=== PATIENT | female | born 1970 | race Caucasian/White ===

== ENCOUNTER → 2017-10-29 08:10 | Outpatient (CLI) | payer BC, SELFPAY ==
[2017-10-29 12:14] LABS: Anion Gap 8 (5-15); BUN 18 mg/dL (7-18); Calcium,Total 8.9 mg/dL (8.5-10.1); Chloride 101 mmol/L (98-107); Cholesterol 221 mg/dL (200); EST Glomerular Filtration Rate 71 mL/min (>60); Est Glom Filt Rate - Afr Amer 85 mL/min (>60); Glucose 76 mg/dL (74-106); High Density Lipoprotein 54 mg/dL; Potassium 3.6 mmol/L (3.5-5.1); Sodium Level 139 mmol/L (136-145); Triglycerides 146 mg/dL; Very Low Density Lipoprotein 29 mg/dL (5-40)
== END ==
PROVIDERS: Family Provider Family Medicine; PCP Family Medicine; Visit Provider Family Medicine
DX: I10 Essential (primary) hypertension (principal); E78.5 Hyperlipidemia, unspecified
CPT/HCPCS: 36415; 80048; 80061

== ENCOUNTER → 2018-08-28 16:00 | Outpatient (CLI) | payer BC, SELFPAY ==
--- NOTE | 2018-08-28 16:03 | BI_ITS ---
MAMMOGRAPHY - BILATERAL SCREENING REASON FOR EXAM: Female, 47 years old. Routine annual screening examination. PERTINENT HISTORY: Grandmother with breast cancer. TECHNIQUE: Digital bilateral breast krystin (3D mammographic acquisition) in the CC and MLO projections. 2-D mediolateral oblique (MLO) and craniocaudad (CC) views of both breasts were obtained. CAD: Full Field Digital Mammography with Computer Added Detection was performed. COMPARISON: Comparison is made with prior study dated July 04, 2017 and June 07, 2016. FINDINGS: Breast Composition: There are scattered areas of fibroglandular density. There is a 5.4 mm x 4 mm well-defined nodule in the inferior medial aspect of the left breast. Correlation with ultrasound is recommended. Stable appearance of the small bilateral axillary lymph nodes. No other significant abnormalities are identified. BI/SCREENING MAMM (CAD), BILAT IMPRESSION: 4 mm x 5.4 mm well-defined nodule in the inferior medial aspect of the left breast as described. Correlation with ultrasound is recommended. ASSESSMENT CATEGORY: BIRADS Category 0: Incomplete. Need additional imaging evaluation. A letter regarding these results will be sent to the patient by the facility within 30 days. Approximately 10% of breast cancers are not detected by mammography. A normal mammogram should not delay biopsy of a clinically suspicious abnormality. [id number] Electronically Signed: Armando Davalos MD at 8:40 EST , Service support ,
== END ==
PROVIDERS: Family Provider Family Medicine; PCP Family Medicine; Referring Provider Family Medicine; Visit Provider Family Medicine
DX: Z12.31 Encounter for screening mammogram for malignant neoplasm of breast (principal)
CPT/HCPCS: 77063; 77067

== ENCOUNTER → 2018-09-01 14:43 | Outpatient (CLI) | payer BC, SELFPAY ==
--- NOTE | 2018-09-01 14:48 | US_ITS ---
STUDY: ULTRASOUND BREAST - LEFT REASON FOR EXAM: Female, 47 years old. Abnormal screening mammogram. TECHNIQUE: Axial and longitudinal images of the LEFT breast were performed with a high resolution ultrasound transducer. COMPARISON: Comparison is made with prior mammogram dated February 25, 2019. FINDINGS: LEFT Breast: The mammographic abnormality corresponds to a 4 mm x 4 mm x 3 mm cyst at the 8:00 position of the breast at 3 cm from the nipple. US/Breast Limited Unilateral IMPRESSION: The mammographic abnormality corresponds to a 4 mm x 4 mm x 3 mm cyst at the 8:00 position of the breast at 3 cm from nipple. ASSESSMENT CATEGORY: BIRADS Category 2: Benign. A letter regarding these results will be sent to the patient by the facility within 30 days. Electronically Signed: Armando Davalos MD at 15:21 EST , Service support ,
== END ==
PROVIDERS: Family Provider Family Medicine; PCP Family Medicine; Referring Provider Family Medicine; Visit Provider Family Medicine
DX: R92.8 Other abnormal and inconclusive findings on diagnostic imaging of breast (principal)
CPT/HCPCS: 76642

== ENCOUNTER → 2018-11-17 15:33 | Outpatient (CLI) | payer BC, SELFPAY ==
[2018-11-17 17:24] LABS: Absolute Lymphocyte Count 2.53 X10^3/ul (0.83-4.51); Absolute Neutrophil Count 3.9 X10^3/uL (2.0-7.7); Basophil# 0.09 X10^3/uL; Basophil% 1.2 % (0-1); Eosinophil# 0.26 X10^3/uL; Eosinophils% 3.6 % (0-5); Hemoglobin 15.8 g/dl (12.0-15.0); Lymphocyte # 2.53 X10^3/ul (4.0); Lymphocyte % 34.8 % (19-41); Mean Corp Hgb Conc 34.3 g/gl (32-36); Mean Corpuscular Hgb 28.6 pg (27.0-32.0); Mean Corpuscular Volume 83.2 fL (81-99); Mean Platelet Vol. 9.6 fl (6.2-12.0); Monocyte# 0.45 X10^3/uL; Monocyte% 6.2 % (0-10); Neutrophil # 3.94 X10^3/uL (2.7-7.7); Neutrophil % 54.1 % (47-70); Platelet Count 411 K/mm3 (150-450); RBC Distribution Width CV 12.6 % (11.6-14.6); RBC Distribution Width SD 38.1 fl (35.1-43.9); Red Blood Count 5.53 M/mm3 (4.2-5.4); White Blood Count 7.3 K/mm3 (4.4-11.0)
[2018-11-17 17:31] LABS: POSITIVE COUNT NO; POSITIVE DIFFERENTIAL NO; POSITIVE MORPHOLOGY NO
[2018-11-17 17:47] LABS: ALB/GLOB Ratio 1.1 RATIO (0.9-2.4); AST(SGOT) 27 U/L (15-37); Alanine Aminotransfer ALT/SGPT 42 U/L (13-56); Albumin, Serum 4.1 g/dL (3.2-5.0); Alkaline Phosphatase 65 U/L (45-117); Anion Gap 8 (5-15); BUN 14 mg/dL (7-18); BUN/Creat Ratio 16.1 RATIO (10-20); Calcium,Total 8.8 mg/dL (8.5-10.1); Chloride 101 mmol/L (98-107); Cholesterol 275 mg/dL (200); Creatinine, Serum 0.87 mg/dL (0.55-1.02); EST Glomerular Filtration Rate 73 mL/min (>60); Est Glom Filt Rate - Afr Amer 88 mL/min (>60); Estradiol 31.4 pg/mL; Globulin 3.8 g/dL (2.2-4.2); Glucose 95 mg/dL (74-106); High Density Lipoprotein 51 mg/dL; Potassium 3.7 mmol/L (3.5-5.1); Protein, Total 7.9 g/dL (6.4-8.2); Sodium Level 138 mmol/L (136-145); Thyroid Stim Hormone (TSH) 1.91 uIU/mL (0.358-3.74); Triglycerides 150 mg/dL; Very Low Density Lipoprotein 30 mg/dL (5-40)
[2018-11-17 17:50] LABS: Progesterone Level 1.25 ng/mL (See Comment); Vitamin D,25 Hydroxy 51.8 ng/mL (29.95-100.01)
== END ==
PROVIDERS: Family Provider Family Medicine; PCP Family Medicine; Visit Provider Family Medicine
DX: Z00.00 Encounter for general adult medical examination without abnormal findings (principal); E55.9 Vitamin D deficiency, unspecified; N92.0 Excessive and frequent menstruation with regular cycle
CPT/HCPCS: 36415; 80053; 80061; 82306; 82670; 84144; 84443; 85025

== ENCOUNTER → 2020-05-12 16:30 | Outpatient (CLI) | payer BC, SELFPAY ==
--- NOTE | 2020-05-12 16:54 | BI_ITS ---
MAMMOGRAPHY - BILATERAL SCREENING REASON FOR EXAM: Female, 49 years old. Routine annual screening examination. PERTINENT HISTORY: Grandmother with breast cancer. TECHNIQUE: Digital bilateral breast mikayla (3D mammographic acquisition) in the CC and MLO projections. 2-D mediolateral oblique (MLO) and craniocaudad (CC) views of both breasts were obtained. CAD: Full Field Digital Mammography with Computer Added Detection was performed. COMPARISON: Comparison is made with prior study dated 08/28/2018 and 07/04/2017. FINDINGS: Breast Composition: There are scattered areas of fibroglandular density. There are no dominant masses or suspicious calcifications. Stable 5.4 mm x 4 mm well-defined nodule in the inferior medial deep portion of the left breast. Prior ultrasound demonstrated this to be a small cyst. Stable small benign appearing bilateral axillary lymph nodes. No other significant abnormalities are identified. There has been no significant change since the prior study. BI/SCREEN MAMM (CAD) W/MIKAYLA BILAT IMPRESSION: Stable bilateral screening mammogram. Yearly follow-up mammogram recommended. (A) ASSESSMENT CATEGORY: BIRADS Category 2: Benign. A letter regarding these results will be sent to the patient by the facility within 30 days. Approximately 10% of breast cancers are not detected by mammography. A normal mammogram should not delay biopsy of a clinically suspicious abnormality. [id number] Electronically Signed: Armando Davalos, at 12:57 EDT , Service support ,
== END ==
PROVIDERS: PCP Family Medicine; Referring Provider Family Medicine; Visit Provider Family Medicine
DX: Z12.31 Encounter for screening mammogram for malignant neoplasm of breast (principal)
CPT/HCPCS: 77063; 77067

== ENCOUNTER → 2020-05-30 | Outpatient (CLI) | payer BC, SELFPAY ==
[2020-06-08 09:11] LABS: HPV Reflexed? NOT INDICATED
== END | disposition home or self-care (01) ==
LOC: BFHLAB 05-31 07:57
PROVIDERS: PCP Family Medicine; Visit Provider Family Medicine
DX: Z12.4 Encounter for screening for malignant neoplasm of cervix (principal)
CPT/HCPCS: 88175; G0145

== ENCOUNTER → 2020-07-12 14:15 | Outpatient (CLI) | payer BC, SELFPAY ==
[2020-07-12 13:40] VITALS: BMI 30.5
[2020-07-12 14:42] LABS: Absolute Lymphocyte Count 2.92 X10^3/uL (0.83-4.51); Absolute Neutrophil Count 4.6 X10^3/uL (2.0-7.7); Basophil# 0.06 X10^3/uL; Basophil% 0.7 % (0-1); Eosinophil# 0.28 X10^3/uL; Eosinophils% 3.2 % (0-5); Hematocrit 45.2 % (37-47); Lymphocyte # 2.92 X10^3/ul (4.0); Lymphocyte % 33.8 % (19-41); Mean Corp Hgb Conc 33.2 g/dL (32-36); Mean Corpuscular Hgb 28.9 pg (27.0-32.0); Mean Corpuscular Volume 87.1 fL (81-99); Mean Platelet Vol. 9.5 fl (6.2-12.0); Monocyte# 0.74 X10^3/uL; Monocyte% 8.6 % (0-10); NRBC Flagged by Analyzer 0 % (0-5); Neutrophil % 53.4 % (47-70); Platelet Count 347 K/mm3 (150-450); RBC Distribution Width CV 12.2 % (11.6-14.6); RBC Distribution Width SD 38.7 fl (35.1-43.9); Red Blood Count 5.19 M/mm3 (4.2-5.4); White Blood Count 8.6 K/mm3 (4.4-11.0)
[2020-07-12 15:09] LABS: Thyroid Stim Hormone (TSH) 2.22 uIU/mL (0.358-3.74)
== END ==
PROVIDERS: PCP Family Medicine; Referring Provider Obstetrics & Gynecology; Visit Provider Obstetrics & Gynecology
DX: Z13.29 Encounter for screening for other suspected endocrine disorder (principal); N93.9 Abnormal uterine and vaginal bleeding, unspecified
CPT/HCPCS: 36415; 84443; 85025

== ENCOUNTER → 2020-07-18 15:43 | Outpatient (CLI) | payer BC, SELFPAY ==
[2020-07-12 13:40] VITALS: BMI 30.5
--- NOTE | 2020-07-18 15:51 | US_ITS ---
Abnormal uterine bleeding. Heavy clots lasting 3 weeks EXAMINATION: US Pelvis Non OB Complete With Transvaginal Imaging TECHNIQUE: Transabdominal and transvaginal (for optimal evaluation of the adnexa) pelvic ultrasound was performed. Grayscale, spectral waveform, and color flow Doppler evaluation of the adnexa. COMPARISON: August 25, 2012 FINDINGS: UTERUS: anteverted. The uterus measures 10.4 x 6.8 x 6.2 cm. Multiple areas of decreased echogenicity within the uterus the largest measuring 1.2 x 1.7 x 0.9 cm most compatible with uterine fibroids. Hypercholic nodules are seen throughout the uterus most likely representing adenomyosis Nabothian cysts are seen within the cervix The endometrial stripe measures 6.9 mm in AP diameter which is within normal limits. Increased echogenicity of the endometrium and is slightly heterogenous. No increased echogenicity RIGHT OVARY: 3.2 x 2.1 x 1.9 cm with a volume of 17.24 mL. Non-enlarged, normal echogenicity. Simple appearing cyst measuring 2 x 2 x 1.2 cm vascular flow is noted LEFT OVARY: 2.9 x 2.6 x 1.4 cm with a volume of 13.03 mL. Non-enlarged, normal echogenicity. Vascular flow is noted FREE FLUID: None. US/Pelvic (Non ) IMPRESSION: Hyperechoic heterogenous endometrium with vascularity. Endometrium is not thickened. Suspect adenomyosis Uterine fibroids Nabothian cysts in the cervix Appearing cyst right ovary at 0329 Reported and signed by: Mackenzie Manuel DO Electronically Signed: Mackenzie Manuel DO at 3:27 EST Tel , Service support ,
--- NOTE | 2020-07-18 15:51 | US_ITS ---
Abnormal uterine bleeding. Heavy clots lasting 3 weeks EXAMINATION: US Pelvis Non OB Complete With Transvaginal Imaging TECHNIQUE: Transabdominal and transvaginal (for optimal evaluation of the adnexa) pelvic ultrasound was performed. Grayscale, spectral waveform, and color flow Doppler evaluation of the adnexa. COMPARISON: August 25, 2012 FINDINGS: UTERUS: anteverted. The uterus measures 10.4 x 6.8 x 6.2 cm. Multiple areas of decreased echogenicity within the uterus the largest measuring 1.2 x 1.7 x 0.9 cm most compatible with uterine fibroids. Hypercholic nodules are seen throughout the uterus most likely representing adenomyosis Nabothian cysts are seen within the cervix The endometrial stripe measures 6.9 mm in AP diameter which is within normal limits. Increased echogenicity of the endometrium and is slightly heterogenous. No increased echogenicity RIGHT OVARY: 3.2 x 2.1 x 1.9 cm with a volume of 17.24 mL. Non-enlarged, normal echogenicity. Simple appearing cyst measuring 2 x 2 x 1.2 cm vascular flow is noted LEFT OVARY: 2.9 x 2.6 x 1.4 cm with a volume of 13.03 mL. Non-enlarged, normal echogenicity. Vascular flow is noted FREE FLUID: None. US/Transvaginal Non- IMPRESSION: Hyperechoic heterogenous endometrium with vascularity. Endometrium is not thickened. Suspect adenomyosis Uterine fibroids Nabothian cysts in the cervix Appearing cyst right ovary at 0329 Reported and signed by: Mackenzie Manuel DO Electronically Signed: Mackenzie Manuel DO at 3:27 EST Tel , Service support ,
== END ==
PROVIDERS: PCP Family Medicine; Referring Provider Obstetrics & Gynecology; Visit Provider Obstetrics & Gynecology
DX: N93.9 Abnormal uterine and vaginal bleeding, unspecified (principal); N88.8 Other specified noninflammatory disorders of cervix uteri; N83.201 Unspecified ovarian cyst, right side; D25.9 Leiomyoma of uterus, unspecified
CPT/HCPCS: 76830; 76856

== ENCOUNTER → 2020-07-27 | Outpatient (CLI) | payer BC, SELFPAY ==
--- NOTE | 2020-07-27 | EMB_PTH ---
PATIENT: KATHRYN CORTEZ LOC: [facility] U#:[id number] AGE/SX: 49/F ROOM: RE07/27/[address]: Dr. Kristie Rawls MD : 1970 BED: DIS: 07/27/2020 SPEC #: [id number] RECD: 07/27/20 16:28 STATUS: PRAVEENA REGardenia #: [id number] HUGH: 07/27/20 00:[address]: Kristie Rawls DEPT: SURGICAL PATHOLOGY RECD BY: Ferny Mondragon ENTERED: 07/28/20 07:33 SP TYPE: ENDOM BX/C CHRIS DR: Dr. Tristin Montaño DO Tissues: Endometrium, NOS Procedures: Surgery Specimen Level IV HEADER OPERATION: Endometrial biopsy PRE-OP DIAGNOSIS: Abnormal uterine bleeding TISSUE SUBMITTED: Endometrial biopsy MICROSCOPIC DIAGNOSIS Endometrium, biopsy: Transition endometrium with stromal and focal glandular breakdown. AM:chito 08/01/20 MICROSCOPIC DESCRIPTION Slides are reviewed. GROSS DESCRIPTION Received is one container labeled with the patient's name and not further designated. The specimen consists of multiple fragments of hemorrhagic soft tissue mixed with morales mucoid tissue that in aggregate measure 3 x 2.5 x 0.3 cm. The specimen is totally submitted in one cassette. / SJ:chito 07/28/20 TC:5 CPT: 41209
[2020-07-27 15:15] VITALS: BMI 30.9
== END | disposition home or self-care (01) ==
LOC: LABSPEC 16:53
PROVIDERS: PCP Family Medicine; Visit Provider Obstetrics & Gynecology
DX: N93.9 Abnormal uterine and vaginal bleeding, unspecified (principal)
CPT/HCPCS: 88305; J7030

== ENCOUNTER 2020-08-09 05:18 | Day surgery (SDC) | payer BC, SELFPAY ==
[2020-07-27 15:15] VITALS: BMI 30.9
--- NOTE | 2020-08-04 13:42 | EKG12_ITS ---
Test Reason : PREOP Blood Pressure : / mmHG Vent. Rate : 082 BPM Atrial Rate : 082 BPM P-R Int : 154 ms QRS Dur : 096 ms QT Int : 386 ms P-R-T Axes : 036 007 014 degrees QTc Int : 450 ms Normal sinus rhythm with sinus arrhythmia Normal ECG Confirmed by CHARANJIT DEVRIES, MONICA ([id number]), assignment desk editor TALA FANG ([id number]) on 08/08/2020 9:33:31 AM Referred By: Kristie Rawls Confirmed By:LOLY DONOHUE MD
[2020-08-08 15:05] LABS: Hematocrit 42.7 % (37-47); Hemoglobin 13.8 g/dL (12.0-15.0); Mean Corp Hgb Conc 32.3 g/dL (32-36); Mean Corpuscular Hgb 27.8 pg (27.0-32.0); Mean Corpuscular Volume 85.9 fL (81-99); Mean Platelet Vol. 9.4 fl (6.2-12.0); Platelet Count 350 K/mm3 (150-450); RBC Distribution Width CV 11.8 % (11.6-14.6); RBC Distribution Width SD 37.2 fl (35.1-43.9); Red Blood Count 4.97 M/mm3 (4.2-5.4); White Blood Count 8.2 K/mm3 (4.4-11.0)
[2020-08-08 15:18] LABS: Anion Gap 6 (5-15); BUN 13 mg/dL (7-18); BUN/Creat Ratio 15.4 RATIO (10-20); Calcium,Total 9.1 mg/dL (8.5-10.1); Chloride 103 mmol/L (98-107); Creatinine, Serum 0.84 mg/dL (0.55-1.02); EST Glomerular Filtration Rate 76 mL/min (>60); Est Glom Filt Rate - Afr Amer 91 mL/min (>60); Glucose 101 mg/dL (74-106); Magnesium 2.2 mg/dL (1.6-2.6); Potassium 3.5 mmol/L (3.5-5.1); Sodium Level 138 mmol/L (136-145)
[2020-08-09] VITALS (10 sets, daily range): BP systolic 125–162; BP diastolic 79–96; PULSE 51–101; RESP 16–18; TEMP 36.2–37.3; O2SAT 94–100; BMI 30.5
--- NOTE | 2020-08-09 | IMM_PTH ---
PATIENT: KATHRYN CORTEZ [place] [facility] [id number] AGE/SX: 49/F ROOM: RE08/09/[address]: Dr. Kristie Rawls MD : 1970 BED: DIS: 08/09/2020 SPEC #: [id number] RECD: 08/10/20 11:15 STATUS: PRAVEENA REQ #: [id number] HUGH: 08/09/20 00:[address]: Kristie Rawls DEPT: IMMUNOHISTOCHEMISTRY RECD BY: Veronica Mcnally ENTERED: 08/10/20 11:16 SP TYPE: IMMUNO OTHR DR: Dr. Tristin Montaño, DO Tissues: Uterus, NOS Procedures: p16 (initial) KI-67 (add) P16 (add) PHYSICIAN & INSTITUTION [place] [id number] SPECIMEN INFORMATION: Tissue Source: Uterus Clinical Info: Dysplasia, low-grade (BRIANDA 1), abnormal uterine bleeding, adenomyosis Specimen Number: [id number] #1 & 4 CPT code: 50811, 80738 x3 METHODOLOGY: Deparaffinized sections of prefer/formalin-fixed tissue or PAP/DQ stained slides are incubated with monoclonal/polyclonal antibodies/oligonucleotide probes. Localization is made via biotin free immunoperoxidase method. Appropriate controls are performed and reacted as expected. Results on target cell population are indicated in the following table: RESULTS: ANTIBODY / CLONE RESULT Block 1 P16 (E6H4) positive, focal, patchy Ki-67 (30-9) negative Block 4 P16 (E6H4) negative Ki-67 (30-9) negative These tests were developed and their performance characteristics determined by [facility]. They may not have been cleared or approved by the U.S. Food and Drug Administration. The FDA has determined that such clearance or approval is not necessary. The above immunohistochemical/dualISH markers are ordered and reviewed by the Pathologist. INTERPRETATION: Uterus, hysterectomy: Focal HPV change present. AM:chito 08/11/2020
--- NOTE | 2020-08-09 | HYST_PTH ---
PATIENT: KATHRYN CORTEZ LOC: [facility] [place] U#:[id number] AGE/SX: 49/F ROOM: RE08/09/[address]: Dr. Kristie Rawls MD : 1970 BED: DIS: 08/09/2020 SPEC #: [id number] RECD: 08/09/20 11:43 STATUS: PRAVEENA REGardenia #: [id number] HUGH: 08/09/20 00:[address]: Kristie Rawls DEPT: SURGICAL PATHOLOGY RECD BY: Ferny Mondragon ENTERED: 08/09/20 11:43 SP TYPE: HYSTERECT OTHR DR: Dr. Tristin Montaño, DO Tissues: Uterus, NOS Procedures: Surgery Specimen Level V HEADER OPERATION: ERAS, vaginal hysterectomy, salpingectomy PRE-OP DIAGNOSIS: Dysplasia of cervix, low-grade (BRIANDA 1); abnormal uterine bleeding; adenomyosis; uterine fibroid TISSUE SUBMITTED: Uterus, bilateral fallopian tubes MICROSCOPIC DIAGNOSIS Uterus, hysterectomy: Cervix - focal HPV change present. Squamous metaplasia and chronic inflammation. See comment. Endometrium - Weakly proliferative endometrium. Focal simple hyperplasia without atypia. Myometrium - adenomyosis One fallopian tube - no pathologic change. Other fallopian tube - benign paratubal cyst. AM:chito 08/10/2020 COMMENT Results from immunohistochemistry ([id number]) for surrogate HPV marker (p16) will be reported separately. Surgical margins are free of dysplasia. Case has been reviewed in consultation with Dr. Liriano who concurs with the above diagnosis. IDC:SJ MICROSCOPIC DESCRIPTION Slides are reviewed. GROSS DESCRIPTION Received in fixative is one container labeled with the patient's name and designated uterus, bilateral fallopian tubes. The specimen consists of a hysterectomy specimen consisting of uterus with cervix and detached bilateral fallopian tubes. The uterus with cervix weighs 171 gm and measures 13 x 7 x 6 cm. The serosal surface is focally ragged. The ectocervical mucosa is unremarkable. The external os is oval and patulous in contour. Sections are inked black. The endocervical canal measures 4 cm in length and the endocervical mucosa is unremarkable. No mass lesion is identified. The triangular endometrial cavity measures 5.5 cm in length and up to 3 cm in width. The endometrium is morales, glistening without any mass lesion and measures 0.1 cm in thickness. Sections of the uterine wall do not reveal any mass lesion and shows trabeculated cut surfaces suspicious for adenomyosis. The uterine wall measures up to 3 cm in thickness. The fallopian tubes are not identified as right or left and measures 6 cm in length and 0.5 cm in diameter and 4 cm in length and 0.5 cm in diameter. The fimbrial end is identified. Sections reveal unremarkable cut surfaces. A paratubal cyst is noted in one of the fallopian tube which measures 1 cm in greatest dimension and filled with clear fluid. Services Engineer sections are submitted in 18 cassettes as follows: 1-12 - cervix as LEEP conization (1-3 - 12 to 3 o'clock, 4-6 - 3 to 6 o'clock, 6-9 - 6 to 9 o'clock, 912 - 9 to 12 o'clock, 13 & 14 - anterior uterine wall, 15 & 16 - posterior uterine wall, 17 - one fallopian tube, 18 - second fallopian tube and paratubal cyst. / MAGAN:chito 08/09/2020 TC:5 CPT: 49666
[2020-08-09] MEDS: Scopolamine 1mg/72hr Patch 1 PATCH TD (06:05)
[2020-08-09] MEDS: Phenazopyridine 95 MG Tablet 190 MG PO (06:05)
[2020-08-09] MEDS: Enoxaparin 40 MG/0.4 ML Syringe SC (06:05)
[2020-08-09] MEDS: Acetaminophen 500 MG Tablet 1000 MG PO ×2 (06:05→12:18)
[2020-08-09] MEDS: Gabapentin 600 MG Tablet PO (06:06)
[2020-08-09] MEDS: Lactated Ringers 1,000 ML 40 ML IV (06:09)
[2020-08-09] MEDS: dexAMETHasone 10 MG/ML Vial 8 MG IV (06:13)
[2020-08-09 06:25] LABS: Bedside Glucose 194 mg/dL (70-110)
[2020-08-09] MEDS: Insulin Lispro 100 UNIT/ML INSULN.PEN SC (06:52)
--- NOTE | 2020-08-09 06:58 | PCM.HPOB.BLA ---
- Problem List (1) Abnormal uterine bleeding Status: Acute Comment: labs and ultrasound ordered, discussed medical vs surgical management, due to fibroids and adenomyosis recommend hysterectomy. plan TVHBS (2) Adenomyosis Status: Acute Comment: plan TVH BS (3) Dysplasia of cervix, low grade (BRIANDA 1) Status: Acute Comment: repeat pap and hpv in 07/25. (4) Uterine fibroid Status: Acute History and Physical Date of Admission: 08/09/20 Intake Vital Signs 07/27/20 Height 5 ft 4 in 07/27/20 Weight: 180 lb 07/27/20 BMI 30.9 07/27/20 BP 133/90 H Intake Visit Reasons: EMB, ablation consult per SM Chief Complaint: surgical consult AUB Biochemical Development Engineer Required: No Is patient in pain?: No Allergies No Known Allergies Allergy (Verified 07/27/20 15:15) Medications biotin 10,000 mcg capsule mcg PO 07/12/20 [History Confirmed 07/27/20] carboxymethylcellulose sodium 0.25 % eye drops in a dropperette 1 drp OPHTHALMIC BID 07/12/20 [History Confirmed 07/27/20] cholecalciferol (vitamin D3) 125 mcg (5,000 unit) capsule 125 mcg PO DAILY 07/12/20 [History Confirmed 07/27/20] magnesium 200 mg tablet 200 mg PO DAILY 07/12/20 [History Confirmed 07/27/20] potassium 99 mg tablet mg PO 07/12/20 [History Confirmed 07/27/20] triamterene 37.5 mg-hydrochlorothiazide 25 mg capsule 1 cap PO DAILY 07/12/20 [History Confirmed 07/27/20] B-complex with vitamin C 1 tab PO DAILY 07/14/20 [History Confirmed 07/27/20] ashwagandha root extract 300 mg capsule 1,200 mg PO cap 07/14/20 [History Confirmed 07/27/20] valacyclovir 1 gram tablet 1,000 mg PO BID PRN 07/14/20 [History Confirmed 07/27/20] Is last menstrual period known: No Post menopausal: No Patient : No : No PFSH Medical History Colon cancer screening (Acute) Fatigue (Acute) Hyperlipemia (Acute) Paresthesia (Acute) Vitamin D deficiency (Acute) Hypertension (Chronic) Surgical History History of tonsillectomy (Acute) Family History Mother Congestive heart failure Heart disease Hypertension Kidney disease Lupus Arthritis Sjogrens syndrome Father Hypertension Grandmother Breast cancer Aunt Ovarian cancer Social History (Updated 07/30/20 @ 05:[address] 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 she has heavy prolonged cycles with some cramping. periods can last 3 weeks. Ultrasound shows fibroids and adenomyosis. she was originally considering an ablation but with the ultrasound findings she is not the ideal candidate Female Reproductive History Cycle Length: 21-35 Bleeding Duration: 21 associated symptoms: heayv and clots, irregular Questions: Metorrhagia: Yes, Sexually active: Yes, Dyspareunia: No, PCB: No Menopausal Symptoms: No night sweats Pregancy History 2 Elective abortions Hx Para 2 Spontaneous abortions Hx # Term Pregnancies Ectopic pregnancies Hx # Pregnancies Multiple births # of living children Past Pregnancies Del. Date Name GA/Weeks Outcome Route Bth Weight Gen Labor Lgth Anesthesia Del Locatn Provider FOB Unknown 1992 Ranjith live - full term Unknown 1995 Prasad live - full term ROS Const Constitutional: Denies fatigue, night sweats, weight gain or weight loss ENT ENT: Reports system reviewed and no additional complaints, except as docu Cardio Card: Denies chest pain Resp Resp: Denies cough or dyspnea GI GI: Reports as per HPI; denies constipation, nausea or vomiting : Reports as per HPI; denies nipple discharge, vaginal discharge, vaginal dryness, vaginal odor or vaginal itching Musc Musc: Denies joint pain, back pain or muscle weakness Skin Skin/Breast: Denies hair loss, change in hair, dry skin, breast lump, breast pain, breast skin changes or nipple discharge Neuro Neuro: Reports system reviewed and no additional complaints, except as docu Psych Psych: Reports system reviewed and no additional complaints, except as docu Endo Endo: Denies cold intolerance, excessive sweating, heat intolerance or increased thirst Bob/Lymph Hematologic/Lymphatic: Denies easy bleeding, Denies easy bruising, Denies enlarged lymph nodes Exam Const General: cooperative, healthy appearing, comfortable, no acute distress, well developed Orientation: alert [facility] Head: normal to inspection, normocephalic Ears: hearing grossly normal bilaterally, external ears normal Nose: external nose normal, nares normal Face and sinus: normal facial exam Neck Neck: normal visual inspection, no lymphadenopathy Thyroid: thyroid normal Chest Chest palpation & inspection: normal inspection of the chest Resp Effort & Inspection: normal respiratory effort Auscultation: clear to auscultation bilaterally Cardio Rate: regular rate Rhythm: regular rhythm Heart Sounds: S1 normal, S2 normal GI Inspection: normal to inspection, non-distended Palpation: soft, no hepatosplenomegaly General: bladder normal to palpation External Female Exam: normal external appearance, normal appearance of the urethra Urethra: normal appearance of the urethra, normal palpation, no discharge Speculum Exam - Vagina: normal appearance of the vagina, normal vaginal discharge Speculum Exam - Cervix: normal appearance of the cervix, nontender Bimanual Exam- Vagina & Uterus: normal bimanual exam, uterine size normal, bladder normal to palpation, uterine shape normal, No cervical tenderness, uterine mobility normal, uterine consistency normal, normal cervical palpation, uterus non-tender Bimanual Exam- Adnexa, other: normal adnexae, adnexae mobile, no adnexal masses, pelvic support normal Pelvic Support: normal Musc Other: gross motor intact no deficits, full bilateral strength Skin General: no rashes or lesions noted Neuro General: alert, awake, moves all extremities, no focal motor deficits Motor: muscle tone normal throughout Extrem General: normal to inspection, no pedal edema Psych Appearance: grossly normal Mental Status: mental status grossly normal Affect: normal affect Speech and Movement: speech and movement normal Office Procedures Endometrial Biopsy Endometrial Biopsy Details: Cervix prepped with betadine and pipelle inserted into uterus without complication. Specimen obtained and sent to lab for analysis. All instruments removed from vagina without complications. Excellent hemostasis noted. Assessment & Plan Problems 1. Dysplasia of cervix, low grade (BRIANDA 1) N87.0 repeat pap and hpv in 07/25. 2. Abnormal uterine bleeding N93.9 labs and ultrasound ordered, discussed medical vs surgical management, due to fibroids and adenomyosis recommend hysterectomy. plan TVHBS 3. Adenomyosis N80.0 plan TVH BS 4. Uterine fibroid D25.9 Plan After discussing the patient's diagnosis and treatment plan options, patient wishes to proceed with surgical management. I have discussed with the patient the risks, benefits, and alternatives of the procedure which include but are not limited to risks of anesthesia, bleeding, infection, possible damage to bowel, bladder, or surrounding vasculature which could lead to additional surgery to evaluate any complications. Patient agrees to procedure and wishes to proceed. ACOG/uptodate references given for additional information regarding procedure. Orders Orders: Endometrial Biopsy 07/27/20 Coding Level of Care Code Off vis,est,level 5 Diagnoses Dysplasia of cervix, low grade (BRIANDA 1) N87.0 Abnormal uterine bleeding N93.9 Adenomyosis N80.0 Uterine fibroid D25.9 UPDATE- I have seen the patient and performed any clinically relevant updates to the history and physical exam. Kristie Rawls MD
[2020-08-09] MEDS: Cefazolin 2 GM in 0.9% Normal Saline 100 ML IV (07:24)
--- NOTE | 2020-08-09 07:31 | OP.PCM_ITS ---
Problem List (1) Abnormal uterine bleeding Status: Acute Comment: labs and ultrasound ordered, discussed medical vs surgical management, due to fibroids and adenomyosis recommend hysterectomy. plan TVHBS (2) Adenomyosis Status: Acute Comment: plan TVH BS (3) Dysplasia of cervix, low grade (BRIANDA 1) Status: Acute Comment: repeat pap and hpv in 07/25. (4) Uterine fibroid Status: Acute Report of Operation Date of Procedure: 08/09/20 Pre-Operative Diagnosis: aub adenomyosis fibroid Post-Operative Diagnosis: same Surgery/Procedure Performed:: tvhbs Description of Surgical Findings:: enlarged fibroid uterus. straight line edger: Miguel Angel Pfeiffer Type of Anesthesia:: General Special Medications: none Specimen's removed: uterus bilateral tubes Drains: carlson Estimated Blood Loss (mL): 100 Fluids Replaced: crystalloid Description of Procedure: Patient was taken to the operating room and was placed under general anesthesia was prepped and draped in normal sterile fashion in the dorsal lithotomy position. Preoperative antibiotics and SCDs and Carlson catheter was placed inside the bladder. Weighted speculum was placed in the vagina and the anterior and posterior lip of the cervix was grasped with 2 Stu clamps and circumferentially injected with dilute vasopressin. A circumferential incision was made with a scalpel and the posterior cul-de-sac was entered into sharply and a longneck speculum was placed. The anterior cul-de-sac was also dissected down and entered into sharply and the uterosacral ligaments were clamped cut and suture ligated bilaterally followed by the cardinal ligaments which were Clamped cut and suture ligated bilaterally with 0 Monocryl. The uterus serially descended and progressive bites were taken bilaterally up to the level of the utero-ovarian ligament bilaterally which was clamped transected and double ligated with 0 Monocryl suture and 0 Vicryl free tie. Bilateral fallopian tubes and ovaries were well visualized and noted be within normal limits and the bilateral fallopian tubes were transected across the base with a Janeth clamp and removed and sutured with 0 Vicryl suture. additional sutures were placed over the bilateral lateral pedicales due to the thickened parametrium. Excellent hemostasis was noted. Posterior peritoneum was reapproximated posterior vaginal cuff and bilateral uterosacral ligaments across the posterior cul-de-sac skimming along to provide apical support to the vagina. The vagina was closed with [id number] 0 Vicryl pop offs including the posterior and anterior peritoneum in the reapproximation. Excellent hemostasis was noted. All instruments removed from the vagina clear urine was noted at the end of the procedure and patient was awoken and taken recovery in stable condition. Grafts/Implants Used: none - Complications none - Admit VTE Documentation VTE Present on Admission: No VTE Mechan Device Prophylaxis: SCD's Multi Select Codes - Urinary/Genital Urinary/Genital CPT Codes: 30403 TVH+BS/O <250gr uterus
[2020-08-09] MEDS: Vasopressin 20 UNITS/ML Vial (07:42)
[2020-08-09] MEDS: Lactated Ringers 1,000 ML 70 ML IV (08:00)
[2020-08-09] MEDS: Ondansetron 4 MG/2 ML Vial IV (08:44)
[2020-08-09] MEDS: FERRIC SUBSULFATE 8 GM SOLN (08:55)
--- NOTE | 2020-08-09 09:03 | DCINST_ITS ---
Discharge Diet: No Restrictions Discharge Activity: Return to Normal Activity, May Not Drive, May Shower May resume sexual activity in: 6-8 weeks Call your doctor if your incision/area has: Continuous Slow Oozing, Sudden Increased Bleeding, Increased Pain/ Swelling, Increased Redness, Foul Smelling Discharge Call your doctor if you observe: Fever of 101 or Higher, Inability to urinate, Inability to have a bowel movement, Using more than one pad per hour Allergies/Adverse Reactions: Allergies haloperidol [From Haldol] Adverse Reaction (Unknown, Verified 08/09/20 05:35) Pt's mom had reaction/Pt does not want rx Medications to take at Discharge biotin 10,000 mcg capsule 1 tab PO DAILY 07/12/20 cholecalciferol (vitamin D3) 125 mcg (5,000 unit) capsule 125 mcg PO DAILY 07/12/20 magnesium 200 mg tablet 200 mg PO DAILY 07/12/20 potassium 99 mg tablet 1 tab PO DAILY 07/12/20 triamterene 37.5 mg-hydrochlorothiazide 25 mg capsule 1 cap PO DAILY 07/12/20 valacyclovir 1 gram tablet 1,000 mg PO BID PRN 07/14/20 Ascorbic Acid [Vitamin C] 1,000 mg PO DAILY 08/03/20 Carboxymethylcellulose Sodium [Thera Tears] 15 ml OP DAILY 08/03/20 Cyclosporine [Cequa] 1 ea OP BID 08/03/20 Dextran 70/Hypromellose [Nature's Tears Eye Drops] 15 ml OP PRN PRN 08/03/20 Fluorometholone 1 ml OP BID 08/03/20 Naproxen [Naprosyn] 250 - 500 mg PO Q8H PRN PRN #30 tab 08/09/20 Oxycodone HCl/Acetaminophen [Percocet 5-325] 1 - 2 tab PO Q6H PRN PRN 7 Days #15 tab 08/09/20 The following prescriptions were given: Naproxen [Naprosyn] 250 - 500 mg PO Q8H PRN PRN #30 tab PRN Reason: MILD PAIN Transmission Status: Received by [facility] Oxycodone HCl/Acetaminophen [Percocet 5-325] 1 - 2 tab PO Q6H PRN PRN 7 Days #15 tab PRN Reason: Pain Transmission Status: Received by [facility] Primary Care Physician: Tristin Montaño DO [Primary Care Provider] - Test Results: Test results from this visit will be discussed in further detail at your follow- up appointment, if applicable. Please Follow Up With: Kristie Rawls MD - [phone]
[2020-08-09 09:26] LABS: Bedside Glucose 152 mg/dL (70-110)
[2020-08-09] MEDS: Ketorolac 30 MG/ML Syringe IV (10:03)
[2020-08-09 13:38] LABS: Hematocrit 43.2 % (37-47); Hemoglobin 14.4 g/dL (12.0-15.0); Mean Corp Hgb Conc 33.3 g/dL (32-36); Mean Corpuscular Hgb 28.2 pg (27.0-32.0); Mean Corpuscular Volume 84.5 fL (81-99); Mean Platelet Vol. 9.3 fl (6.2-12.0); Platelet Count 374 K/mm3 (150-450); RBC Distribution Width CV 11.8 % (11.6-14.6); RBC Distribution Width SD 36.4 fl (35.1-43.9); Red Blood Count 5.11 M/mm3 (4.2-5.4); White Blood Count 16.6 K/mm3 (4.4-11.0)
== END 2020-08-09 15:13 | disposition home or self-care (01) ==
LOC: SDC 05:19 → AC 05:19
PROVIDERS: Anesthesiology; PCP Family Medicine; Referring Provider Obstetrics & Gynecology; Visit Provider Obstetrics & Gynecology
PROC: (CPT 58260; principal; 2020-08-09 07:10)
DX: N80.0 Endometriosis of uterus (principal); N87.0 Mild cervical dysplasia; D25.9 Leiomyoma of uterus, unspecified; N83.8 Other noninflammatory disorders of ovary, fallopian tube and broad ligament; I10 Essential (primary) hypertension; E78.5 Hyperlipidemia, unspecified; E55.9 Vitamin D deficiency, unspecified; Z79.899 Other long term (current) drug therapy
CPT/HCPCS: 00944; 58262; 36415; 80048; 82962; 83735; 85027; 86850; 86900; 86901; 87426; 88307; 88341; 88342; 93005; C9803; J7120; J2405

== ENCOUNTER → 2021-06-16 07:13 | Outpatient (CLI) | payer BC, SELFPAY ==
--- NOTE | 2021-06-15 16:06 | BI_ITS ---
MAMMOGRAPHY - BILATERAL SCREENING REASON FOR EXAM: Female, 50 years old. Routine annual screening examination. PERTINENT HISTORY: Grandmother with breast cancer. TECHNIQUE: Digital bilateral breast mikayla (3D mammographic acquisition) in the CC and MLO projections. 2-D mediolateral oblique (MLO) and craniocaudad (CC) views of both breasts were obtained. CAD: Full Field Digital Mammography with Computer Added Detection was performed. COMPARISON: Comparison is made with prior study 05/12/2020 and 08/28/2018. FINDINGS: Breast Composition: There are scattered areas of fibroglandular density. There are no dominant masses or suspicious calcifications. Stable benign-appearing bilateral axillary lymph nodes. No other significant abnormalities are identified. There has been no significant change since the prior study. BI/SCRN MAMM (CAD)W/MIKAYLA BILAT IMPRESSION: Stable bilateral screening mammogram. Yearly follow-up mammogram recommended. (A) ASSESSMENT CATEGORY: BIRADS Category 2: Benign. A letter regarding these results will be sent to the patient by the facility within 30 days. Approximately 10% of breast cancers are not detected by mammography. A normal mammogram should not delay biopsy of a clinically suspicious abnormality. [id number] Electronically Signed: Armando Davalos MD at 8:48 EST , Service support ,
== END ==
PROVIDERS: PCP Family Medicine; Referring Provider Family Medicine; Visit Provider Family Medicine
DX: Z12.31 Encounter for screening mammogram for malignant neoplasm of breast (principal)
CPT/HCPCS: 77063; 77067

== ENCOUNTER → 2022-06-19 | Outpatient (CLI) | payer BC, SELFPAY ==
--- NOTE | 2022-06-19 15:50 | BI_ITS ---
MAMMOGRAPHY - BILATERAL SCREENING REASON FOR EXAM: Female, 51 years old. Routine annual screening examination. PERTINENT HISTORY: Grandmother with breast cancer. TECHNIQUE: Digital bilateral breast mikayla (3D mammographic acquisition) in the CC and MLO projections. 2-D mediolateral oblique (MLO) and craniocaudad (CC) views of both breasts were obtained. CAD: Full Field Digital Mammography with Computer Added Detection was performed. COMPARISON: Comparison is made with prior study dated 06/15/2021 and 05/12/2020. FINDINGS: Breast Composition: There are scattered areas of fibroglandular density. There is a 6.2 mm x 9 mm well-defined nodule in the central medial aspect of the right breast. Correlation with ultrasound is recommended. Stable small benign-appearing bilateral axillary lymph nodes. Stable 5.4 mm x 4 mm well-defined nodule in the inferior medial deep portion of the left breast. This was demonstrated to be a small cyst on prior sonogram. No other significant abnormalities are identified. BI/SCRN MAMM (CAD)W/MIKAYLA BILAT IMPRESSION: 6.2 mm x 9 mm well-defined nodule in the central medial aspect of the right breast. Correlation with ultrasound is recommended. ASSESSMENT CATEGORY: BIRADS Category 0: Incomplete. Need additional imaging evaluation. A letter regarding these results will be sent to the patient by the facility within 30 days. Approximately 10% of breast cancers are not detected by mammography. A normal mammogram should not delay biopsy of a clinically suspicious abnormality. [id number] Electronically Signed: Armando Davalos MD at 8:25 EST ,
== END | disposition home or self-care (01) ==
LOC: OPBI 15:48
PROVIDERS: PCP Family Medicine; Visit Provider Family Medicine
DX: Z12.31 Encounter for screening mammogram for malignant neoplasm of breast (principal); Z80.3 Family history of malignant neoplasm of breast
CPT/HCPCS: 77063; 77067

== ENCOUNTER → 2022-06-21 | Outpatient (CLI) | payer BC, SELFPAY ==
--- NOTE | 2022-06-21 14:41 | US_ITS ---
STUDY: ULTRASOUND BREAST - RIGHT REASON FOR EXAM: Female, 51 years old. Abnormal screening mammogram. TECHNIQUE: Axial and longitudinal images of the RIGHT breast were performed with a high resolution ultrasound transducer. # OF IMAGES: 11 COMPARISON: Comparison is made with prior mammogram dated 06/19/2022. FINDINGS: RIGHT Breast: There is a 5 mm x 5 mm x 6 mm well-defined hypoechoic solid nodule at the 12 o''clock position of the breast at 3 cm from nipple. Biopsy recommended. US/Breast Limited Unilateral IMPRESSION: The mammographic abnormality corresponds to a 5 mm x 5 mm x 6 mm well-defined hypoechoic solid nodule at the 12 o''clock position of the breast at 3 cm from nipple. Biopsy recommended. ASSESSMENT CATEGORY: BIRADS Category 4: Suspicious - Biopsy Should Be Considered. A letter regarding these results will be sent to the patient by the facility within 30 days. Electronically Signed: Armando Davalos MD at 13:07 EST ,
== END | disposition home or self-care (01) ==
LOC: OPUS 14:39
PROVIDERS: PCP Family Medicine; Visit Provider Family Medicine
DX: R92.2 Inconclusive mammogram (principal)
CPT/HCPCS: 76642

== ENCOUNTER → 2022-06-26 | Outpatient (CLI) | payer BC, SELFPAY ==
--- NOTE | 2022-06-26 12:00 | BRBX_PTH ---
PATIENT: KATHRYN CORTEZ LOC: [facility] U#:[id number] AGE/SX: 51/F ROOM: RE06/26/[address]: Dr. Sheela Amaral MD : 1970 BED: DIS: 06/26/2022 SPEC #: [id number] RECD: 06/26/22 16:32 STATUS: PRAVEENA REGardenia #: [id number] HUGH: 06/26/22 12:[address]: Sheela Amaral DEPT: SURGICAL PATHOLOGY RECD BY: Cammy Gifford ENTERED: 06/27/22 09:24 SP TYPE: BREAST BX OTHR DR: Dr. Tristin Montaño, DO Tissues: Right breast, NOS Procedures: Surgery Specimen Level IV HEADER OPERATION: Right breast nodule biopsy PRE-OP DIAGNOSIS: Right breast nodule TISSUE SUBMITTED: Right breast nodule tissue 2 o?clock, 3 cm from nipple MICROSCOPIC DIAGNOSIS Right breast nodule tissue, 2 o?clock, 3 cm from nipple, core biopsy: Fibroadenoma. Negative for atypia or malignancy. See comment. MAGAN:chito 06/29/2022 COMMENT Correlation with clinical, radiologic findings and appropriate follow up are necessary. MICROSCOPIC DESCRIPTION Slides are reviewed. GROSS DESCRIPTION Received in fixative is one container labeled with the patient's name and designated right breast nodule breast. The specimen consists of multiple elongated fragments of morales-yellow fibroadipose tissue that in aggregate measure 2.5 x 1 x 0.1 cm. The entire specimen is submitted in one cassette. / MAGAN:chito 06/27/2022 TC:1 CPT: 01572
== END | disposition home or self-care (01) ==
PROVIDERS: PCP Family Medicine; Visit Provider Surgery
DX: N63.12 Unspecified lump in the right breast, upper inner quadrant (principal)
CPT/HCPCS: 88305

== ENCOUNTER → 2022-07-19 | Outpatient (CLI) | payer BC, SELFPAY ==
[2022-08-01 15:07] LABS: Age Gdln ACOG Testing 30-65 (.)
[2022-08-01 16:57] LABS: HPV APTIMA, High Risk Negative (Negative); HPV Reflexed? YES, CHARGE PATIENT
== END | disposition home or self-care (01) ==
LOC: LABSPEC 16:15
PROVIDERS: PCP Family Medicine; Visit Provider Family Medicine
DX: Z12.4 Encounter for screening for malignant neoplasm of cervix (principal)
CPT/HCPCS: 87624; 88175; G0145

== ENCOUNTER → 2022-10-18 | Outpatient (CLI) | payer BC, SELFPAY ==
[2022-10-18 18:01] LABS: Absolute Lymphocyte Count 3.11 X10^3/uL (0.83-4.51); Absolute Neutrophil Count 3.9 X10^3/uL (2.0-7.7); Basophil# 0.11 X10^3/uL; Basophil% 1.4 % (0-1); Eosinophil# 0.49 X10^3/uL; Hematocrit 47.7 % (37-47); Hemoglobin 15.7 g/dL (12.0-15.0); Lymphocyte # 3.11 X10^3/ul (0.83-4.51); Lymphocyte % 38.3 % (19-41); Mean Corp Hgb Conc 32.9 g/dL (32-36); Mean Corpuscular Hgb 28.4 pg (27.0-32.0); Mean Corpuscular Volume 86.4 fL (81-99); Mean Platelet Vol. 9.8 fl (6.2-12.0); Monocyte# 0.48 X10^3/uL; Monocyte% 5.9 % (0-10); NRBC Flagged by Analyzer 0 % (0-5); Platelet Count 370 K/mm3 (150-450); RBC Distribution Width CV 12.9 % (11.6-14.6); RBC Distribution Width SD 40.6 fl (35.1-43.9); Red Blood Count 5.52 M/mm3 (4.2-5.4); White Blood Count 8.1 K/mm3 (4.4-11.0)
[2022-10-18 18:17] LABS: Vitamin D,25 Hydroxy 45.1 ng/mL
[2022-10-18 18:32] LABS: ALB/GLOB Ratio 1.2 RATIO (0.9-2.4); AST(SGOT) 16 U/L (15-37); Alanine Aminotransfer ALT/SGPT 31 U/L (13-56); Albumin, Serum 4.1 g/dL (3.2-5.0); Alkaline Phosphatase 47 U/L (45-117); Anion Gap 8 (5-15); BUN 20 mg/dL (7-18); BUN/Creat Ratio 21.3 RATIO (10-20); Calcium,Total 9.2 mg/dL (8.5-10.1); Chloride 101 mmol/L (98-107); Cholesterol 293 mg/dL (200); Creatinine, Serum 0.94 mg/dL (0.55-1.02); EST Glomerular Filtration Rate 66 mL/min (>60); Est Glom Filt Rate - Afr Amer 80 mL/min (>60); Globulin 3.4 g/dL (2.2-4.2); Glucose 84 mg/dL (74-106); High Density Lipoprotein 40 mg/dL; Potassium 3.8 mmol/L (3.5-5.1); Protein, Total 7.5 g/dL (6.4-8.2); Sodium Level 138 mmol/L (136-145); Triglycerides 252 mg/dL; Very Low Density Lipoprotein 50 mg/dL (5-40)
== END | disposition home or self-care (01) ==
LOC: BFHLAB 15:46
PROVIDERS: PCP Family Medicine; Referring Provider Family Medicine; Visit Provider Family Medicine
DX: Z00.00 Encounter for general adult medical examination without abnormal findings (principal); E55.9 Vitamin D deficiency, unspecified
CPT/HCPCS: 36415; 80053; 80061; 82306; 85025

== ENCOUNTER → 2023-01-31 | Outpatient (CLI) | payer BC, SELFPAY ==
[2023-01-31 07:31] LABS: AST(SGOT) 19 U/L (15-37); Alanine Aminotransfer ALT/SGPT 35 U/L (13-56); Albumin, Serum 3.6 g/dL (3.2-5.0); Alkaline Phosphatase 51 U/L (45-117); Cholesterol 156 mg/dL (200); Globulin 3.5 g/dL (2.2-4.2); High Density Lipoprotein 39 mg/dL; Protein, Total 7.1 g/dL (6.4-8.2); Triglycerides 190 mg/dL; Very Low Density Lipoprotein 38 mg/dL (5-40)
== END | disposition home or self-care (01) ==
LOC: LAB 06:28
PROVIDERS: PCP Family Medicine; Referring Provider Family Medicine; Visit Provider Family Medicine
DX: E78.5 Hyperlipidemia, unspecified (principal)
CPT/HCPCS: 36415; 80061; 80076

== ENCOUNTER → 2023-07-02 | Outpatient (CLI) | payer BC, SELFPAY ==
--- NOTE | 2023-07-02 16:00 | BI_ITS ---
MAMMOGRAPHY - BILATERAL SCREENING REASON FOR EXAM: Female, 52 years old. Routine annual screening examination. PERTINENT HISTORY: Grandmother with breast cancer. Recent right breast biopsy for fibroadenoma. TECHNIQUE: Digital bilateral breast mikayla (3D mammographic acquisition) in the CC and MLO projections. 2-D mediolateral oblique (MLO) and craniocaudad (CC) views of both breasts were obtained. CAD: Full Field Digital Mammography with Computer Added Detection was performed. COMPARISON: Comparison is made with prior study dated June 19, 2022 and June 15, 2021. FINDINGS: Breast Composition: There are scattered areas of fibroglandular density. There are no dominant masses or suspicious calcifications. A tissue clip marker from prior biopsy is seen in the slightly medial retroareolar region of the right breast. The previously seen nodule is not seen at this time. Stable 5.4 mm x 4 mm well-defined nodule in the inferior deep medial portion of the left breast. This was demonstrated to be a cyst on prior sonogram. Stable benign-appearing lateral axillary lymph nodes. No other significant abnormalities are identified. There has been no significant change since the prior study. BI/SCRN MAMM (CAD)W/MIKAYLA BILAT IMPRESSION: Stable bilateral screening mammogram. Yearly follow-up mammogram recommended. (A) ASSESSMENT CATEGORY: BIRADS Category 2: Benign. A letter regarding these results will be sent to the patient by the facility within 30 days. Approximately 10% of breast cancers are not detected by mammography. A normal mammogram should not delay biopsy of a clinically suspicious abnormality. [id number] Electronically Signed: Armando Davalos MD at 9:20 EST ,
== END | disposition home or self-care (01) ==
LOC: OPBI 16:00
PROVIDERS: PCP Family Medicine; Referring Provider Surgery; Visit Provider Surgery
DX: Z12.31 Encounter for screening mammogram for malignant neoplasm of breast (principal)
CPT/HCPCS: 77063; 77067

== ENCOUNTER → 2023-10-28 | Outpatient (CLI) | payer BC, SELFPAY ==
[2023-10-28 08:31] LABS: Absolute Lymphocyte Count 2.89 X10^3/uL (0.83-4.51); Absolute Neutrophil Count 5.1 X10^3/uL (2.0-7.7); Basophil# 0.13 X10^3/uL; Basophil% 1.4 % (0-1); Eosinophils% 2.2 % (0-5); Hematocrit 47.6 % (37-47); Hemoglobin 15.5 g/dL (12.0-15.0); Lymphocyte # 2.89 X10^3/ul (0.83-4.51); Lymphocyte % 31.7 % (19-41); Mean Corp Hgb Conc 32.6 g/dL (32-36); Mean Corpuscular Hgb 28.2 pg (27.0-32.0); Mean Corpuscular Volume 86.5 fL (81-99); Mean Platelet Vol. 9.7 fl (6.2-12.0); Monocyte# 0.73 X10^3/uL; NRBC Flagged by Analyzer 0 % (0-5); Neutrophil # 5.13 X10^3/uL (2.7-7.7); Neutrophil % 56.4 % (47-70); Platelet Count 357 K/mm3 (150-450); RBC Distribution Width CV 12.2 % (11.6-14.6); RBC Distribution Width SD 38.8 fl (35.1-43.9); White Blood Count 9.1 K/mm3 (4.4-11.0)
[2023-10-28 09:05] LABS: Vitamin D,25 Hydroxy 52.4 ng/mL
[2023-10-28 09:36] LABS: ALB/GLOB Ratio 1.2 RATIO (0.9-2.4); AST(SGOT) 23 U/L (15-37); Alanine Aminotransfer ALT/SGPT 31 U/L (13-56); Albumin, Serum 4.3 g/dL (3.2-5.0); Alkaline Phosphatase 49 U/L (45-117); Anion Gap 8 (5-15); BUN 18 mg/dL (7-18); BUN/Creat Ratio 15.7 RATIO (10-20); Calcium,Total 9.7 mg/dL (8.5-10.1); Chloride 103 mmol/L (98-107); Cholesterol 255 mg/dL (200); Creatinine, Serum 1.15 mg/dL (0.55-1.02); EST Glomerular Filtration Rate 52 mL/min (>60); Est Glom Filt Rate - Afr Amer 63 mL/min (>60); Globulin 3.5 g/dL (2.2-4.2); Glucose 113 mg/dL (74-106); High Density Lipoprotein 41 mg/dL; Potassium 3.2 mmol/L (3.5-5.1); Protein, Total 7.8 g/dL (6.4-8.2); Sodium Level 140 mmol/L (136-145); Thyroid Stim Hormone (TSH) 2.94 uIU/mL (0.358-3.74); Triglycerides 173 mg/dL; Very Low Density Lipoprotein 35 mg/dL (5-40)
== END | disposition home or self-care (01) ==
LOC: LAB 07:40
PROVIDERS: PCP Family Medicine; Referring Provider Family Medicine; Visit Provider Family Medicine
DX: Z00.00 Encounter for general adult medical examination without abnormal findings (principal); E55.9 Vitamin D deficiency, unspecified
CPT/HCPCS: 36415; 80053; 80061; 82306; 84443; 85025

== ENCOUNTER → 2024-07-06 | Outpatient (CLI) | payer BC, SELFPAY ==
--- NOTE | 2024-07-06 16:01 | BI_ITS ---
MAMMOGRAPHY - BILATERAL SCREENING REASON FOR EXAM: Female, 53 years old. Routine annual screening examination. PERTINENT HISTORY: Grandmother with breast cancer. Prior right ultrasound-guided breast biopsy. TECHNIQUE: Digital bilateral breast mikayla (3D mammographic acquisition) in the CC and MLO projections. 2-D mediolateral oblique (MLO) and craniocaudad (CC) views of both breasts were obtained. CAD: Full Field Digital Mammography with Computer Added Detection was performed. COMPARISON: Comparison is made with prior study dated July 02, 2023 and June 19, 2022. FINDINGS: Breast Composition: There are scattered areas of fibroglandular density. There are no dominant masses or suspicious calcifications. A tissue clip marker is seen in the slightly medial retroareolar region of the right breast. Stable 5 mm x 4 mm well-defined nodule in the inferior deep medial portion of the left breast. This was demonstrated to be a cyst on prior sonogram. Stable benign-appearing bilateral axillary lymph nodes. No other significant abnormalities are identified. There has been no significant change since the prior study. BI/SCRN MAMM (CAD)W/MIKAYLA BILAT IMPRESSION: Stable bilateral screening mammogram. Yearly follow-up mammogram recommended. (A) ASSESSMENT CATEGORY: BIRADS Category 2: Benign. A letter regarding these results will be sent to the patient by the facility within 30 days. Approximately 10% of breast cancers are not detected by mammography. A normal mammogram should not delay biopsy of a clinically suspicious abnormality. [id number] Electronically Signed: Armando Davalos MD at 8:28 EST ,
== END | disposition home or self-care (01) ==
LOC: OPBI 15:59
PROVIDERS: PCP Family Medicine; Referring Provider Family Medicine; Visit Provider Family Medicine
DX: Z12.31 Encounter for screening mammogram for malignant neoplasm of breast (principal)
CPT/HCPCS: 77063; 77067

== ENCOUNTER → 2024-11-27 | Outpatient (CLI) | payer BC, SELFPAY ==
[2024-11-27 18:03] LABS: Estradiol 34.9 pg/mL
[2024-11-27 18:44] LABS: Hemoglobin A1c 6.1 % (<=5.6)
[2024-11-30 15:08] LABS: Thyroglobulin Antibody < 1.0 IU/mL (0.0-0.9); Thyroid Peroxidase AB 12 IU/mL (0-34)
== END | disposition home or self-care (01) ==
LOC: LAB 16:52
PROVIDERS: PCP Family Medicine; Referring Provider Family Medicine; Visit Provider Family Medicine
DX: E28.0 Estrogen excess (principal); R73.01 Impaired fasting glucose; R79.89 Other specified abnormal findings of blood chemistry
CPT/HCPCS: 36415; 82670; 83036; 84439; 84443; 86376; 86800

== ENCOUNTER → 2025-03-05 | Outpatient (CLI) | payer BC, SELFPAY ==
--- NOTE | 2025-03-05 11:30 | ECHOD_ITS ---
Reason For Study Reason For Study: CHEST PAIN Procedure This was a 2D Doppler, Color Flow transthoracic echocardiogram. Exam performed in department. Left Ventricle Normal LV size. Left ventricular systolic function is normal. The left ventricular ejection fraction is 70 %. Stage 1 diastolic dysfunction. No regional wall motion abnormalities noted. Right Ventricle Normal RV size. Normal systolic function. Atria Normal left atrium. Normal right atrium. Mitral Valve Normal mitral valve. Tricuspid Valve Normal tricuspid valve. Mild tricuspid valve insufficiency. Pulmonary artery systolic pressure is 20 mmHg. Aortic Valve Trisinus/trileaflet aortic valve. Pulmonic Valve Normal pulmonic valve. Great Vessels Normal aortic root. The pulmonary artery is normal size. Inferior vena cava collapse with respiration. Pericardium/Pleural No pericardial effusion. MMode/2D Measurements & Calculations LVIDd: 3.6 cm IVSd: 0.89 cm LVOT diam: 2.0 cm LVIDs: 2.4 cm LVPWd: 1.3 cm LVOT area: 3.2 cm2 FS: 33.2 % Ao root diam: 3.2 cm LAV(MOD-bp): 24.9 ml LVAd ap4: 19.8 cm2 LAV(MOD-bp) Indexed: 13.2 ml/m2 LVLd ap4: 7.4 cm LAV(MOD-sp2): 24.9 ml EDV(MOD-sp4): 43.1 ml LAV(MOD-sp4): 23.1 ml EDV(sp4-el): 44.7 ml LVAs ap4: 9.7 cm2 LVLs ap4: 6.1 cm ESV(MOD-sp4): 14.0 ml ESV(sp4-el): 13.1 ml EF(MOD-sp4): 67.5 % EF(sp4-el): 70.6 % SV(MOD-sp4): 29.1 ml SV(sp4-el): 31.6 ml LA A4 area: 11.6 cm2 SI(MOD-sp4): 15.4 ml/m2 LA dimension(2D): 3.1 cm RA A4 area: 11.5 cm2 Time Measurements MV dec time: 0.11 sec Doppler Measurements & Calculations MV E max siddhartha: 71.8 cm/sec Lat Peak E' Siddhartha: 8.5 cm/sec Med Peak E' Siddhartha: 7.7 cm/sec MV A max siddhartha: 97.5 cm/sec E/E' lat: 8.5 E/E' med: 9.3 MV E/A: 0.74 MV V2 max: 106.1 cm/sec Ao V2 max: 102.6 cm/sec MV max P.5 mmHg MV dec slope: 633.8 cm/sec2 Ao max P.2 mmHg MV V2 mean: 71.8 cm/sec Ao V2 mean: 72.6 cm/sec MV mean P.4 mmHg Ao mean P.4 mmHg MV V2 VTI: 17.0 cm Ao V2 VTI: 21.1 cm AV (velocity ratio): 0.81 MVA(VTI): 3.2 cm2 NEIDA(I,D): 2.6 cm2 NEIDA(V,D): 2.7 cm2 LV V1 max: 87.9 cm/sec SV(LVOT): 54.1 ml PA V2 max: 71.7 cm/sec LV V1 max P.1 mmHg PA V2 mean: 52.4 cm/sec LV V1 mean P.8 mmHg LV V1 mean: 62.9 cm/sec LV V1 VTI: 17.1 cm TR max siddhartha: 208.5 cm/sec TR max P.4 mmHg ECHO/Echo Complete Interpretation Summary Normal LV size. Left ventricular systolic function is normal. The left ventricular ejection fraction is 70 %. Stage 1 diastolic dysfunction. Mild tricuspid valve insufficiency. Ordering Physician: Ester Sadler Referring Physician: Ester Sadler Performed By: Widder, Shereen, RCS
--- NOTE | 2025-03-05 18:01 | STRESSREP ---
Stress Test Report Exercise stress test. 54-year-old lady with a history of chest pain Stress protocol: Resting EKG demonstrates normal sinus rhythm with a rate of 82 bpm resting blood pressure is 144/98 mmHg. The patient exercised according to the regular Valdo protocol for a total duration of 6 minutes attaining a maximum heart rate of 153 bpm which was 93% of maximum predicted heart rate; the maximum workload was 7 METS metabolic equivalents. At rest there were no ST or T wave changes noted to suggest ischemia and at peak exercise upsloping ST changes only were noted which did not meet the criteria for ischemia. No clinical angina was noted the test was terminated due to the target heart rate being achieved/fatigue. The peak blood pressure was 220/100 mmHg. this was a hypertensive response to exercise rate-pressure product was 33,600. Conclusion: Exercise stress test with no EKG criteria for ischemia at a moderate workload. Hypertensive response to exercise. No clinical angina noted.
--- OUTSIDE RECORDS SUMMARY | 2025-03-05 18:24 | XMS RPT_ITS | CCD ---
Author Organization [facility] Care Team Providers Care Signal Person Name Role Phone Mariana Montaño DO Primary Care Provider Dr. Mariana Montaño Primary Care Provider [phone] Dr. Mariana Montaño Referring Provider CHARLOTTE Landry Attending Provider Dr. Sheela Amaral Attending Provider Dr. Mariana Montaño Primary Care Provider [phone] Dr. Mariana Montaño Referring Provider Dr. Sheela Amaral Attending Provider [phone] Dr. Mariana Montaño DO Primary Care Provider Dr. Mariana Montaño DO Attending Provider Dr. Mariana Montaño DO Referring Provider MARIANA MONTAÑO A Primary Care Unavailable DANYEL, MARIANA A Consulting Unavailable DANYEL, MARIANA A Attending Unavailable DANYEL, MARIANA A Admitting Unavailable PROVIDER, UNKNOWN Consulting Unavailable DANYEL, MARIANA A Primary Care Unavailable DANYEL, MARIANA A Consulting Unavailable DANYEL, MARIANA A Attending Unavailable DANYEL, MARIANA A Admitting Unavailable PROVIDER, UNKNOWN Consulting Unavailable DANYEL, MARIANA A Primary Care Unavailable DANYEL, MARIANA A Consulting Unavailable DANYEL, MARIANA A Attending Unavailable DANYEL, MARIANA A Admitting Unavailable PROVIDER, UNKNOWN Consulting Unavailable DANYEL, MARIANA A Primary Care Unavailable DANYEL, MARIANA A Consulting Unavailable DANYEL, MARIANA A Attending Unavailable DANYEL, MARIANA A Admitting Unavailable PROVIDER, UNKNOWN Consulting Unavailable Danyel, Mariana Referring Unavailable Danyel, Mariana Attending Unavailable Mariana Montaño Primary Care Unavailable Ester Sadler Referring Unavailable Ester Sadler Attending Unavailable Mariana Montaño Primary Care Unavailable Mariana Montaño Referring Unavailable FriendDamon Attending Unavailable Mariana Montaño Primary Care Unavailable Mariana Montaño Referring Unavailable Mariana Montaño Attending Unavailable Mariana Montaño Primary Care Unavailable Allergies Allergy Classification Reported Allergen(s) Allergy Type Date of Onset Reaction(s) Facility (9 sources) Haloperidol Drug Allergy 2 Pt's mom had reaction/Pt does not want rx [facility] (1 source) Haloperidol Drug Allergy 5 [facility] Repository Medications Current Medications Medication Drug Class(es) Dates Sig (Normalized) Sig (Original) biotin 10 mg oral capsule (18 sources) Start: 06-26-2022 take 1 capsule by mouth once daily Biotin 10,000 mcg capsule Active 09897 ug PO DAILY June 26, 2022 1:00am Start: 07-12-2020 End: 06-19-2022 Biotin 10,000 mcg capsule Discontinued 1 {tbl} PO DAILY July 12, 2020 1:00am June 19, 2022 4:22pm Start: 07-12-2020 End: 06-19-2022 take 1 tablet by mouth once daily Biotin Discontinued 1 TABLET PO DAILY July 12, 2020 1:00am June 19, 2022 4:22pm cholecalciferol 0.125 mg oral capsule (11 sources) Vitamin D Start: 07-12-2020 take 1 capsule by mouth once daily Cholecalciferol (Vitamin D3) 125 mcg (5,000 unit) capsule Active 125 ug PO DAILY July 12, 2020 1:00am take 1 tablet by mouth once zita y cholecalciferol (VITAMIN D-3) 5,000 unit tab Take 5,000 Units by mouth once daily. 0 Active Comment on above: Take 5,000 Units by mouth once daily. hydroCHLOROthiazide 25 mg / triamterene 37.5 mg oral capsule (11 sources) Potassium-sparing Diuretic, Thiazide Diuretic Start: 07-12-2020 Triamterene-Hydrochl orothiazid 37.5-25 mg capsule Active 1 NMA PO DAILY July 12, 2020 1:00am Start: 07-12-2020 take 1 capsule by mouth once daily Triamterene-Hydrochlorothiazid Active 1 CAP PO DAILY July 12, 2020 1:00am Start: 08-07-2018 triamterene-hy drochlorothiazide (MAXZIDE-25) 37.5-25 mg per tablet Magnesium (11 sources) Start: 07-12-2020 take 1 tablet by evelyn th once daily Magnesium 200 mg tablet Active 200 mg PO DAILY July 12, 2020 1:00am Start: 07-12-2020 take 200 mg by mouth once zita y Magnesium Active 200 MG PO DAILY July 12, 2020 1:00am Start: 07-12-2020 take 200 mg by mouth once zita y Magnesium Active 200 MG PO DAILY July 12, 2020 12:00am Magnesium 200 mg tab Take by mouth. 0 Active Comment on above: Take by mouth. potassium gluconate 2.5 meq oral tablet (9 sources) Start: 07-12-2020 Potassium 99 mg tablet Active 1 {tbl} PO DAILY July 12, 2020 1:00am valACYclovir 1000 mg oral tablet (9 sources) Herpesvirus Nucleoside Analog DNA Polymerase Inhibitor, Herpes Simplex Virus Nucleoside Analog DNA Polymerase Inhibitor, Herpes Zoster Virus Nucleoside Analog DNA Polymerase Inhibitor Start: 07-14-2020 Valacyclovir 1 gram tablet Active 1000 mg PO TWICE A DAY as needed for COLD SORES July 14, 2020 1:00am Start: 07-14-2020 take 1000 mg by mout h twice daily Valacyclovir Active 1000 MG PO TWICE A DAY July 14, 2020 1:00am Completed/Discontinued Medications Medication Drug Class(es) Dates Sig (Normalized) Sig (Original) acetaminophen 325 mg / oxyCODONE hydrochloride 5 mg oral tablet (9 sources) Opioid Agonist Start: 08-09-2020 End: 08-16-2020 Oxycodone-Acetamino phen 1 TABLET tablet Discontinued 1 - 2 {tbl} PO EVERY 6 HOURS NEEDED as needed for Pain 15 August 09, 2020 August 15, 2020 1:00am August 16, 2020 1:02am Start: 08-09-2020 End: 08-16-2020 take 1 tablet by mouth every six hours as needed Oxycodone-Acetaminophen Discontinued 1 - 2 TABLET PO EVERY 6 HOURS NEEDED 15 August 09, 2020 August 16, 2020 1:02am ascorbic acid 1000 mg oral tablet (9 sources) Vitamin C Start: 08-03-2020 End: 06-19-2022 take 1 tablet by mouth once daily Ascorbic Acid (Vitamin C) 1,000 MG tablet Discontinued 1000 mg PO DAILY August 03, 2020 1:00am June 19, 2022 4:22pm carboxymethylcellulose sodium 2.5 mg/ml ophthalmic solution (9 sources) Start: 08-03-2020 End: 06-19-2022 Carboxymethylcellulose Sodium 15 ML drops Discontinued 15 mL OP DAILY August 03, 2020 1:00am June 19, 2022 4:22pm cycloSPORINE 0.9 mg/ml ophthalmic solution (9 sources) Calcineurin Inhibitor Immunosuppressant Start: 08-03-2020 End: 06-19-2022 Cyclosporine 1 EACH dropperette Discontinued 1 NMA OP TWICE A DAY August 03, 2020 1:00am June 19, 2022 4:22pm Desogestrel / Ethinyl Estradiol (2 sources) Progestin, Estrogen Start: 11-15-2011 take 1 tablet by mouth once daily Desogestrel-Ethinyl Estradiol (DESOGEN) 0.15-30 mg-mcg ORAL per tablet Indications: Contraception Take 1 tablet by mouth once daily. 28 tablet 12 11/15/2011 Active Comment on above: Take 1 tablet by [facility] once daily. dextran 70 1 mg/ml / hypromellose 3 mg/ml ophthalmic solution (9 sources) Plasma Volume Beauty Parlor Cleaner Start: 08-03-2020 End: 06-19-2022 Dextran 70-Hypromellose 15 ML drops Discontinued 15 mL OP NEEDED as needed for EYE DRYNESS August 03, 2020 1:00am June 19, 2022 4:23pm fluorometholone 1 mg/ml ophthalmic suspension (9 sources) Corticosteroid Start: 08-03-2020 End: 06-19-2022 Fluorometholone 5 ML drops,suspension Discontinued 1 mL OP TWICE A DAY August 03, 2020 1:00am June 19, 2022 4:23pm loteprednol etabonate 5 mg/ml ophthalmic suspension (2 sources) Start: 10-06-2018 take 1 drop(s) into the eye(s) three times daily loteprednol etabonate (LOTEMAX) 0.5 % ophthalmic suspension Use 1 Drop in the right eye three times daily. 1 Bottle 2 10/06/2018 Active Comment on above: Use 1 Drop in the ri ght eye three times daily. methylPREDNISolone 4 mg oral tablet (9 sources) Corticosteroid Start: 06-19-2022 End: 06-25-2022 take 1 tablet by mouth once Methylprednisolone (Medrol (Ancelmo)) 4 mg tablets,dose pack Discontinued 4 mg PO per package directions 23 01June 19, 2022 1:00am June 24, 2022 1:00am June 25, 2022 1:03am naproxen 250 mg oral tablet (9 sources) Nonsteroidal Anti-inflammatory Drug Start: 08-09-2020 End: 08-25-2020 take 250-500 mg by mouth every eight hours as needed for pain Naproxen 250 MG tablet Discontinued 250 - 500 mg PO EVERY 8 HOURS NEEDED as needed for MILD PAIN August 09, 2020 1:00am August 25, 2020 4:44pm potassium citrate 99 mg oral tablet (2 sources) potassium citrat e 99 mg cap Take by mouth. 0 Active Comment on above: Take by mouth. tetrahydrozoline/polyeth yl gly (EYE DROPS OPHTHALMIC) (2 sources) take 1 drop(s) into the eye(s) twice daily tetrahydrozoline/polyet hyl gly (EYE DROPS OPHTHALMIC) Use in eyes twice daily. Thera Tears 0 Active Comment on above: Use in eyes twice da hever. Thera Tears Problems Active Problems Problem Classification Problem Date Documented Date Episodic/Chronic Acute bronchitis (13 sources) Acute bronchitis; Translations: [Acute bronchitis, unspecified] Episodic Benign neoplasm of uterus (9 sources) Uterine leiomyoma; Translations: [Leiomyoma of uterus, unspecified] 08-09-2020 Episodic Endometriosis (9 sources) Uterine adenomyosis; Translations: [Adenomyosis of uterus] 08-09-2020 Chronic Comment on above: plan TVH BS Nonmalignant breast conditions (14 sources) Breast lump; Translations: [Unspecified lump in the right breast, unspecified quadrant] Episodic Nonspecific chest pain (1 source) Chest pain, unspecified; Translations: [Chest pain, unspecified] Onset: 02-24-2025 Episodic Other endocrine disorders (1 source) Estrogen excess; Translations: [Estrogen excess] Onset: 12-02-2024 Chronic Other female genital disorders (9 sources) Abnormal uterine bleeding; Translations: [Abnormal uterine and vaginal bleeding, unspecified] 08-09-2020 Chronic Comment on above: labs and ultrasound ordered, discussed medical vs surgical management, due to fibroids and adenomyosis recommend hysterectomy. plan TVHBS Other female genital disorders (9 sources) Cervical intraepithelial neoplasia grade 1; Translations: [Mild cervical dysplasia] 08-09-2020 Episodic Comment on above: repeat pap and hpv i n 07/25. Viral infection (1 source) Viral disease; Translations: [Viral infection, unspecified] Episodic Past or Other Problems Problem Classification Problem Date Documented Da te Episodic/Chronic Blindness and vision defects (6 sources) Disorder of refraction; Translations: [Unspecified disorder of refraction] Onset: 04-08-2018 10-06-2018 Episodic Other screening for suspected conditions (not mental disorders or infectious disease) (1 source) Encounter for screening mammogram for malignant neoplasm of breast; Translations: [Encounter for screening mammogram for malignant neoplasm of breast] Onset: 08-06-2024 Episodic Results Test Name Value Interpretation Reference Range Facility CBC + DIFFon 02-04-2025 Baso # 0.04 x10EE3/UL Normal 0.00 - 0.10 [facility] Comment on above: Performed By: #### 2 [id number] #### [facility],[address] [place] [address] 36386 Basophils/100 WBC (Bld) 0.4 % Normal 0.0 - 2.0 [facility] Comment on above: Performed By: #### 2 01662 #### [facility],[address] [place] [address] 26386 CBC + DIFF Normal [facility] Comment on above: Result Comment: CBC- COMPLETE BLOOD COUNT Performed By: #### 2 [id number] #### [facility],[address] [place] [address] 56100 EO # 0.45 x10EE3/UL Normal 0.00 - 0.50 [facility] Comment on above: Performed By: #### 2 23194 #### [facility],[address] [place] [address] 57286 Eosinophils/100 WBC (Bld) 5.2 % Normal 0.0 - 7.0 [facility] Comment on above: Performed By: #### 2 33236 #### [facility],[address] [place] [address] 78075 Erythrocyte distribution width (RBC) [Ratio] 12.8 % Normal 12.0 - 15.6 [facility] Comment on above: Performed By: #### 2 [id number] #### [facility],[address] [place] [address] Hematocrit (Bld) [Volume fraction] 46.5 % High 34.0 - 46.0 [facility] Comment on above: Performed By: #### 2 08919 #### [facility],[address] [place] [address] Hemoglobin (Bld) [Mass/Vol] 16.1 g/dL High 12.0 - 16.0 [facility] Comment on above: Performed By: #### 2 32684 #### [facility],[address] [place] [address] Lymph # 3.92 x10EE3/UL High 0.80 - 2.80 [facility] Comment on above: Performed By: #### 2 81660 #### [facility],[address] [place], [place] [id number] Lymphocytes/100 WBC (Bld) 45.2 % High 20.0 - 45.0 [facility] Comment on above: Performed By: #### 2 86212 #### [facility],[address] [place], [place] [id number] MANUAL DIFF N/A Normal [facility] Comment on above: Performed By: #### 2 24204 #### [facility],[address] [place], [place] [id number] MCH (RBC) [Entitic mass] 29 pg Normal 27 - 33 [facility] Comment on above: Performed By: #### 2 53658 #### [place] [id number] MCHC 35 X10 3 Normal 32 - 36 [facility] Comment on above: Performed By: #### 2 29185 #### [facility],[address] [place] [address] 67277 MCV (RBC) [Entitic vol] 84 fL Normal 80 - 99 [facility] Comment on above: Performed By: #### 2 76747 #### [facility],[address] [place] [address] 89347 Shannon # 0.61 x10EE3/UL Normal 0.20 - 1.00 [facility] Comment on above: Performed By: #### 2 09350 #### [facility],[address] [place] [address] 53454 MONOS % 7.1 % Normal 0.0 - 10.0 [facility] Comment on above: Performed By: #### 2 93968 #### [facility],[address] [place] [address] 82463 Morphology Kvgn (Bld) [Interp] N/A Normal [facility] Comment on above: Performed By: #### 2 36631 #### [facility],[address] [place] [address] 43822 Neut # 3.65 x10EE3/UL Normal 1.50 - 7.10 [facility] Comment on above: Performed By: #### 2 73695 #### [facility],[address] [place] [address] 55894 Neutrophils/100 WBC (Bld) 42.1 % Low 46.0 - 76.0 [facility] Comment on above: Performed By: #### 2 17429 #### [facility],[address] [place] [address] 32175 PLATELET 318 x10EE3/UL Normal 150 - 450 [facility] Comment on above: Performed By: #### 2 54338 #### [facility],[address] [place] [address] 03362 Platelet mean volume (Bld) [Entitic vol] 7.4 fL Normal 6.6 - 10.5 [facility] Comment on above: Result Comment: AUTO MATED DIFFERENTIAL Performed By: #### 2 45576 #### [facility],[address] [place] [address] 31789 RBC 5.54 x 10EE6/UL High 4.10 - 5.30 [facility] Comment on above: Performed By: #### 2 24682 #### [facility],[address] [place] [address] 67054 WBC 8.7 x 10EE3/UL Normal 4.5 - 10.8 [facility] Comment on above: Performed By: #### 2 09126 #### [facility],[address] [place] [address] 51002 D-DIMER, QUANTITATIVEon 07-0 3-202 D-DIMER QUANT <200 Normal 0 - 230 [facility] Comment on above: Performed By: #### 2 48057 #### [facility],[address] [place] [address] 16502 D-DIMER, QUANTITATIVE Normal [facility] Comment on above: Result Comment: PILAR T D-DIMER Performed By: #### 2 56915 #### [facility],[address] [place] [address] 78342 TROPONINon 02-04-2025 HS TROPONIN 4.1 pg/mL Normal 0.0 - 51.4 [facility] Comment on above: Performed By: #### 2 98943 #### [facility],[address] [place] [address] 42946 Thyroid Antibodieson 025 TG AB < 1.0 Normal 0.0-0.9 [facility] Comment on above: Result Comment: Thyr oglobulin Antibody measured by [employer] Method[employer] It should be noted that the presence of thyroglobulin antibodies may not be pathogenic nor diagnostic, especially at very low levels. The assay geriatric social work professor has found that four percent of individuals without evidence of thyroid disease or autoimmunity will have positive TgAb levels up to 4 IU/mL. Performed at: [facility] [id number] Cigarette Package Examiner: Joseph Pettit PhD, Phone: [phone] Performed By: #### L [id number], L501.9520, L506.0400, L3300.1750, L501.9985 #### [facility] [address] [place], [address] THYR PEROX AB 12 IU/mL Normal 0-34 [facility] Comment on above: Performed By: #### L [id number], L501.9520, L506.0400, L3300.1750, [id number] #### [facility] [address] [place], [place], [id number] E2 post dose follitropin [Ma ss/Vol]Ordered By: Mariana Montaño on 11-27-2024 Estradiol (E2) Level 34.9 pg/mL [facility] Comment on above: FEMALES ADULT FEMALE : Premenopausal: 15-350 pg/mL(E2 levels vary widely through the menstrual cycle) Postmenopausal: <10 pg/mL CISCO STAGES MEAN AGE REFERENCE RANGES Stage I(>14 days and prepubertal) 7.1 years Undetectable-20 pg/mLL Stage II 10.5 years Undetectable-24 pg/mL Stage III 11.6 years Undetectable-60 pg/mL Stage IV 12.3 years 15-85 pg/mL Stage V 14.5 years 15-350 pg/mL Puberty onset (transition from Cisco stage I to Cisco stage II) occurs for girls at a median age of 10.5 (/- 2) years. There is evidence that it may occur up to 1 year earlier in obese girls and in girls.Progression through Cisco stages is variable. Cisco stage V (adult) should be reached by age 18. Estradiolon 11-27-2024 ESTRADIOL 34.9 pg/mL Normal [facility] Comment on above: Result Comment: FEMA LES ADULT FEMALE: Premenopausal: 15-350 pg/mL(E2 levels vary widely through the menstrual cycle) Postmenopausal: <10 pg/mL CISCO STAGES MEAN AGE REFERENCE RANGES Stage I(>14 days and prepubertal) 7.1 years Undetectable-20 pg/mLL Stage II 10.5 years Undetectable-24 pg/mL Stage III 11.6 years Undetectable-60 pg/mL Stage IV 12.3 years 15-85 pg/mL Stage V 14.5 years 15-350 pg/mL Puberty onset (transition from Cisco stage I to Cisco stage II) occurs for girls at a median age of 10.5 (/- 2) years. There is evidence that it may occur up to 1 year earlier in obese girls and in girls. Progression through Cisco stages is variable. Cisco stage V (adult) should be reached by age 18. Performed By: #### L [id number], L501.9520, L506.0400, L3300.1750, L501.9985 #### [facility] [address] [place], [address] Hemoglobin A1con 11-27-2024 HbA1c (Bld) [Mass fraction] 6.1 % High <=5.6 [facility] Comment on above: Result Comment: Norm al < 5.7 % Prediabetic 5.7 - 6.4 % Diabetic >or= 6.5 % Please note range changes. Performed By: #### L [id number], L501.9520, L506.0400, L3300.1750, L501.9985 #### [facility] [address] [place] [place], [address] Hemoglobin A1c percentageOrd ered By: Mariana Montaño on 11-27-2024 HbA1c (Bld) [Mass fraction] 6.1 % High <5.7 [facility] Comment on above: Normal < 5.7 % Predi abetic 5.7 - 6.4 % Diabetic >or= 6.5 % Please note range changes. T4 Free Directon 11-27-2024 T4 FREE DIRECT 1.00 ng/dL Normal 0.76-1.46 [facility] Comment on above: Performed By: #### L [id number], [id number], L506.0400, L3300.1750, L501.9985 #### [facility] [address] [place], [address] T4 freeOrdered By: Mariana Eyal cruzlinnea on 11-27-2024 Free T4 [Mass/Vol] 1.00 ng/dL 0.76-1.46 [facility] TPO Ab QnOrdered By: Mariana St encisoadrianna on 11-27-2024 Thyroid Peroxidase Antibodies 12 IU/mL 0-34 [facility] TSH DL <= 0.005 mIU/L QnOrde red By: Mariana WallaceDanyel on 11-27-2024 Thyroid Stimulating Hormone (TSH) 2.900 uIU/mL 0.300-4.200 [facility] Thyroglobulin Ab serumOrdere d By: Mariana Montaño on 11-27-2024 Thyroglobulin Antibody < 1.0 IU/mL 0.0-0.9 [facility] Comment on above: Thyroglobulin Antibo dy measured by My SourceboxMethodologyIt should be noted that the presence of thyroglobulinantibodies may not be pathogenic nor diagnostic, especiallyat very low levels. The assay geriatric social work professor has found thatfour percent of individuals without evidence of thyroiddisease or autoimmunity will have positive TgAb levels upto 4 IU/mL.Performed at: [facility] [id number] [place], [place] [id number] Director: Joseph Pettit PhD, Phone: [phone] Thyroid Stim Hormone (TSH)on 11-27-2024 TSH 2.900 uIU/mL Normal 0.300-4.200 [facility] Comment on above: Performed By: #### L 3300.0750, L501.9520, L506.0400, L3300.1750, L501.9985 #### [facility] [address] [place], [address] CCP AB, IgG AND IgA [CCL]on 11-17-2024 CCP AB, IgG AND IgA [CCL] Normal [facility] Comment on above: Result Comment: _CCP AB, IgG AND IgA [CCL]_ SEE SEPARATE REPORT Performed By: #### 2 [id number] #### [facility],[address] [facility] [address] DHEA [CCL]on 11-16-2024 DHEA 1.805 ng/mL Normal 0.630-4.700 [facility] Comment on above: Result Comment: INTE RPRETIVE INFORMATION: Dehydroepiandrosterone, Females 18 years and older: Postmenopausal: 0.60-5.73 ng/mL REFERENCE INTERVAL: Dehydroepiandrosterone by TMS Access complete set of age- and/or gender-specific reference intervals for this test in the [facility] Test Directory ([employer]). This test was developed and its performance characteristics determined by [employer]. It has not been cleared or approved by the [place] Food and Drug Administration. This test was performed in a CLIA certified laboratory and is intended for clinical purposes. Performed By: [employer] [address] [place] [address] Event Lighting Specialist: Jose Skinner MD, PhD CLIA Number: [id number] [address] [address] Bernardino He III, M.D. [id number] Performed By: #### 2 [id number] #### [address] [address] PROGESTERONE [CCL]on 025 Progesterone <0.2 Normal See comment [facility] Comment on above: Result Comment: Mens trual Cycle Progesterone Reference Ranges: Follicular: <1.0 ng/mL Ovulation: <12.1 ng/mL Luteal: 1.8 to 23.9 ng/mL. Progesterone Reference Ranges vary by gestational period: First Trimester: 11.0 to 44.3 ng/mL Second Trimester: 25.4 to 83.3 ng/mL Third Trimester: 58.7 to 214 ng/mL Post menopausal Progesterone: <0.5 ng/mL Reference: 1. Progesterone (Progesterone III) [package insert V 1.0 [place]]. [facility], [place], [place]. May 2015. [address] [address] Bernardino He III, M.D. [id number] Performed By: #### 2 [id number] #### [place] [address],[place] [address] LARISSA BY IFA SCREEN [CCL]on Nuclear Ab IF (S) [Titer] Negative Normal Negative [facility] Comment on above: Result Comment: Anti -nuclear antibody test is used as an aid in diagnosis of systemic autoimmune diseases. Where positive and clinically warranted, follow-up using disease-specific testing is recommended. Low positive titers are not uncommon with advanced age, certain chronic infections, and malignancies among others. Test methodology: Indirect fluorescence immunoassay (IFA) using HEp-2 cells. [place] [id number] [place] [id number] Bernardino He III, M.D. [id number] Performed By: #### 2 24058 #### [place] [id number] ESTRADIOL-17B [CCL]on 2024 Estradiol-17B 56 pg/mL Normal [facility] Comment on above: Result Comment: This test is not suitable for patients receiving treatment with the drug Fulvestrant (Faslodex). The drug causes an interference leading to falsely elevated estradiol results. Menstrual cycle Estradiol reference ranges: Follicular : < 234 pg/mL Ovulation : 41 to 398 pg/mL Luteal : < 342 pg/mL Estradiol reference ranges vary by gestational period: First trimester : 154 to 3243 pg/mL Second trimester : 1561 to 25706 pg/mL Third trimester : 8285 to >25138 pg/mL Post-menopausal Estradiol reference range: < 41 pg/mL Reference: 1. Estradiol - E2 (Estradiol III) [package insert V 3.0 Anguillan]. [facility], [place], [place], January 2016. [facility] [address] [place] [address] Bernardino He III, M.D. [id number] Performed By: #### 2 62491 #### [address] [address] RHEUMATOID FACTOR [CCL]on Rheumatoid Factor <10 Normal <16 [facility] Comment on above: Result Comment: [place] [address] Bernardino He III, M.D. [id number] Performed By: #### 2 52338 #### [facility],[address] [place] [address] 86791 LARISSA BY IFA SCREENon 11-13-19 25 Nuclear Ab Ql (S) Negative Normal Negative [facility] Comment on above: Order Comment: Speci men Type: BLOOD SPECIMEN Ordering Facility: [facility] Address: [address] [place] [address] Result Comment: Anti -nuclear antibody test is used as an aid in diagnosis of systemic autoimmune diseases. Where positive and clinically warranted, follow-up using disease-specific testing is recommended. Low positive titers are not uncommon with advanced age, certain chronic infections, and malignancies among others. Test methodology: Indirect fluorescence immunoassay (IFA) using HEp-2 cells. Performed By: #### 2 839-9, 88516-3, ANAIFS #### [facility] CLIA [id number] [address] [place] [address] [place] #### DHEA #### [facility] CLIA [id number] [address] [place] [address]23 C-REACTIVE PROTEINon 025 CRP 0.26 mg/dl Normal 0.00 - 0.90 [facility] Comment on above: Performed By: #### 2 54992 #### [facility],[address] [place] [address] 65946 CBC + DIFFon 11-12-2024 Baso # 0.05 x10EE3/UL Normal 0.00 - 0.10 [facility] Comment on above: Performed By: #### 2 48457 #### [facility],[address] [place] [address] 40682 Basophils/100 WBC (Bld) 0.6 % Normal 0.0 - 2.0 [facility] Comment on above: Performed By: #### 2 70232 #### [facility],[address] [place] [address] 46292 CBC + DIFF Normal [facility] Comment on above: Result Comment: CBC- COMPLETE BLOOD COUNT Performed By: #### 2 84753 #### [facility],[address] [place] [address] 24491 EO # 0.56 x10EE3/UL High 0.00 - 0.50 [facility] Comment on above: Performed By: #### 2 73810 #### [facility],[address] [place] [address] 99405 Eosinophils/100 WBC (Bld) 6.5 % Normal 0.0 - 7.0 [facility] Comment on above: Performed By: #### 2 00628 #### [facility],[address] [place] [address] 28961 Erythrocyte distribution width (RBC) [Ratio] 13.5 % Normal 12.0 - 15.6 [facility] Comment on above: Performed By: #### 2 12018 #### [facility],[address] [place] [address] 96552 Hematocrit (Bld) [Volume fraction] 47.2 % High 34.0 - 46.0 [facility] Comment on above: Performed By: #### 2 29451 #### [facility],[address] [place] [address] 62082 Hemoglobin (Bld) [Mass/Vol] 16.7 g/dL High 12.0 - 16.0 [facility] Comment on above: Performed By: #### 2 66721 #### [facility],[address] [place] [address] 05736 Lymph # 2.99 x10EE3/UL High 0.80 - 2.80 [facility] Comment on above: Performed By: #### 2 44035 #### [facility],[address] [place] [address] 93965 Lymphocytes/100 WBC (Bld) 34.9 % Normal 20.0 - 45.0 [facility] Comment on above: Performed By: #### 2 61285 #### [facility],[address] [place] [address] MANUAL DIFF N/A Normal [facility] Comment on above: Performed By: #### 2 05968 #### [facility],[address] [place] [address] MCH (RBC) [Entitic mass] 30 pg Normal 27 - 33 [facility] Comment on above: Performed By: #### 2 90241 #### [facility],[address] [place] [address] MCHC 35 X10 3 Normal 32 - 36 [facility] Comment on above: Performed By: #### 2 27090 #### [facility],[address] [place] [address] MCV (RBC) [Entitic vol] 85 fL Normal 80 - 99 [facility] Comment on above: Performed By: #### 2 45733 #### [facility],[address] [place] [address] Shannon # 0.70 x10EE3/UL Normal 0.20 - 1.00 [facility] Comment on above: Performed By: #### 2 78052 #### [facility],[address] [place] [address] MONOS % 8.2 % Normal 0.0 - 10.0 [facility] Comment on above: Performed By: #### 2 65629 #### [facility],[address] [place], [place] [address] Morphology Kvng (Bld) [Interp] N/A Normal [facility] Comment on above: Performed By: #### 2 21992 #### [facility],[address] [place] [address] Neut # 4.28 x10EE3/UL Normal 1.50 - 7.10 [facility] Comment on above: Performed By: #### 2 09385 #### [facility],[address] [place] [address] 99549 Neutrophils/100 WBC (Bld) 49.8 % Normal 46.0 - 76.0 [facility] Comment on above: Performed By: #### 2 55936 #### [facility],[address] [place] [address] 85350 PLATELET 359 x10EE3/UL Normal 150 - 450 [facility] Comment on above: Performed By: #### 2 07464 #### [facility],[address] [place] [address] 95607 Platelet mean volume (Bld) [Entitic vol] 7.6 fL Normal 6.6 - 10.5 [facility] Comment on above: Result Comment: AUTO MATED DIFFERENTIAL Performed By: #### 2 57156 #### [facility],[address] [place] [address] 45160 RBC 5.59 x 10EE6/UL High 4.10 - 5.30 [facility] Comment on above: Performed By: #### 2 70910 #### [facility],[address] [place] [address] 28504 WBC 8.6 x 10EE3/UL Normal 4.5 - 10.8 [facility] Comment on above: Performed By: #### 2 79327 #### [facility],[address] [place] [address] 13127 CMP with eGFRon 11-12-2024 AGE 54 years Normal [facility] Comment on above: Performed By: #### 2 88493 #### [facility],[address] [place] [address] 31841 Albumin [Mass/Vol] 4.2 g/dL Normal 3.4 - 5.0 [facility] Comment on above: Performed By: #### 2 48126 #### [facility],[address] [place] [address] 22830 Albumin/Globulin [Mass ratio] 1.2 {ratio} Normal 0.9 - 1.6 [facility] Comment on above: Performed By: #### 2 51631 #### [facility],[address] [place] [address] 32128 ALK PHOS 61 U/L Normal 46 - 116 [facility] Comment on above: Performed By: #### 2 45991 #### [facility],[address] [place] [address] 55752 ALT [Catalytic activity/Vol] 103 U/L High 16 - 63 [facility] Comment on above: Performed By: #### 2 69962 #### [facility],[address] [place] [address] 40270 Anion gap [Moles/Vol] 10 mmol/L Normal 10 - 20 [facility] Comment on above: Performed By: #### 2 68036 #### [facility],[address] [place] [address] 76939 AST [Catalytic activity/Vol] 53 U/L High 13 - 39 [facility] Comment on above: Performed By: #### 2 49413 #### [facility],[address] [place] [address] 61153 B/C RATIO 19 ratio Normal 0 - 30 [facility] Comment on above: Performed By: #### 2 57346 #### [facility],[address] [place] [address] 24156 Bilirubin [Mass/Vol] 0.5 mg/dL Normal 0.2 - 1.0 [facility] Comment on above: Performed By: #### 2 21462 #### [facility],[address] [place] [address] 67435 Calcium [Mass/Vol] 9.2 mg/dL Normal 8.5 - 10.1 [facility] Comment on above: Performed By: #### 2 52019 #### [facility],[address] [place] [address] 63275 Chloride [Moles/Vol] 102 mmol/L Normal 98 - 107 [facility] Comment on above: Performed By: #### 2 22546 #### [facility],[address] [place] [address] 62573 CMP with eGFR Normal [facility] Comment on above: Result Comment: COMP REHENSIVE METABOLIC PANEL Performed By: #### 2 40035 #### [place] [address] CO2 [Moles/Vol] 29.8 mmol/L Normal 21.0 - 32.0 [facility] Comment on above: Performed By: #### 2 31696 #### [facility],[address] [place] [address] Creatinine [Mass/Vol] 0.94 mg/dL Normal 0.55 - 1.02 [facility] Comment on above: Performed By: #### 2 07247 #### [facility],[address] [place] [address] GFR/1.73 sq M.predicted among non-blacks MDRD (S/P/Bld) [Vol rate/Area] mL/min/{1.73_m2} Normal 60 - 999 [facility] Comment on above: Performed By: #### 2 50047 #### [place] [address] Result Comment: ACCO RDING TO THE NATIONAL KIDNEY DISEASE EDUCATION PROGRAM(NKDE), A NORMAL eGFR IS A VALUE GREATER THAN OR EQUAL TO 60 ML/MIN/1.73 SQ METERS. CHRONIC KIDNEY DISEASE: <60mL/MIN/1.73 SQ METERS KIDNEY FAILURE: <15mL/MIN/1.73 SQ METERS THIS TEST SHOULD ONLY BE USED FOR PATIENTS 18 YEARS OF AGE AND OLDER. Globulin (S) [Mass/Vol] 3.4 g/dL Normal 1.5 - 3.8 [facility] Comment on above: Performed By: #### 2 34838 #### [place] [address] Glucose [Mass/Vol] 120 mg/dL High 74 - 106 [facility] Comment on above: Performed By: #### 2 04131 #### [facility],[address] [place] [address] 22209 Potassium [Moles/Vol] 3.4 mmol/L Low 3.5 - 5.1 [facility] Comment on above: Performed By: #### 2 64545 #### [facility],[address] [place] [address] 73362 Protein [Mass/Vol] 7.6 g/dL Normal 6.4 - 8.2 [facility] Comment on above: Performed By: #### 2 06979 #### [facility],[address] [place] [address] 36855 Sodium [Moles/Vol] 138 mmol/L Normal 136 - 145 [facility] Comment on above: Performed By: #### 2 54859 #### [facility],[address] [place] [address] 15101 Urea nitrogen [Mass/Vol] 18 mg/dL Normal 7 - 18 [facility] Comment on above: Performed By: #### 2 89533 #### [facility],[address] [place] [address] 52442 DHEA BLOODon 11-12-2024 DHEA 1.805 ng/mL Normal 0.630-4.700 [facility] Comment on above: Order Comment: Speci men Type: BLOOD SPECIMEN Ordering Facility: [facility] Address: [address] [place] [address] Result Comment: INTE RPRETIVE INFORMATION: Dehydroepiandrosterone, Females 18 years and older: Postmenopausal: 0.60-5.73 ng/mL REFERENCE INTERVAL: Dehydroepiandrosterone by TMS Access complete set of age- and/or gender-specific reference intervals for this test in the [facility] Test Directory ([employer]). This test was developed and its performance characteristics determined by [employer]. It has not been cleared or approved by the [place] Food and Drug Administration. This test was performed in a CLIA certified laboratory and is intended for clinical purposes. Performed By: [employer] [address] [place] [address] Event Lighting Specialist: Jose Skinner MD, PhD CLIA Number: [id number] Performed By: #### 2 839-9, 95420-5, ALONDRA #### [facility] CLIA [id number] [address] [place] [address] [place] #### DHEA #### [id number] [address] [place] [address] Estradiol SerPl-ncon 11-12 E2 [Mass/Vol] 56 pg/mL Normal [facility] Comment on above: Order Comment: Speci men Type: BLOOD SPECIMEN Ordering Facility: [facility] Address: [address] [place] [address] Result Comment: This test is not suitable for patients receiving treatment with the drug Fulvestrant (Faslodex). The drug causes an interference leading to falsely elevated estradiol results. Menstrual cycle Estradiol reference ranges: Follicular : < 234 pg/mL Ovulation : 41 to 398 pg/mL Luteal : < 342 pg/mL Estradiol reference ranges vary by gestational period: First trimester : 154 to 3243 pg/mL Second trimester : 1561 to 15872 pg/mL Third trimester : 8285 to >70100 pg/mL Post-menopausal Estradiol reference range: < 41 pg/mL Reference: 1. Estradiol - E2 (Estradiol III) [package insert V 3.0 Anguillan]. [facility], [place], [place], January 2016. Performed By: #### 2 243-4 #### [facility] CLIA [id number] [address] [place] [address] [place] LIPID PROFILEon 11-12-2024 Cholesterol [Mass/Vol] 170 mg/dL Normal 0 - 240 [facility] Comment on above: Performed By: #### 2 07634 #### [facility],[address] [place] [address] Cholesterol in HDL [Mass/Vol] 50 mg/dL Normal 40 - 60 [facility] Comment on above: Performed By: #### 2 25638 #### [facility],[address] [place] [address] 80637 Cholesterol in LDL [Mass/Vol] 85 mg/dL Normal 0 - 129 [facility] Comment on above: Performed By: #### 2 14050 #### [facility],[address] [place] [address] 62327 Cholesterol.total/Cho lesterol in HDL [Mass ratio] 3.4 {ratio} Normal 0.0 - 5.0 [facility] Comment on above: Performed By: #### 2 40245 #### [facility],[address] [place] [address] 76638 Lipid 1996 panel Normal [facility] Comment on above: Result Comment: LIPI D PROFILE Performed By: #### 2 87110 #### [facility],[address] [place] [address] 49029 Triglyceride [Mass/Vol] 176 mg/dL High 0 - 150 [facility] Comment on above: Performed By: #### 2 41714 #### [facility],[address] [place] [address] 88380 Progest Susanl-Yamile[place] 11-12- 025 Progesterone [Mass/Vol] ng/mL Normal See comment [facility] Comment on above: Order Comment: Speci men Type: BLOOD SPECIMEN Ordering Facility: [facility] Address: [address] [place] [address] Result Comment: Mens trual Cycle Progesterone Reference Ranges: Follicular: <1.0 ng/mL Ovulation: <12.1 ng/mL Luteal: 1.8 to 23.9 ng/mL. Progesterone Reference Ranges vary by gestational period: First Trimester: 11.0 to 44.3 ng/mL Second Trimester: 25.4 to 83.3 ng/mL Third Trimester: 58.7 to 214 ng/mL Post menopausal Progesterone: <0.5 ng/mL Reference: 1. Progesterone (Progesterone III) [package insert V 1.0 Anguillan]. [facility], [place], [place]. May 2015. Performed By: #### 2 839-9, 83052-5, ANAIFS #### [facility] CLIA [id number] [address] [place] [address] [place] #### DHEA #### [facility] [id number] [address] [place] [address] Rheumatoid fact SerPl-aCncon 11-12-2024 Rheumatoid factor Qn [IU]/mL Normal <16 [facility] Comment on above: Order Comment: Speci men Type: BLOOD SPECIMEN Ordering Facility: [facility] Address: [address] [place] [address] Performed By: #### 2 839-9, 52624-1, ANAIFS #### [facility] CLIA [id number] [address] [place] [address] [place] #### DHEA #### [facility] [id number] [address] [place] [address] SEDRATEon 11-12-2024 SEDRATE 2 mm/hr Normal 0 - 30 [facility] Comment on above: Performed By: #### 2 56597 #### [facility],[address] [place], [place] [address] TSHon 11-12-2024 TSH Qn 3.80 m[IU]/L High 0.35 - 3.74 [facility] Comment on above: Performed By: #### 2 07512 #### [facility],[address] [place], [place] [address] SCRN MAMM (CAD)W/MIKAYLA BILATo n 07-06-2024 SCRN MAMM (CAD)W/MIKAYLA BILAT [facility] [address] [place] [address]691 SCRN MAMM (CAD)W/MIKAYLA BILAT MR#: [id number] Acct: [id number] Name: KATHRYN CORTEZ Rep #: [id number] : 1970 F 53 From: Armando mackay MD PCP: Dr. Mariana Montaño DO Status: REG [facility] Study: SCRN MAMM (CAD)W/MIKAYLA BILAT Date of Exam: 09/28 Exam# [id number] Ordering Dr: Mariana Montaño DO [id number] MAMMOGRAPHY - BILATERAL SCREENING REASON FOR EXAM: Female, 53 years old. Routine annual screening examination. PERTINENT HISTORY: Grandmother with breast cancer. Prior right ultrasound-guided breast biopsy. TECHNIQUE: Digital bilateral breast mikayla (3D mammographic acquisition) in the CC and MLO projections. 2-D mediolateral oblique (MLO) and craniocaudad (CC) views of both breasts were obtained. CAD: Full Field Digital Mammography with Computer Added Detection was performed. COMPARISON: Comparison is made with prior study dated July 02, 2023 and June 19, 2022. FINDINGS: Breast Composition: There are scattered areas of fibroglandular density. There are no dominant masses or suspicious calcifications. A tissue clip marker is seen in the slightly medial retroareolar region of the right breast. Stable 5 mm x 4 mm well-defined nodule in the inferior deep medial portion of the left breast. This was demonstrated to be a cyst on prior sonogram. Stable benign-appearing bilateral axillary lymph nodes. No other significant abnormalities are identified. There has been no significant change since the prior study. BI/SCRN MAMM (CAD)W/MIKAYLA BILAT IMPRESSION: Stable bilateral screening mammogram. Yearly follow-up mammogram recommended. (A) ASSESSMENT CATEGORY: BIRADS Category 2: Benign. A letter regarding these results will be sent to the patient by the facility within 30 days. Approximately 10% of breast cancers are not detected by mammography. A normal mammogram should not delay biopsy of a clinically suspicious abnormality. [id number] Electronically Signed: Armando Davalos MD at 8:28 EST , CC: Dr. Mariana Montaño, Editorial Director: Signed Normal [facility] CMP with eGFRon 05-26-2024 AGE 53 years Normal [facility] Comment on above: Performed By: #### 2 12828 #### [facility],[address] [place] [address] 69938 Albumin [Mass/Vol] 3.8 g/dL Normal 3.4 - 5.0 [facility] Comment on above: Performed By: #### 2 03637 #### [facility],[address] [place] [address] 58745 Albumin/Globulin [Mass ratio] 1.0 {ratio} Normal 0.9 - 1.6 [facility] Comment on above: Performed By: #### 2 59037 #### [facility],[address] [place] [address] 50398 ALK PHOS 47 U/L Normal 46 - 116 [facility] Comment on above: Performed By: #### 2 34547 #### [facility],[address] [place] [address] 73891 ALT [Catalytic activity/Vol] 47 U/L Normal 16 - 63 [facility] Comment on above: Performed By: #### 2 60009 #### [facility],[address] [place] [address] 10885 Anion gap [Moles/Vol] 11 mmol/L Normal 10 - 20 [facility] Comment on above: Performed By: #### 2 51452 #### [facility],[address] [place] [address] 89636 AST [Catalytic activity/Vol] 27 U/L Normal 13 - 39 [facility] Comment on above: Performed By: #### 2 81863 #### [facility],[address] [place] [address] 62295 B/C RATIO 18 ratio Normal 0 - 30 [facility] Comment on above: Performed By: #### 2 50716 #### [facility],[address] [place] [address] 11456 Bilirubin [Mass/Vol] 0.4 mg/dL Normal 0.2 - 1.0 [facility] Comment on above: Performed By: #### 2 81035 #### [facility],[address] [place] [address] 34534 Calcium [Mass/Vol] 8.9 mg/dL Normal 8.5 - 10.1 [facility] Comment on above: Performed By: #### 2 05963 #### [facility],[address] [place] [address] 50547 Chloride [Moles/Vol] 102 mmol/L Normal 98 - 107 [facility] Comment on above: Performed By: #### 2 97338 #### [facility],[address] [place] [address] 35118 CMP with eGFR Normal [facility] Comment on above: Result Comment: COMP REHENSIVE METABOLIC PANEL Performed By: #### 2 65974 #### [facility],[address] [place] [address] 68993 CO2 [Moles/Vol] 31.7 mmol/L Normal 21.0 - 32.0 [facility] Comment on above: Performed By: #### 2 83942 #### [facility],[address] [place] [address] 05145 Creatinine [Mass/Vol] 1.04 mg/dL High 0.55 - 1.02 [facility] Comment on above: Performed By: #### 2 79153 #### [facility],[address] [place] [address] 28402 eGFR 55 ML/MINUTE Low 60 - 999 [facility] Comment on above: Performed By: #### 2 17670 #### [facility],[address] [place] [address] 35813 GFR/1.73 sq M.predicted among non-blacks MDRD (S/P/Bld) [Vol rate/Area] mL/min/{1.73_m2} Normal 60 - 999 [facility] Comment on above: Result Comment: ACCO RDING TO THE NATIONAL KIDNEY DISEASE EDUCATION PROGRAM(NKDE), A NORMAL eGFR IS A VALUE GREATER THAN OR EQUAL TO 60 ML/MIN/1.73 SQ METERS. CHRONIC KIDNEY DISEASE: <60mL/MIN/1.73 SQ METERS KIDNEY FAILURE: <15mL/MIN/1.73 SQ METERS THIS TEST SHOULD ONLY BE USED FOR PATIENTS 18 YEARS OF AGE AND OLDER. Performed By: #### [id number] #### [facility],[address] [place] [address] [id number] Globulin (S) [Mass/Vol] 3.7 g/dL Normal 1.5 - 3.8 [facility] Comment on above: Performed By: #### 2 [id number] #### [facility],[address] [place] [address] 78976 Glucose [Mass/Vol] 115 mg/dL High 74 - 106 [facility] Comment on above: Performed By: #### [id number] #### [facility],[address] [place] [address] 48483 Potassium [Moles/Vol] 3.5 mmol/L Normal 3.5 - 5.1 [facility] Comment on above: Performed By: #### 2 [id number] #### [facility],[address] [place] [address] 74088 Protein [Mass/Vol] 7.5 g/dL Normal 6.4 - 8.2 [facility] Comment on above: Performed By: #### 2 [id number] #### [facility],[address] [place] [address] 83840 Sodium [Moles/Vol] 141 mmol/L Normal 136 - 145 [facility] Comment on above: Performed By: #### 2 [id number] #### [facility],[address] [place] [address] 46470 Urea nitrogen [Mass/Vol] 19 mg/dL High 7 - 18 [facility] Comment on above: Performed By: #### 2 [id number] #### [facility],[address] [place] [address] 53784 LIPID PROFILEon 05-26-2024 Cholesterol [Mass/Vol] 192 mg/dL Normal 0 - 240 [facility] Comment on above: Performed By: #### 2 [id number] #### [facility],[address] [place] [address] 05300 Cholesterol in HDL [Mass/Vol] 49 mg/dL Normal 40 - 60 [facility] Comment on above: Performed By: #### 2 [id number] #### [facility],[address] [place] [address] 01357 Cholesterol in LDL [Mass/Vol] 95 mg/dL Normal 0 - 129 [facility] Comment on above: Performed By: #### 2 [id number] #### [facility],[address] [place] [address] 63849 Cholesterol.total/Cho lesterol in HDL [Mass ratio] 3.9 {ratio} Normal 0.0 - 5.0 [facility] Comment on above: Performed By: #### 2 [id number] #### [facility],[address] [place] [address] 19071 Lipid 1996 panel Normal [facility] Comment on above: Result Comment: LIPI D PROFILE Performed By: #### 2 [id number] #### [facility],[address] [place] [address] 24042 Triglyceride [Mass/Vol] 239 mg/dL High 0 - 150 [facility] Comment on above: Performed By: #### 2 [id number] #### [facility],[address] [place] [address] [id number] Absolute lymphocyte countOrd ered By: Mariana Montaño on 10-28-2023 Lymphocytes Auto (Unsp spec) [#/Vol] 2.89 10*3/uL 0.83-4.51 [facility] Automated lymphocyte count a s percentage of total leukocytesOrdered By: Mariana Montaño on 10-28-2023 Lymphocytes/100 WBC Auto (Unsp spec) 31.7 % 19-41 [facility] Basophil percentageOrdered B y: Mariana Montaño on 10-28-2023 Basophils/100 WBC (Bld) 1.4 % 0-1 [facility] Bilirubin [Mass/Vol] 0.50 mg/dL 0.20-1.00 [facility] Comment on above: For patients on eltr ombopag therapy, use of Dimension [place]win TBIL is not recommended. Chloride [Moles/Vol] 103 mmol/L 98-107 [facility] Cholesterol [Mass/Vol] 255 mg/dL <200 [facility] Comment on above: <200 mg/dL Desirable 200-240 mg/dL Borderline >240 mg/dL High Risk Eosinophils/100 WBC (Bld) 2.2 % 0-5 [facility] Glucose [Mass/Vol] 113 mg/dL 74-106 [facility] Comment on above: Fasting Glucose resu lt from 100 to 125 mg/dL suggests IMPAIRED HOMEOSTASIS per A.D.A. criteria. Hemoglobin (Bld) [Mass/Vol] 15.5 g/dL 12.0-15.0 [facility] Monocytes/100 WBC (Bld) 8.0 % 0-10 [facility] Neutrophils (Bld) [#/Vol] 5.1 10*3/uL 2.0-7.7 [facility] Neutrophils/100 WBC (Bld) 56.4 % 47-70 [facility] Potassium [Moles/Vol] 3.2 mmol/L 3.5-5.1 [facility] Protein [Mass/Vol] 7.8 g/dL 6.4-8.2 [facility] Sodium [Moles/Vol] 140 mmol/L 136-145 [facility] Triglyceride [Mass/Vol] 173 mg/dL <199 [facility] Comment on above: The drugs N-Acetylcy steine and Metamizole may falsely depress this assay.Serum Triglycerides Reference Interval Normal <150 mg/dL Borderline high 150 - 199 mg/dL High 200 - 499 mg/dL Very High > or = 500 mg/dL WBC (Bld) [#/Vol] 9.1 10*3/uL 4.4-11.0 [facility] Determination of erythrocyte mean corpuscular volume (MCV)Ordered By: Mariana Montaño on 10-28-2023 MCV (RBC) [Entitic vol] 86.5 fL 81-99 [facility] Erythrocyte distribution wid th ratioOrdered By: Mariana Montaño on 10-28-2023 Erythrocyte distribution width (RBC) [Ratio] 12.2 % 11.6-14.6 [facility] Erythrocyte distribution wid th standard deviationOrdered By: Mariana Montaño on 10-28-2023 Erythrocyte distribution width (RBC) [Entitic vol] 38.8 fL 35.1-43.9 [facility] Hematocrit Auto (Bld) [Volum e fraction]Ordered By: Mariana Montaño on 10-28-2023 Hematocrit (Bld) [Volume fraction] 47.6 % 37-47 [facility] Immature granulocytes/100 WB C Auto (Bld)Ordered By: Mariana Montaño on 10-28-2023 Immature granulocytes/100 WBC (Bld) 0.300 % 0.0-0.9 [facility] Comment on above: IG% - Immature Granu locytes (promyelocytes, myelocytes and metamyelocytes) > 1% indicates that a LEFT SHIFT is Present. Laboratory - Chemistry and C hemistry - challengeOrdered By: Mariana Montaño on 10-28-2023 Albumin/Globulin [Mass ratio] 1.2 {ratio} 0.9-2.4 [facility] ALP [Catalytic activity/Vol] 49 U/L 45-117 [facility] ALT [Catalytic activity/Vol] 31 U/L 13-56 [facility] Cholesterol in HDL [Mass/Vol] 41 mg/dL >40 [facility] Comment on above: The drugs N-Acetylcy steine and Metamizole may falsely depress this assay. Reference Range HDL <40 mg/dL Low HDL Cholesterol HDL >or= 60 mg/dL High HDL Cholesterol Cholesterol in LDL [Mass/Vol] 179 mg/dL 0-130 [facility] CO2 [Moles/Vol] 29.0 mmol/L 21.0-32.0 [facility] Globulin (S) [Mass/Vol] 3.5 g/dL 2.2-4.2 [facility] Urea nitrogen/Creatinine [Mass ratio] 15.7 mg/mg 10-20 [facility] Laboratory - Hematology and Cell countsOrdered By: Mariana Montaño on 10-28-2023 MCH (RBC) [Entitic mass] 28.2 pg 27.0-32.0 [facility] MCHC (RBC) [Mass/Vol] 32.6 g/dL 32-36 [facility] Nucleated RBC/100 WBC (Bld) [Ratio] 0 % 0-5 [facility] Platelet mean volume (Bld) [Entitic vol] 9.7 fL 6.2-12.0 [facility] Platelets (Bld) [#/Vol] 357 10*3/uL 150-450 [facility] No Panel InformationOrdered By: Mariana Montaño on 10-28-2023 Estimated GFR (MDRD) Amer 63 mL/min >60 [facility] Comment on above: GFR Calc Estimated GFR (MDRD) Non-Af Amer 52 mL/min >60 [facility] Comment on above: Non- GFR Calc Vitamin D 25-Hydroxy 52.4 ng/mL [facility] Comment on above: Vitamin D 25(OH) Sta tus Range Deficiency <20 ng/mL (50nmol/L) Insufficiency 20 - 30 ng/mL (50 - 75 nmol/L) Sufficiency 30 - 100 ng/mL (75 - 250 nmol/L) Toxicity >100 ng/mL (>250 nmol/L) VLDL Cholesterol 35 mg/dL 5-40 [facility] RBC Auto (Bld) [#/Vol]Ordere d By: Mariana Montaño on 10-28-2023 RBC (Bld) [#/Vol] 5.50 10*6/uL 4.2-5.4 [facility] Serum or plasma calcium pineda urement (mass/volume)Ordered By: Mariana Montaño on 10-28-2023 Calcium [Mass/Vol] 9.7 mg/dL 8.5-10.[address] [facility] r [facility] Serum or plasma creatinine m easurement (mass/volume)Ordered By: Mariana Montaño on 10-28-2023 Creatinine [Mass/Vol] 1.15 mg/dL 0.55-1.02 [facility] Comment on above: The validity of the calculated GFR & GFRAA in patients over 70 years has not been determined. Clinical correlation is essential. Serum or plasma thyroid stim ulating hormone (TSH) measurement (units/volume)Ordered By: Mariana Montaño on 10-28-2023 TSH Qn 2.94 uIU/mL 0.358-3.74 [facility] Serum or plasma urea nitroge n measurement (mass/volume)Ordered By: Mariana Montaño on 10-28-2023 Urea nitrogen [Mass/Vol] 18 mg/dL 7-18 [facility] Thin prep Papanicolaou smear with manual screeningOrdered By: Mariana Montaño on 10-28-2023 Thin prep Papanicolaou smear with manual screening 4.3 g/dL 3.2-5.0 [facility] Thin prep Papanicolaou smear with manual screening 23 U/L 15-37 [facility] Thin prep Papanicolaou smear with manual screening 8 5-15 [facility] Basophil percentageOrdered B y: Mariana Montaño on 01-31-2023 Bilirubin [Mass/Vol] 0.30 mg/dL 0.20-1.00 [facility] Comment on above: For patients on eltr ombopag therapy, use of Dimension [place] TBIL is not recommended. Cholesterol [Mass/Vol] 156 mg/dL <200 [facility] Comment on above: <200 mg/dL Desirable 200-240 mg/dL Borderline >240 mg/dL High Risk Protein [Mass/Vol] 7.1 g/dL 6.4-8.2 [facility] Triglyceride [Mass/Vol] 190 mg/dL <199 [facility] Comment on above: The drugs N-Acetylcy steine and Metamizole may falsely depress this assay.Serum Triglycerides Reference Interval Normal <150 mg/dL Borderline high 150 - 199 mg/dL High 200 - 499 mg/dL Very High > or = 500 mg/dL Direct bilirubinOrdered By: Mariana Montaño on 01-31-2023 Bilirubin.direct [Mass/Vol] 0.10 mg/dL 0.00-0.30 [facility] Laboratory - Chemistry and C hemistry - challengeOrdered By: Mariana Montaño on 01-31-2023 ALP [Catalytic activity/Vol] 51 U/L 45-117 [facility] ALT [Catalytic activity/Vol] 35 U/L 13-56 [facility] Globulin (S) [Mass/Vol] 3.5 g/dL 2.2-4.2 [facility] Serum or plasma albumin pineda urement (mass/volume)Ordered By: Mariana Montaño on 01-31-2023 Albumin [Mass/Vol] 3.6 g/dL 3.2-5.0 [facility] Serum or plasma cholesterol in HDL measurement (mass/volume)Ordered By: Mariana Montaño on 01-31-2023 Cholesterol in HDL [Mass/Vol] 39 mg/dL >40 [facility] Comment on above: The drugs N-Acetylcy steine and Metamizole may falsely depress this assay. Reference Range HDL <40 mg/dL Low HDL Cholesterol HDL >or= 60 mg/dL High HDL Cholesterol Serum or plasma cholesterol in VLDL measurement (mass/volume)Ordered By: Mariana Montaño on 01-31-2023 Cholesterol in VLDL [Mass/Vol] 38 mg/dL 5-40 [facility] Serum or plasma low density lipoprotein (LDL) cholesterol measurement (mass/volume)Ordered By: Mariana Montaño on 01-31-2023 Cholesterol in LDL [Mass/Vol] 79 mg/dL 0-130 [facility] Thin prep Papanicolaou smear with manual screeningOrdered By: Mariana Montaño on 01-31-2023 Thin prep Papanicolaou smear with manual screening 19 U/L 15-37 [facility] Absolute lymphocyte countOrd ered By: Dr. Montaño on 10-18-2022 Lymphocytes Auto (Unsp spec) [#/Vol] 3.11 10*3/uL 0.83-4.51 [facility] Basophil percentageOrdered B y: Dr. Montaño on 10-18-2022 Basophils/100 WBC (Bld) 1.4 % 0-1 [facility] Bilirubin [Mass/Vol] 0.30 mg/dL 0.20-1.00 [facility] Comment on above: For patients on eltr ombopag therapy, use of Dimension [place] TBIL is not recommended. Chloride [Moles/Vol] 101 mmol/L 98-107 [facility] Cholesterol [Mass/Vol] 293 mg/dL <200 [facility] Comment on above: <200 mg/dL Desirable 200-240 mg/dL Borderline >240 mg/dL High Risk Eosinophils/100 WBC (Bld) 6.0 % 0-5 [facility] Glucose [Mass/Vol] 84 mg/dL 74-106 [facility] Neutrophils (Bld) [#/Vol] 3.9 10*3/uL 2.0-7.7 [facility] Neutrophils/100 WBC (Bld) 48.0 % 47-70 [facility] Potassium [Moles/Vol] 3.8 mmol/L 3.5-5.1 [facility] Protein [Mass/Vol] 7.5 g/dL 6.4-8.2 [facility] Sodium [Moles/Vol] 138 mmol/L 136-145 [facility] Triglyceride [Mass/Vol] 252 mg/dL <199 [facility] Comment on above: The drugs N-Acetylcy steine and Metamizole may falsely depress this assay.Serum Triglycerides Reference Interval Normal <150 mg/dL Borderline high 150 - 199 mg/dL High 200 - 499 mg/dL Very High > or = 500 mg/dL WBC (Bld) [#/Vol] 8.1 10*3/uL 4.4-11.0 [facility] Blood erythrocytes count (nu mber/volume)Ordered By: Dr. Montaño on 10-18-2022 RBC (Bld) [#/Vol] 5.52 10*6/uL 4.2-5.4 [facility] Blood hemoglobin measurement (mass/volume)Ordered By: Dr. Montaño on 10-18-2022 Hemoglobin (Bld) [Mass/Vol] 15.7 g/dL 12.0-15.0 [facility] Blood lymphocytes/100 leukoc ytesOrdered By: Dr. Montaño on 10-18-2022 Lymphocytes/100 WBC (Bld) 38.3 % 19-41 [facility] Blood monocytes/100 leukocyt esOrdered By: Dr. Montaño on 10-18-2022 Monocytes/100 WBC (Bld) 5.9 % 0-10 [facility] Blood platelet mean volumeOr dered By: Dr. Montaño on 10-18-2022 Platelet mean volume (Bld) [Entitic vol] 9.8 fL 6.2-12.0 [facility] Determination of erythrocyte mean corpuscular volume (MCV)Ordered By: Dr. Montaño on 10-18-2022 MCV (RBC) [Entitic vol] 86.4 fL 81-99 [facility] Hematocrit Auto (Bld) [Volum e fraction]Ordered By: Dr. Montaño on 10-18-2022 Hematocrit (Bld) [Volume fraction] 47.7 % 37-47 [facility] Laboratory - Chemistry and C hemistry - challengeOrdered By: Dr. Montaño on 10-18-2022 ALP [Catalytic activity/Vol] 47 U/L 45-117 [facility] ALT [Catalytic activity/Vol] 31 U/L 13-56 [facility] CO2 [Moles/Vol] 29.0 mmol/L 21.0-32.0 [facility] Globulin (S) [Mass/Vol] 3.4 g/dL 2.2-4.2 [facility] Urea nitrogen/Creatinine [Mass ratio] 21.3 mg/mg 10-20 [facility] Laboratory - Hematology and Cell countsOrdered By: Dr. Montaño on 10-18-2022 Erythrocyte distribution width (RBC) [Entitic vol] 40.6 fL 35.1-43.9 [facility] Erythrocyte distribution width (RBC) [Ratio] 12.9 % 11.6-14.6 [facility] Immature granulocytes/100 WBC (Bld) 0.400 % 0.0-0.9 [facility] Comment on above: IG% - Immature Granu locytes (promyelocytes, myelocytes and metamyelocytes) > 1% indicates that a LEFT SHIFT is Present. MCH (RBC) [Entitic mass] 28.4 pg 27.0-32.0 [facility] Nucleated RBC/100 WBC (Bld) [Ratio] 0 % 0-5 [facility] MCHC Auto (RBC) [Mass/Vol]Or dered By: Dr. Montaño on 10-18-2022 MCHC (RBC) [Mass/Vol] 32.9 g/dL 32-36 [facility] No Panel InformationOrdered By: Dr. Montaño on 10-18-2022 Estimated GFR (MDRD) Amer 80 mL/min >60 [facility] Comment on above: GFR Calc Estimated GFR (MDRD) Non-Af Amer 66 mL/min >60 [facility] Comment on above: Non- GFR Calc Vitamin D 25-Hydroxy 45.1 ng/mL [facility] Comment on above: Vitamin D 25(OH) Sta tus Range Deficiency <20 ng/mL (50nmol/L) Insufficiency 20 - 30 ng/mL (50 - 75 nmol/L) Sufficiency 30 - 100 ng/mL (75 - 250 nmol/L) Toxicity >100 ng/mL (>250 nmol/L) Platelets bldOrdered By: Dr. Montaño on 10-18-2022 Platelets (Bld) [#/Vol] 370 10*3/uL 150-450 [facility] Serum or plasma albumin pineda urement (mass/volume)Ordered By: Dr. Montaño on 10-18-2022 Albumin [Mass/Vol] 4.1 g/dL 3.2-5.0 [facility] Serum or plasma albumin/glob ulin mass ratioOrdered By: Dr. Montaño on 10-18-2022 Albumin/Globulin [Mass ratio] 1.2 {ratio} 0.9-2.4 [facility] Serum or plasma calcium pineda urement (mass/volume)Ordered By: Dr. Montaño on 10-18-2022 Calcium [Mass/Vol] 9.2 mg/dL 8.5-10.1 [facility] Serum or plasma cholesterol in HDL measurement (mass/volume)Ordered By: Dr. Montaño on 10-18-2022 Cholesterol in HDL [Mass/Vol] 40 mg/dL >40 [facility] Comment on above: The drugs N-Acetylcy steine and Metamizole may falsely depress this assay. Reference Range HDL <40 mg/dL Low HDL Cholesterol HDL >or= 60 mg/dL High HDL Cholesterol Serum or plasma cholesterol in VLDL measurement (mass/volume)Ordered By: Dr. Montaño on 10-18-2022 Cholesterol in VLDL [Mass/Vol] 50 mg/dL 5-40 [facility] Serum or plasma creatinine m easurement (mass/volume)Ordered By: Dr. Montaño on 10-18-2022 Creatinine [Mass/Vol] 0.94 mg/dL 0.55-1.02 [facility] Comment on above: The validity of the calculated GFR & GFRAA in patients over 70 years has not been determined. Clinical correlation is essential. Serum or plasma low density lipoprotein (LDL) cholesterol measurement (mass/volume)Ordered By: Dr. Montaño on 10-18-2022 Cholesterol in LDL [Mass/Vol] 203 mg/dL 0-130 [facility] Serum or plasma urea nitroge n measurement (mass/volume)Ordered By: Dr. Montaño on 10-18-2022 Urea nitrogen [Mass/Vol] 20 mg/dL 7-18 [facility] Thin prep Papanicolaou smear with manual screeningOrdered By: Dr. Montaño on 10-18-2022 Thin prep Papanicolaou smear with manual screening 16 U/L 15-37 [facility] Thin prep Papanicolaou smear with manual screening 8 5-15 [facility] Cervical or vagninal specime n microscopic examination by cytology stain (reported asOrdered By: Dr. Montaño on 07-19-2022 Cytology report Cyto stain Doc (Cvx/Vag) Comment . [facility] Comment on above: The Pap smear is a s creening test designed to aid in thedetection of premalignant and malignant conditions of theuterine cervix. It is not a diagnostic procedure andshould not be used as the sole means of detecting cervicalcancer. Both false-positive and false-negative reports dooccur. Laboratory - CytologyOrdered By: Dr. Montaño on 07-19-2022 Product Design Specialist Cyto stain Nom (Cvx/Vag) [ID] Comment . [facility] Comment on above: Brinda Li ytotechnologist (ASCP) Laboratory - Miscellaneous t estsOrdered By: Dr. Montaño on 07-19-2022 Service comment (Unsp spec) [Interp] Comment . [facility] Comment on above: This liquid based Th inPrep(R) pap test was screened withthe use of an image guided system. Service comment (Unsp spec) [Interp] . . [facility] No Panel InformationOrdered By: Dr. Montaño on 07-19-2022 Pap Smear Additional Comments 30-65 . [facility] Pathology report final diagnosis Narrative Comment . [facility] Comment on above: NEGATIVE FOR INTRAEP ITHELIAL LESION OR MALIGNANCY.THIS SPECIMEN WAS RESCREENED PART OF OUR NUMERICAL CONTROL LATHE OPERATOR PROGRAM. Vital Signs Date Time Vital Sign Value Performing Clinician Facility 06-26-2022 12:57-0500 Body height 165.[address] Maraina Montaño Work Phone: [facility] 06-26-2022 12:57-0500 Body mass index (BMI) [Ratio] 28.4 kg/m2 Dr. Mariana Montaño Work Phone: [facility] 06-26-2022 12:57-0500 Body temperature 97.6 [degF] Dr. Mariana Montaño Work Phone: [facility] 06-26-2022 12:57-0500 Body weight 77.[address] Mariana Montaño Work Phone: [facility] 06-26-2022 12:57-0500 Diastolic blood pressure 90 mm[Hg] Dr. Mariana Montaño Work Phone: [facility] 06-26-2022 12:57-0500 Heart rate 108 /min Dr. Mariana Montaño Work Phone: [facility] 06-26-2022 12:57-0500 Respiratory rate 17 /min Dr. Mariana Montaño Work Phone: [facility] 06-26-2022 12:57-0500 SaO2% (BldA) [Mass fraction] 99 % Dr. Mariana Montaño Work Phone: [facility] 06-26-2022 12:57-0500 Systolic blood pressure 125 mm[Hg] Dr. Mariana Montaño Work Phone: [facility] 06-19-2022 15:21-0500 Body mass index (BMI) [Ratio] 28.6 kg/m2 Dr. Mariana Montaño Work Phone: [facility] Work Phone: 06-19-2022 15:21-0500 Body temperature 98.4 [degF] Dr. Mariana Montaño Work Phone: [facility] Work Phone: 06-19-2022 15:21-0500 Body weight 78.[address] Mariana Montaño Work Phone: [facility] Work Phone: 06-19-2022 15:21-0500 Diastolic blood pressure 92 mm[Hg] Dr. Mariana Montaño Work Phone: [facility] Work Phone: 06-19-2022 15:21-0500 Heart rate 125 /min Dr. Mariana Montaño Work Phone: [facility] Work Phone: 06-19-2022 15:21-0500 Respiratory rate 17 /min Dr. Mariana Montaño Work Phone: [facility] Work Phone: 06-19-2022 15:21-0500 SaO2% (BldA) [Mass fraction] 99 % Dr. Mariana Montaño Work Phone: [facility] Work Phone: 06-19-2022 15:21-0500 Systolic blood pressure 166 mm[Hg] Dr. Mariana Montaño Work Phone: [facility] Work Phone: 06-06-2022 16:01-0400 Body temperature 98.71 [degF] Nic Walsh APRN.INTERNATIONAL FIRST OFFICER Work Phone: [facility] 06-06-2022 16:01-0400 Body weight 78.38 kg Nic Walsh APRN.INTERNATIONAL FIRST OFFICER Work Phone: [facility] 06-06-2022 16:01-0400 Diastolic blood pressure 78 mm[Hg] [facility] PROCESS AUTOMATION ENGINEER.INTERNATIONAL FIRST OFFICER Work Phone: [facility] 06-06-2022 16:01-0400 Heart rate 113 /min Nic Romer[facility] PROCESS AUTOMATION ENGINEER.INTERNATIONAL FIRST OFFICER Work Phone: [facility] 06-06-2022 16:01-0400 Respiratory rate 20 /min [facility] PROCESS AUTOMATION ENGINEER.INTERNATIONAL FIRST OFFICER Work Phone: [facility] 06-06-2022 16:01-0400 SaO2% (BldA) [Mass fraction] 98 % Nicmerissa Romeroday [facility] PROCESS AUTOMATION ENGINEER.INTERNATIONAL FIRST OFFICER Work Phone: [facility] 06-06-2022 16:01-0400 Systolic blood pressure 120 mm[Hg] [facility] PROCESS AUTOMATION ENGINEER.INTERNATIONAL FIRST OFFICER Work Phone: [facility] Encounters Encounter Date Encounter Type Care Provider Facility Start: 03-05-2025 ambulatory [facility] Facility:[facility] Start: 02-15-2025 ambulatory [facility] Facility: [facility] Start: 02-04-2025 End: 02-04-2025 ambulatory [facility] Start: 12-22-2024 End: 12-22-2024 ambulatory [facility] Start: 11-27-2024 End: 11-27-[address] Mariana Montaño DO Work Phone: [facility] Work Phone: Start: 11-27-2024 End: 11-27-[address] Mariana Montaño DO -Laboratory Work Phone: Start: 11-27-2024 End: 11-27-2024 ambulatory Mariana Montaño Facility:[facility] Start: 11-12-2024 End: 11-12-2024 ambulatory [facility] Start: 07-06-2024 End: 07-06-2024 ambulatory [facility] Facility:[facility] Start: 05-26-2024 End: 10-22-2024 ambulatory MARIANA A DANYEL Zain [facility] Start: 10-28-2023 End: 10-28-2023 ambulatory [facility] Work Phone: Start: 10-28-2023 End: 10-28-2023 Patient encounter procedure [facility]-Laboratory Work Phone: Start: 07-02-2023 End: 07-02-2023 ambulatory [facility] Work Phone: Start: 07-02-2023 End: 07-02-2023 Patient encounter procedure [facility] Work Phone: Start: 01-31-2023 End: 01-31-2023 ambulatory [facility] Work Phone: Start: 01-31-2023 End: 01-31-2023 [facility] [facility] Start: 10-18-2022 End: 10-18-[address] Mariana Montaño Work Phone: [facility] Work Phone: Start: 10-18-2022 End: 10-18-[address] Mariana Montaño [facility] Phone[facility] Farhana Chambers [facility] Start: 07-19-2022 End: 07-19-[address] Mariana Montaño Work Phone: [facility] Work Phone: Start: 07-19-2022 End: 07-19-[address] Mar[facility] Montaño [facility] Start: 06-26-2022 End: 06-26-[address] Mariana Montaño Work Phone: [facility] Work Phone: Start: 06-26-2022 End: 06-26-[address] Mariana Montaño Work Phone: [facility], Specimen Start: 06-26-2022 End: 06-26-[address] Mariana Montaño Work Phone: [facility] Start: 06-21-2022 End: 06-21-[address] Mariana Montaño Work Phone: [facility] Work Phone: Start: 06-21-2022 End: 06-21-[address] Mariana Montaño Work Phone: [facility] Start: 06-19-2022 End: 06-19-[address] Mariana Montaño Work Phone: [facility] Work Phone: Start: 06-19-2022 End: 06-19-[address] Mariana Montaño Work Phone: [facility] Start: 06-19-2022 End: 06-19-[address] Mariana Montaño Work Phone: [facility] Start: 06-07-2022 Telephone encounter Estela Lopez APRN.INTERNATIONAL FIRST OFFICER Work Phone: [facility] Comment on above: Results Start: 06-06-2022 End: 06-06-2022 Patient encounter procedure Nic Walsh APRN.INTERNATIONAL FIRST OFFICER Work Phone: [facility] Comment on above: Viral illness (Prima ry Dx) Procedures Date Procedure Procedure Detail Performing Clinician Start: 06-21-[address] Mariana meneses Work Phone: Start: 06-19-[address] 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 (laser assisted in situ keratomileusis) of both eyes Nic Walsh APRN.INTERNATIONAL FIRST OFFICER Work Phone: Start: 01-29-2011 Mammography Nic Walsh PROCESS AUTOMATION ENGINEERJaspalINTERNATIONAL FIRST OFFICER Work Phone: Plan of Treatment Date Care Activity Detail Author Start: 07-02-2023 Screening mammography TENZIN Clifton (CAD)W/MIKAYLA DIETRICH [facility] Start: 06-06-2022 End: 06-20-2022 Influenza virus A and B RNA and SARS-CoV-2 (COVID-19) N gene panel - Respiratory specimen by MISAEL with probe detection COVID WITH FLUA+B, ROUTINE Microbiology Routine Viral illness Expected: 06/06/2022, Expires: 06/20/2022 [facility] Work Phone: Comment on above: Expected: 06/06/2022 , Expires: 06/20/2022 Start: 04-05-2022 Influenza vaccination INFLUENZA (#1) [facility] Start: 08-05-2021 DEPRESSION ASSESSMENT DEPRESSION ASS ESSMENT [facility] Start: 2018 SHINGRIX VACCINE (1 of 2) SHINGRIX VACCINE (1 of 2) [facility] Start: 11-14-2016 PAP TESTING PAP TESTING [facility] Start: 10-11-2014 HPV TESTING HPV TESTING [facility] Start: 2013 COLOGUARD (FIT-DNA) COLOGUARD (FIT-D NA) [facility] Start: 2013 Colonoscopy COLONOSCOPY [facility] Start: 2013 COLORECTAL CANCER SCREENING COLORECTAL CANCER SCREENING [facility] Start: [address] COLONOGRAPHY [facility] Start: 2013 DIABETES SCREEN DIABETES SCREEN [facility] Start: 2013 FECAL OCCULT BLOOD FECAL OCCULT BLOO D [facility] Start: 2013 LIPID SCREEN LIPID SCREEN [facility] Start: 2013 SIGMOIDOSCOPY SIGMOIDOSCOPY [facility] Start: 01-30-2012 Mammography MAMMOGRAM [facility] Start: 1987 Urine microalbumin profile DTAP,TDAP,TD (1 - Tdap) [facility] Start: 1986 HEPATITIS C SCREENING HEPATITIS C SC REENING [facility] Start: 03-06-1969 COVID-19 VACCINE (#1) COVID-19 VACCI NE (#1) [facility] Start: 1968 HEPATITIS B (1 of 3 - 3-dose series) HEPATITIS B (1 of 3 - 3-dose series) [facility] Payers Date Payer Category Payer Self-pay [id number] 2024 Unknown [id number] 2017 Unknown MAYKEL BRAR BC BS FEP PPO [id number] 2017-Present [phone] [address] [place] [address] PPO [id number] 1968 Unknown [id number] 1968 Unknown [id number] 1968 Unknown [id number] 1968 Unknown [id number] Unknown [id number] Unknown [id number] Unknown [id number] Unknown [id number] Social History Date Type Detail Facility Start: 06-26-2022 [facility] Work Phone: Start: 06-06-2022 Alcohol intake Current drinke r of alcohol (finding) [facility] Start: 1970 Sex Assigned At Not on file [facility] Start: 05-27-2022 End: 06-06-2022 Exposure to SARS-CoV-2 (event) Not sure [facility] Work Phone: Start: 06-26-2022 End: 06-26-2022 Tobacco smoking status NHIS Unknown if ever smoked [facility] Start: 08-03-2020 Non-smoker [facility] Start: 1970 Sex Assigned At Female W [facility] Start: 12-02-2024 Sex Female (finding) [facility] Clinical Notes 06-06-2022 to 07-19-2022 Telephone Encounter - Halie Miller MA - 06/07/2022 8:50 AM EDTTelephone Encounter - Estela Lopez APRN.JAYESH - 06/07/2022 7:30 AM EDTNic Walsh APRN.INTERNATIONAL FIRST OFFICER - 06/06/2022 4:21 PM EDT Note Date & Type Note Facility 07-19-2022 Note [facility] Work Phone: Pap Smear Specimen Adequacy July 19, 2022 4:17pm Comment . Satisfactory for evaluation. No endocervical cells are present. This isconsistent with a history of hysterectomy. Comment on above: Satisfactory for allen luation. No endocervical cells are present. This isconsistent with a history of hysterectomy. 07-19-2022 Note [facility] Work Phone: Pap Smear QC Review July 19, 2022 4:17pm Comment . Mackenzie Diaz , Supervisory Expanding Machine Operator ([facility]) Comment on above: Paulette Moreno pervisory Expanding Machine Operator ([facility]) 07-19-2022 Note [facility] Pap Smear Specimen Adequacy July 19, 2022 5:17pm Comment . Satisfactory for evaluation. No endocervical cells are present. This isconsistent with a history of hysterectomy. Comment on above: Satisfactory for allen luation. No endocervical cells are present. This isconsistent with a history of hysterectomy. 07-19-2022 Note [facility] Pap Smear QC Review July 19, 2022 5:17pm Comment . Mackenzie Diaz , Supervisory Expanding Machine Operator ([employer]) Comment on above: Paulette Moreno pervisory Expanding Machine Operator ([facility]) 06-07-2022 Miscellaneous Notes Formattin g of this note might be different from the original. Pt was notified of the results. Pt verbalized understanding. Halie Miller MA Negative for flu and covid please notify thank you documented in this encounter [facility] 06-06-2022 History of Presen t illness Narrative Subjective HPI Patient presents to urgent care with chief complaint of fever and cough. Duration of symptoms 2 days Associated symptoms with today's chief complaint are on and off headache, muscle aches, fatigue, and fever. Patient states she also does have chest congestion. Patient states she did have some shortness of breath today however that has resolved. Patient stated symptoms started abruptly. Patient states they have used [id number] medication with some success. Patient denies any pain at this time. Patient denies any visual changes, visual disturbance, shortness of breath currently, rash, exercise intolerance, pleuritic pain, productive cough, hemoptysis, history of cancer, history of surgeries recent, history of PE DVT, abdominal pain, nausea, vomiting, chest pain, or change in bowel or bladder habits. Past medical history prescription medication use allergies reviewed. 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 MEDICATIONS Magnesium 200 mg tab Take by mouth. cholecalciferol (VITAMIN D-3) 5,000 unit tab Take 5,000 Units by mouth once daily. potassium citrate 99 mg cap Take by mouth. tetrahydrozoline/polyethyl gly (EYE DROPS OPHTHALMIC) Use in eyes twice daily. Thera Tears triamterene-hydrochlorothiazide (MAXZIDE-25) 37.5-25 mg per tablet loteprednol etabonate (LOTEMAX) 0.5 % ophthalmic suspension Use 1 Drop in the right eye three times daily. (Patient not taking: Reported on 06/06/2022) Desogestrel-Ethinyl Estradiol (DESOGEN) 0.15-30 mg-mcg ORAL per tablet Take 1 tablet by mouth once daily. (Patient not taking: Reported on 06/06/2022) FAMILY HISTORY Problem Relation Age of Onset Hypertension Mother Heart Mother Arthritis Mother Rheumatoid Emphysema Father Smoker Cancer Maternal Grandmother Heart Maternal Grandfather Diabetes Paternal Aunt Diabetes Paternal Aunt other (Glucoma) Paternal Aunt Social History Tobacco Use Smoking status: Never Smokeless tobacco: Never Substance Use Topics Alcohol use: Yes Comment: Seldom Drug use: No Review of Systems Constitutional: Positive for chills, fever and malaise/fatigue. HENT: Positive for congestion, ear pain and sore throat. Negative for ear discharge and sinus pain. Eyes: Negative for blurred vision, pain, discharge and redness. Respiratory: Negative for cough, hemoptysis, sputum production, shortness of breath, wheezing and stridor. Cardiovascular: Negative for chest pain. Gastrointestinal: Positive for nausea. Negative for abdominal pain, diarrhea and vomiting. Musculoskeletal: Positive for myalgias. Skin: Negative for itching and rash. Neurological: Positive for headaches. Negative for dizziness. Objective Physical Exam Constitutional: General: She is not in acute distress. Appearance: She is not diaphoretic. HENT: Head: Normocephalic. Right Ear: Tympanic membrane, ear canal and external ear normal. Left Ear: Tympanic membrane, ear canal and external ear normal. Nose: Congestion present. Mouth/Throat: Mouth: Mucous membranes are moist. Pharynx: Oropharynx is clear. No oropharyngeal exudate or posterior oropharyngeal erythema. Eyes: Conjunctiva/sclera: Conjunctivae normal. Pupils: Pupils are equal, round, and reactive to light. Cardiovascular: Rate and Rhythm: Normal rate and regular rhythm. Heart sounds: Normal heart sounds. Pulmonary: Effort: Pulmonary effort is normal. No tachypnea, accessory muscle usage or respiratory distress. Breath sounds: Normal breath sounds. No stridor. No wheezing, rhonchi or rales. Abdominal: Palpations: Abdomen is soft. Tenderness: There is no abdominal tenderness. Musculoskeletal: Cervical back: Normal range of motion and neck supple. No rigidity or tenderness. Lymphadenopathy: Cervical: No cervical adenopathy. Skin: General: Skin is warm and dry. Neurological: Mental Status: She is alert and oriented to person, place, and time. ASSESSMENT/PLAN: 1. Viral illness - ICD9: 079.99, ICD10: B34.9 - COVID WITH FLUA+B, ROUTINE Patient nontoxic-appearing. Suspicious of viral etiology for cause of fever. Red flags for prompt reevaluation discussed. Patient was educated on supportive therapies. Patient will follow up with primary care provider as needed. Patient was instructed to immediately proceed to emergency room for any new, worsening, or symptoms lasting longer than anticipated. The patient's clinical presentation is otherwise unremarkable at this time. Based on exam and clinical finding, the patient is stable for discharge. Plan of care was discussed with patient. Patient verbalizes understanding and agrees to plan of care. This note was generated using [employer] software. It may contain errors in wording, punctuation, or spelling. Nic Walsh APRN.JAYESH documented in this encounter [facility] 06-06-2022 Instructions Nic Walsh APRN.CNP - 06/06/2022 4:17 PM EDT How to Manage Common Symptoms Associated with COVID for Adults Fever- Fever is a temperature over 100.4 F and can occur when the body is fighting an infection. To help treat a fever: Drink plenty of fluids and stay well hydrated. Eat small amounts of easy to digest food. Rest. Your body needs rest to recover, but getting up and moving around the house frequently is a good idea. You should try to continue doing your normal daily activities (bathing, toileting, grooming, cooking), though you will probably feel tired, and need to rest often. Avoid any heavy activity or exercise, as this will increase your body temperature. Dress in light clothing and stay covered in a light sheet. Keep the room temperature cool. Take a slightly warm (not cold or cool) bath, or apply damp washcloths to the forehead and wrists. Cough- Cough is a common symptom associated with COVID and can be bothersome. To help treat a cough: Stay well hydrated. Try warm water or tea with lemon and/or honey to help soothe the cough. Use a humidifier to add moisture to the air. Try a product with menthol, like a cough drop or a rub for your chest such as Vicks, which can help reduce cough. Try cough drops. Avoid smoking and other strong odors or perfumes. Try breathing exercises to keep your lungs open and clear. Take a big deep breath through your nose and hold for 5 seconds before slowly releasing. Repeat frequently, while you are awake. Congestion- Runny nose or nasal congestion can occur with COVID. Treatment can help relieve symptoms: Try OTC nasal saline spray, or nasal saline rinse to relieve mucus congestion. Nasal strips can help keep nasal passages open, to increase airflow. Elevating your head with an extra pillow in bed can help reduce congestion. Using a humidifier can increase moisture in the air, and make breathing easier. Sore Throat- Another common symptom with COVID, can be managed at home by: Stay well hydrated. Gargle with salt water - mix teaspoon salt with 1 cup of warm water and gargle. This helps to loosen mucus in the back of the throat and may reduce discomfort. Try ice chips, popsicles or lozenges to soothe the throat. Nausea/Vomiting/Diarrhea- These are common symptoms, and staying hydrated is most important. If you are nauseous or vomiting, start with small sips of water every 10-15 minutes and increase as tolerated. You can try sucking an ice cube too. If tolerating, you can try pedialyte or Gatorade, or flat sprite or danya-loida. Start slowly and increase as you are able to. Instead of meals, try smaller, more frequent snacks. Try eating bland foods like crackers, toast, rice, and applesauce. Avoid spicy, greasy or fried foods and dairy containing foods. Even if you aren't feeling hungry due to lack of smell or taste, it is important to try to take in some food when you are able. After drinking and eating, rest in an upright position for up to two hours as needed to help decrease nauseous feelings. Try closing your eyes, avoid moving and watching TV. Avoid strong odors that can make you feel more nauseated. When to seek emergency medical attention Look for emergency warning signs for COVID-19. If having any of these symptoms, seek emergency medical care immediately: Trouble breathing Persistent pain or pressure in the chest New confusion Inability to wake or stay awake Bluish lips or face *This list is not all possible symptoms. Please call your medical provider for any other symptoms that are severe or concerning to you. documented in this encounter [facility] Evaluation note Diagnosis Viral illness- Primary Unspecified viral infection, in conditions classified elsewhere and of unspecified site documented in this encounter [facility] Diagnosis Onset Date Resolution Status Acute bronchitis acute Lump of right breast acute [facility] Work Phone: Evaluation note* Diagnosis Onset Date Resolution Status Lump of right breast acute [facility] Work Phone: Evaluation noteNo assessment information available [facility] Work Phone: Reason for referral (narrative)No reason for referral information availableWPremier [facility] Work Phone: Health Concerns Infection Onset Date Last Indicated Resolved Time COVID-19 Rule-Out 06/06/2022 06/06/2022 Infection Onset Date Last Indicated Resolved Time COVID-19 Rule-Out 06/06/2022 06/06/2022 06/07/2022 7:19 AM EDT Chief Complaint and Reason for Visit Chief Complaint CHEST TIGHTNESS/BACK PAIN SCREENING RT BREAST ABN MAMM BIRADS 4 RT BREAST Reason for Visit Acute bronchitis Lump of right breast Chief Complaint BIRADS 4 RT BREAST Reason for Visit Lump of right breast Chief Complaint SCREENING Family History No Family History Records Found Relationship Condition Age at Onset Recorded Date/T jennifer mother Congestive heart failure Unknown Cardiac disease Unknown Hypertension Unknown Kidney disorder Unknown Lupus Unknown Arthritis Unknown Sjogren's syndrome Unknown father Hypertension Unknown grandmother Malignant neoplasm of breast Unknown aunt Malignant neoplasm of ovary Unknown Advance Directives No Advanced Directives Records Found Advance Directive Response Recorded Date/ Time Living Will Yes August 03 8:18am Power of Back Up Worker Yes August 03, 2020 8:18am Advance Directive Response Recorded Date/ Time Living Will Yes August 03 9:18am Power of Back Up Worker Yes August 03, 2020 9:18am Summary Purpose Additional Source Comments Source Comments (unrecognize d section and content) In the event this informatio n is protected by the Federal Confidentiality of Alcohol and Drug Abuse Patient Records regulations: The Federal rules restrict any use of the information to criminally investigate or prosecute any alcohol or drug abuse patient.[facility] the event this information is protected by the Federal Confidentiality of Alcohol and Drug Abuse Patient Records regulations: The Federal rules restrict any use of the information to criminally investigate or prosecute any alcohol or drug abuse patient.[facility] Reason for Visit (unrecogniz ed section and content) Reason Comments Fever SOB, chest tightness , chills, body aches x2 days Reason Comments Results Care Teams (unrecognized sec tion and content) Signal Person Relationship Specialty Start Date End Date Mariana Montaño DO [address] [facility] [place] [address] PCP - General Family Medicine 04/08/18 Signal Person Relationship Specialty Start Date End Date Mariana Montaño DO [address] [facility] [address] [place] [address] PCP - General Family Medicine 04/08/18 Team Status: Active Member Role Status Dates Dr. Mariana Montaño DO Family Provider Active Dr. Mariana Montaño DO Primary Care Provider Active Team Status: Inactive Member Role Status Dates Dr. Mariana Montaño DO Primary Care Provider, Referrin g Provider Active Dr. Sheela Amaral MD Attending Provider Active Team Status: Inactive Member Role Status Dates Dr. Mariana Montaño DO Primary Care Provider Active Dr. Sheela Amaral MD Attending Provider Active Team Status: Inactive Member Role Status Dates Dr. Mariana Montaño DO Primary Care Provider, Attendin g Provider Active Team Status: Inactive Member Role Status Dates Dr. Mariana Montaño DO Primary Care Prov ider, Attending Provider, Referring Provider Active Team Status: Inactive Member Role Status Dates Dr. Mariana Montaño DO Primary Care Provider Active Dr. Sheela Amaral MD Attending Provider, Referring Provider Active Team Status: Inactive Member Role Status Dates Dr. Mariana Montaño DO Primary Care Provider Active Start: November 27, 2024 End: November 27, 2024 Dr. Mariana Montaño DO Attending Provider Active Start: November 27, 2024 End: November 27, 2024 Dr. Mariana Montaño DO Referring Provider Active Start: November 27, 2024 End: November 27, 2024 Goals (unrecognized section and content) Goals may be documented in a n alternate sectionGoals may be documented in an alternate sectionGoals may be documented in an alternate sectionGoals may be documented in an alternate sectionGoals may be documented in an alternate sectionGoals may be documented in an alternate sectionGoals may be documented in an alternate sectionGoals may be documented in an alternate sectionGoals may be documented in an alternate section INFORMATION SOURCE (unrecogn ized section and content) DATE CREATED AUTHOR 11/18/2024 [facility] DATE CREATED AUTHOR AUTHOR'S ORGANIZ ATION 02/06/2025 [facility] DATE CREATED AUTHOR AUTHOR'S ORGANIZ ATION 02/25/2025 [facility] FOR RECORDS PERTAINING TO PATIENTS WHO ARE OR HAVE BEEN ENROLLED IN A CHEMICAL DEPENDENCY/SUBSTANCEABUSE PROGRAM, SOME INFORMATION MAY BE OMITTED. This clinical summary was aggregated from multiple sources. Caution should be exercised in using it in the provision of clinical care. This summary normalizes information from multiple sources, and as a consequence, information in this document may materially change the coding, format and clinical context of patient data. In addition, data may be omitted in some cases. CLINICAL DECISIONS SHOULD BE BASED ON THE PRIMARY CLINICAL RECORDS. [employer] provides no warranty or guarantee of the accuracy or completeness of information in this document.
== END | disposition home or self-care (01) ==
LOC: CVS 11:27
PROVIDERS: PCP Family Medicine; Referring Provider Nurse Practitioner Family; Visit Provider Nurse Practitioner Family
DX: R07.9 Chest pain, unspecified (principal)
CPT/HCPCS: 93017; 93306

== ENCOUNTER 2025-04-26 06:38 | Day surgery (SDC) | payer BC, SELFPAY ==
--- NOTE | 2025-04-20 16:39 | PAT.ANE_ITS ---
Pre-Assessment Diagnosis/Proposed Procedure Planned Operative Procedure(s): Colonoscopy Anesthesia History Anesthesia History - purchasing coordinator: Anesthesia History - purchasing coordinator Hx Hospitalization No 04/20/25 16:05 Any Problems With Anesthesia No 04/20/25 16:05 Cholinesterase deficiency No 04/20/25 16:05 You/Your Family Experience No 04/20/25 16:05 fever (hyperthermia) with Relationship Recent Exposure to Contagious No 08/03/20 08:18 Disease Does patient have nerve No 04/20/25 16:05 stimulator Patient instructed to have device shut off --Does patient have Pacemaker or ICD? When Was Last Pacemaker Check QUESTION #4 FULL TEXT: You/Your Family Experience fever (hyperthermia) with Anesthesia Last Oral Intake Last Oral intake: Last Oral Intake NPO since Meds taken in AM with sips of water? Meds patient instructed to take am of surgery PONV PONV - purchasing coordinator: PONV - purchasing coordinator Female Yes 04/20/25 16:05 HX of Motion Sickness No 04/20/25 16:05 HX of N/V After Surgery No 04/20/25 16:05 Non-Smoker Yes 04/20/25 16:05 Duration of Surgery greater No 04/20/25 16:05 than 60 minutes Number of Risk Factors 2 04/20/25 16:05 PONV Score Moderate Risk 04/20/25 16:05 Height & Weight Height & Weight: Anesthesia: Height & Weight Height 5 ft 5 in 06/26/22 12:57 Respiratory Assessment Respiratory Assessment - purchasing coordinator: Respiratory Tract Infection Hx - purchasing coordinator Hx Respiratory Tract Infection No 04/20/25 16:05 STOP Sleep Apnea STOP Sleep Apnea - purchasing coordinator: STOP Sleep Apnea - purchasing coordinator Hx Hypertension No 04/20/25 16:05 Hx Sleep Apnea No 04/20/25 16:05 CPAP BIPAP Do you snore loudly (louder No 04/20/25 16:05 than talking or can be heard Do you often feel tired/ No 04/20/25 16:05 fatigued/ sleepy during daytime? Has anyone observed you stop No 04/20/25 16:05 breathing during sleep? STOP Results Negative 04/20/25 16:05 QUESTION #5 FULL TEXT : Do you snore loudly (louder than talking or can be heard through closed doors)? Tobacco Use History Tobacco Use History - purchasing coordinator: Tobacco Use History - purchasing coordinator Tobacco Use Smoking Status Never smoker 04/20/25 16:05 Hx Tobacco Use No 04/20/25 16:05 Years Smoking Packs Smoked per Day Smoking Cessation Date was within the last 15 years Hx Smoking Cessation Date Hx Smoking Cessation Counseling Hematologic Medial History Hematologic Hx - purchasing coordinator: Hematologic Medical Hx - occupational nurse Hx of Blood Transfusion No 04/20/25 16:05 Hx of Transfusion in last 3 No 04/20/25 16:05 Months Date of Last Transfusion (if within last 3 months) Ever experience any problems No 04/20/25 16:05 with transfusion(s)? Specify any problems Hx of Preganancy in last 3 No 04/20/25 16:05 Months Nurse Filling Out Transfusion JZOLLINGE 04/20/25 16:05 & Questions: Date: 04/20/25 04/20/25 16:05 Time: 16:07 04/20/25 16:05 Patient unable to answer at this time (ie. confused, unrespo /Reproduction History /Reproductive History - purchasing coordinator: /Reproductive Hx- purchasing coordinator Hx Now No 04/20/25 16:05 Gestational Age (in weeks): EDC: Hx Hx Para Hx Section SAB No 04/20/25 16:05 [facility] Medical History (Updated 04/20/25 @ 16:05 by Rebecca Hart) High cholesterol Non-smoker Sleep apnea History of echocardiogram History of stress test Heartburn Gastric reflux Adenomyosis Colon cancer screening Paresthesia Fatigue Vitamin D deficiency Hyperlipemia Hypertension Home Medications ?Medication ?Instructions ?Recorded ?Last Taken ?Type cholecalciferol (vitamin D3) 125 125 mcg PO DAILY 03/24 Unknown History mcg (5,000 unit) capsule magnesium 200 mg tablet 200 mg PO DAILY 07/12/20 Unk nown History potassium 99 mg tablet 1 tab PO DAILY 07/12/20 Unkn own History triamterene 37.5 1 cap PO DAILY 07/12/20 Unkn own History mg-hydrochlorothiazide 25 mg capsule valacyclovir 1 gram tablet 1,000 mg PO BID PRN COLD SO RES 07/14/20 Unknown History biotin 10,000 mcg capsule 10,000 mcg PO DAILY 06/26/22 Unknown History glucosamine 500 [id number] 1 tab PO .qd 02/12/25 Unknown History no1 416.6 mg-C 20 [id number] tablet (Glucosamine-Chondroitin Complex) rosuvastatin 10 mg tablet 10 mg PO DAILY 02/12/25 Unkn own History therapeutic multivitamin 1 tab PO DAILY 02/12/25 Unkn own History vitamin B complex 1 tab PO DAILY 02/12/25 Unkn own History Allergy/AdvReac Type Severity Reaction Status Date / Time haloperidol (From Haldol) AdvReac Unknown Pt's mom Verified 04/20/25 16:03 had reaction/Pt does not want rx Family History Mother Congestive heart failure Heart disease Hypertension Kidney disease Lupus Arthritis Sjogrens syndrome Father Hypertension Grandmother Breast cancer Aunt Ovarian cancer Surgical History Hx of bilateral salpingectomy History of total vaginal hysterectomy (TVH) History of tonsillectomy Social History Smoking Status: Never smoker alcohol intake: current details: social substance use type: does not use caffeine: Yes what type of physical activity do you participate in: none seatbelt use: always do you feel safe at home: Yes 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 Normal sinus rhythm with sinus arrhythmia. Stress test pertinent findings: 03/05/2025. Patient achieved 7 METS. No EKG criteria for ischemia at a moderate workload. Echo (EF%) pertinent findings: 03/05/2025. EF is 70%. PASP is 20 mmHg. No aortic stenosis noted. Recommendation Anesthesia Recommendation Anesthesia recommendation: OPTIMIZED for anesthesia
[2025-04-26] VITALS (9 sets, daily range): BP systolic 102–148; BP diastolic 65–100; PULSE 61–73; RESP 16; TEMP 36.3–36.4; O2SAT 92–99; BMI 31.4
--- OUTSIDE RECORDS SUMMARY | 2025-04-26 06:41 | XMS RPT_ITS | CCD ---
Author Organization [facility] Care Team Providers Care Ka[place]ina K[place] Name Role Phone Mariana Montaño DO Primary Care Provider Dr. Mariana Montaño Primary Care Provider [phone] Dr. Mariana Montaño Referring Provider CHARLOTTE Landry Attending Provider Dr. Sheela Amaral Attending Provider Dr. Mariana Montaño Primary Care Provider Dr. Mariana Montaño Referring Provider Dr. Sheela Amaral Attending Provider Dr. Mariana Montaño DO Primary Care Provider Dr. Mariana Montaño DO Attending Provider Dr. Mariana Montaño DO Referring Provider MAIRANA MONTAÑO A Primary Care Unavailable DANYEL, MARIANA [...] A Admitting Unavailable PROVIDER, UNKNOWN Consulting Unavailable Doroteo ZALDIVAR-C, Ester Attending Provider Doroteo GREEN TIRE INSPECTOR-C, Ester Referring Provider Vannesa DEVRIES, Dr. Hutton Attending Provider Doroteo, Ester Attending Unavailable Danyel, Mariana Primary Care Unavailable Doroteo, Ester Referring Unavailable Danyel, Mariana Primary Care Unavailable Danyel, Mariana Referring Unavailable Danyel, Mariana Attending Unavailable Danyel, Mariana Primary Care Unavailable Brennen Granado Attending Unavailable oDroteo, Ester Attending Unavailable Danyel, Mariana Primary Care Unavailable Doroteo, Ester Referring Unavailable Danyel, Mariana Primary Care Unavailable Danyel, Mariana Referring Unavailable Friend, Damon Attending Unavailable Danyel, Mariana Primary Care Unavailable Danyel, Mariana Referring Unavailable Friend, Damon Attending Unavailable Danyel, Mariana Attending Unavailable Danyel, Mariana Primary Care Unavailable Danyel, Mariana Referring Unavailable Allergies Allergy Classification Reported Allergen(s) Allergy Type Date of Onset Reaction(s) Facility (10 sources) Haloperidol Drug Allergy 2 Pt's mom had reaction/Pt does not want rx [facility] (1 source) Haloperidol Drug Allergy 5 [facility] Repository Medications Current Medications Medication Drug Class(es) Dates Sig (Normalized) Sig (Original) biotin 10 mg oral capsule (20 sources) Start: 06-26-2022 take 1 capsule by mouth once daily Biotin 10,000 mcg capsule Active 29462 ug PO DAILY June 26, 2022 1:00am Start: 07-12-2020 End: 06-19-2022 Biotin 10,000 mcg capsule Discontinued 1 {tbl} PO DAILY July 12, 2020 1:00am June 19, 2022 4:22pm Start: 07-12-2020 End: 06-19-2022 take 1 tablet by mouth once daily Biotin Discontinued 1 TABLET PO DAILY July 12, 2020 1:00am June 19, 2022 4:22pm cholecalciferol 0.125 mg oral capsule (12 sources) Vitamin D Start: 07-12-2020 take 1 capsule by mouth once daily Cholecalciferol (Vitamin D3) 125 mcg (5,000 unit) capsule Active 125 ug PO DAILY July 12, 2020 1:00am take 1 tablet by mouth once zita y cholecalciferol (VITAMIN D-3) 5,000 unit tab Take 5,000 Units by mouth once daily. 0 Active Comment on above: Take 5,000 Units by mouth once daily. Yjrtamvj-Mjsv-Yjk3-C-Terence-Walt sw (Glucosamine-Chondroitin Complx) 500-416.6-20 mg tablet (1 source) Start: 02-12-2025 Efrrykib-Ccla-Xct9-C -Terence-Bosw (Glucosamine-Chondro itin Complx) 500-416.6-20 mg tablet Active 1 {tbl} PO .qd February 12, 2025 12:00am hydroCHLOROthiazide 25 mg / triamterene 37.5 mg oral capsule (12 sources) Potassium-sparing Diuretic, Thiazide Diuretic Start: 07-12-2020 Triamterene-Hydrochl orothiazid 37.5-25 mg capsule Active 1 NMA PO DAILY July 12, 2020 1:00am Start: 07-12-2020 take 1 capsule by mouth once daily Triamterene-Hydrochlorothiazid Active 1 CAP PO DAILY July 12, 2020 1:00am Start: 08-07-2018 triamterene-hy drochlorothiazide (MAXZIDE-25) 37.5-25 mg per tablet Magnesium (12 sources) Start: 07-12-2020 take 1 tablet by [...] mouth. potassium gluconate 2.5 meq oral tablet (10 sources) Start: 0 Potassium 99 mg tablet Active 1 {tbl} PO DAILY July 12, 2020 1:00am rosuvastatin calcium 10 mg oral tablet (1 source) HMG-CoA Reductase Inhibitor Start: 5 take 1 tablet by mouth once daily Rosuvastatin 10 mg tablet Active 10 mg PO DAILY February 12, 2025 12:00am Therapeutic Multivitamin tablet (1 source) Start: 5 Therapeutic Multivitamin tablet Active 1 {tbl} PO DAILY February 12, 2025 12:00am valACYclovir 1000 mg oral tablet (10 sources) Herpesvirus Nucleoside Analog DNA Polymerase Inhibitor, Herpes Simplex Virus Nucleoside Analog DNA Polymerase Inhibitor, Herpes Zoster Virus Nucleoside Analog DNA Polymerase Inhibitor Start: Valacyclovir 1 gram tablet Active 1000 mg PO TWICE A DAY as needed for COLD SORES July 14, 2020 1:00am Start: 07-14-2020 take 1000 mg by mout h twice daily Valacyclovir Active 1000 MG PO TWICE A DAY July 14, 2020 1:00am Vitamin B Complex tablet (1 source) Start: 02-12-2025 Vitamin B Comp mary tablet Active 1 {tbl} PO DAILY February 12, 2025 12:00am Completed/Discontinued Medications Medication Drug Class(es) Dates Sig (Normalized) Sig (Original) acetaminophen 325 mg / oxyCODONE hydrochloride 5 mg oral tablet (10 sources) Opioid Agonist Start: 08-09-2020 End: 08-16-2020 Oxycodone-Acetaminoph en 1 TABLET tablet Discontinued 1 - 2 {tbl} PO EVERY 6 HOURS NEEDED as needed for Pain 15 7 0 August 09, 2020 August 15, 2020 1:00am August 16, 2020 1:02am Other acute postprocedural pain Start: 08-09-2020 End: 08-16-2020 take 1 tablet by mouth every six hours as needed Oxycodone-Acetaminophen Discontinued 1 - 2 TABLET PO EVERY 6 HOURS NEEDED 15 7 August 09, 2020 August 16, 2020 1:02am ascorbic acid 1000 mg oral tablet (10 sources) Vitamin C Start: 08-03-2020 End: 06-19-2022 take 1 tablet by mouth once daily Ascorbic Acid (Vitamin C) 1,000 MG tablet Discontinued 1000 mg PO DAILY August 03, 2020 1:00am June 19, 2022 4:22pm carboxymethylcellulose sodium 2.5 mg/ml ophthalmic solution (10 sources) Start: 08-03-2020 End: 06-19-2022 Carboxymethylcellulose Sodium 15 ML drops Discontinued 15 mL OP DAILY August 03, 2020 1:00am June 19, 2022 4:22pm cycloSPORINE 0.9 mg/ml ophthalmic solution (10 sources) Calcineurin Inhibitor Immunosuppressant Start: 08-03-2020 End: [...] Comment on above: Take 1 tablet by [facility] once daily. dextran 70 1 mg/ml / hypromellose 3 mg/ml ophthalmic solution (10 sources) Plasma Volume Portal Developer Start: 08-03-2020 End: 06-19-2022 Dextran 70-Hypromellose 15 ML drops Discontinued 15 mL OP NEEDED as needed for EYE DRYNESS August 03, 2020 1:00am June 19, 2022 4:23pm fluorometholone 1 mg/ml ophthalmic suspension (10 sources) Corticosteroid Start: 08-03-2020 End: 06-19-2022 Fluorometholone [...] times daily. methylPREDNISolone 4 mg oral tablet (10 sources) Corticosteroid Start: 06-19-2022 End: 06-25-2022 take 1 tablet by mouth once Methylprednisolone (Medrol (Ancelmo)) 4 mg tablets,dose pack Discontinued 4 mg PO per package directions 21 6 0 June 19, 2022 1:00am June 24, 2022 1:00am June 25, 2022 1:03am naproxen 250 mg oral tablet (10 sources) Nonsteroidal Anti-inflammatory Drug Start: 08-09-2020 End: 08-25-2020 take 250-500 mg by mouth every eight hours as needed for pain Naproxen 250 MG tablet Discontinued 250 - 500 mg PO EVERY 8 HOURS NEEDED as needed for MILD PAIN 30 1 August 09, 2020 1:00am August 25, 2020 [...] Problem Date Documented Date Episodic/Chronic Acute bronchitis (14 sources) Acute bronchitis; Translations: [Acute bronchitis, unspecified] Episodic Benign neoplasm of uterus (10 sources) Uterine leiomyoma; Translations: [Leiomyoma of uterus, unspecified] 08-09-2020 Episodic Endometriosis (10 sources) Uterine adenomyosis; Translations: [Adenomyosis of uterus] 08-09-2020 Chronic Comment on above: plan TVH BS Nonmalignant breast conditions (15 sources) Breast lump; Translations: [Unspecified lump in the right breast, unspecified quadrant] Episodic Nonspecific chest pain (1 source) Chest pain, unspecified; Translations: [Chest pain, unspecified] Onset: 03-11-2025 Episodic Other endocrine disorders (1 source) Estrogen excess; Translations: [Estrogen excess] Onset: 12-02-2024 Chronic Other female genital disorders (10 sources) Abnormal uterine bleeding; Translations: [Abnormal uterine and vaginal bleeding, unspecified] 08-09-2020 Chronic Comment on above: labs and ultrasound ordered, discussed medical vs surgical management, due to fibroids and adenomyosis recommend hysterectomy. plan TVHBS Other female genital disorders (10 sources) Cervical intraepithelial neoplasia grade 1; Translations: [Mild cervical dysplasia] 08-09-2020 Episodic Comment on above: repeat pap and hpv i n 07/25. Residual codes; unclassified (1 source) Obstructive sleep apnea (adult) (pediatric); Translations: [Obstructive sleep apnea (adult) (pediatric)] Onset: 04-23-2025 Chronic Viral infection (1 source) Viral disease; Translations: [...] Test Name Value Interpretation Reference Range Facility MR/PATCurtis 04-20-2025 MR/PAT.[facility] Medical Records Department [address] [place] [address] PAT - Anesthesia 04/20/25 1639 MR#: [id number] Acct: [id number] Name: KATHRYN CORTEZ Rep #: [id number] : 1970 54 From: Logan Onofre MD PCP: Dr. Mariana Montaño, DO Status:PRE SDC Y Race: C Location: EN Pre-Assessment Diagnosis/Proposed Procedure Planned Operative Procedure(s): Colonoscopy Anesthesia History Anesthesia History - job captain: Anesthesia History - job captain Hx Hospitalization No 04/20/25 16:05 Any Problems With Anesthesia No 04/20/25 16:05 Cholinesterase deficiency No 04/20/25 16:05 You/Your Family Experience No 04/20/25 16:05 fever (hyperthermia) with Relationship Recent Exposure to Contagious No 08/03/20 08:18 Disease Does patient have nerve No 04/20/25 16:05 stimulator Patient instructed to have device shut off --Does patient have Pacemaker or ICD? When Was Last Pacemaker Check QUESTION #4 FULL TEXT: You/Your Family Experience fever (hyperthermia) with Anesthesia Last Oral Intake Last Oral intake: Last Oral Intake NPO since Meds taken in AM with sips of water? Meds patient instructed to take am of surgery PONV PONV - job captain: PONV - job captain Female Yes 04/20/25 16:05 HX of Motion Sickness No 04/20/25 16:05 HX of N/V After Surgery No 04/20/25 16:05 Non-Smoker Yes 04/20/25 16:05 Duration of Surgery greater No 04/20/25 16:05 than 60 minutes Number of Risk Factors 2 04/20/25 16:05 PONV Score Moderate Risk 04/20/25 16:05 Height Weight Height Weight: Anesthesia: Height Weight Height 5 ft 5 in 06/26/22 12:57 Respiratory Assessment Respiratory Assessment - job captain: Respiratory Tract Infection Hx - job captain Hx Respiratory Tract Infection No 04/20/25 16:05 STOP Sleep Apnea STOP Sleep Apnea - job captain: STOP Sleep Apnea - job captain Hx Hypertension No 04/20/25 16:05 Hx Sleep Apnea No 04/20/25 16:05 CPAP BIPAP Do you snore loudly (louder No 04/20/25 16:05 than talking or can be heard Do you often feel tired/ No 04/20/25 16:05 fatigued/ sleepy during daytime? Has anyone observed you stop No 04/20/25 16:05 breathing during sleep? STOP Results Negative 04/20/25 16:05 QUESTION #5 FULL TEXT : Do you snore loudly (louder than talking or can be heard through closed doors)? Tobacco Use History Tobacco Use History - job captain: Tobacco Use History - job captain Tobacco Use Smoking Status Never smoker 04/20/25 16:05 Hx Tobacco Use No 04/20/25 16:05 Years Smoking Packs Smoked per Day Smoking Cessation Date was within the last 15 years Hx Smoking Cessation Date Hx Smoking Cessation Counseling Hematologic Medial History Hematologic Hx - job captain: Hematologic Medical Hx - manager building Hx of Blood Transfusion No 04/20/25 16:05 Hx of Transfusion in last 3 No 04/20/25 16:05 Months Date of Last Transfusion (if within last 3 months) Ever experience any problems No 04/20/25 16:05 with transfusion(s)? Specify any problems Hx of Preganancy in last 3 No 04/20/25 16:05 Months Nurse Filling Out Transfusion JZOLLINGE 04/20/25 16:05 Questions: Date: 04/20/25 04/20/25 16:05 Time: 16:07 04/20/25 16:05 Patient unable to answer at this time (ie. confused, unrespo /Reproduction History /Reproductive History - job captain: /Reproductive Hx- job captain Hx Now No 04/20/25 16:05 Gestational Age (in weeks): EDC: Hx Hx Para Hx Section SAB No 04/20/25 16:05 PFSH Medical History (Updated 04/20/25 @ 16:05 by Rebecca Hart) High cholesterol Non-smoker Sleep apnea History of echocardiogram History of stress test Heartburn Gastric reflux Adenomyosis Colon cancer screening Paresthesia Fatigue Vitamin D deficiency Hyperlipemia Hypertension Home Medications ???Medication ???Instructions ???Recorded ???Last Taken ???Type cholecalciferol (vitamin D3) 125 125 mcg PO DAILY 07/12/20 Unknown History mcg (5,000 unit) capsule magnesium 200 mg tablet 200 mg PO DAILY 07/12/20 Unknown H istory potassium 99 mg tablet 1 tab PO DAILY 07/12/20 Unknown Hi story triamterene 37.5 1 cap PO DAILY 07/12/20 Unknown Hi story mg-hydrochlorothiazide 25 mg capsule valacyclovir 1 gram tablet 1,000 mg PO BID PRN COLD SORES 05/24 Unknown History biotin 10,000 mcg capsule 10,000 mcg PO DAILY 06/26/22 Unkno wn History glucosamine 500 pc-danlltcec-ppa 1 tab PO .qd 02/12/25 Unknown Hist ory n (more content not included)... Normal [facility] Cardiovascular stress test r eportOrdered By: Brennen Granado on 03-05-2025 Study report [facility] Cardiovascular Services [address] [place] [address] MR#: [id number] Acct: [id number] Name: KATHRYN CORTEZ Rep #: [id number] : 1970 54 From: Brennen Granado MD Primary Care: Dr. Mariana Montaño, Statu s: REG CLI Referring Dr: Ester Sadler GREEN TIRE INSPECTOR-C Sex: F C Stress Test Report Exercise stress test. 54-year-old lady with a history of chest pain Stress protocol: Resting EKG demonstrates normal sinus rhythm with a rate of 82 bpm resting bloodpressure is 144/98 mmHg. The patient exercised according to the regular Valdo protocol for a total duration of 6 minutes attaining a maximum heart rate of 153bpm which was 93% of maximum predicted heart rate; the maximum workload was 7 METS metabolic equivalents. At rest there were no ST or T wave changes noted tosuggest ischemia and at peak exercise upsloping ST changes only were noted whichdid not meet the criteria for ischemia. No clinical angina was noted the test was terminated due to the target heart rate being achieved/fatigue. The peak blood pressure was 220/100 mmHg. this was a hypertensive response to exercise rate-pressure product was 33,600. Conclusion: Exercise stress test with no EKG criteria for ischemia at a moderate workload. Hypertensive response to exercise. No clinical angina noted. 03/05/251802 Date _ Brennen Granado MD CC: GREEN TIRE INSPECTOR-C Ester Sadler; Dr. Mariana Montaño, ~ Date Dictated: 03/05/251800 Date Transcribed: 03/05/251800 Lace Finisher: CO Signed [facility] Work Phone: Echo Completeon 03-05-2025 Echo Complete [facility] Cardiovascular Services [address] [place] [address] Echo Complete 03/05/25 1253 MR#: [id number] Acct: [id number] Name: KATHRYN CORTEZ Rep #: [id number] : 1970 54 From: Brennen Granado MD Attending Dr: RAYMOND Lynn Status: REG CL I Ordering Dr: Ester Sadler Date: 03/05/25 Location: [facility] Sex: F C Admitted: Reason For Study Reason For Study: CHEST PAIN Procedure This was a 2D Doppler, Color Flow transthoracic echocardiogram. Exam performed in department. Left Ventricle Normal LV size. Left ventricular systolic function is normal. The left ventricular ejection fraction is 70 %. Stage 1 diastolic dysfunction. No regional wall motion abnormalities noted. Right Ventricle Normal RV size. Normal systolic function. Atria Normal left atrium. Normal right atrium. Mitral Valve Normal mitral valve. Tricuspid Valve Normal tricuspid valve. Mild tricuspid valve insufficiency. Pulmonary artery systolic pressure is 20 mmHg. Aortic Valve Trisinus/trileaflet aortic valve. Pulmonic Valve Normal pulmonic valve. Great Vessels Normal aortic root. The pulmonary artery is normal size. Inferior vena cava collapse with respiration. Pericardium/Pleural No pericardial effusion. MMode/2D Measurements Calculations LVIDd: 3.6 cm IVSd: 0.89 cm LVOT diam: 2.0 cm LVIDs: 2.4 cm LVPWd: 1.3 cm LVOT area: 3.2 cm2 FS: 33.2 % Ao root diam: 3.2 cm LAV(MOD-bp): 24.9 ml LVAd ap4: 19.8 cm2 LAV(MOD-bp) Indexed: 13.2 ml/m2 LVLd ap4: 7.4 cm LAV(MOD-sp2): 24.9 ml EDV(MOD-sp4): 43.1 ml LAV(MOD-sp4): 23.1 ml EDV(sp4-el): 44.7 ml LVAs ap4: 9.7 cm2 LVLs ap4: 6.1 cm ESV(MOD-sp4): 14.0 ml ESV(sp4-el): 13.1 ml EF(MOD-sp4): 67.5 % EF(sp4-el): 70.6 % SV(MOD-sp4): 29.1 ml SV(sp4-el): 31.6 ml LA A4 area: 11.6 cm2 SI(MOD-sp4): 15.4 ml/m2 LA dimension(2D): 3.1 cm RA A4 area: 11.5 cm2 Time Measurements MV dec time: 0.11 sec Doppler Measurements Calculations MV E max siddhartha: 71.8 cm/sec Lat Peak E' Siddhartha: 8.5 cm/sec Med Peak E' Siddhartha: 7.7 cm/sec MV A max siddhartha: 97.5 cm/sec E/E' lat: 8.5 E/E' med: 9.3 MV E/A: 0.74 MV V2 max: 106.1 cm/sec Ao V2 max: 102.6 cm/sec MV max P.5 mmHg MV dec slope: 633.8 cm/sec2 Ao max P.2 mmHg MV V2 mean: 71.8 cm/sec Ao V2 mean: 72.6 cm/sec MV mean P.4 mmHg Ao mean P.4 mmHg MV V2 VTI: 17.0 cm Ao V2 VTI: 21.1 cm AV (velocity ratio): 0.81 MVA(VTI): 3.2 cm2 NEIDA(I,D): 2.6 cm2 NEIDA(V,D): 2.7 cm2 LV V1 max: 87.9 cm/sec SV(LVOT): 54.1 ml PA V2 max: 71.7 cm/sec LV V1 max P.1 mmHg PA V2 mean: 52.4 cm/sec LV V1 mean P.8 mmHg LV V1 mean: 62.9 cm/sec LV V1 VTI: 17.1 cm TR max siddhartha: 208.5 cm/sec TR max P.4 mmHg ECHO/Echo Complete Interpretation Summary Normal LV size. Left ventricular systolic function is normal. The left ventricular ejection fraction is 70 %. Stage 1 diastolic dysfunction. Mild tricuspid valve insufficiency. Ordering Physician: Ester Sadler Referring Physician: Ester Sadler Performed By: Shereen Still RCS 03/05/25 1640 Date Brennen Granado MD CC: RAYMOND Sadler; Dr. Mariana Montaño DO Date Dictated: 03/05/25 1253 Date Transcribed: 03/05/25 1640 Lace Finisher: Signed Normal [facility] Echocardiogram study reportO rdered By: Brennen Granado on 03-05-2025 Study report [facility] Cardiovascular Services [address] [place] [address] Echo Complete 03/05/25 1253 MR#: [id number] Acct: [id number] Name: KATHRYN CORTEZ Rep #:[id number] : 1970 54 From: Brennen Gleason Attending Dr: RAYMOND Lynn St atus: REG CLI Ordering Dr: Ester Sadler Date: 03/05/25 Location: [facility] Sex: F C Admitted: Reason For Study Reason For Study: CHEST PAIN Procedure This was a 2D Doppler, Color Flow transthoracic echocardiogram. Exam performed in department. Left Ventricle Normal LV size. Left ventricular systolic function is normal. The left ventricular ejection fraction is 70 %. Stage 1 diastolic dysfunction. No regional wall motion abnormalities noted. Right Ventricle Normal RV size. Normal systolic function. Atria Normal left atrium. Normal right atrium. Mitral Valve Normal mitral valve. Tricuspid Valve Normal tricuspid valve. Mild tricuspid valve insufficiency. Pulmonary artery systolic pressure is 20 mmHg. Aortic Valve Trisinus/trileaflet aortic valve. Pulmonic Valve Normal pulmonic valve. Great Vessels Normal aortic root. The pulmonary artery is normal size. Inferior vena cava collapse with respiration. Pericardium/Pleural No pericardial effusion. MMode/2D Measurements & Calculations LVIDd: 3.6 cm IVSd: 0.89 cm LVOT diam: 2.0 cm LVIDs: 2.4 cm LVPWd: 1.3 cm LVOT area: 3.2 cm2 FS: 33.2 % __ Ao root diam: 3.2 cm LAV(MOD-bp): 24.9 ml LVAd ap4: 19.8 cm2 LAV(MOD-bp) Indexed: 13.2 ml/m2 LVLd ap4: 7.4 cm LAV(MOD-sp2): 24.9 ml EDV(MOD-sp4): 43.1 ml LAV(MOD-sp4): 23.1 ml EDV(sp4-el): 44.7 ml LVAs ap4: 9.7 cm2 LVLs ap4: 6.1 cm ESV(MOD-sp4): 14.0 ml ESV(sp4-el): 13.1 ml EF(MOD-sp4): 67.5 % EF(sp4-el): 70.6 % __ SV(MOD-sp4): 29.1 ml SV(sp4-el): 31.6 ml LA A4 area: 11.6 cm2 SI(MOD-sp4): 15.4 ml/m2 __ LA dimension(2D): 3.1 cm RA A4 area: 11.5 cm2 Time Measurements MV dec time: 0.11 sec Doppler Measurements & Calculations MV E max siddhartha: 71.8 cm/sec Lat Peak E' Siddhartha: 8.5 cm/sec Med Peak E' Siddhartha: 7.7 cm/sec MV A max siddhartha: 97.5 cm/sec E/E' lat: 8.5 E/E' med: 9.3 MV E/A: 0.74 MV V2 max: 106.1 cm/sec Ao V2 max: 102.6 cm/sec MV max P.5 mmHg MV dec slope: 633.8 cm/sec2 Ao max P.2 mmHg MV V2 mean: 71.8 cm/sec Ao V2 mean: 72.6 cm/sec MV mean P.4 mmHg Ao mean P.4 mmHg MV V2 VTI: 17.0 cm Ao V2 VTI: 21.1 cm AV (velocity ratio): 0.81 MVA(VTI): 3.2 cm2 NEIDA(I,D): 2.6 cm2 NEIDA(V,D): 2.7 cm2 __ LV V1 max: 87.9 cm/sec SV(LVOT): 54.1 ml PA V2 max: 71.7 cm/sec LV V1 max P.1 mmHg PA V2 mean: 52.4 cm/sec LV V1 mean P.8 mmHg LV V1 mean: 62.9 cm/sec LV V1 VTI: 17.1 cm __ TR max siddhartha: 208.5 cm/sec TR max P.4 mmHg ECHO/Echo Complete Interpretation Summary Normal LV size. Left ventricular systolic function is normal. The left ventricular ejection fraction is 70 %. Stage 1 diastolic dysfunction. Mild tricuspid valve insufficiency. Ordering Physician: Ester Sadler Referring Physician: Ester Sadler Performed By: Shereen Still RCS 03/05/25 1640 Date _ Brennen Granado MD CC: GREEN TIRE INSPECTOR-C Ester Sadler; Dr. Mariana Montaño DO ~ Date Dictated: 03/05/25 1253 Date Transcribed: 03/05/25 1640 Lace Finisher: Signed [facility] Work Phone: Stress Reporton 03-05-2025 Stress Report [facility] Cardiovascular Services [address] [place] [address] MR#: [id number] Acct: [id number] Name: KATHRYN CORTEZ Rep #: [id number] : 1970 54 From: Brennen Granado MD Primary Care: Dr. Mariana Montaño, Status: REG CLI Referring Dr: Ester Sadler GREEN TIRE INSPECTOR-C Sex: F C Stress Test Report Exercise stress test. 54-year-old lady with a history of chest pain Stress protocol: Resting EKG demonstrates normal sinus rhythm with a rate of 82 bpm resting blood pressure is 144/98 mmHg. The patient exercised according to the regular Valdo protocol for a total duration of 6 minutes attaining a maximum heart rate of 153 bpm which was 93% of maximum predicted heart rate; the maximum workload was 7 METS metabolic equivalents. At rest there were no ST or T wave changes noted to suggest ischemia and at peak exercise upsloping ST changes only were noted which did not meet the criteria for ischemia. No clinical angina was noted the test was terminated due to the target heart rate being achieved/fatigue. The peak blood pressure was 220/100 mmHg. this was a hypertensive response to exercise rate-pressure product was 33,600. Conclusion: Exercise stress test with no EKG criteria for ischemia at a moderate workload. Hypertensive response to exercise. No clinical angina noted. 03/05/251802 Date Brennen Granado MD CC: RAYMOND Sadler; Dr. Mariana Montaño, DO Date Dictated: 03/05/251800 Date Transcribed: 03/05/251800 Lace Finisher: CO Signed Normal [facility] CBC + DIFFon 02-04-2025 Baso # 0.04 x10EE3/UL Normal 0.00 - 0.[address] [facility] Comment on above: Performed By: #### [id number] #### [facility],[address] [place] [address] Basophils/100 WBC (Bld) 0.4 % Normal 0.0 - 2.[address] [facility] Comment on above: Performed By: #### 2 [id number] #### [facility],[address] [place] [address] CBC + DIFF Normal [facility] Comment on above: Result Comment: CBC- COMPLETE BLOOD COUNT Performed By: #### 2 [id number] #### [facility],[address] [place] [address] EO # 0.45 x10EE3/UL Normal 0.00 - 0.[address] [facility] Comment on above: Performed By: #### 2 [id number] #### [facility],[address] [place] [address] Eosinophils/100 WBC (Bld) 5.2 % Normal 0.0 - 7.[address] [facility] Comment on above: Performed By: #### 2 [id number] #### [facility],[address] [place], [place] [id number] Erythrocyte distribution width (RBC) [Ratio] 12.8 % Normal 12.0 - 15.[address] [facility] Comment on above: Performed By: #### 2 [id number] #### [facility],[address] [place] [id number] Hematocrit (Bld) [Volume fraction] 46.5 % High 34.0 - 46.[address] [facility] Comment on above: Performed By: #### 2 95951 #### [facility],[address] [place] [address] Hemoglobin (Bld) [Mass/Vol] 16.1 g/dL High 12.0 - 16.[address] [facility] Comment on above: Performed By: #### 2 27911 #### [facility],[address] [place] [address] Lymph # 3.92 x10EE3/UL High 0.80 - 2.[address] [facility] Comment on above: Performed By: #### 2 94575 #### [facility],[address] [place] [address] 13924 Lymphocytes/100 WBC (Bld) 45.2 % High 20.0 - 45.[address] [facility] Comment on above: Performed By: #### 2 44068 #### [facility],[address] [place] [address] 03108 MANUAL DIFF N/A Normal [facility] Comment on above: Performed By: #### 2 13043 #### [facility],[address] [place] [address] 07381 MCH (RBC) [Entitic mass] 29 pg Normal 27 - [address] [facility] Comment on above: Performed By: #### 2 31280 #### [facility],[address] [place] [address] 09565 MCHC 35 X10 3 Normal 32 - [address] [facility] Comment on above: Performed By: #### 2 52045 #### [facility],[address] [place] [address] 50920 MCV (RBC) [Entitic vol] 84 fL Normal 80 - [address] [facility] Comment on above: Performed By: #### 2 67200 #### [facility],[address] [place] [address] 89436 Nash # 0.61 x10EE3/UL Normal 0.20 - 1.[address] [facility] Comment on above: Performed By: #### 2 17533 #### [facility],[address] [place] [address] 17721 MONOS % 7.1 % Normal 0.0 - 10.[address] [facility] Comment on above: Performed By: #### 2 43714 #### [facility],[address] [place] [address] 27200 Morphology Kvng (Bld) [Interp] N/A Normal [facility] Comment on above: Performed By: #### 2 78140 #### [facility],[address] [place] [address] 17866 Neut # 3.65 x10EE3/UL Normal 1.50 - 7.[address] [facility] Comment on above: Performed By: #### 2 98211 #### [facility],[address] [place] [address] 96770 Neutrophils/100 WBC (Bld) 42.1 % Low 46.0 - 76.[address] [facility] Comment on above: Performed By: #### 2 19005 #### [facility],[address] [place] [address] 28885 PLATELET 318 x10EE3/UL Normal 150 - [address] [facility] Comment on above: Performed By: #### 2 29278 #### [facility],[address] [place] [address] 99166 Platelet mean volume (Bld) [Entitic vol] 7.4 fL Normal 6.6 - 10.[address] [facility] Comment on above: Result Comment: AUTO MATED DIFFERENTIAL Performed By: #### 2 65088 #### [facility],[address] [place] [address] 64851 RBC 5.54 x 10EE6/UL High 4.10 - 5.[address] [facility] Comment on above: Performed By: #### 2 74205 #### [facility],[address] [place] [address] 95332 WBC 8.7 x 10EE3/UL Normal 4.5 - 10.[address] [facility] Comment on above: Performed By: #### 2 95795 #### [facility],[address] [place], [place] [id number] D-DIMER, QUANTITATIVEon 07-0 D-DIMER QUANT <200 Normal 0 - [address] [facility] Comment on above: Performed By: #### 2 02232 #### [facility],[address] [place], [place] [id number] D-DIMER, QUANTITATIVE Normal [facility] Comment on above: Result Comment: PILAR T D-DIMER Performed By: #### 2 34665 #### [place] [id number] TROPONINon 02-04-2025 HS TROPONIN 4.1 pg/mL Normal 0.0 - 51.[address] [facility] Comment on above: Performed By: #### 2 35920 #### [facility],[address] [place], [place] [address] Thyroid Antibodieson 025 TG AB < 1.0 Normal 0.0-0.9 [facility] Comment on above: Result Comment: Thyr oglobulin Antibody measured by [employer]to Methodology It should be noted that the presence of thyroglobulin antibodies may not be pathogenic nor diagnostic, especially at very low levels. The assay country printer has found that four percent of individuals without evidence of thyroid disease or autoimmunity will have positive TgAb levels up to 4 IU/mL. Performed at: [address] [id number] Transportation Coordinator: Joseph Pettit PhD, Phone: [phone] Performed By: #### L 3300.6750, L501.9520, L506.0400, L3300.1750, L501.9985 #### [facility] [address] [place], [place], [id number] THYR PEROX AB 12 IU/mL Normal 0-34 [facility] Comment on above: Performed By: #### L 3300.6750, L501.9520, L506.0400, L3300.1750, [id number] #### [facility] [address] [place], [address] E2 post dose follitropin [Ma ss/Vol]Ordered By: Mariana Montaño on 11-27-2024 Estradiol (E2) Level 34.9 pg/mL [facility] Comment on above: FEMALES ADULT FEMALE : [...] 18. Estradiolon 11-27-2024 ESTRADIOL 34.9 pg/mL Normal [facility] Comment on above: Result Comment: FEMA LES [...] L 3300.6750, L501.9520, L506.0400, L3300.1750, L501.9985 #### [facility] [address] [place], [place], [address] Hemoglobin A1con 11-27-2024 HbA1c (Bld) [Mass fraction] 6.1 % High <=5.6 [facility] Comment on above: Result Comment: Norm al < 5.7 % Prediabetic 5.7 - 6.4 % Diabetic >or= 6.5 % Please note range changes. Performed By: #### L 3300.6750, L501.9520, L506.0400, L3300.1750, L501.9985 #### [facility] [address] [place], [place], [id number] Hemoglobin A1c percentageOrd ered By: Mariana Montaño on 11-27-2024 HbA1c (Bld) [Mass fraction] 6.1 % High <5.7 [facility] Comment on above: Normal < 5.7 % Predi abetic 5.7 - 6.4 % Diabetic >or= 6.5 % Please note range changes. Serum or plasma estradiol me asurement after follitropin dose (mass/volume)Ordered By: Mariana Montaño on 11-27-2024 E2 post dose follitropin [Mass/Vol] 34.9 pg/mL [facility] Comment on above: FEMALES ADULT FEMALE [...] (adult) should be reached by age 18. Serum or plasma thyroperoxid ase antibody assay (units/volume)Ordered By: Mariana Montaño on 11-27-2024 TPO Ab Qn 12 [IU]/mL 0- [facility] T4 Free Directon 11-27-2024 T4 FREE DIRECT 1.00 ng/dL Normal 0.76-1.46 [facility] Comment on above: Performed By: #### L 3300.6750, L501.9520, L506.0400, L3300.1750, L501.9985 #### [facility] [address] [place], [place], [address] T4 freeOrdered By: Mariana rodas on 11-27-2024 Free T4 [Mass/Vol] 1.00 ng/dL 0.76-1.46 [facility] TPO Ab QnOrdered By: Mariana Blas on 11-27-2024 Thyroid Peroxidase Antibodies 12 IU/mL 0- [facility] TSH DL <= 0.005 mIU/L QnOrde red By: Mariana Montaño on 11-27-2024 Thyroid Stimulating Hormone (TSH) 2.900 uIU/mL 0.300-4.200 [facility] TSH Qn 2.900 uIU/mL 0.300-4.200 [facility] Thyroglobulin Ab serumOrdere d By: Mariana Montaño on 11-27-2024 Thyroglobulin Antibody < 1.0 IU/mL 0.0-0.9 [facility] Comment on above: Thyroglobulin Antibo dy measured by Suzi TurbocoatingMethodologyIt should be noted that the presence of thyroglobulinantibodies may not be pathogenic nor diagnostic, especiallyat very low levels. The assay country printer has found thatfour percent of individuals without evidence of thyroiddisease or autoimmunity will have positive TgAb levels upto 4 IU/mL.Performed at: [facility] [place], [place] [id number] Director: Joseph Pettit PhD, Phone: [phone] Thyroid Stim Hormone (TSH)on 11-27-2024 TSH 2.900 uIU/mL Normal 0.300-4.200 [facility] Comment on above: Performed By: #### L 3300.6750, L501.9520, L506.0400, L3300.1750, L501.9985 #### [facility] [address] [facility] [place], [address] CCP AB, IgG AND IgA [CCL]on 11-17-2024 CCP AB, IgG AND IgA [CCL] Normal [facility] Comment on above: Result Comment: _CCP AB, IgG AND IgA [CCL]_ SEE SEPARATE REPORT Performed By: #### 2 81712 #### [facility],[address] [facility] [address] DHEA [CCL]on 11-16-2024 DHEA 1.805 ng/mL Normal 0.630-4.[address] [facility] Comment on above: Result Comment: INTE RPRETIVE INFORMATION: Dehydroepiandrosterone, Females 18 years and older: Postmenopausal: 0.60-5.73 ng/mL REFERENCE INTERVAL: Dehydroepiandrosterone by TMS Access complete set of age- and/or gender-specific reference intervals for this test in the [facility] Test Directory ([employer]). This test was developed and its performance characteristics determined by [facility]. It has not been cleared or approved by the [place] Food and Drug Administration. This test was performed in a CLIA certified laboratory and is intended for clinical purposes. Performed By: [facility] [address] [place] [address] Core Mounter: Jose Skinner MD, PhD CLIA Number: [id number] [address] [address] Bernardino He III, M.D. [id number] Performed By: #### 2 43688 #### [address] [address] PROGESTERONE [CCL]on 025 Progesterone <0.2 Normal See comment [facility] Comment on above: Result Comment: Mens trual Cycle Progesterone Reference Ranges: Follicular: <1.0 ng/mL Ovulation: <12.1 ng/mL Luteal: 1.8 to 23.9 ng/mL. Progesterone Reference Ranges vary by gestational period: First Trimester: 11.0 to 44.3 ng/mL Second Trimester: 25.4 to 83.3 ng/mL Third Trimester: 58.7 to 214 ng/mL Post menopausal Progesterone: <0.5 ng/mL Reference: 1. Progesterone (Progesterone III) [package insert V 1.0 Slovak]. [facility], [place], [place]. May 2015. [facility] [employer] [facility] [place] [address] Bernardino He III, M.D. [id number] Performed By: #### 2 91975 #### [address] [address] LARISSA BY IFA SCREEN [CCL]on Nuclear Ab IF (S) [Titer] Negative Normal Negative [facility] Comment on above: Result Comment: Anti -nuclear antibody test is used as an aid in diagnosis of systemic autoimmune diseases. Where positive and clinically warranted, follow-up using disease-specific testing is recommended. Low positive titers are not uncommon with advanced age, certain chronic infections, and malignancies among others. Test methodology: Indirect fluorescence immunoassay (IFA) using HEp-2 cells. [facility] [employer] [address] [place] [address] Bernardino He III, M.D. [id number] Performed By: #### 2 56253 #### [address] [address] ESTRADIOL-17B [CCL]on 2024 Estradiol-17B 56 pg/mL Normal [facility] Comment on above: Result Comment: [...] 3243 pg/mL Second trimester : 1561 to 76848 pg/mL Third trimester : 8285 to >13614 pg/mL Post-menopausal Estradiol reference range: < 41 pg/mL Reference: 1. Estradiol - E2 (Estradiol III) [package insert V 3.0 Slovak]. [facility], [place], [place], January 2016. [address] [address] Bernardino He III, M.D. [id number] Performed By: #### 2 46306 #### [place] [address] RHEUMATOID FACTOR [CCL]on Rheumatoid Factor <10 Normal <[address] [facility] Comment on above: Result Comment: [place] [address] [place] [address] Bernardino He III, M.D. [id number] Performed By: #### 2 80973 #### [facility],[address] [place], [place] [address] LARISSA BY IFA SCREENon 11-13-19 25 Nuclear Ab Ql (S) Negative Normal Negative [facility] Comment on above: Order Comment: Speci men Type: BLOOD SPECIMEN Ordering Facility: [facility] Address: [address] [place] [address] Result Comment: Anti -nuclear antibody test is used as an aid in diagnosis of systemic autoimmune diseases. Where positive and clinically warranted, follow-up using disease-specific testing is recommended. Low positive titers are not uncommon with advanced age, certain chronic infections, and malignancies among others. Test methodology: Indirect fluorescence immunoassay (IFA) using HEp-2 cells. Performed By: #### 2 839-9, 44074-5, ALONDRA #### [facility] CLIA [id number] [address] [place] [address] [place] #### DHEA #### [facility] CLIA [id number] [address] [place] [address] C-REACTIVE PROTEINon 025 CRP 0.26 mg/dl Normal 0.00 - 0.[address] [facility] Comment on above: Performed By: #### 2 93599 #### [facility],[address] [place] [address] 61944 CBC + DIFFon 11-12-2024 Baso # 0.05 x10EE3/UL Normal 0.00 - 0.[address] [facility] Comment on above: Performed By: #### 2 39931 #### [facility],[address] [place] [address] 59009 Basophils/100 WBC (Bld) 0.6 % Normal 0.0 - 2.[address] [facility] Comment on above: Performed By: #### 2 82468 #### [facility],[address] [place] [address] 86034 CBC + DIFF Normal [facility] Comment on above: Result Comment: CBC- COMPLETE BLOOD COUNT Performed By: #### 2 63965 #### [facility],[address] [place] [address] 67996 EO # 0.56 x10EE3/UL High 0.00 - 0.[address] [facility] Comment on above: Performed By: #### 2 11467 #### [facility],[address] [place] [address] 02315 Eosinophils/100 WBC (Bld) 6.5 % Normal 0.0 - 7.[address] [facility] Comment on above: Performed By: #### 2 32927 #### [facility],[address] [place] [address] 40475 Erythrocyte distribution width (RBC) [Ratio] 13.5 % Normal 12.0 - 15.[address] [facility] Comment on above: Performed By: #### 2 09953 #### [facility],[address] [place] [address] Hematocrit (Bld) [Volume fraction] 47.2 % High 34.0 - 46.[address] [facility] Comment on above: Performed By: #### 2 91121 #### [facility],[address] [place] [address] Hemoglobin (Bld) [Mass/Vol] 16.7 g/dL High 12.0 - 16.[address] [facility] Comment on above: Performed By: #### 2 39459 #### [facility],[address] [place] [address] Lymph # 2.99 x10EE3/UL High 0.80 - 2.[address] [facility] Comment on above: Performed By: #### 2 24574 #### [facility],[address] [place] [address] Lymphocytes/100 WBC (Bld) 34.9 % Normal 20.0 - 45.[address] [facility] Comment on above: Performed By: #### 2 58013 #### [facility],[address] [place] [address] MANUAL DIFF N/A Normal [facility] Comment on above: Performed By: #### 2 08736 #### [facility],[address] [place], [place] [id number] MCH (RBC) [Entitic mass] 30 pg Normal 27 - [address] [facility] Comment on above: Performed By: #### 2 84139 #### [facility],[address] [place] [address] MCHC 35 X10 3 Normal 32 - [address] [facility] Comment on above: Performed By: #### 2 47078 #### [facility],[address] [place] [address] MCV (RBC) [Entitic vol] 85 fL Normal 80 - [address] [facility] Comment on above: Performed By: #### 2 26048 #### [facility],[address] [place] [address] Nash # 0.70 x10EE3/UL Normal 0.20 - 1.[address] [facility] Comment on above: Performed By: #### 2 74263 #### [facility],[address] [place] [address] MONOS % 8.2 % Normal 0.0 - 10.[address] [facility] Comment on above: Performed By: #### 2 81470 #### [facility],[address] [place] [address] Morphology Kvng (Bld) [Interp] N/A Normal [facility] Comment on above: Performed By: #### 2 76301 #### [facility],[address] [place] [address] Neut # 4.28 x10EE3/UL Normal 1.50 - 7.[address] [facility] Comment on above: Performed By: #### 2 31183 #### [facility],[address] [place] [address] Neutrophils/100 WBC (Bld) 49.8 % Normal 46.0 - 76.[address] [facility] Comment on above: Performed By: #### 2 15956 #### [facility],[address] [place] [address] PLATELET 359 x10EE3/UL Normal 150 - [address] [facility] Comment on above: Performed By: #### 2 42073 #### [facility],[address] [place] [address] Platelet mean volume (Bld) [Entitic vol] 7.6 fL Normal 6.6 - 10.[address] [facility] Comment on above: Result Comment: AUTO MATED DIFFERENTIAL Performed By: #### 2 31740 #### [facility],[address] [place] [address] 22555 RBC 5.59 x 10EE6/UL High 4.10 - 5.[address] [facility] Comment on above: Performed By: #### 2 99125 #### [facility],[address] [place] [address] 83285 WBC 8.6 x 10EE3/UL Normal 4.5 - 10.[address] [facility] Comment on above: Performed By: #### 2 38963 #### [facility],[address] [place] [address] 34720 CMP with eGFRon 11-12-2024 AGE 54 years Normal [facility] Comment on above: Performed By: #### 2 11760 #### [facility],[address] [place] [address] 48010 Albumin [Mass/Vol] 4.2 g/dL Normal 3.4 - 5.[address] [facility] Comment on above: Performed By: #### 2 13618 #### [facility],[address] [place] [address] 07869 Albumin/Globulin [Mass ratio] 1.2 {ratio} Normal 0.9 - 1.[address] [facility] Comment on above: Performed By: #### 2 03513 #### [facility],[address] [place] [address] 40660 ALK PHOS 61 U/L Normal 46 - [address] [facility] Comment on above: Performed By: #### 2 25010 #### [facility],[address] [place] [address] 21715 ALT [Catalytic activity/Vol] 103 U/L High 16 - [address] [facility] Comment on above: Performed By: #### 2 06147 #### [facility],[address] [place] [address] 65977 Anion gap [Moles/Vol] 10 mmol/L Normal 10 - 20 [facility] Comment on above: Performed By: #### 2 27307 #### [facility],[address] [place] [address] 87572 AST [Catalytic activity/Vol] 53 U/L High 13 - [address] [facility] Comment on above: Performed By: #### 2 01753 #### [facility],[address] [place] [address] 09989 B/C RATIO 19 ratio Normal 0 - [address] [facility] Comment on above: Performed By: #### 2 97616 #### [facility],[address] [place] [address] 09964 Bilirubin [Mass/Vol] 0.5 mg/dL Normal 0.2 - 1.[address] [facility] Comment on above: Performed By: #### 2 81797 #### [facility],[address] [place] [address] 58811 Calcium [Mass/Vol] 9.2 mg/dL Normal 8.5 - 10.[address] [facility] Comment on above: Performed By: #### 2 10302 #### [facility],[address] [place] [address] 21612 Chloride [Moles/Vol] 102 mmol/L Normal 98 - [address] [facility] Comment on above: Performed By: #### 2 66399 #### [facility],[address] [place] [address] 71922 CMP with eGFR Normal [facility] Comment on above: Result Comment: COMP REHENSIVE METABOLIC PANEL Performed By: #### 2 17572 #### [facility],[address] [place] [address] 75925 CO2 [Moles/Vol] 29.8 mmol/L Normal 21.0 - 32.[address] [facility] Comment on above: Performed By: #### 2 65054 #### [facility],[address] [place] [address]644 Creatinine [Mass/Vol] 0.94 mg/dL Normal 0.55 - 1.02 [facility] Comment on above: Performed By: #### 2 71027 #### [facility],[address] [place] [address]39[address] GFR/1.73 sq M.predicted among non-blacks MDRD (S/P/Bld) [Vol rate/Area] mL/min/{1.73_m2} Normal 60 - [address] [facility] Comment on above: Performed By: #### 2 29024 #### [facility],[address] [place] [address] Result Comment: ACCO RDING TO THE NATIONAL KIDNEY DISEASE EDUCATION PROGRAM(NKDE), A NORMAL eGFR IS A VALUE GREATER THAN OR EQUAL TO 60 ML/MIN/1.73 SQ METERS. CHRONIC KIDNEY DISEASE: <60mL/MIN/1.73 SQ METERS KIDNEY FAILURE: <15mL/MIN/1.73 SQ METERS THIS TEST SHOULD ONLY BE USED FOR PATIENTS 18 YEARS OF AGE AND OLDER. Globulin (S) [Mass/Vol] 3.4 g/dL Normal 1.5 - 3.[address] [facility] Comment on above: Performed By: #### 2 27717 #### [facility],[address] [place] [address] 90018 Glucose [Mass/Vol] 120 mg/dL High 74 - [address] [facility] Comment on above: Performed By: #### 2 67226 #### [facility],[address] [place] [address] 87835 Potassium [Moles/Vol] 3.4 mmol/L Low 3.5 - 5.1 [facility] Comment on above: Performed By: #### 2 07247 #### [facility],[address] [place] [address] 19312 Protein [Mass/Vol] 7.6 g/dL Normal 6.4 - 8.[address] [facility] Comment on above: Performed By: #### 2 60269 #### [facility],[address] [place] [address]604 Sodium [Moles/Vol] 138 mmol/L Normal 136 - [address] [facility] Comment on above: Performed By: #### 2 64836 #### [facility],[address] [place] [address] 03624 Urea nitrogen [Mass/Vol] 18 mg/dL Normal 7 - [address] [facility] Comment on above: Performed By: #### 2 52358 #### [facility],[address] [place] [address] 20699 DHEA BLOODon 11-12-2024 DHEA 1.805 ng/mL Normal 0.630-4.700 [facility] Comment on above: Order Comment: Speci men Type: BLOOD SPECIMEN Ordering Facility: [facility] Address: [address] [place] [address] Result Comment: INTE RPRETIVE INFORMATION: Dehydroepiandrosterone, Females 18 years and older: Postmenopausal: 0.60-5.73 ng/mL REFERENCE INTERVAL: Dehydroepiandrosterone by TMS Access complete set of age- and/or gender-specific reference intervals for this test in the [facility] ([employer]). This test was developed and its performance characteristics determined by [email or web address]. It has not been cleared or approved by the US Food and Drug Administration. This test was performed in a CLIA certified laboratory and is intended for clinical purposes. Performed By: [email or web address] [address] [place], [place] [id number] Core Mounter: Jose Skinner MD, PhD CLIA Number: [id number] Performed By: #### 2 839-9, 29831-5, ALONDRA #### [facility] CLIA [id number] [address] [place] [address] [place] #### DHEA #### [facility] CLIA [id number] [address] [place] [address]183 Estradiol SerPl-mCncon 11-12 E2 [Mass/Vol] 56 pg/mL Normal [facility] Comment on above: Order Comment: Speci men Type: BLOOD SPECIMEN Ordering Facility: [facility] Address: [address] [place] [address] Result Comment: This test is not suitable [...] 3243 pg/mL Second trimester : 1561 to 42518 pg/mL Third trimester : 8285 to >59454 pg/mL Post-menopausal Estradiol reference range: < 41 pg/mL Reference: 1. Estradiol - E2 (Estradiol III) [package insert V 3.0 Slovak]. [facility], [place], [place], January 2016. Performed By: #### 2 243-4 #### [facility] CLIA [id number] [address] [place] [address] OF [facility] LIPID PROFILEon 11-12-2024 Cholesterol [Mass/Vol] 170 mg/dL Normal 0 - [address] [facility] Comment on above: Performed By: #### 2 29740 #### [facility],[address] [place] [address] 98333 Cholesterol in HDL [Mass/Vol] 50 mg/dL Normal 40 - [address] [facility] Comment on above: Performed By: #### 2 82790 #### [facility],[address] [place] [address] 85446 Cholesterol in LDL [Mass/Vol] 85 mg/dL Normal 0 - [address] [facility] Comment on above: Performed By: #### 2 58380 #### [facility],[address] [place] [address] 24454 Cholesterol.total/Cho lesterol in HDL [Mass ratio] 3.4 {ratio} Normal 0.0 - 5.[address] [facility] Comment on above: Performed By: #### 2 20242 #### [facility],[address] [place] [address] 20117 Lipid 1996 panel Normal [facility] Comment on above: Result Comment: LIPI D PROFILE Performed By: #### 2 26627 #### [facility],[address] [place] [address] 58374 Triglyceride [Mass/Vol] 176 mg/dL High 0 - [address] [facility] Comment on above: Performed By: #### 2 78905 #### [facility],[address] [place] [address] 88612 Progest SerPl-mCncon 025 Progesterone [Mass/Vol] ng/mL Normal See comment [facility] Comment on above: Order Comment: Speci men Type: BLOOD SPECIMEN Ordering Facility: [facility] Address: [address] [place] [address] Result Comment: Mens trual Cycle Progesterone Reference Ranges: Follicular: <1.0 ng/mL Ovulation: <12.1 ng/mL Luteal: 1.8 to 23.9 ng/mL. Progesterone Reference Ranges vary by gestational period: First Trimester: 11.0 to 44.3 ng/mL Second Trimester: 25.4 to 83.3 ng/mL Third Trimester: 58.7 to 214 ng/mL Post menopausal Progesterone: <0.5 ng/mL Reference: 1. Progesterone (Progesterone III) [package insert V 1.0 Slovak]. [facility], [place], [place]. May 2015. Performed By: #### 2 839-9, 52962-1, ANAIFS #### [facility] CLIA [id number] [address] [place] [address] [place] #### DHEA #### [facility] CLIA [id number] [address] [place] [address] Rheumatoid fact SerPl-aCncon 11-12-2024 Rheumatoid factor Qn [IU]/mL Normal <16 [facility] Comment on above: Order Comment: Speci men Type: BLOOD SPECIMEN Ordering Facility: [facility] Address: [address] [place] [address] Performed By: #### 2 839-9, 56410-0, ANAIFS #### [facility] CLIA [id number] [address] [place] [address] [place] #### DHEA #### [facility] CLIA [id number] [address] [place] [address] SEDRATEon 11-12-2024 SEDRATE 2 mm/hr Normal 0 - [address] [facility] Comment on above: Performed By: #### 2 99925 #### [facility],[address] [place] [address] 87541 TSHon 11-12-2024 TSH Qn 3.80 m[IU]/L High 0.35 - 3.[address] [facility] Comment on above: Performed By: #### 2 66771 #### [facility],[address] [place] [address] 30728 SCRN MAMM (CAD)W/MIKAYLA BILATo n 07-06-2024 SCRN MAMM (CAD)W/MIKAYLA BILAT [facility] [address] [place] [address] [id number] SCRN MAMM (CAD)W/MIKAYLA BILAT MR#: [id number] Acct: [id number] Name: KATHRYN CORTEZ Rep #: [id number] : 1970 F 53 From: Armando mackay MD PCP: Dr. Mariana Montaño DO Status: [facility] Study: SCRN MAMM (CAD)W/MIKAYLA BILAT Date of Exam: 09/28 Exam# [id number] Ordering Dr: Mariana Montaño DO [id number] MAMMOGRAPHY - BILATERAL SCREENING REASON FOR EXAM: [...] delay biopsy of a clinically suspicious abnormality. [id number] Electronically Signed: Armando Davalos MD at 8:28 EST Reading Location ID and State: [facility] / [place] , Service support , CC: Dr. Mariana Montaño, DO Lace Finisher: Signed Normal [facility] with eGFRon 05-26-2024 AGE 53 years Normal [facility] Comment on above: Performed By: #### 2 27437 #### [address] [address] Albumin [Mass/Vol] 3.8 g/dL Normal 3.4 - 5.[address] [facility] Comment on above: Performed By: #### 2 37594 #### [facility],[address] [place] [address] 07340 Albumin/Globulin [Mass ratio] 1.0 {ratio} Normal 0.9 - 1.[address] [facility] Comment on above: Performed By: #### 2 05392 #### [facility],[address] [place] [address] 68878 ALK PHOS 47 U/L Normal 46 - [address] [facility] Comment on above: Performed By: #### 2 89347 #### [facility],[address] [place] [address] 80607 ALT [Catalytic activity/Vol] 47 U/L Normal 16 - [address] [facility] Comment on above: Performed By: #### 2 76007 #### [facility],[address] [place] [address] 60134 Anion gap [Moles/Vol] 11 mmol/L Normal 10 - 20 [facility] Comment on above: Performed By: #### 2 43995 #### [facility],[address] [place] [address] 81525 AST [Catalytic activity/Vol] 27 U/L Normal 13 - [address] [facility] Comment on above: Performed By: #### 2 59171 #### [facility],[address] [place] [address] 92665 B/C RATIO 18 ratio Normal 0 - [address] [facility] Comment on above: Performed By: #### 2 38664 #### [facility],[address] [place] [address] 87248 Bilirubin [Mass/Vol] 0.4 mg/dL Normal 0.2 - 1.[address] [facility] Comment on above: Performed By: #### 2 03097 #### [facility],[address] [place] [address] 18094 Calcium [Mass/Vol] 8.9 mg/dL Normal 8.5 - 10.[address] [facility] Comment on above: Performed By: #### 2 84538 #### [facility],[address] [place] [address] 38435 Chloride [Moles/Vol] 102 mmol/L Normal 98 - [address] [facility] Comment on above: Performed By: #### 2 94353 #### [facility],[address] [place] [address] CMP with eGFR Normal [facility] Comment on above: Result Comment: COMP REHENSIVE METABOLIC PANEL Performed By: #### 2 28870 #### [facility],[address] [place] [address] CO2 [Moles/Vol] 31.7 mmol/L Normal 21.0 - 32.[address] [facility] Comment on above: Performed By: #### 2 54890 #### [facility],[address] [place] [address] Creatinine [Mass/Vol] 1.04 mg/dL High 0.55 - 1.02 [facility] Comment on above: Performed By: #### 2 17043 #### [facility],[address] [place] [address] eGFR 55 ML/MINUTE Low 60 - [address] [facility] Comment on above: Performed By: #### 2 25808 #### [facility],[address] [place] [address] GFR/1.73 sq M.predicted among non-blacks MDRD (S/P/Bld) [Vol rate/Area] mL/min/{1.73_m2} Normal 60 - [address] [facility] Comment on above: Result Comment: ACCO RDING TO THE NATIONAL KIDNEY DISEASE EDUCATION PROGRAM(NKDE), A NORMAL eGFR IS A VALUE GREATER THAN OR EQUAL TO 60 ML/MIN/1.73 SQ METERS. CHRONIC KIDNEY DISEASE: <60mL/MIN/1.73 SQ METERS KIDNEY FAILURE: <15mL/MIN/1.73 SQ METERS THIS TEST SHOULD ONLY BE USED FOR PATIENTS 18 YEARS OF AGE AND OLDER. Performed By: #### 2 91967 #### [facility],[address] [place], [place] [id number] Globulin (S) [Mass/Vol] 3.7 g/dL Normal 1.5 - 3.[address] [facility] Comment on above: Performed By: #### 2 14782 #### [facility],[address] [place] [address] 29224 Glucose [Mass/Vol] 115 mg/dL High 74 - [address] [facility] Comment on above: Performed By: #### 2 20146 #### [facility],[address] [place] [address] 00338 Potassium [Moles/Vol] 3.5 mmol/L Normal 3.5 - 5.1 [facility] Comment on above: Performed By: #### 2 79500 #### [facility],[address] [place] [address] 40269 Protein [Mass/Vol] 7.5 g/dL Normal 6.4 - 8.[address] [facility] Comment on above: Performed By: #### 2 42089 #### [facility],[address] [place] [address] 59139 Sodium [Moles/Vol] 141 mmol/L Normal 136 - [address] [facility] Comment on above: Performed By: #### 2 16723 #### [facility],[address] [place] [address] 56737 Urea nitrogen [Mass/Vol] 19 mg/dL High 7 - [address] [facility] Comment on above: Performed By: #### 2 36941 #### [facility],[address] [place] [address] 41853 LIPID PROFILEon 05-26-2024 Cholesterol [Mass/Vol] 192 mg/dL Normal 0 - [address] [facility] Comment on above: Performed By: #### 2 75217 #### [facility],[address] [place] [address] 68021 Cholesterol in HDL [Mass/Vol] 49 mg/dL Normal 40 - [address] [facility] Comment on above: Performed By: #### 2 42476 #### [facility],[address] [place], [place] [address] Cholesterol in LDL [Mass/Vol] 95 mg/dL Normal 0 - [address] [facility] Comment on above: Performed By: #### 2 48992 #### [facility],[address] [place] [address] 58942 Cholesterol.total/Cho lesterol in HDL [Mass ratio] 3.9 {ratio} Normal 0.0 - 5.[address] [facility] Comment on above: Performed By: #### 2 99485 #### [facility],[address] [place] [address] 95277 Lipid 1996 panel Normal [facility] Comment on above: Result Comment: LIPI D PROFILE Performed By: #### 2 14893 #### [facility],[address] [place] [address] 27862 Triglyceride [Mass/Vol] 239 mg/dL High 0 - [address] [facility] Comment on above: Performed By: #### 2 74998 #### [facility],[address] [place] [address] 68038 Absolute lymphocyte countOrd ered By: Mariana Montaño on 10-28-2023 Lymphocytes Auto (Unsp spec) [#/Vol] 2.89 10*3/uL 0.83-4.51 [facility] Automated lymphocyte count a s percentage of total leukocytesOrdered By: Mariana Montaño on 10-28-2023 Lymphocytes/100 WBC Auto (Unsp spec) 31.7 % 19-41 [facility] Basophil percentageOrdered B y: Mariana Montaño on 10-28-2023 Basophils/100 WBC (Bld) 1.4 % 0-1 [facility] Bilirubin [Mass/Vol] 0.50 mg/dL 0.20-1.00 [facility] Comment on above: For patients on eltr ombopag therapy, use of Dimension Casa TBIL is not recommended. Chloride [Moles/Vol] 103 mmol/L 98-107 [facility] Cholesterol [Mass/Vol] 255 mg/dL <200 [facility] Comment on above: <200 mg/dL Desirable 200-240 mg/dL Borderline >240 mg/dL High Risk Eosinophils/100 WBC (Bld) 2.2 % 0-5 [facility] Glucose [Mass/Vol] 113 mg/dL 74-106 [facility] Comment on above: Fasting Glucose resu lt from 100 to 125 mg/dL suggests IMPAIRED HOMEOSTASIS per A.D.A. criteria. Hemoglobin (Bld) [Mass/Vol] 15.5 g/dL 12.0-15.0 [facility] Monocytes/100 WBC (Bld) 8.0 % 0-10 [facility] Neutrophils (Bld) [#/Vol] 5.1 10*3/uL 2.0-7.7 [facility] Neutrophils/100 WBC (Bld) 56.4 % 47-70 [facility] Potassium [Moles/Vol] 3.2 mmol/L 3.5-5.1 [facility] Protein [Mass/Vol] 7.8 g/dL 6.4-8.2 [facility] Sodium [Moles/Vol] 140 mmol/L 136-145 [facility] Triglyceride [Mass/Vol] 173 mg/dL <199 [facility] Comment on above: The drugs N-Acetylcy steine and Metamizole may falsely depress this assay.Serum Triglycerides Reference Interval Normal <150 mg/dL Borderline high 150 - 199 mg/dL High 200 - 499 mg/dL Very High > or = 500 mg/dL WBC (Bld) [#/Vol] 9.1 10*3/uL 4.4-11.0 [facility] Determination of erythrocyte mean corpuscular volume (MCV)Ordered By: Mariana Montaño on 10-28-2023 MCV (RBC) [Entitic vol] 86.5 fL 81-99 [facility] Erythrocyte distribution wid th ratioOrdered By: Mariana Montaño on 10-28-2023 Erythrocyte distribution width (RBC) [Ratio] 12.2 % 11.6-14.6 [facility] Erythrocyte distribution wid th standard deviationOrdered By: Mariana Montaño on 10-28-2023 Erythrocyte distribution width (RBC) [Entitic vol] 38.8 fL 35.1-43.9 [facility] Hematocrit Auto (Bld) [Volum e fraction]Ordered By: Mariana Montaño on 10-28-2023 Hematocrit (Bld) [Volume fraction] 47.6 % 37-47 [facility] Immature granulocytes/100 WB C Auto (Bld)Ordered By: Mariana Montaño on 10-28-2023 Immature granulocytes/100 WBC (Bld) 0.300 % 0.0-0.9 [facility] Comment on above: IG% - Immature Granu locytes (promyelocytes, myelocytes and metamyelocytes) > 1% indicates that a LEFT SHIFT is Present. Laboratory - Chemistry and C hemistry - challengeOrdered By: Mariana Montaño on 10-28-2023 Albumin/Globulin [Mass ratio] 1.2 {ratio} 0.9-2.4 [facility] ALP [Catalytic activity/Vol] 49 U/L 45-117 [facility] ALT [Catalytic activity/Vol] 31 U/L 13-56 [facility] Cholesterol in HDL [Mass/Vol] 41 mg/dL >40 [facility] Comment on above: The drugs N-Acetylcy steine and Metamizole may falsely depress this assay. Reference Range HDL <40 mg/dL Low HDL Cholesterol HDL >or= 60 mg/dL High HDL Cholesterol Cholesterol in LDL [Mass/Vol] 179 mg/dL 0-130 [facility] CO2 [Moles/Vol] 29.0 mmol/L 21.0-32.0 [facility] Globulin (S) [Mass/Vol] 3.5 g/dL 2.2-4.2 [facility] Urea nitrogen/Creatinine [Mass ratio] 15.7 mg/mg 10-20 [facility] Laboratory - Hematology and Cell countsOrdered By: Mariana Montaño on 10-28-2023 MCH (RBC) [Entitic mass] 28.2 pg 27.0-32.0 [facility] MCHC (RBC) [Mass/Vol] 32.6 g/dL 32-36 [facility] Nucleated RBC/100 WBC (Bld) [Ratio] 0 % 0-5 [facility] Platelet mean volume (Bld) [Entitic vol] 9.7 fL 6.2-12.0 [facility] Platelets (Bld) [#/Vol] 357 10*3/uL 150-450 [facility] No Panel InformationOrdered By: Mariana Montaño on 10-28-2023 Estimated GFR (MDRD) Amer 63 mL/min >60 [facility] Comment on above: GFR Calc Estimated GFR (MDRD) Non-Af Amer 52 mL/min >60 [facility] Comment on above: Non- GFR Calc Vitamin D 25-Hydroxy 52.4 ng/mL [facility] Comment on above: Vitamin D 25(OH) Sta tus Range Deficiency <20 ng/mL (50nmol/L) Insufficiency 20 - 30 ng/mL (50 - 75 nmol/L) Sufficiency 30 - 100 ng/mL (75 - 250 nmol/L) Toxicity >100 ng/mL (>250 nmol/L) VLDL Cholesterol 35 mg/dL 5-40 [facility] RBC Auto (Bld) [#/Vol]Ordere d By: Mariana Montaño on 10-28-2023 RBC (Bld) [#/Vol] 5.50 10*6/uL 4.2-5.4 [facility] Serum or plasma calcium pineda urement (mass/volume)Ordered By: Mariana Montaño on 10-28-2023 Calcium [Mass/Vol] 9.7 mg/dL 8.5-10.1 [facility] Serum or plasma creatinine m easurement (mass/volume)Ordered By: Mariana Montaño on 10-28-2023 Creatinine [Mass/Vol] 1.15 mg/dL 0.55-1.02 [facility] Comment on above: The validity of the calculated GFR & GFRAA in patients over 70 years has not been determined. Clinical correlation is essential. Serum or plasma thyroid stim ulating hormone (TSH) measurement (units/volume)Ordered By: Mariana Montaño on 10-28-2023 TSH Qn 2.94 uIU/mL 0.358-3.74 [facility] Serum or plasma urea nitroge n measurement (mass/volume)Ordered By: Mariana Montaño on 10-28-2023 Urea nitrogen [Mass/Vol] 18 mg/dL 7-18 [facility] Thin prep Papanicolaou smear with manual screeningOrdered By: Mariana Montaño on 10-28-2023 Thin prep Papanicolaou smear with manual screening 4.3 g/dL 3.2-5.0 [facility] Thin prep Papanicolaou smear with manual screening 23 U/L 15-37 [facility] Thin prep Papanicolaou smear with manual screening 8 5-15 [facility] Basophil percentageOrdered B y: Mariana Montaño on 01-31-2023 Bilirubin [Mass/Vol] 0.30 mg/dL 0.20-1.00 [facility] Comment on above: For patients on eltr ombopag therapy, use of Dimension Casa TBIL is not recommended. Cholesterol [Mass/Vol] 156 mg/dL <200 [facility] Comment on above: <200 mg/dL Desirable 200-240 mg/dL Borderline >240 mg/dL High Risk Protein [Mass/Vol] 7.1 g/dL 6.4-8.2 [facility] Triglyceride [Mass/Vol] 190 mg/dL <199 [facility] Comment on above: The drugs N-Acetylcy steine and Metamizole may falsely depress this assay.Serum Triglycerides Reference Interval Normal <150 mg/dL Borderline high 150 - 199 mg/dL High 200 - 499 mg/dL Very High > or = 500 mg/dL Direct bilirubinOrdered By: Mariana Montaño on 01-31-2023 Bilirubin.direct [Mass/Vol] 0.10 mg/dL 0.00-0.30 [facility] Laboratory - Chemistry and C hemistry - challengeOrdered By: Mariana Montaño on 01-31-2023 ALP [Catalytic activity/Vol] 51 U/L 45-117 [facility] ALT [Catalytic activity/Vol] 35 U/L 13-56 [facility] Globulin (S) [Mass/Vol] 3.5 g/dL 2.2-4.2 [facility] Serum or plasma albumin pineda urement (mass/volume)Ordered By: Mariana Montaño on 01-31-2023 Albumin [Mass/Vol] 3.6 g/dL 3.2-5.0 [facility] Serum or plasma cholesterol in HDL measurement (mass/volume)Ordered By: Mariana Montaño on 01-31-2023 Cholesterol in HDL [Mass/Vol] 39 mg/dL >40 [facility] Comment on above: The drugs N-Acetylcy steine and Metamizole may falsely depress this assay. Reference Range HDL <40 mg/dL Low HDL Cholesterol HDL >or= 60 mg/dL High HDL Cholesterol Serum or plasma cholesterol in VLDL measurement (mass/volume)Ordered By: Mariana Montaño on 01-31-2023 Cholesterol in VLDL [Mass/Vol] 38 mg/dL 5-40 [facility] Serum or plasma low density lipoprotein (LDL) cholesterol measurement (mass/volume)Ordered By: Mariana Montaoñ on 01-31-2023 Cholesterol in LDL [Mass/Vol] 79 mg/dL 0-130 [facility] Thin prep Papanicolaou smear with manual screeningOrdered By: Mariana Montaño on 01-31-2023 Thin prep Papanicolaou smear with manual screening 19 U/L 15-37 [facility] Absolute lymphocyte countOrd ered By: Dr. Montaño on 10-18-2022 Lymphocytes Auto (Unsp spec) [#/Vol] 3.11 10*3/uL 0.83-4.51 [facility] Basophil percentageOrdered B y: Dr. Montaño on 10-18-2022 Basophils/100 WBC (Bld) 1.4 % 0-1 [facility] Bilirubin [Mass/Vol] 0.30 mg/dL 0.20-1.00 [facility] Comment on above: For patients on eltr ombopag therapy, use of Dimension Casa TBIL is not recommended. Chloride [Moles/Vol] 101 mmol/L 98-107 [facility] Cholesterol [Mass/Vol] 293 mg/dL <200 [facility] Comment on above: <200 mg/dL Desirable 200-240 mg/dL Borderline >240 mg/dL High Risk Eosinophils/100 WBC (Bld) 6.0 % 0-5 [facility] Glucose [Mass/Vol] 84 mg/dL 74-106 [facility] Neutrophils (Bld) [#/Vol] 3.9 10*3/uL 2.0-7.7 [facility] Neutrophils/100 WBC (Bld) 48.0 % 47-70 [facility] Potassium [Moles/Vol] 3.8 mmol/L 3.5-5.1 [facility] Protein [Mass/Vol] 7.5 g/dL 6.4-8.2 [facility] Sodium [Moles/Vol] 138 mmol/L 136-145 [facility] Triglyceride [Mass/Vol] 252 mg/dL <199 [facility] Comment on above: The drugs N-Acetylcy steine and Metamizole may falsely depress this assay.Serum Triglycerides Reference Interval Normal <150 mg/dL Borderline high 150 - 199 mg/dL High 200 - 499 mg/dL Very High > or = 500 mg/dL WBC (Bld) [#/Vol] 8.1 10*3/uL 4.4-11.0 [facility] Blood erythrocytes count (nu mber/volume)Ordered By: Dr. Montaño on 10-18-2022 RBC (Bld) [#/Vol] 5.52 10*6/uL 4.2-5.4 [facility] Blood hemoglobin measurement (mass/volume)Ordered By: Dr. Montaño on 10-18-2022 Hemoglobin (Bld) [Mass/Vol] 15.7 g/dL 12.0-15.0 [facility] Blood lymphocytes/100 leukoc ytesOrdered By: Dr. Montaño on 10-18-2022 Lymphocytes/100 WBC (Bld) 38.3 % 19-41 [facility] Blood monocytes/100 leukocyt esOrdered By: Dr. Montaño on 10-18-2022 Monocytes/100 WBC (Bld) 5.9 % 0-10 [facility] Blood platelet mean volumeOr dered By: Dr. Montaño on 10-18-2022 Platelet mean volume (Bld) [Entitic vol] 9.8 fL 6.2-12.0 [facility] Determination of erythrocyte mean corpuscular volume (MCV)Ordered By: Dr. Montaño on 10-18-2022 MCV (RBC) [Entitic vol] 86.4 fL 81-99 [facility] Hematocrit Auto (Bld) [Volum e fraction]Ordered By: Dr. Montaño on 10-18-2022 Hematocrit (Bld) [Volume fraction] 47.7 % 37-47 [facility] Laboratory - Chemistry and C hemistry - challengeOrdered By: Dr. Montaño on 10-18-2022 ALP [Catalytic activity/Vol] 47 U/L 45-117 [facility] ALT [Catalytic activity/Vol] 31 U/L 13-56 [facility] CO2 [Moles/Vol] 29.0 mmol/L 21.0-32.0 [facility] Globulin (S) [Mass/Vol] 3.4 g/dL 2.2-4.2 [facility] Urea nitrogen/Creatinine [Mass ratio] 21.3 mg/mg 10-20 [facility] Laboratory - Hematology and Cell countsOrdered By: Dr. Montaño on 10-18-2022 Erythrocyte distribution width (RBC) [Entitic vol] 40.6 fL 35.1-43.9 [facility] Erythrocyte distribution width (RBC) [Ratio] 12.9 % 11.6-14.6 [facility] Immature granulocytes/100 WBC (Bld) 0.400 % 0.0-0.9 [facility] Comment on above: IG% - Immature Granu locytes (promyelocytes, myelocytes and metamyelocytes) > 1% indicates that a LEFT SHIFT is Present. MCH (RBC) [Entitic mass] 28.4 pg 27.0-32.0 [facility] Nucleated RBC/100 WBC (Bld) [Ratio] 0 % 0-5 [facility] MCHC Auto (RBC) [Mass/Vol]Or dered By: Dr. Montaño on 10-18-2022 MCHC (RBC) [Mass/Vol] 32.9 g/dL 32-36 [facility] No Panel InformationOrdered By: Dr. Montaño on 10-18-2022 Estimated GFR (MDRD) Amer 80 mL/min >60 [facility] Comment on above: GFR Calc Estimated GFR (MDRD) Non-Af Amer 66 mL/min >60 [facility] Comment on above: Non- GFR Calc Vitamin D 25-Hydroxy 45.1 ng/mL [facility] Comment on above: Vitamin D 25(OH) Sta tus Range Deficiency <20 ng/mL (50nmol/L) Insufficiency 20 - 30 ng/mL (50 - 75 nmol/L) Sufficiency 30 - 100 ng/mL (75 - 250 nmol/L) Toxicity >100 ng/mL (>250 nmol/L) Platelets bldOrdered By: Dr. Montaño on 10-18-2022 Platelets (Bld) [#/Vol] 370 10*3/uL 150-450 [facility] Serum or plasma albumin pineda urement (mass/volume)Ordered By: Dr. Montaño on 10-18-2022 Albumin [Mass/Vol] 4.1 g/dL 3.2-5.0 [facility] Serum or plasma albumin/glob ulin mass ratioOrdered By: Dr. Montaño on 10-18-2022 Albumin/Globulin [Mass ratio] 1.2 {ratio} 0.9-2.4 [facility] Serum or plasma calcium pineda urement (mass/volume)Ordered By: Dr. Montaño on 10-18-2022 Calcium [Mass/Vol] 9.2 mg/dL 8.5-10.1 [facility] Serum or plasma cholesterol in HDL measurement (mass/volume)Ordered By: Dr. Montaño on 10-18-2022 Cholesterol in HDL [Mass/Vol] 40 mg/dL >40 [facility] Comment on above: The drugs N-Acetylcy steine and Metamizole may falsely depress this assay. Reference Range HDL <40 mg/dL Low HDL Cholesterol HDL >or= 60 mg/dL High HDL Cholesterol Serum or plasma cholesterol in VLDL measurement (mass/volume)Ordered By: Dr. Montaño on 10-18-2022 Cholesterol in VLDL [Mass/Vol] 50 mg/dL 5-40 [facility] Serum or plasma creatinine m easurement (mass/volume)Ordered By: Dr. Montaño on 10-18-2022 Creatinine [Mass/Vol] 0.94 mg/dL 0.55-1.02 [facility] Comment on above: The validity of the calculated GFR & GFRAA in patients over 70 years has not been determined. Clinical correlation is essential. Serum or plasma low density lipoprotein (LDL) cholesterol measurement (mass/volume)Ordered By: Dr. Montaño on 10-18-2022 Cholesterol in LDL [Mass/Vol] 203 mg/dL 0-130 [facility] Serum or plasma urea nitroge n measurement (mass/volume)Ordered By: Dr. Montaño on 10-18-2022 Urea nitrogen [Mass/Vol] 20 mg/dL 7-18 [facility] Thin prep Papanicolaou smear with manual screeningOrdered By: Dr. Montaño on 10-18-2022 Thin prep Papanicolaou smear with manual screening 16 U/L 15-37 [facility] Thin prep Papanicolaou smear with manual screening 8 5-15 [facility] Cervical or vagninal specime n microscopic examination by cytology stain (reported asOrdered By: Dr. Montaño on 07-19-2022 Cytology report Cyto stain Doc (Cvx/Vag) Comment . [facility] Comment on above: The Pap smear is a s creening test designed to aid in thedetection of premalignant and malignant conditions of theuterine cervix. It is not a diagnostic procedure andshould not be used as the sole means of detecting cervicalcancer. Both false-positive and false-negative reports dooccur. Laboratory - CytologyOrdered By: Dr. Montaño on 07-19-2022 [employer] Cyto stain Nom (Cvx/Vag) [ID] Comment . [facility] Comment on above: Brinda Li ytotechnologist (ASCP) Laboratory - Miscellaneous t estsOrdered By: Dr. Montaño on 07-19-2022 Service comment (Unsp spec) [Interp] Comment . [facility] Comment on above: This liquid based Th inPrep(R) pap test was screened withthe use of an image guided system. Service comment (Unsp spec) [Interp] . . [facility] No Panel InformationOrdered By: Dr. Montaño on 07-19-2022 Pap Smear Additional Comments 30-65 . [facility] Pathology report final diagnosis Narrative Comment . [facility] Comment on above: NEGATIVE FOR INTRAEP ITHELIAL LESION OR MALIGNANCY.THIS SPECIMEN WAS RESCREENED PART OF OUR CABLE RIGGER PROGRAM. Vital Signs Date Time Vital Sign Value Performing Clinician Facility 06-26-2022 12:57-0500 Body height 165.[address] Mariana Montaño Work Phone: [facility] 06-26-2022 12:57-0500 Body mass index (BMI) [Ratio] 28.4 kg/m2 Dr. Mariana Montaño Work Phone: [facility] 06-26-2022 12:57-0500 Body temperature 97.6 [degF] Dr. Mariana Montaño Work Phone: [facility] 06-26-2022 12:57-0500 Body weight 77.[address] Mariana Montaño Work Phone: [facility] 06-26-2022 12:57-0500 Diastolic blood pressure 90 mm[Hg] Dr. Mariana Montaño Work Phone: [facility] 06-26-2022 12:57-0500 Heart rate 108 /min Dr. Mariana Montaño Work Phone: [facility] 06-26-2022 12:57-0500 Respiratory rate 17 /min Dr. Mariana Montaño Work Phone: [facility] 06-26-2022 12:57-0500 SaO2% (BldA) [Mass fraction] 99 % Dr. Mariana Montaño Work Phone: [facility] 06-26-2022 12:57-0500 Systolic blood pressure 125 mm[Hg] Dr. Mariana Montaño Work Phone: [facility] 06-19-2022 15:21-0500 Body mass index (BMI) [Ratio] 28.6 kg/m2 Dr. Mariana Montaño Work Phone: [facility] Work Phone: 06-19-2022 15:21-0500 Body temperature 98.4 [degF] Dr. Mariana Montaño Work Phone: [facility] Work Phone: 06-19-2022 15:21-0500 Body weight 78.[address] Mariana Montaño Work Phone: [facility] Work Phone: 06-19-2022 15:21-0500 Diastolic blood pressure 92 mm[Hg] Dr. Mariana Montaño Work Phone: [facility] Work Phone: 06-19-2022 15:21-0500 Heart rate 125 /min Dr. Mariana Montaño Work Phone: [facility] Work Phone: 06-19-2022 15:21-0500 Respiratory rate 17 /min Dr. Mariana Montaño Work Phone: [facility] Work Phone: 06-19-2022 15:21-0500 SaO2% (BldA) [Mass fraction] 99 % Dr. Mariana Montaño Work Phone: [facility] Work Phone: 06-19-2022 15:21-0500 Systolic blood pressure 166 mm[Hg] Dr. Mariana Montaño Work Phone: [facility] Work Phone: 06-06-2022 16:01-0400 Body temperature 98.71 [degF] Nic Walsh DIE ATTACHER.MANAGER CRISIS Work Phone: [facility] 06-06-2022 16:01-0400 Body weight 78.38 kg Nic Walsh DIE ATTACHER.MANAGER CRISIS Work Phone: [facility] 06-06-2022 16:01-0400 Diastolic blood pressure 78 mm[Hg] Nic Nico DIE ATTACHER.MANAGER CRISIS Work Phone: [facility] 06-06-2022 16:01-0400 Heart rate 113 /min Nic Walsh DIE ATTACHER.MANAGER CRISIS Work Phone: [facility] 06-06-2022 16:01-0400 Respiratory rate 20 /min Nic Walsh DIE ATTACHER.MANAGER CRISIS Work Phone: [facility] 06-06-2022 16:01-0400 SaO2% (BldA) [Mass fraction] 98 % Nic Walsh DIE ATTACHER.MANAGER CRISIS Work Phone: [facility] 06-06-2022 16:01-0400 Systolic blood pressure 120 mm[Hg] Nic Walsh DIE ATTACHER.MANAGER CRISIS Work Phone: [facility] Encounters Encounter Date Encounter Type Care Provider Facility Start: 05-06-2025 [facility] Facility:[facility] Start: 04-26-2025 ambulatory Mariana Danyel Facility: [facility] Start: 03-05-2025 ambulatory Mariana Montaño [place] [facility] [place]: 03-05-2025 Non-patient / Non-visit Dr. Georgie DEVRIES [facility] Start: 03-05-2025 End: 03-05-[address] Mariana Montaño DO Work Phone: -[facility] Start: 03-05-2025 End: 03-05-2025 Patient encounter procedure Esterisaac Sadler GREEN TIRE INSPECTOR-C -Cardiovascular Services Work Phone: Start: 03-05-2025 End: 03-05-2025 ambulatory Ester Sadler Facility:[facility] Start: 02-15-2025 ambulatory Mariana Danyel Facility: [facility] Start: 02-04-2025 End: 02-04-2025 ambulatory MARIANA [facility] Start: 12-22-2024 End: 12-22-2024 ambulatory MARIANA [facility] Start: 11-27-2024 End: 11-27-[address] Mariana Montaño DO Work Phone: [facility] Work Phone: Start: 11-27-2024 End: 11-27-[address] Mariana Montaño DO -Laboratory Work Phone: Start: 11-27-2024 End: 11-27-2024 ambulatory Mariana Montaño Facility:[facility] Start: 11-12-2024 End: 11-12-2024 ambulatory [facility] Start: 07-06-2024 End: 07-06-2024 ambulatory Mariana Danyel Facility:[facility] Start: 05-26-2024 End: 05-26-2024 ambulatory [facility] Start: 10-28-2023 End: 10-28-2023 ambulatory [facility] Work Phone: Start: 10-28-2023 End: 10-28-2023 Patient encounter procedure [facility] Work Phone: Start: 07-02-2023 End: 07-02-2023 ambulatory [facility] Work Phone: Start: 07-02-2023 End: 07-02-2023 Patient encounter procedure [facility] Work Phone: Start: 01-31-2023 End: 01-31-2023 ambulatory [facility] Work Phone: Start: 01-31-2023 End: 01-31-2023 Patient encounter procedure [facility] Work Phone: Start: 10-18-2022 End: 10-18-[address] Mariana Montaño Work Phone: [facility] Work Phone: Start: 10-18-2022 End: 10-18-[address] Mariana Montaño Work Phone[facility] Start: 07-19-2022 End: 07-19-[address] Mariana Montaño Work Phone: [facility] Work Phone: Start: 07-19-2022 End: 07-19-[address] Mariana Montaño Work Phone: [facility]-Laboratory, Specimen Start: 06-26-2022 End: 06-26-[address] Mariana Montaño Work Phone: [facility] Work Phone: Start: 06-26-2022 End: 06-26-[address] Mariana Montaño Work Phone: [facility]-Laboratory, Specimen Start: 06-26-2022 End: 06-26-[address] Mariana Montaño Work Phone: [facility] Start: 06-21-2022 End: 06-21-[address] Mariana Montaño Work Phone: [facility] Work Phone: Start: 06-21-2022 End: 06-21-[address] Mariana Montaño Work Phone: [facility] Start: 06-19-2022 End: 06-19-[address] Mariana Montaño Work Phone: [facility] Work Phone: Start: 06-19-2022 End: 06-19-[address] Mariana Montaño Work Phone: [facility] Start: 06-19-2022 End: 06-19-[address] Mariana Montaño Work Phone: [facility] Start: 06-07-2022 Telephone encounter Estela Lopez APRN.MANAGER CRISIS Work Phone: [facility] Comment on above: Results Start: 06-06-2022 End: 06-06-2022 Patient encounter procedure Nic Walsh APRN.MANAGER CRISIS Work Phone: [facility] Comment on above: Viral illness (Prima ry Dx) Procedures Date Procedure Procedure Detail Performing Clinician Start: 11-27-[address] Mariana Montaño DO Work Phone: Comment on above: Thyroglobulin Antibody measured by Jen GrandaMethodologyIt should be noted that the presence of thyroglobulinantibodies may not be pathogenic nor diagnostic, especiallyat very low levels. The assay country printer has found thatfour percent of individuals without evidence of thyroiddisease or autoimmunity will have positive TgAb levels upto 4 IU/mL.Performed at: [address] [id number] Director: Joseph Pettit PhD, Phone: [phone] Start: 06-21-[address] Mariana meneses Work Phone: Start: 06-19-[address] 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 Work Phone: Plan of Treatment Date Care Activity Detail Author Start: 07-02-2023 Screening mammography SCRN FREDY M (CAD)W/MIKAYLA [facility] Start: 06-06-2022 End: 06-20-2022 Influenza virus A and B RNA and SARS-CoV-2 (COVID-19) N gene panel - Respiratory specimen by MISAEL with probe detection COVID WITH FLUA+B, ROUTINE Microbiology Routine Viral illness Expected: 06/06/2022, Expires: 06/20/2022 [facility] Work Phone: Comment on above: Expected: 06/06/2022 , Expires: 06/20/2022 Start: 04-05-2022 Influenza vaccination INFLUENZA (#1) [facility] Start: 08-05-2021 DEPRESSION ASSESSMENT DEPRESSION ASS ESSMENT [facility] Start: 2018 SHINGRIX VACCINE (1 of 2) SHINGRIX VACCINE (1 of 2) [facility] Start: 11-14-2016 PAP TESTING PAP TESTING [facility] Start: 10-11-2014 HPV TESTING HPV TESTING [facility] Start: 2013 COLOGUARD (FIT-DNA) COLOGUARD (FIT-D NA) [facility] Start: 2013 Colonoscopy COLONOSCOPY [facility] Start: 2013 COLORECTAL CANCER SCREENING COLORECTAL CANCER SCREENING [facility] Start: [address] COLONOGRAPHY [facility] Start: 2013 DIABETES SCREEN DIABETES SCREEN [facility] Start: 2013 FECAL OCCULT BLOOD FECAL OCCULT BLOO D [facility] Start: 2013 LIPID SCREEN LIPID SCREEN [facility] Start: 2013 SIGMOIDOSCOPY SIGMOIDOSCOPY [facility] Start: 01-30-2012 Mammography MAMMOGRAM [facility] Start: 1987 Urine microalbumin profile DTAP,TDAP,TD (1 - Tdap) [facility] Start: 1986 HEPATITIS C SCREENING HEPATITIS C SC ECTOR [facility] Start: 03-06-1969 COVID-19 VACCINE (#1) COVID-19 VACCI NE (#1) [facility] Start: 1968 HEPATITIS B (1 of 3 - 3-dose series) HEPATITIS B (1 of 3 - 3-dose series) [facility] Payers Date Payer Category Payer Self-pay [id number] 2024 Unknown [id number] 2017 Unknown MAYKEL BRAR BS FEP PPO [id number] 2017-Present [phone] [address] [place] [address] PPO [id number] 1968 Unknown [id number] 1968 Unknown [id number] 1968 Unknown [id number] 1968 Unknown [id number] Unknown [id number] Unknown [id number] Unknown [id number] Unknown [id number] Unknown [id number] Unknown [id number] Unknown [id number] Social History Date Type Detail Facility Start: 06-26-2022 End: 02-12-2025 Tobacco smoking status NHIS Never smoked tobacco [facility] Work Phone: Start: 06-06-2022 Alcohol intake Current drinke r of alcohol (finding) [facility] Start: 1970 Sex Assigned At Not on file [facility] Start: 05-27-2022 End: 06-06-2022 Exposure to SARS-CoV-2 (event) Not sure [facility] Work Phone: Start: 06-26-2022 End: 06-26-2022 Tobacco smoking status NHIS Unknown if ever smoked [facility] Start: 08-03-2020 Non-smoker [facility] Start: 1970 Sex Assigned At Female W [facility] Start: 12-02-2024 Sex Female (finding) [facility] Clinical Notes 06-06-2022 to 07-19-2022 Telephone Encounter - Halie Miller MA - 06/07/2022 8:50 AM EDTTelephone Encounter - Estela Lopez APRN.CNP - 06/07/2022 7:30 AM ANUPTNic Walsh APRN.CNP - 06/06/2022 4:21 PM EDT Note Date & Type Note Facility 07-19-2022 Note [facility] Work Phone: Pap Smear Specimen Adequacy July 19, 2022 4:17pm Comment . Satisfactory for evaluation. No endocervical cells are present. This isconsistent with a history of hysterectomy. Comment on above: Satisfactory for allen luation. No endocervical cells are present. This isconsistent with a history of hysterectomy. 07-19-2022 Note [facility] Work Phone: Pap Smear QC Review July 19, 2022 4:17pm Comment . Mackenzie Diaz , Supervisory Personal Care Home Administrator ([facility]) Comment on above: [facility] Administrator ([facility]) 07-19-2022 Note [facility] Pap Smear Specimen Adequacy July 19, 2022 5:17pm Comment . Satisfactory for evaluation. No endocervical cells are present. This isconsistent with a history of hysterectomy. Comment on above: Satisfactory for allen luation. No endocervical cells are present. This isconsistent with a history of hysterectomy. 07-19-2022 Note [facility] Pap Smear QC Review July 19, 2022 5:17pm Comment . Mackenzie Diaz , Supervisory Personal Care Home Administrator ([facility]) Comment on above: Paulette Moreno [facility] Personal Care Home Administrator ([facility]) 06-07-2022 Miscellaneous Notes Formattin g of this note might be different from the original. Pt was notified of the results. Pt verbalized understanding. Halie Miller MA Negative for flu and covid please notify thank you documented in this encounter [facility] 06-06-2022 History of Presen t illness Narrative [...] started abruptly. Patient states they have used rshl-plm-adexxot medication with some success. Patient denies any [...] of care. This note was generated using [employer] software. It may contain errors in wording, punctuation, or spelling. Nic Walsh APRN.JAYESH documented in this encounter [facility] 06-06-2022 Instructions Nic Walsh APRN.JAYESH - 06/06/2022 4:17 PM EDT How to [...] concerning to you. documented in this encounter [facility] Evaluation note Diagnosis Viral illness- Primary Unspecified viral infection, in conditions classified elsewhere and of unspecified site [facility] Diagnosis Onset Date Resolution Status Acute bronchitis acute Lump of right breast acute [facility] Work Phone: Evaluation note* Diagnosis Onset Date Resolution Status Lump of right breast acute [facility] Work Phone: Evaluation noteNo assessment information available [facility] Work Phone: Reason for referral (narrative)No reason for referral information availableWS[facility] Work Phone: Health Concerns Infection Onset Date [...] Lump of right breast Chief Complaint SCREENING Chief Complaint Admit Date CHEST PAIN,UNSPECIFIED March 05, 2025 11:24am Family History No Family History Records Found [...] Will Yes August 03 8:18am Power of Eviscerator Yes August 03, 2020 8:18am Advance Directive Response Recorded Date/ Time Living Will Yes August 03 9:18am Power of Eviscerator Yes August 03, 2020 9:18am Summary Purpose Additional Source Comments Source Comments (unrecognize d section and content) In the event this informatio n is protected by the Federal Confidentiality of Alcohol and Drug Abuse Patient Records regulations: The Federal rules restrict any use of the information to criminally investigate or prosecute any alcohol or drug abuse patient.[facility] the event this information is protected by the Federal Confidentiality of Alcohol and Drug Abuse Patient Records regulations: The Federal rules restrict any use of the information to criminally investigate or prosecute any alcohol or drug abuse patient.[facility] Reason for Visit (unrecogniz ed section and content) Reason Comments Fever SOB, chest tightness , chills, body aches x2 days Reason Comments Results Care Teams (unrecognized sec tion and content) [place] Ma[employer] Relationship Specialty Start Date End Date Mariana Montaño DO [address] [place] [address] PCP - General Family Medicine 04/08/18 [place] Ma[employer] Relationship Specialty Start Date End Date Mariana Montaño DO [address] [place], [place] [id number] PCP - General Family Medicine 04/08/18 Team [...] November 27, 2024 End: November 27, 2024 Team Status: Active Member Role/Relationship Status Dates Dr. Mariana Montaño DO Primary Care Provider Active Team Status: Inactive Member Role/Relationship Status Dates Dr. Mariana Montaño DO Primary Care Provider Active Start: November 27, 2024 End: November 27, 2024 Dr. Mariana Montaño DO Attending Provider Active Start: November 27, 2024 End: November 27, 2024 Dr. Mariana Montaño DO Referring Provider Active Start: November 27, 2024 End: November 27, 2024 Team Status: Inactive Member Role/Relationship Status Dates Dr. Mariana Montaño DO Primary Care Provider Active Start: March 05, 2025 End: March 05, 2025 Ester Sadler NP-Brinda Attending Provider Active St art: March 05, 2025 End: March 05, 2025 Ester Sadler NP-Brinda Referring Provider Active St art: March 05, 2025 End: March 05, 2025 Team Status: Active Member Role/Relationship Status Dates Dr. Mariana Montaño DO Primary Care Provider Active Start: March 05, 2025 Dr. Brennen Granado MD Attending Provider Active S tart: March 05, 2025 Goals (unrecognized section and content) Goals may [...] section and content) DATE CREATED AUTHOR 11/18/2024 [facility] DATE CREATED AUTHOR AUTHOR'S ORGANIZ ATION 02/06/2025 [facility] DATE CREATED AUTHOR AUTHOR'S ORGANIZ ATION 04/23/2025 [facility] FOR RECORDS PERTAINING TO PATIENTS WHO ARE [...] BE BASED ON THE PRIMARY CLINICAL RECORDS. [facility] [employer] [facility]. provides no warranty or guarantee of the accuracy or completeness of information in this document.
--- NOTE | 2025-04-26 07:12 | PCM.PRE.AN2 ---
ASA Classification* ASA Classification ASA Classification: 2 Assessment & Plan Anesthesia* Anesthesia Assessment Anesthesia Assessment: Discussed sedation and/or anesthesia options, risks, benefits, and alternatives with patient/parents/legal guardian/POA. Questions invited. The patient/parents/legal guardian/POA seems to understand and agrees to proceed with anesthesia plan. Reviewed the physical assessment, medical history, allergy history and patient home medications list prior to surgery/procedure/anesthetic and documented any changes. Performed airway and anesthesia risk assessments. Anesthesia Type Anesthesia Type: MAC Anesthesia Focused Assessment* Temperature: 97.4 F Pulse Rate: 69 Blood Pressure: 148/100 Respiratory Rate: 16 Pulse Ox: 99 Airway Assessment Mouth opens: >3 cm Mallampati Score: II Labs Anesthesia Preop lab: CBC WBC, (4.4-11.0) 9.1 K/mm3 10/28/23, 07:46 RBC, (4.2-5.4) 5.50 M/mm3 H 10/28/23, 07:46 Hgb, (12.0-15.0) 15.5 g/dL H 10/28/23, 07:46 Hct, (37-47) 47.6 % H 10/28/23, 07:46 Plt Count, (150-450) 357 K/mm3 10/28/23, 07:46 CHEMISTRY Potassium, (3.5-5.1) 3.2 mmol/L L 10/28/23, 07:46 Sodium, (136-145) 140 mmol/L 10/28/23, 07:46 Magnesium, (1.6-2.6) 2.2 mg/dL 08/08/20, 14:28 BUN, (7-18) 18 mg/dL 10/28/23, 07:46 Creatinine, (0.55-1.02) 1.15 mg/dL H 10/28/23, 07:46 Glucose, (74-106) 113 mg/dL H 10/28/23, 07:46 POC Glucose, (70-110) 152 mg/dL H 08/09/20, 09:20 TSH, (0.300-4.200) 2.900 uIU/mL 11/27/24, 16:58 COAG Tst Clinic Negative 07/12/20, 14:49 Pre-Assessment Diagnosis/Proposed Procedure Planned Operative Procedure(s): Colonoscopy Anesthesia History 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 When Was Last Pacemaker Check QUESTION #4 FULL TEXT: You/Your Family Experience fever (hyperthermia) with Anesthesia Last Oral Intake Last Oral intake: Last Oral Intake NPO since 03:00 04/26/25 06:59 Meds taken in AM with sips of No 04/26/25 06:59 water? 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 Female Yes 04/20/25 16:05 HX of Motion Sickness No 04/20/25 16:05 HX of N/V After Surgery No 04/20/25 16:05 Non-Smoker Yes 04/20/25 16:05 Duration of Surgery greater No 04/20/25 16:05 than 60 minutes Number of Risk Factors 2 04/20/25 16:05 PONV Score Moderate Risk 04/20/25 16:05 Height & Weight Height & Weight: Anesthesia: Height & Weight Height 5 ft 4 in 04/26/25 06:59 Weight: 83 kg 04/26/25 06:59 Body Mass Index (BMI) 31.4 04/26/25 06:59 Respiratory Assessment Respiratory Assessment - film drying machine operator: Respiratory Tract Infection Hx - 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 Has anyone observed you stop No 04/20/25 16:05 breathing during sleep? STOP Results Negative 04/20/25 16:05 QUESTION #5 FULL TEXT : Do you snore loudly (louder than talking or can be heard through closed doors)? 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 Specify any problems Hx of Preganancy in last 3 No 04/20/25 16:05 Months Nurse Filling Out Transfusion JZOLLINGE 04/20/25 16:05 & Questions: Date: 04/20/25 04/20/25 16:05 Time: 16:07 04/20/25 16:05 Patient unable to answer at this time (ie. 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: /Reproductive Hx- film drying machine operator Hx Now No 04/20/25 16:05 Gestational Age (in weeks): EDC: Hx Hx Para Hx Section SAB No 04/20/25 16:05 Active Medications Active Medications: Current Medications Generic Name Dose Route Start Last Admin Trade Name Freq PRN Reason Stop Dose Admin Lactated Ringer's 1,000 mls @ 15 mls/hr 04/26/25 07:15 IV .Q48H SANTO PFSH Medical History High cholesterol Non-smoker Sleep apnea History of echocardiogram History of stress test Heartburn Gastric reflux Adenomyosis Colon cancer screening Paresthesia Fatigue Vitamin D deficiency Hyperlipemia Hypertension Home Medications ?Medication ?Instructions ?Recorded ?Last Taken ?Type cholecalciferol (vitamin D3) 125 125 mcg PO DAILY 07/12/20 Unknown History mcg (5,000 unit) capsule magnesium 200 mg tablet 200 mg PO DAILY 07/12/20 Unknown History potassium 99 mg tablet 1 tab PO DAILY 07/12/20 Unknown History triamterene 37.5 1 cap PO DAILY 07/12/20 04/25/25 History mg-hydrochlorothiazide 25 mg capsule valacyclovir 1 gram tablet 1,000 mg PO BID PRN COLD SORES 07/14/20 Unknown History biotin 10,000 mcg capsule 10,000 mcg PO DAILY 06/26/22 Unknown History glucosamine 500 az-xzblwmpwr-jel 1 tab PO .qd 02/12/25 Unknown History no1 416.6 mg-C 20 sb-edlv-fvlk tablet (Glucosamine-Chondroitin Complex) rosuvastatin 10 mg tablet 10 mg PO DAILY 02/12/25 Unknown History therapeutic multivitamin 1 tab PO DAILY 02/12/25 Unknown History vitamin B complex 1 tab PO DAILY 02/12/25 Unknown History Allergy/AdvReac Type Severity Reaction Status Date / Time haloperidol (From Haldol) AdvReac Unknown Pt's mom Verified 04/26/25 06:58 had reaction/Pt does not want rx Family History Mother Congestive heart failure Heart disease Hypertension Kidney disease Lupus Arthritis Sjogrens syndrome Father Hypertension Grandmother Breast cancer Aunt Ovarian cancer Surgical History Hx of bilateral salpingectomy History of total vaginal hysterectomy (TVH) History of tonsillectomy Social History Smoking Status: Never smoker alcohol intake: current details: social substance use type: does not use caffeine: Yes what type of physical activity do you participate in: none seatbelt use: always do you feel safe at home: Yes 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
[2025-04-26] MEDS: Lactated Ringers 1,000 ML 15 ML IV (07:13)
--- NOTE | 2025-04-26 07:21 | PCM.HP.STD ---
HPI - General General Date of Admission: 04/26/25 Date of Service: 04/26/25 Chief Complaint: Screening colonoscopy HPI Narrative KATHRYN CORTEZ, is a 54 F who presents today for screening colonoscopy. She has not had a colonoscopy in the past. She does not have abdominal pain, cramping, chest pain or shortness of breath. Past medical history is only positive for hypercholesterolemia which is controlled with medicines. [facility] Medical History High cholesterol Non-smoker Sleep apnea History of echocardiogram History of stress test Heartburn Gastric reflux Adenomyosis Colon cancer screening Paresthesia Fatigue Vitamin D deficiency Hyperlipemia Hypertension Home Medications ?Medication ?Instructions ?Recorded ?Last Taken ?Type cholecalciferol (vitamin D3) 125 125 mcg PO DAILY 07/12/20 Unknown History mcg (5,000 unit) capsule magnesium 200 mg tablet 200 mg PO DAILY 07/12/20 Unknown History potassium 99 mg tablet 1 tab PO DAILY 07/12/20 Unknown History triamterene 37.5 1 cap PO DAILY 07/12/20 04/25/25 History mg-hydrochlorothiazide 25 mg capsule valacyclovir 1 gram tablet 1,000 mg PO BID PRN COLD SORES 07/14/20 Unknown History biotin 10,000 mcg capsule 10,000 mcg PO DAILY 06/26/22 Unknown History glucosamine 500 rx-hwxbvvqrz-zwz 1 tab PO .qd 02/12/25 Unknown History no1 416.6 mg-C 20 ug-oafk-btzg tablet (Glucosamine-Chondroitin Complex) rosuvastatin 10 mg tablet 10 mg PO DAILY 02/12/25 Unknown History therapeutic multivitamin 1 tab PO DAILY 02/12/25 Unknown History vitamin B complex 1 tab PO DAILY 02/12/25 Unknown History Allergy/AdvReac Type Severity Reaction Status Date / Time haloperidol (From Haldol) AdvReac Unknown Pt's mom Verified 04/26/25 06:58 had reaction/Pt does not want rx Family History Mother Congestive heart failure Heart disease Hypertension Kidney disease Lupus Arthritis Sjogrens syndrome Father Hypertension Grandmother Breast cancer Aunt Ovarian cancer Surgical History Hx of bilateral salpingectomy History of total vaginal hysterectomy (TVH) History of tonsillectomy Social History Smoking Status: Never smoker alcohol intake: current details: social substance use type: does not use caffeine: Yes what type of physical activity do you participate in: none seatbelt use: always do you feel safe at home: Yes 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 Constitutional Constitutional: Denies fatigue, fever(s), poor appetite, weight gain or weight loss Gastrointestinal Gastrointestinal: Denies belching, bloating, change in bowel habits, change in stool character, chewing difficulty, coffee ground emesis, constipation, cramping, diarrhea, dyspepsia, dysphagia, early satiety, excessive flatus, fecal incontinence, heartburn, hematemesis, hematochezia, hemorrhoids, loose stools, melena, nausea, odynophagia, rectal bleeding, tenesmus, vomiting or weight changes Vital Signs Vital Signs Vital Signs: 04/26/25 06:59 04/26/25 06:59 04/26/25 07:12 Temperature 97.4 F L 97.4 F L Temperature Source Temporal Pulse Rate 69 69 Respiratory Rate 16 16 Respiratory Pattern Normal Blood Pressure 148/100 H 148/100 H Blood Pressure Mean 116 Blood Pressure Source Monitor Blood Pressure Position Sitting Blood Pressure Location Left Arm Pulse Ox 99 99 Oxygen Delivery Method Room Air Weight Weight: 182 lb 15.739 oz Body Mass Index (BMI) 31.4 Physical Exam Const alert, oriented x3, no apparent distress and healthy appearing General Appearance: cooperative GI normal to inspection, nondistended, normoactive bowel sounds, soft to palpation, non-tender and non-distended Percussion: normal to percussion Rectal Exam: deferred Assessment & Plan Assessment/Plan (1) Encounter for screening colonoscopy: PLAN: She will undergo screening colonoscopy. She was explained alternatives, risk and benefits include not withstanding bleeding, infection, sepsis, perforation, need for emergent urgent . She will have an ASA of 3.
--- NOTE | 2025-04-26 08:08 | PCM.POST.ANE ---
Anesthesia: Postop Eval I Current Vital Signs Temperature: 97.3 F Pulse Rate: 73 Blood Pressure: 113/65 Respiratory Rate: 16 Pulse Ox: 96 Oxygen Delivery Method: Room Air Assessment Airway patent: Yes Spontaneous unlabored respirations: Yes nausea: No Vomiting: No Anesthesia Complication: No Fluid Hydration Crystalloid volume administer (ml): 400 Total IV fluid infused: 400 Progress Note Anesthesia document: Postop Eval 1 completed: Yes
--- NOTE | 2025-04-26 08:39 | OP.PROVAT_ITS ---
04/26/2025 Tristin Montaño [address] [place] [address] Re : Colonoscopy procedure for Cherry Duggan Dear Dr. Montaño This procedure was performed on Saturday, April 26, 2025. My impressions and recommendations are as follows: Impressions : - Diverticulosis in the recto-sigmoid colon, in the sigmoid colon and in the transverse colon. - No specimens collected. Recommendations : - Discharge patient to home. - Resume previous diet. - Continue present medications. - Repeat colonoscopy in 10 years for screening purposes. My findings are described in the full procedure note, which is enclosed. If I can be of further assistance, please feel free to contact me at . Sincerely, Damon Orellana, 04/26/2025 8:38:42 AM This report has been signed electronically.
--- NOTE | 2025-04-26 08:39 | OP.COLON_ITS ---
Patient Name: Cherry Duggan Procedure Date: 04/26/2025 8:02 AM Date of : 1970 Age: 54 Procedure: Colonoscopy Indications: Screening for colorectal malignant neoplasm Providers: Damon Orellaan DO Referring MD: Tristin Montaño Medicines: Monitored Anesthesia Care Patient Profile: This is a 54 year old female. Refer to note in patient chart for documentation of history and physical. Last Colonoscopy: none. The patient's first colonoscopy is today. Complications: No immediate complications. Procedure: Pre-Anesthesia Assessment: - Prior to the procedure, a History and Physical was performed, and patient medications and allergies were reviewed. The patient is competent. The risks and benefits of the procedure and the sedation options and risks were discussed with the patient. All questions were answered and informed consent was obtained. Patient identification and proposed procedure were verified by the physician in the pre-procedure area. Mental Status Examination: alert and oriented. Airway Examination: normal oropharyngeal airway and neck mobility. Respiratory Examination: clear to auscultation. CV Examination: normal. Prophylactic Antibiotics: The patient does not require prophylactic antibiotics. Prior Anticoagulants: The patient has taken no anticoagulant or antiplatelet agents except for NSAID medication. ASA Grade Assessment: II - A patient with mild systemic disease. After reviewing the risks and benefits, the patient was deemed in satisfactory condition to undergo the procedure. The anesthesia plan was to use monitored anesthesia care (MAC). Immediately prior to administration of medications, the patient was re-assessed for adequacy to receive sedatives. The heart rate, respiratory rate, oxygen saturations, blood pressure, adequacy of pulmonary ventilation, and response to care were monitored throughout the procedure. The physical status of the patient was re-assessed after the procedure. After I obtained informed consent, the scope was passed under direct vision. Throughout the procedure, the patient's blood pressure, pulse, and oxygen saturations were monitored continuously. The Colonoscope was introduced through the anus and advanced to the cecum, identified by appendiceal orifice and ileocecal valve. The colonoscopy was performed without difficulty. The patient tolerated the procedure well. The quality of the bowel preparation was adequate. The ileocecal valve, appendiceal orifice, and rectum were photographed. Scope In: 8:17:04 AM Scope Withdrawal Time 0 hours 8 minutes 33 seconds Scope Out: 8:29:18 AM Total Procedure Duration Time 0 hours 12 minutes 14 seconds Findings: The perianal and digital rectal examinations were normal. A few small-mouthed diverticula were found in the recto-sigmoid colon, sigmoid colon and transverse colon. Impression: - Diverticulosis in the recto-sigmoid colon, in the sigmoid colon and in the transverse colon. - No specimens collected. Recommendation: - Discharge patient to home. - Resume previous diet. - Continue present medications. - Repeat colonoscopy in 10 years for screening purposes. Procedure Code(s): --- Professional --- G0121, Colorectal cancer screening; colonoscopy on individual not meeting criteria for high risk CPT copyright 2021 [employer]. All rights reserved. The codes documented in this report are preliminary and upon collar tailor review may be revised to meet current compliance requirements. Damon Orellana DO 04/26/2025 8:38:42 AM This report has been signed electronically. Number of Addenda: 0 Note Initiated On: 04/26/2025 8:02 AM
--- NOTE | 2025-04-26 09:15 | PCM.POSTANE2 ---
Anesthesia Postop Eval I Sum Postop Eval Completion status Anesthesia document: Postop Eval 1 completed: Yes Anesthesia Postop Eval I Summary Anesthesia Postop Eval I Summary: Anesthesia Postop Eval I: Assessment Summary Airway patent Yes 04/26/25 08:12 [email or web address] Spontaneous unlabored Yes 04/26/25 08:12 [email or web address] respirations Mental status nausea No 04/26/25 08:40 [email or web address] Vomiting No 04/26/25 08:40 [email or web address] Anesthesia Postop Eval I: Fluid Summary Crystalloid volume administer 400 04/26/25 08:40 [email or web address] (ml) Colloids volume administered ( ml) Blood Product volume administered (ml) Total IV fluid infused 400 04/26/25 08:40 [email or web address] Anesthesia Postop Eval I: Summary Notes Anesthesia Complication No 04/26/25 08:40 [email or web address] Anesthesia Complication Comment: Post-operative progress note Anesthesia: Postop Eval II Evaluation Mental status: Awake Pain Level: 0 nausea: No Vomiting: No
== END 2025-04-26 09:19 | disposition home or self-care (01) ==
LOC: EN 06:39 → AC 06:40
PROVIDERS: PCP Family Medicine; Referring Provider Family Medicine; Visit Provider Internal Medicine Gastroenterology
PROC: 0DJD8ZZ Inspection of Lower Intestinal Tract, Via Natural or Artificial Opening Endoscopic (ICD-10-PCS; CPT 45378; principal; 2025-04-26 07:40)
DX: Z12.11 Encounter for screening for malignant neoplasm of colon (principal); K57.30 Diverticulosis of large intestine without perforation or abscess without bleeding; E78.00 Pure hypercholesterolemia, unspecified; I10 Essential (primary) hypertension; K21.9 Gastro-esophageal reflux disease without esophagitis
CPT/HCPCS: 45378; J2405

== ENCOUNTER → 2025-07-22 | Outpatient (CLI) | payer BC, SELFPAY ==
--- OUTSIDE RECORDS SUMMARY | 2025-07-22 20:22 | XMS RPT_ITS | CCD ---
Author Organization [facility] CliniSynv Care Team Providers Care Director Of Cardiology Name Role Phone Mariana Montaño DO Primary Care Provider Dr. Mariana Montaño Primary Care Provider Dr. Mariana Montaño Referring Provider CHARLOTTE Landry Attending Provider Dr. Sheela Amaral Attending Provider [phone] Dr. Mariana Montaño Primary Care Provider Dr. Mariana Montaño Referring Provider Dr. Sheela Amaral Attending Provider Dr. Mariana Montaño DO Primary Care Provider Dr. Mariana Montaño DO Attending Provider Dr. Mariana Montaño DO Referring Provider SUSHMA, MARIANA A Primary Care Unavailable SUSHMA, MARIANA A Consulting Unavailable SUSHMA, MARIANA A Attending Unavailable SUSHMA, MARIANA A Admitting Unavailable PROVIDER, UNKNOWN Consulting Unavailable SUSHMA, MARIANA A Primary Care Unavailable SUSHMA, MARIANA A Consulting Unavailable SUSHMA, MARIANA A Attending Unavailable SUSHMA, MARIANA A Admitting Unavailable PROVIDER, UNKNOWN Consulting Unavailable SUSHMA, MARIANA A Primary Care Unavailable SUSHMA, MARIANA A Consulting Unavailable SUSHMA, MARIANA A Attending Unavailable SUSHMA, MARIANA A Admitting Unavailable PROVIDER, UNKNOWN Consulting Unavailable SUSHMA, MARIANA A Primary Care Unavailable SUSHMA, MARIANA A Consulting Unavailable SUSHMA, MARIANA A Attending Unavailable SUSHMA, MARIANA A Admitting Unavailable PROVIDER, UNKNOWN Consulting Unavailable Doroteo SUPERVISOR FILTRATION-C, Ester Attending Provider [phone] Doroteo SUPERVISOR FILTRATION-CEster Referring Provider Vannesa DEVRIES, Dr. Hutton Attending Provider Sushma HALL, Dr. Crow Primary Care Physician Doroteo SUPERVISOR FILTRATION-C, Ester Attending Physician Vannesa DEVRIES, Dr. Hutton Attending Physician Dr. Mariana Montaño DO Referring Provider [phone] Friend , Dr. Jose Attending Physician Friend , Dr. Jose Nurse Practitioner Sushma, Mariana Referring Unavailable Sushma, Mariana Primary Care Unavailable Sushma, Mariana Attending Unavailable Brennen Granado Attending Unavailable Sushma, Mariana Primary Care Unavailable Sushma, Mariana Referring Unavailable FriendDamon Attending Unavailable Sushma, Mariana Primary Care Unavailable Sushma, Mariana Primary Care Unavailable Doroteo, Ester Attending Unavailable Ester Sadler Referring Unavailable Sushma, Mariana Referring Unavailable Friend, Damon Attending Unavailable Sushma, Mariana Primary Care Unavailable Friend, Damon Consulting Unavailable Friend, Damon Attending Unavailable Sushma, Mariana Primary Care Unavailable Sushma, Mariana Referring Unavailable Sushma, Mariana Referring Unavailable Sushma, Mariana Primary Care Unavailable Sushma, Mariana Attending Unavailable Sushma, Mariana Primary Care Unavailable Ester Sadler Attending Unavailable Ester Sadler Referring Unavailable Allergies Allergy Classification Reported Allergen(s) Allergy Type Date of Onset Reaction(s) Facility (11 sources) Haloperidol Drug Allergy 2 Pt's mom had reaction/Pt does not want rx [facility] (1 source) Haloperidol Drug Allergy 5 [facility] Repository Medications Current Medications Medication Drug Class(es) Dates Sig (Normalized) Sig (Original) biotin 10 mg oral capsule (20 sources) Start: 06-26-2022 take 1 capsule by mouth once daily Start: 07-12-2020 End: 06-19-2022 Biotin 10,000 mcg capsule Discontinued 1 {tbl} PO DAILY July 12, 2020 1:00am June 19, 2022 4:22pm Start: 07-12-2020 End: 06-19-2022 take 1 tablet by mouth once daily Biotin Discontinued 1 TABLET PO DAILY July 12, 2020 1:00am June 19, 2022 4:22pm cholecalciferol 0.125 mg ora l capsule (13 sources) Vitamin D Start: 07-12-2020 take 1 capsule by mo [facility] once daily take 1 tablet by mouth once zita y cholecalciferol (VITAMIN D-3) 5,000 unit tab Take 5,000 Units by mouth once daily. 0 Active Comment on above: Take 5,000 Units by mouth once daily. Fucnohbb-Anll-Txx0-C-Terence-Walt sw (Glucosamine-Chondroitin Complx) 500-416.6-20 mg tablet (2 sources) Start: 02-12-2025 Start: 02-12-2025 Glucosam-Rocky- Xzr4-G-Oinh-Bosw (Glucosamine-Chondroitin Complx) 500-416.6-20 mg tablet Active 1 {tbl} PO .qd February 12, 2025 12:00am hydroCHLOROthiazide 25 mg / triamterene 37.5 mg oral capsule (13 sources) Potassium-sparing Diuretic, Thiazide Diuretic Start: 07-12-2020 Start: 07-12-2020 take 1 capsule by mouth once daily Triamterene-Hydrochlorothiazid Active 1 CAP PO DAILY July 12, 2020 1:00am Start: 08-07-2018 triamterene-hy drochlorothiazide (MAXZIDE-25) 37.5-25 mg per tablet Magnesium (13 sources) Start: 07-12-2020 take 1 tablet by mouth once da hever Start: 07-12-2020 take 1 tablet by [facility] once daily Magnesium 200 mg tablet Active [...] mouth. potassium gluconate 2.5 meq oral tablet (11 sources) Start: 07-12-2020 rosuvastatin calcium 10 mg oral tablet (2 sources) HMG-CoA Reductase Inhibitor Start: 02-12-2025 take 1 tablet by mouth once daily Therapeutic Multivitamin tablet (2 sources) Start: 02-12-2025 Start: 02-12-2025 Therapeutic Mu ltivitamin tablet Active 1 {tbl} PO DAILY February 12, 2025 12:00am valACYclovir 1000 mg oral ta blet (11 sources) Herpesvirus Nucleoside Analog DNA Polymerase Inhibitor, Herpes Simplex Virus Nucleoside Analog DNA Polymerase Inhibitor, Herpes Zoster Virus Nucleoside Analog DNA Polymerase Inhibitor Start: 07-14-2020 Start: 07-14-2020 take 1000 mg by mout h twice daily Valacyclovir Active 1000 MG PO TWICE A DAY July 14, 2020 1:00am Vitamin B Complex tablet (2 sources) Start: 02-12-2025 Start: 02-12-2025 Vitamin B Comp mary tablet Active 1 {tbl} PO DAILY February 12, 2025 12:00am Completed/Discontinued Medications Medication Drug Class(es) Dates Sig (Normalized) Sig (Original) acetaminophen 325 mg / oxyCODONE hydrochloride 5 mg oral tablet (11 sources) Opioid Agonist Start: 08-09-2020 End: 08-16-2020 [...] 1:02am ascorbic acid 1000 mg oral tablet (11 sources) Vitamin C Start: 08-03-2020 End: 06-19-2022 take 1 tablet by mouth once daily Ascorbic Acid (Vitamin C) 1,000 MG tablet Discontinued 1000 mg PO DAILY August 03, 2020 1:00am June 19, 2022 4:22pm carboxymethylcellulose sodium 2.5 mg/ml ophthalmic solution (11 sources) Start: 08-03-2020 End: 06-19-2022 Carboxymethylcellulose Sodium 15 ML drops Discontinued 15 mL OP DAILY August 03, 2020 1:00am June 19, 2022 4:22pm cycloSPORINE 0.9 mg/ml ophthalmic solution (11 sources) Calcineurin Inhibitor Immunosuppressant Start: 08-03-2020 End: [...] Comment on above: Take 1 tablet by [facility] once daily. dextran 70 1 mg/ml / hypromellose 3 mg/ml ophthalmic solution (11 sources) Plasma Volume Stringer Up Soldering Machine Start: 08-03-2020 End: 06-19-2022 Dextran 70-Hypromellose 15 ML drops Discontinued 15 mL OP NEEDED as needed for EYE DRYNESS August 03, 2020 1:00am June 19, 2022 4:23pm fluorometholone 1 mg/ml ophthalmic suspension (11 sources) Corticosteroid Start: 08-03-2020 End: 06-19-2022 Fluorometholone [...] times daily. methylPREDNISolone 4 mg oral tablet (11 sources) Corticosteroid Start: 06-19-2022 End: 06-25-2022 take 1 tablet by mouth once Methylprednisolone (Medrol (Ancelmo)) 4 mg tablets,dose pack Discontinued 4 mg PO per package directions 21 6 0 June 19, 2022 1:00am June 24, 2022 1:00am June 25, 2022 1:03am naproxen 250 mg oral tablet (11 sources) Nonsteroidal Anti-inflammatory Drug Start: 08-09-2020 End: [...] Problem Date Documented Date Episodic/Chronic Acute bronchitis (15 sources) Acute bronchitis; Translations: [Acute bronchitis, unspecified] Episodic Benign neoplasm of uterus (11 sources) Uterine leiomyoma; Translations: [Leiomyoma of uterus, unspecified] 08-09-2020 Episodic Endometriosis (11 sources) Uterine adenomyosis; Translations: [Adenomyosis of uterus] 08-09-2020 Chronic Comment on above: plan TVH BS Nonmalignant breast conditions (16 sources) Breast lump; Translations: [Unspecified lump in the right breast, unspecified quadrant] Episodic Nonspecific chest pain (1 source) Chest pain, unspecified; Translations: [Chest pain, unspecified] Onset: 03-11-2025 Episodic Other endocrine disorders (1 source) Estrogen excess; Translations: [Estrogen excess] Onset: 12-02-2024 Chronic Other female genital disorders (11 sources) Abnormal uterine bleeding; Translations: [Abnormal uterine and vaginal bleeding, unspecified] 08-09-2020 Chronic Comment on above: labs and ultrasound ordered, discussed medical vs surgical management, due to fibroids and adenomyosis recommend hysterectomy. plan TVHBS Other female genital disorders (11 sources) Cervical intraepithelial neoplasia grade 1; Translations: [Mild cervical dysplasia] 08-09-2020 Episodic Comment on above: repeat pap and hpv i n 07/25. Other screening for suspected conditions (not mental disorders or infectious disease) (5 sources) Patient encounter status; Translations: [Encounter for screening for malignant neoplasm of colon] Onset: 08-06-2024 04-26-2025 Episodic Residual codes; unclassified (1 source) Obstructive sleep apnea (adult) (pediatric); Translations: [Obstructive sleep apnea (adult) (pediatric)] Onset: 05-24-2025 Chronic Viral infection (1 source) Viral disease; Translations: [Viral infection, unspecified] Episodic Past or Other Problems Problem Classification Problem Date Documented Da te Episodic/Chronic Blindness and vision defects (6 sources) Disorder of refraction; Translations: [Unspecified disorder of refraction] Onset: 04-08-2018 10-06-2018 Episodic Results Test Name Value Interpretation Reference Range Facility Colonoscopy Reporton 025 Colonoscopy Report [facility] Medical Records Department [address] [place] [address] Colonoscopy Report MR#: [id number] Acct: [id number] Name: KATHRYN DUGGAN Rep #: [id number] : 1970 54 From: Damon Orellana DO PCP: Dr. Mariana Montaño DO Status:REG [facility] Patient Name: Kathryn Duggan Procedure Date: 04/26/2025 8:02 AM Date of : 1970 Age: 54 Procedure: Colonoscopy Indications: Screening for colorectal malignant neoplasm Providers: Damon Orellana DO Referring MD: Mariana Montaño Medicines: Monitored Anesthesia Care Patient Profile: This is a 54 year old female. Refer to note in patient chart for documentation of history and physical. Last Colonoscopy: none. The patient's first colonoscopy is today. Complications: No immediate complications. Procedure: Pre-Anesthesia Assessment: - Prior to the procedure, a History and Physical was performed, and patient medications and allergies were reviewed. The patient is competent. The risks and benefits of the procedure and the sedation options and risks were discussed with the patient. All questions were answered and informed consent was obtained. Patient identification and proposed procedure were verified by the physician in the pre-procedure area. Mental Status Examination: alert and oriented. Airway Examination: normal oropharyngeal airway and neck mobility. Respiratory Examination: clear to auscultation. CV Examination: normal. Prophylactic Antibiotics: The patient does not require prophylactic antibiotics. Prior Anticoagulants: The patient has taken no anticoagulant or antiplatelet agents except for NSAID medication. ASA Grade Assessment: II - A patient with mild systemic disease. After reviewing the risks and benefits, the patient was deemed in satisfactory condition to undergo the procedure. The anesthesia plan was to use monitored anesthesia care (MAC). Immediately prior to administration of medications, the patient was re-assessed for adequacy to receive sedatives. The heart rate, respiratory rate, oxygen saturations, blood pressure, adequacy of pulmonary ventilation, and response to care were monitored throughout the procedure. The physical status of the patient was re-assessed after the procedure. After I obtained informed consent, the scope was passed under direct vision. Throughout the procedure, the patient's blood pressure, pulse, and oxygen saturations were monitored continuously. The Colonoscope was introduced through the anus and advanced to the cecum, identified by appendiceal orifice and ileocecal valve. The colonoscopy was performed without difficulty. The patient tolerated the procedure well. The quality of the bowel preparation was adequate. The ileocecal valve, appendiceal orifice, and rectum were photographed. Scope In: 8:17:04 AM Scope Withdrawal Time 0 hours 8 minutes 33 seconds Scope Out: 8:29:18 AM Total Procedure Duration Time 0 hours 12 minutes 14 seconds Findings: The perianal and digital rectal examinations were normal. A few small-mouthed diverticula were found in the recto-sigmoid colon, sigmoid colon and transverse colon. Impression: - Diverticulosis in the recto-sigmoid colon, in the sigmoid colon and in the transverse colon. - No specimens collected. Recommendation: - Discharge patient to home. - Resume previous diet. - Continue present medications. - Repeat colonoscopy in 10 years for screening purposes. Procedure Code(s): --- Professional --- G0121, Colorectal cancer screening; colonoscopy on individual not meeting criteria for high risk CPT copyright 2021 [employer]. All rights reserved. The codes documented in this report are preliminary and upon pre coder review may be revised to meet current compliance requirements. Damon Orellana DO 04/26/2025 8:38:42 AM This report has been signed electronically. Number of Addenda: 0 Note Initiated On: 04/26/2025 8:02 AM 04/26/25 0839 Date Damon Sousa Signature: Date (if indicated) CC: Dr. Mariana Montaño DO; Damon Orellana DO Date Dictated: 04/26/25801 Date Transcribed: Nuclear Medical Tech: RF Signed [facility] MR/OP.PROVATon 04-26-2025 MR/OP.[facility] Medical Records Department [address] [place] [address] Provation Physician Letter MR#: [id number] Acct: [id number] Name: KATHRYN DUGGAN Rep #: [id number] : 1970 54 From: Damon Orellana DO PCP: Dr. Mariana Montaño DO Status:REG [facility] 04/26/2025 Mariana Montaño [address] [place] [address] Re : Colonoscopy procedure for Kathryn Duggan Dear Dr. Montaño This procedure was performed on Saturday, April 26, 2025. My impressions and recommendations are as follows: Impressions : - Diverticulosis in the recto-sigmoid colon, in the sigmoid colon and in the transverse colon. - No specimens collected. Recommendations : - Discharge patient to home. - Resume previous diet. - Continue present medications. - Repeat colonoscopy in 10 years for screening purposes. My findings are described in the full procedure note, which is enclosed. If I can be of further assistance, please feel free to contact me at . Sincerely, Damon Orellana DO 04/26/2025 8:38:42 AM This report has been signed electronically. 04/26/25838 Date Damon Sousa Signature: Date (if indicated) CC: Dr. Mariana Montaño DO; Damon Friend, DO Date Dictated: 04/26/25801 Date Transcribed: Nuclear Medical Tech: PARMINDER Signed [facility] MR/POSTOP.ANEon 04-26-2025 MR/POSTOP.ANE [facility] Medical Records Department [address] [place] [address] Anesthesia Postop Eval I 04/26/25 0808 MR#: [id number] Acct: [id number] Name: KATHRYN DUGGAN Rep #: [id number] : 1970 54 From: Justin Sabillon PCP: Dr. Mariana Montaño, DO Status:REG SDC Y Race: C Location: [place] [address] Anesthesia: Postop Eval I Current Vital Signs Temperature: 97.3 F Pulse Rate: 73 Blood Pressure: 113/65 Respiratory Rate: 16 Pulse Ox: 96 Oxygen Delivery Method: Room Air Assessment Airway patent: Yes Spontaneous unlabored respirations: Yes nausea: No Vomiting: No Anesthesia Complication: No Fluid Hydration Crystalloid volume administer (ml): 400 Total IV fluid infused: 400 Progress Note Anesthesia document: Postop Eval 1 completed: Yes 04/26/25839 Date Justin Fung Signature: Date CC: Signed [facility] MR/RIBMBWQW7ty 04-26-2025 MR/POSTOPAN2 [facility] Medical Records Department [address] [place] [address] Anesthesia Postop Eval II 04/26/2515 MR#: [id number] Acct: [id number] Name: KATHRYN DUGGAN Rep #: [id number] : 1970 54 From: Brooks Purcell MD PCP: Dr. Mariana Montaño, DO Status:REG SDC Y Race: C Location: [place] [address] Anesthesia Postop Eval I Sum Postop Eval Completion status Anesthesia document: Postop Eval 1 completed: Yes Anesthesia Postop Eval I Summary Anesthesia Postop Eval I Summary: Anesthesia Postop Eval I: Assessment Summary Airway patent Yes 04/26/25 08:12 [email or web address] Spontaneous unlabored Yes 04/26/25 08:12 [email or web address] respirations Mental status nausea No 04/26/25 08:40 [email or web address] Vomiting No 04/26/25 08:40 [email or web address] Anesthesia Postop Eval I: Fluid Summary Crystalloid volume administer 400 04/26/25 08:40 [email or web address] (ml) Colloids volume administered ( ml) Blood Product volume administered (ml) Total IV fluid infused 400 04/26/25 08:40 [email or web address] Anesthesia Postop Eval I: Summary Notes Anesthesia Complication No 04/26/25 08:40 [email or web address] Anesthesia Complication Comment: Post-operative progress note Anesthesia: Postop Eval II Evaluation Mental status: Awake Pain Level: 0 nausea: No Vomiting: No 04/26/25 0915 Date Brooks Purcell MD Cosigneva Signature: Date CC: Signed Normal [facility] MR/PATCurtis 04-20-2025 MR/PAT.[facility] Medical Records Department [address] [place] [address] PAT - Anesthesia 04/20/25 1639 MR#: [id number] Acct: [id number] Name: KATHRYN DUGGAN Rep #: [id number] : 1970 54 From: Logan Onofre MD PCP: Dr. Mariana Montaño, DO Status:PRE [facility] Y Race: C Location: [place] Pre-Assessment Diagnosis/Proposed Procedure Planned Operative Procedure(s): Colonoscopy Anesthesia History Anesthesia History - puzzle assembler: Anesthesia History - puzzle assembler Hx Hospitalization No 04/20/25 16:05 Any Problems [...] take am of surgery PONV PONV - puzzle assembler: PONV - puzzle assembler Female Yes 04/20/25 16:05 HX of Motion [...] 06/26/22 12:57 Respiratory Assessment Respiratory Assessment - puzzle assembler: Respiratory Tract Infection Hx - puzzle assembler Hx Respiratory Tract Infection No 04/20/25 16:05 STOP Sleep Apnea STOP Sleep Apnea - puzzle assembler: STOP Sleep Apnea - puzzle assembler Hx Hypertension No 04/20/25 16:05 Hx Sleep [...] Tobacco Use History Tobacco Use History - puzzle assembler: Tobacco Use History - puzzle assembler Tobacco Use Smoking Status Never smoker 04/20/25 16:05 Hx Tobacco Use No 04/20/25 16:05 Years Smoking Packs Smoked per Day Smoking Cessation Date was within the last 15 years Hx Smoking Cessation Date Hx Smoking Cessation Counseling Hematologic Medial History Hematologic Hx - puzzle assembler: 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 Specify any problems Hx of Preganancy in last 3 No 04/20/25 16:05 Months Nurse Filling Out Transfusion JZOLLINGE 04/20/25 16:05 Questions: Date: 04/20/25 04/20/25 16:05 Time: 16:04/20/25 16:05 Patient unable to answer at this time (ie. confused, unrespo /Reproduction History /Reproductive History - puzzle assembler: /Reproductive Hx- puzzle assembler Hx Now No 04/20/25 16:05 Gestational Age [...] DAILY 06/26/22 Unkno wn History glucosamine 500 uf-bxgxavnff-zaq 1 tab PO .qd 02/12/25 Unknown Hist ory n (more content not included)... Normal [facility] Cardiovascular stress test r eportOrdered By: Brennen Granado on 03-05-2025 Study report [facility] Cardiovascular Services [address] [place] [address] MR#: [id number] Acct: [id number] Name: KATHRYN DUGGAN Rep #: [id number] : 1970 54 From: Brennen Granado MD Primary Care: Dr. Mariana Montaño DO Statu s: REG CLI Referring Dr: Ester Sadler Sex: F C Stress Test Report Exercise [...] 03/05/251802 Date _ Brennen Granado MD CC: SUPERVISOR FILTRATION-C Ester Sadler; Dr. Mariana Montaño DO ~ Date Dictated: 03/05/251800 Date Transcribed: 03/05/251800 Nuclear Medical Tech: CO Signed [facility] Work Phone: Echo Completeon 03-05-2025 Echo Complete [facility] Cardiovascular Services [address] [place] [address] Echo Complete 03/05/25 1253 MR#: [id number] Acct: [id number] Name: KATHRYN DUGGAN #: [id number] : 1970 54 From: Brennen Granado MD Attending Dr: RAYMOND Lynn Status: REG CL I Ordering Dr: Ester Sadler Date: 03/05/25 Location: [facility] Sex: F C Admitted: Reason For Study [...] sec Doppler Measurements Calculations MV E max genaro: 71.8 cm/sec Lat Peak E' Genaro: 8.5 cm/sec Med Peak E' Genaro: 7.7 cm/sec MV A max genaro: 97.5 cm/sec E/E' lat: 8.5 E/E' med: [...] LV V1 VTI: 17.1 cm TR max genaro: 208.5 cm/sec TR max P.4 mmHg ECHO/Echo Complete Interpretation Summary Normal LV size. Left ventricular systolic function is normal. The left ventricular ejection fraction is 70 %. Stage 1 diastolic dysfunction. Mild tricuspid valve insufficiency. Ordering Physician: Ester Sadler Referring Physician: Ester Sadler Performed By: Shereen Still RCS 03/05/25 1640 Date Brennen Granado MD CC: SAURABHC Ester Sadler; Dr. Mariana Montaño, Date Dictated: 03/05/25 1253 Date Transcribed: 03/05/25 1640 Nuclear Medical Tech: Signed Normal [facility] Echocardiogram study reportO rdered By: Brennen Granado on 03-05-2025 Study report [facility] Cardiovascular Services [address] [place] [address] Echo Complete 03/05/25 1253 MR#: [id number] Acct: [id number] Name: KATHRYN DUGGAN Rep #:[id number] : 1970 54 From: Brennen Gleason Attending Dr: RAYMOND Lynn atus: REG CLI Ordering Dr: Ester Sadler Date: 03/05/25 Location: [facility] Sex: F C Admitted: Reason For Study [...] Doppler Measurements & Calculations MV E max genaro: 71.8 cm/sec Lat Peak E' Genaro: 8.5 cm/sec Med Peak E' Genaro: 7.7 cm/sec MV A max genaro: 97.5 cm/sec E/E' lat: 8.5 E/E' med: [...] V1 VTI: 17.1 cm __ TR max genaro: 208.5 cm/sec TR max P.4 mmHg ECHO/Echo Complete Interpretation Summary Normal LV size. Left ventricular systolic function is normal. The left ventricular ejection fraction is 70 %. Stage 1 diastolic dysfunction. Mild tricuspid valve insufficiency. Ordering Physician: Ester Sadler Referring Physician: Ester Sadler Performed By: Shereen Still RCS 03/05/25 1640 Date _ Brennen Granado MD CC: SUPERVISOR FILTRATIONEde Sadler; Dr. Mariana Montaño DO ~ Date Dictated: 03/05/25 1253 Date Transcribed: 03/05/25 1640 Nuclear Medical Tech: Signed [facility] Work Phone: Stress Reporton 03-05-2025 Stress Report [facility] Cardiovascular Services [address] [place] [address] MR#: [id number] Acct: [id number] Name: KATHRYN DUGGAN Rep #: [id number] : 1970 54 From: Brennen Granado MD Primary Care: Dr. Mariana Montaño, Status: REG CLI Referring Dr: Ester Sadler Sex: F C Stress Test Report Exercise [...] noted. 03/05/251802 Date Brennen Granado MD CC: SUPERVISOR FILTRATION-C Ester Sadler; Dr. Mariana Montaño, DO Date Dictated: 03/05/251800 Date Transcribed: 03/05/251800 Nuclear Medical Tech: CO Signed Normal [facility] CBC + DIFFon 02-04-2025 Baso # 0.04 x10EE3/UL Normal 0.00 - 0.10 [facility] Comment on above: Performed By: #### 2 [id number] #### [facility],[address] [place] [address] Basophils/100 WBC (Bld) 0.4 % Normal 0.0 - 2.0 [facility] Comment on above: Performed By: #### 2 [id number] #### [facility],[address] [place] [address] CBC + DIFF Normal [facility] Comment on above: Result Comment: CBC- COMPLETE BLOOD COUNT Performed By: #### 2 [id number] #### [facility],[address] [place] [address] EO # 0.45 x10EE3/UL Normal 0.00 - 0.50 [facility] Comment on above: Performed By: #### 2 [id number] #### [facility],[address] [place] [address] Eosinophils/100 WBC (Bld) 5.2 % Normal 0.0 - 7.0 [facility] Comment on above: Performed By: #### 2 90738 #### [facility],[address] [place] [address] Erythrocyte distribution width (RBC) [Ratio] 12.8 % Normal 12.0 - 15.6 [facility] Comment on above: Performed By: #### 2 80335 #### [facility],[address] [place] [address] Hematocrit (Bld) [Volume fraction] 46.5 % High 34.0 - 46.0 [facility] Comment on above: Performed By: #### 2 01315 #### [facility],[address] [place] [address] Hemoglobin (Bld) [Mass/Vol] 16.1 g/dL High 12.0 - 16.0 [facility] Comment on above: Performed By: #### 2 11548 #### [facility],[address] [place] [address] Lymph # 3.92 x10EE3/UL High 0.80 - 2.80 [facility] Comment on above: Performed By: #### 2 93932 #### [facility],[address] [place], [place] [id number] Lymphocytes/100 WBC (Bld) 45.2 % High 20.0 - 45.0 [facility] Comment on above: Performed By: #### 2 08841 #### [facility],[address] [place] [address] MANUAL DIFF N/A Normal [facility] Comment on above: Performed By: #### 2 05482 #### [facility],[address] [place] [address] MCH (RBC) [Entitic mass] 29 pg Normal 27 - 33 [facility] Comment on above: Performed By: #### 2 86192 #### [facility],[address] [place] [address] MCHC 35 X10 3 Normal 32 - 36 [facility] Comment on above: Performed By: #### 2 65207 #### [facility],[address] [place] [address] MCV (RBC) [Entitic vol] 84 fL Normal 80 - 99 [facility] Comment on above: Performed By: #### 2 76808 #### [facility],[address] [place] [address] [place] # 0.61 x10EE3/UL Normal 0.20 - 1.00 [facility] Comment on above: Performed By: #### 2 50372 #### [facility],[address] [place] [address] MONOS % 7.1 % Normal 0.0 - 10.0 [facility] Comment on above: Performed By: #### 2 69438 #### [facility],[address] [place], [place] [address] Morphology Kvng (Bld) [Interp] N/A Normal [facility] Comment on above: Performed By: #### 2 44136 #### [facility],[address] [place] [address] 43143 Neut # 3.65 x10EE3/UL Normal 1.50 - 7.10 [facility] Comment on above: Performed By: #### 2 51261 #### [facility],[address] [place] [address] 30928 Neutrophils/100 WBC (Bld) 42.1 % Low 46.0 - 76.0 [facility] Comment on above: Performed By: #### 2 67358 #### [facility],[address] [place] [address] 94215 PLATELET 318 x10EE3/UL Normal 150 - 450 [facility] Comment on above: Performed By: #### 2 27133 #### [facility],[address] [place] [address] 32159 Platelet mean volume (Bld) [Entitic vol] 7.4 fL Normal 6.6 - 10.5 [facility] Comment on above: Result Comment: AUTO MATED DIFFERENTIAL Performed By: #### 2 33983 #### [facility],[address] [place] [address] 55036 RBC 5.54 x 10EE6/UL High 4.10 - 5.30 [facility] Comment on above: Performed By: #### 2 73341 #### [facility],[address] [place] [address] 12070 WBC 8.7 x 10EE3/UL Normal 4.5 - 10.8 [facility] Comment on above: Performed By: #### 2 59261 #### [facility],[address] [place] [address] 36113 D-DIMER, QUANTITATIVEon 07-0 -2024 D-DIMER QUANT <200 Normal 0 - 230 [facility] Comment on above: Performed By: #### 2 95288 #### [facility],[address] [place] [address] 84707 D-DIMER, QUANTITATIVE Normal [facility] Comment on above: Result Comment: PILAR T D-DIMER Performed By: #### 2 98390 #### [facility],[address] [place] [address] 40773 TROPONINon 02-04-2025 HS TROPONIN 4.1 pg/mL Normal 0.0 - 51.4 [facility] Comment on above: Performed By: #### 2 15023 #### [facility],[address] [place] [address] 53667 Thyroid Antibodieson 025 TG AB < 1.0 Normal 0.0-0.9 [facility] Comment on above: Result Comment: Thyr oglobulin Antibody measured by [email or web address] Methodology It should be noted that the presence of thyroglobulin antibodies may not be pathogenic nor diagnostic, especially at very low levels. The assay biofuels manager has found that four percent of individuals without evidence of thyroid disease or autoimmunity will have positive TgAb levels up to 4 IU/mL. Performed at: [facility] [address] [id number] Corporate Driver: Joseph Pettit PhD, Phone: [phone] Performed By: #### L 3300.6750, L501.9520, L506.0400, L3300.1750, L501.9985 ####[facility] [id number] [facility]. [place], [place], [id number] THYR PEROX AB 12 IU/mL Normal 0-34 [facility] Comment on above: Performed By: #### L 3300.6750, L501.9520, L506.0400, L3300.1750, L501.9985 ####[facility] [id number] [facility]. [place], [place], [id number] E2 post dose follitropin [Ma ss/Vol]Ordered By: Mariana Montaño on 11-27-2024 Estradiol (E2) Level 34.9 pg/mL [facility] Comment on above: FEMALES ADULT FEMALE [...] 18. Estradiolon 11-27-2024 ESTRADIOL 34.9 pg/mL Normal [facility] Comment on above: Result Comment: FEMA LES [...] #### L 3300.6750, L501.9520, L506.0400, L3300.1750, L501.9985 ####[facility] [id number] [place], [address] Hemoglobin A1con 11-27-2024 HbA1c (Bld) [Mass fraction] 6.1 % High <=5.6 [facility] Comment on above: Result Comment: Norm al < 5.7 % Prediabetic 5.7 - 6.4 % Diabetic >or= 6.5 % Please note range changes. Performed By: #### L 3300.6750, L501.9520, L506.0400, L3300.1750, L501.9985 ####[facility] [id number] [place], [address] Hemoglobin A1c percentageOrd ered By: Mariana Montaño on 11-27-2024 HbA1c (Bld) [Mass fraction] 6.1 % High <5.7 [facility] Comment on above: Normal < 5.7 % Predi abetic 5.7 - 6.4 % Diabetic >or= 6.5 % Please note range changes. Serum or plasma estradiol me asurement after follitropin dose (mass/volume)Ordered By: Mariana Montaño on 11-27-2024 E2 post dose follitropin [Mass/Vol] 34.9 pg/mL [facility] Comment on above: FEMALES ADULT FEMALE : [...] on 11-27-2024 TPO Ab Qn 12 [IU]/mL 0-34 [facility] T4 Free Directon 11-27-2024 T4 FREE DIRECT 1.00 ng/dL Normal 0.76-1.46 [facility] Comment on above: Performed By: #### L 3300.6750, L501.9520, L506.0400, L3300.1750, L501.9985 #### [facility] Laboratory [address] [place], [place], [id number] T4 freeOrdered By: Mariana Wallacefernie cruzlinnea on 11-27-2024 Free T4 [Mass/Vol] 1.00 ng/dL 0.76-1.46 [facility] TPO Ab QnOrdered By: Mariana Blas on 11-27-2024 Thyroid Peroxidase Antibodies 12 IU/mL 0-34 [facility] TSH DL <= 0.005 mIU/L QnOrde red By: Mariana Montaño on 11-27-2024 Thyroid Stimulating Hormone (TSH) 2.900 uIU/mL 0.300-4.200 [facility] TSH Qn 2.900 uIU/mL 0.300-4.200 [facility] Thyroglobulin Ab serumOrdere d By: Mariana Montaño on 11-27-2024 Thyroglobulin Antibody < 1.0 IU/mL 0.0-0.9 [facility] Comment on above: Thyroglobulin Antibo dy measured by [email or web address] should be noted that the presence of thyroglobulinantibodies may not be pathogenic nor diagnostic, especiallyat very low levels. The assay biofuels manager has found thatfour percent of individuals without evidence of thyroiddisease or autoimmunity will have positive TgAb levels upto 4 IU/mL.Performed at: [facility] [address] [id number] Director: Joseph Pettit PhD, Phone: [phone] Thyroid Stim Hormone (TSH)on 11-27-2024 TSH 2.900 uIU/mL Normal 0.300-4.200 [facility] Comment on above: Performed By: #### L 3300.6750, L501.9520, L506.0400, L3300.1750, L501.9913 #### [facility] Laboratory [address] [place], [address] CCP AB, IgG AND IgA [CCL]on 11-17-2024 CCP AB, IgG AND IgA [CCL] Normal [facility] Comment on above: Result Comment: _CCP AB, IgG AND IgA [CCL]_ SEE SEPARATE REPORT Performed By: #### 2 27292 #### [facility],[address] [place] [address] 61105 DHEA [CCL]on 11-16-2024 DHEA 1.805 ng/mL Normal 0.630-4.700 [facility] Comment on above: Result Comment: INTE RPRETIVE INFORMATION: Dehydroepiandrosterone, Females 18 years and older: Postmenopausal: 0.60-5.73 ng/mL REFERENCE INTERVAL: Dehydroepiandrosterone by TMS Access complete set of age- and/or gender-specific reference intervals for this test in the [facility] Test Directory ([facility]). This test was developed and its performance characteristics determined by [facility]. It has not been cleared or approved by the US Food and Drug Administration. This test was performed in a CLIA certified laboratory and is intended for clinical purposes. Performed By: [facility] [address] [place], [place] [id number] Clinical Rehabilitation Aide: Jose Skinner MD, PhD CLIA Number: [id number] [place] [address] [place] [address] Bernardino He III, M.D. [id number] Performed By: #### 2 37581 #### [facility],[address] [place] [address] 40016 PROGESTERONE [CCL]on 025 Progesterone <0.2 Normal See comment [facility] Comment on above: Result Comment: Mens trual Cycle Progesterone Reference Ranges: Follicular: <1.0 ng/mL Ovulation: <12.1 ng/mL Luteal: 1.8 to 23.9 ng/mL. Progesterone Reference Ranges vary by gestational period: First Trimester: 11.0 to 44.3 ng/mL Second Trimester: 25.4 to 83.3 ng/mL Third Trimester: 58.7 to 214 ng/mL Post menopausal Progesterone: <0.5 ng/mL Reference: 1. Progesterone (Progesterone III) [package insert V 1.0 Gambian]. [facility], [place], [place]. May 2015. [facility] [address] [place] [place] [address] Bernardino He III, M.D. [id number] Performed By: #### 2 18413 #### [address] [address] LARISSA BY IFA SCREEN [CCL]on Nuclear Ab IF (S) [Titer] Negative Normal Negative [facility] Comment on above: Result Comment: Anti -nuclear antibody test is used as an aid in diagnosis of systemic autoimmune diseases. Where positive and clinically warranted, follow-up using disease-specific testing is recommended. Low positive titers are not uncommon with advanced age, certain chronic infections, and malignancies among others. Test methodology: Indirect fluorescence immunoassay (IFA) using HEp-2 cells. [facility] [place] [address] Bernardino He III, M.D. [id number] Performed By: #### 2 65215 #### [address] [address] ESTRADIOL-17B [CCL]on 2024 Estradiol-17B 56 pg/mL Normal [facility] Comment on above: Result Comment: This test [...] 3243 pg/mL Second trimester : 1561 to 48355 pg/mL Third trimester : 8285 to >54312 pg/mL Post-menopausal Estradiol reference range: < 41 pg/mL Reference: 1. Estradiol - E2 (Estradiol III) [package insert V 3.0 Gambian]. [facility], [place], [place], January 2016. [facility] [address] [place] [address] Bernardino He III, M.D. [id number] Performed By: #### 2 07516 #### [address] [address] RHEUMATOID FACTOR [CCL]on Rheumatoid Factor <10 Normal <16 [facility] Comment on above: Result Comment: [place] [address] Bernardino He III, M.D. [id number] Performed By: #### 2 20783 #### [facility],[address] [place] [address]72 LARISSA BY IFA SCREENon 11-13-19 25 Nuclear Ab Ql (S) Negative Normal Negative [facility] Comment on above: Order Comment: Speci men Type: BLOOD SPECIMEN Ordering Facility: [facility] Address: [address] [place], [place] [id number] Result Comment: Anti -nuclear antibody test is used as an aid in diagnosis of systemic autoimmune diseases. Where positive and clinically warranted, follow-up using disease-specific testing is recommended. Low positive titers are not uncommon with advanced age, certain chronic infections, and malignancies among others. Test methodology: Indirect fluorescence immunoassay (IFA) using HEp-2 cells. Performed By: #### 2 839-9, 37241-2, ANAIFS #### [facility] CLIA [id number] [address] [place] [address] [place] #### DHEA #### COUNTS INCLUDE 234 BEDS AT [facility] CLIA [id number] [address] [place] [address]46 C-REACTIVE PROTEINon 025 CRP 0.26 mg/dl Normal 0.00 - 0.90 [facility] Comment on above: Performed By: #### 2 48208 #### [facility],[address] [place] [address] 83701 CBC + DIFFon 11-12-2024 Baso # 0.05 x10EE3/UL Normal 0.00 - 0.10 [facility] Comment on above: Performed By: #### 2 69390 #### [facility],[address] [place] [address] 91446 Basophils/100 WBC (Bld) 0.6 % Normal 0.0 - 2.0 [facility] Comment on above: Performed By: #### 2 21543 #### [facility],[address] [place] [address] 34524 CBC + DIFF Normal [facility] Comment on above: Result Comment: CBC- COMPLETE BLOOD COUNT Performed By: #### 2 92803 #### [facility],[address] [place] [address] 66161 EO # 0.56 x10EE3/UL High 0.00 - 0.50 [facility] Comment on above: Performed By: #### 2 63312 #### [facility],[address] [place] [address] 61850 Eosinophils/100 WBC (Bld) 6.5 % Normal 0.0 - 7.0 [facility] Comment on above: Performed By: #### 2 04331 #### [facility],[address] [place], [place] [address] Erythrocyte distribution width (RBC) [Ratio] 13.5 % Normal 12.0 - 15.6 [facility] Comment on above: Performed By: #### 2 54710 #### [facility],[address] [place] [address] 02708 Hematocrit (Bld) [Volume fraction] 47.2 % High 34.0 - 46.0 [facility] Comment on above: Performed By: #### 2 50084 #### [facility],[address] [place] [address] 70021 Hemoglobin (Bld) [Mass/Vol] 16.7 g/dL High 12.0 - 16.0 [facility] Comment on above: Performed By: #### 2 94331 #### [facility],[address] [place] [address] 48037 Lymph # 2.99 x10EE3/UL High 0.80 - 2.80 [facility] Comment on above: Performed By: #### 2 06847 #### [facility],[address] [place] [address] 40553 Lymphocytes/100 WBC (Bld) 34.9 % Normal 20.0 - 45.0 [facility] Comment on above: Performed By: #### 2 62552 #### [facility],[address] [place] [address] MANUAL DIFF N/A Normal [facility] Comment on above: Performed By: #### 2 71445 #### [facility],[address] [place] [address] MCH (RBC) [Entitic mass] 30 pg Normal 27 - 33 [facility] Comment on above: Performed By: #### 2 05882 #### [place] [address] MCHC 35 X10 3 Normal 32 - 36 [facility] Comment on above: Performed By: #### 2 68280 #### [place] [address] MCV (RBC) [Entitic vol] 85 fL Normal 80 - 99 [facility] Comment on above: Performed By: #### 2 65166 #### [place] [address] [place] # 0.70 x10EE3/UL Normal 0.20 - 1.00 [facility] Comment on above: Performed By: #### 2 53536 #### [facility],[address] [place] [address] MONOS % 8.2 % Normal 0.0 - 10.0 [facility] Comment on above: Performed By: #### 2 99013 #### [facility],[address] [place] [address] Morphology Kvng (Bld) [Interp] N/A Normal [facility] Comment on above: Performed By: #### 2 93174 #### [place] [address] Neut # 4.28 x10EE3/UL Normal 1.50 - 7.10 [facility] Comment on above: Performed By: #### 2 45878 #### [facility],[address] [place] [address] 62790 Neutrophils/100 WBC (Bld) 49.8 % Normal 46.0 - 76.0 [facility] Comment on above: Performed By: #### 2 77201 #### [facility],[address] [place] [address] 92487 PLATELET 359 x10EE3/UL Normal 150 - 450 [facility] Comment on above: Performed By: #### 2 52799 #### [facility],[address] [place] [address] 98793 Platelet mean volume (Bld) [Entitic vol] 7.6 fL Normal 6.6 - 10.5 [facility] Comment on above: Result Comment: AUTO MATED DIFFERENTIAL Performed By: #### 2 46735 #### [facility],[address] [place] [address] 31572 RBC 5.59 x 10EE6/UL High 4.10 - 5.30 [facility] Comment on above: Performed By: #### 2 54178 #### [facility],[address] [place] [address] 90912 WBC 8.6 x 10EE3/UL Normal 4.5 - 10.8 [facility] Comment on above: Performed By: #### 2 21454 #### [facility],[address] [place] [address] 89729 CMP with eGFRon 11-12-2024 AGE 54 years Normal [facility] Comment on above: Performed By: #### 2 45809 #### [facility],[address] [place] [address] 60149 Albumin [Mass/Vol] 4.2 g/dL Normal 3.4 - 5.0 [facility] Comment on above: Performed By: #### 2 67672 #### [facility],[address] [place] [address] 54975 Albumin/Globulin [Mass ratio] 1.2 {ratio} Normal 0.9 - 1.6 [facility] Comment on above: Performed By: #### 2 39337 #### [facility],[address] [place] [address] 74504 ALK PHOS 61 U/L Normal 46 - 116 [facility] Comment on above: Performed By: #### 2 38592 #### [facility],[address] [place] [address] 32908 ALT [Catalytic activity/Vol] 103 U/L High 16 - 63 [facility] Comment on above: Performed By: #### 2 14512 #### [facility],[address] [place] [address] 82929 Anion gap [Moles/Vol] 10 mmol/L Normal 10 - 20 [facility] Comment on above: Performed By: #### 2 91342 #### [facility],[address] [place] [address] 62084 AST [Catalytic activity/Vol] 53 U/L High 13 - 39 [facility] Comment on above: Performed By: #### 2 46403 #### [facility],[address] [place] [address] 87575 B/C RATIO 19 ratio Normal 0 - 30 [facility] Comment on above: Performed By: #### 2 16039 #### [facility],[address] [place] [address] 13868 Bilirubin [Mass/Vol] 0.5 mg/dL Normal 0.2 - 1.0 [facility] Comment on above: Performed By: #### 2 85837 #### [facility],[address] [place] [address] 80442 Calcium [Mass/Vol] 9.2 mg/dL Normal 8.5 - 10.1 [facility] Comment on above: Performed By: #### 2 48617 #### [facility],[address] [place] [address] 36512 Chloride [Moles/Vol] 102 mmol/L Normal 98 - 107 [facility] Comment on above: Performed By: #### 2 12036 #### [facility],[address] [place] [address] 44888 CMP with eGFR Normal [facility] Comment on above: Result Comment: COMP REHENSIVE METABOLIC PANEL Performed By: #### 2 61970 #### [facility],[address] [place] [address] 09829 CO2 [Moles/Vol] 29.8 mmol/L Normal 21.0 - 32.0 [facility] Comment on above: Performed By: #### 2 14812 #### [facility],[address] [place] [address] 22238 Creatinine [Mass/Vol] 0.94 mg/dL Normal 0.55 - 1.02 [facility] Comment on above: Performed By: #### 2 74264 #### [facility],[address] [place] [address] 52252 GFR/1.73 sq M.predicted among non-blacks MDRD (S/P/Bld) [Vol rate/Area] mL/min/{1.73_m2} Normal 60 - 999 [facility] Comment on above: Performed By: #### 2 05491 #### [facility],[address] [place], [place] [address] Result Comment: ACCO RDING TO THE NATIONAL KIDNEY DISEASE EDUCATION PROGRAM(NKDE), A NORMAL eGFR IS A VALUE GREATER THAN OR EQUAL TO 60 ML/MIN/1.73 SQ METERS. CHRONIC KIDNEY DISEASE: <60mL/MIN/1.73 SQ METERS KIDNEY FAILURE: <15mL/MIN/1.73 SQ METERS THIS TEST SHOULD ONLY BE USED FOR PATIENTS 18 YEARS OF AGE AND OLDER. Globulin (S) [Mass/Vol] 3.4 g/dL Normal 1.5 - 3.8 [facility] Comment on above: Performed By: #### 2 76517 #### [facility],[address] [place] [address] 61834 Glucose [Mass/Vol] 120 mg/dL High 74 - 106 [facility] Comment on above: Performed By: #### 2 78471 #### [facility],[address] [place] [address] 95825 Potassium [Moles/Vol] 3.4 mmol/L Low 3.5 - 5.1 [facility] Comment on above: Performed By: #### 2 14865 #### [facility],[address] [place] [address] 13016 Protein [Mass/Vol] 7.6 g/dL Normal 6.4 - 8.2 [facility] Comment on above: Performed By: #### 2 65310 #### [facility],[address] [place] [address] 23126 Sodium [Moles/Vol] 138 mmol/L Normal 136 - 145 [facility] Comment on above: Performed By: #### 2 41633 #### [facility],[address] [place] [address] 32007 Urea nitrogen [Mass/Vol] 18 mg/dL Normal 7 - 18 [facility] Comment on above: Performed By: #### 2 44091 #### [facility],[address] [place] [address] 73158 DHEA BLOODon 11-12-2024 DHEA 1.805 ng/mL Normal 0.630-4.700 [facility] Comment on above: Order Comment: Speci men Type: BLOOD SPECIMEN Ordering Facility: [facility] Address: [address] [place], [place] [id number] Result Comment: INTE RPRETIVE INFORMATION: Dehydroepiandrosterone, Females 18 years and older: Postmenopausal: 0.60-5.73 ng/mL REFERENCE INTERVAL: Dehydroepiandrosterone by TMS Access complete set of age- and/or gender-specific reference intervals for this test in the [facility] Test Directory ([facility]). This test was developed and its performance characteristics determined by [facility]. It has not been cleared or approved by the US Food and Drug Administration. This test was performed in a CLIA certified laboratory and is intended for clinical purposes. Performed By: [facility] [address] [place] [address] Clinical Rehabilitation Aide: Jose Skinner MD, PhD CLIA Number: [id number] Performed By: #### 2 839-9, 48145-0, ALONDRA #### [facility] CLIA [id number] [address] [place] [address] [place] #### DHEA #### COUNTS INCLUDE 234 BEDS AT [facility] CLIA [id number] [address] [place] [address] Estradiol [facility]-ncon 11-12 E2 [Mass/Vol] 56 pg/mL Normal [facility] Comment on above: Order Comment: Speci men Type: BLOOD SPECIMEN Ordering Facility: [facility] Address: [address] [place] [address] Result Comment: This test is not suitable [...] 3243 pg/mL Second trimester : 1561 to 99036 pg/mL Third trimester : 8285 to >09661 pg/mL Post-menopausal Estradiol reference range: < 41 pg/mL Reference: 1. Estradiol - E2 (Estradiol III) [package insert V 3.0 Gambian]. [facility], [place], [place], January 2016. Performed By: #### 2 243-4 #### [facility] CLIA [id number] [address] [place] [address] [place] LIPID PROFILEon 11-12-2024 Cholesterol [Mass/Vol] 170 mg/dL Normal 0 - 240 [facility] Comment on above: Performed By: #### 2 60095 #### [facility],[address],[place] [address] Cholesterol in HDL [Mass/Vol] 50 mg/dL Normal 40 - 60 [facility] Comment on above: Performed By: #### 2 82885 #### [facility],[address] [place] [address] 55783 Cholesterol in LDL [Mass/Vol] 85 mg/dL Normal 0 - 129 [facility] Comment on above: Performed By: #### 2 66925 #### [facility],[address] [place] [address] 93233 Cholesterol.total/Cho lesterol in HDL [Mass ratio] 3.4 {ratio} Normal 0.0 - 5.0 [facility] Comment on above: Performed By: #### 2 80431 #### [facility],[address] [place] [address] 04895 Lipid 1996 panel Normal [facility] Comment on above: Result Comment: LIPI D PROFILE Performed By: #### 2 46110 #### [facility],[address] [place] [address] 15813 Triglyceride [Mass/Vol] 176 mg/dL High 0 - 150 [facility] Comment on above: Performed By: #### 2 51200 #### [facility],[address] [place] [address] 49862 Progest Susanl-[place] 11-12- 025 Progesterone [Mass/Vol] ng/mL Normal See comment [facility] Comment on above: Order Comment: Speci men Type: BLOOD SPECIMEN Ordering Facility: [facility] Address: [address] [place] [address] Result Comment: Mens trual Cycle Progesterone Reference Ranges: Follicular: <1.0 ng/mL Ovulation: <12.1 ng/mL Luteal: 1.8 to 23.9 ng/mL. Progesterone Reference Ranges vary by gestational period: First Trimester: 11.0 to 44.3 ng/mL Second Trimester: 25.4 to 83.3 ng/mL Third Trimester: 58.7 to 214 ng/mL Post menopausal Progesterone: <0.5 ng/mL Reference: 1. Progesterone (Progesterone III) [package insert V 1.0 [place]ian]. [facility], [place], [place]. May 2015. Performed By: #### 2 839-9, 13917-9, ANAIFS #### [facility] CLIA [id number] [address] [place] [address] [place] #### DHEA #### [facility] CLIA [id number] [address] [place] [address] Rheumatoid fact SerPl-aCncon 11-12-2024 Rheumatoid factor Qn [IU]/mL Normal <16 [facility] Comment on above: Order Comment: Speci men Type: BLOOD SPECIMEN Ordering Facility: [facility] Address: [address] [place] [address] Performed By: #### 2 839-9, 88181-0, ALONDRA #### [facility] CLIA [id number] [address] [place] [address] [place] #### DHEA #### [facility] CLIA [id number] [address] [place] [address] SEDRATEon 11-12-2024 SEDRATE 2 mm/hr Normal 0 - 30 [facility] Comment on above: Performed By: #### 2 15512 #### [facility],[address] [place] [address] 88378 TSHon 11-12-2024 TSH Qn 3.80 m[IU]/L High 0.35 - 3.74 [facility] Comment on above: Performed By: #### 2 13323 #### [facility],[address] [place] [address] 19686 SCRN MAMM (CAD)W/MIKAYLA BILATo n 07-06-2024 SCRN MAMM (CAD)W/MIKAYLA BILAT [facility] Imaging Services [address] [place] [address] [id number] SCRN MAMM (CAD)W/MIKAYLA BILAT MR#: [id number] Acct: [id number] Name: KATHRYN DUGGAN Rep #: [id number] : 1970 F 53 From: Armando mackay MD PCP: Dr. Mariana Montaño, Status: [facility] Study: SCRN MAMM (CAD)W/MIKAYLA BILAT Date of Exam: 09/28 Exam# [id number] Ordering Dr: Mariana Montaño DO [id number] MAMMOGRAPHY - BILATERAL SCREENING REASON FOR EXAM: [...] delay biopsy of a clinically suspicious abnormality. [id number] Electronically Signed: Armando Davalos MD at 8:28 EST , CC: Dr. Mariana Montaño, Nuclear Medical Tech: Signed Normal [facility] CMP with eGFRon 05-26-2024 AGE 53 years Normal [facility] Comment on above: Performed By: #### 2 24711 #### [facility],[address] [place] [address] 09135 Albumin [Mass/Vol] 3.8 g/dL Normal 3.4 - 5.0 [facility] Comment on above: Performed By: #### 2 38565 #### [facility],[address] [place] [address] 12671 Albumin/Globulin [Mass ratio] 1.0 {ratio} Normal 0.9 - 1.6 [facility] Comment on above: Performed By: #### 2 23822 #### [facility],[address] [place] [address] 34407 ALK PHOS 47 U/L Normal 46 - 116 [facility] Comment on above: Performed By: #### 2 65887 #### [facility],[address] [place] [address] 85258 ALT [Catalytic activity/Vol] 47 U/L Normal 16 - 63 [facility] Comment on above: Performed By: #### 2 86219 #### [facility],[address] [place] [address] 05364 Anion gap [Moles/Vol] 11 mmol/L Normal 10 - 20 [facility] Comment on above: Performed By: #### 2 95125 #### [facility],[address] [place] [address] 53022 AST [Catalytic activity/Vol] 27 U/L Normal 13 - 39 [facility] Comment on above: Performed By: #### 2 78014 #### [facility],[address] [place] [address] 66675 B/C RATIO 18 ratio Normal 0 - 30 [facility] Comment on above: Performed By: #### 2 03243 #### [facility],[address] [place] [address] 85280 Bilirubin [Mass/Vol] 0.4 mg/dL Normal 0.2 - 1.0 [facility] Comment on above: Performed By: #### 2 45619 #### [facility],[address] [place] [address] 10282 Calcium [Mass/Vol] 8.9 mg/dL Normal 8.5 - 10.1 [facility] Comment on above: Performed By: #### 2 83367 #### [facility],[address] [place], [place] [id number] Chloride [Moles/Vol] 102 mmol/L Normal 98 - 107 [facility] Comment on above: Performed By: #### 2 24544 #### [facility],[address] [place] [address] CMP with eGFR Normal [facility] Comment on above: Result Comment: COMP REHENSIVE METABOLIC PANEL Performed By: #### 2 26773 #### [facility],[address] [place] [address] 84297 CO2 [Moles/Vol] 31.7 mmol/L Normal 21.0 - 32.0 [facility] Comment on above: Performed By: #### 2 84799 #### [facility],[address] [place] [address] 87351 Creatinine [Mass/Vol] 1.04 mg/dL High 0.55 - 1.02 [facility] Comment on above: Performed By: #### 2 75182 #### [facility],[address] [place], [place] [id number] eGFR 55 ML/MINUTE Low 60 - 999 [facility] Comment on above: Performed By: #### 2 69689 #### [facility],[address] [place] [address] 39364 GFR/1.73 sq M.predicted among non-blacks MDRD (S/P/Bld) [Vol rate/Area] mL/min/{1.73_m2} Normal 60 - 999 [facility] Comment on above: Result Comment: ACCO RDING TO THE NATIONAL KIDNEY DISEASE EDUCATION PROGRAM(NKDE), A NORMAL eGFR IS A VALUE GREATER THAN OR EQUAL TO 60 ML/MIN/1.73 SQ METERS. CHRONIC KIDNEY DISEASE: <60mL/MIN/1.73 SQ METERS KIDNEY FAILURE: <15mL/MIN/1.73 SQ METERS THIS TEST SHOULD ONLY BE USED FOR PATIENTS 18 YEARS OF AGE AND OLDER. Performed By: #### 2 99219 #### [facility],[address] [place] [address] 41677 Globulin (S) [Mass/Vol] 3.7 g/dL Normal 1.5 - 3.8 [facility] Comment on above: Performed By: #### 2 97305 #### [facility],[address] [place] [address] 27827 Glucose [Mass/Vol] 115 mg/dL High 74 - 106 [facility] Comment on above: Performed By: #### 2 71827 #### [facility],[address] [place] [address] 51475 Potassium [Moles/Vol] 3.5 mmol/L Normal 3.5 - 5.1 [facility] Comment on above: Performed By: #### 2 58859 #### [address] [address] Protein [Mass/Vol] 7.5 g/dL Normal 6.4 - 8.2 [facility] Comment on above: Performed By: #### 2 95337 #### [facility],[address] [place] [address] 61649 Sodium [Moles/Vol] 141 mmol/L Normal 136 - 145 [facility] Comment on above: Performed By: #### 2 74435 #### [facility],[address] [place] [address] 56675 Urea nitrogen [Mass/Vol] 19 mg/dL High 7 - 18 [facility] Comment on above: Performed By: #### 2 73773 #### [facility],[address] [place] [address] 54079 LIPID PROFILEon 05-26-2024 Cholesterol [Mass/Vol] 192 mg/dL Normal 0 - 240 [facility] Comment on above: Performed By: #### 2 62824 #### [facility],[address] [place] [address] 09256 Cholesterol in HDL [Mass/Vol] 49 mg/dL Normal 40 - 60 [facility] Comment on above: Performed By: #### 2 08066 #### [facility],[address] [place] [address] 39394 Cholesterol in LDL [Mass/Vol] 95 mg/dL Normal 0 - 129 [facility] Comment on above: Performed By: #### 2 08886 #### [facility],[address] [place] [address] 18023 Cholesterol.total/Cho lesterol in HDL [Mass ratio] 3.9 {ratio} Normal 0.0 - 5.0 [facility] Comment on above: Performed By: #### 2 69066 #### [facility],[address] [place] [address] 62922 Lipid 1996 panel Normal [facility] Comment on above: Result Comment: LIPI D PROFILE Performed By: #### 2 17558 #### [facility],[address] [place] [address] 83594 Triglyceride [Mass/Vol] 239 mg/dL High 0 - 150 [facility] Comment on above: Performed By: #### 2 60071 #### [facility],[address] [id number] Absolute lymphocyte countOrd ered By: Mariana Montaño on 10-28-2023 Lymphocytes Auto (Unsp spec) [#/Vol] 2.89 10*3/uL 0.83-4.51 [facility] Automated lymphocyte count a s percentage of total leukocytesOrdered By: Mariana Montaño on 10-28-2023 Lymphocytes/100 WBC Auto (Unsp spec) 31.7 % 19-41 [facility] Basophil percentageOrdered B y: Mariana Montaño on 10-28-2023 Basophils/100 WBC (Bld) 1.4 % 0-1 [facility] Bilirubin [Mass/Vol] 0.50 mg/dL 0.20-1.00 [facility] Comment on above: For patients on eltr ombopag therapy, use of Dimension [place] TBIL is not recommended. Chloride [Moles/Vol] 103 mmol/L 98-107 [facility] Cholesterol [Mass/Vol] 255 mg/dL <200 [facility] Comment on above: <200 mg/dL Desirable 200-240 mg/dL Borderline >240 mg/dL High Risk Eosinophils/100 WBC (Bld) 2.2 % 0-5 [facility] Glucose [Mass/Vol] 113 mg/dL 74-106 [facility] Comment on above: Fasting Glucose resu lt from 100 to 125 mg/dL suggests IMPAIRED HOMEOSTASIS per A.D.A. criteria. Hemoglobin (Bld) [Mass/Vol] 15.5 g/dL 12.0-15.0 [facility] Monocytes/100 WBC (Bld) 8.0 % 0-10 [facility] Neutrophils (Bld) [#/Vol] 5.1 10*3/uL 2.0-7.7 [facility] Neutrophils/100 WBC (Bld) 56.4 % 47-70 [facility] Potassium [Moles/Vol] 3.2 mmol/L 3.5-5.1 [facility] Protein [Mass/Vol] 7.8 g/dL 6.4-8.2 [facility] Sodium [Moles/Vol] 140 mmol/L 136-145 [facility] Triglyceride [Mass/Vol] 173 mg/dL <199 [facility] Comment on above: The drugs N-Acetylcy steine and Metamizole may falsely depress this assay.Serum Triglycerides Reference Interval Normal <150 mg/dL Borderline high 150 - 199 mg/dL High 200 - 499 mg/dL Very High > or = 500 mg/dL WBC (Bld) [#/Vol] 9.1 10*3/uL 4.4-11.0 [facility] Determination of erythrocyte mean corpuscular volume (MCV)Ordered By: Mariana Montaño on 10-28-2023 MCV (RBC) [Entitic vol] 86.5 fL 81-99 [facility] Erythrocyte distribution wid th ratioOrdered By: Mariana Montaño on 10-28-2023 Erythrocyte distribution width (RBC) [Ratio] 12.2 % 11.6-14.6 [facility] Erythrocyte distribution wid th standard deviationOrdered By: Mariana Montaño on 10-28-2023 Erythrocyte distribution width (RBC) [Entitic vol] 38.8 fL 35.1-43.9 [facility] Hematocrit Auto (Bld) [Volum e fraction]Ordered By: Mariana Montaño on 10-28-2023 Hematocrit (Bld) [Volume fraction] 47.6 % 37-47 [facility] Immature granulocytes/100 WB C Auto (Bld)Ordered By: Mariana Montaño on 10-28-2023 Immature granulocytes/100 WBC (Bld) 0.300 % 0.0-0.9 [facility] Comment on above: IG% - Immature Granu locytes (promyelocytes, myelocytes and metamyelocytes) > 1% indicates that a LEFT SHIFT is Present. Laboratory - Chemistry and C hemistry - challengeOrdered By: Mariana Montaño on 10-28-2023 Albumin/Globulin [Mass ratio] 1.2 {ratio} 0.9-2.4 [facility] ALP [Catalytic activity/Vol] 49 U/L 45-117 [facility] ALT [Catalytic activity/Vol] 31 U/L 13-56 [facility] Cholesterol in HDL [Mass/Vol] 41 mg/dL >40 [facility] Comment on above: The drugs N-Acetylcy steine and Metamizole may falsely depress this assay. Reference Range HDL <40 mg/dL Low HDL Cholesterol HDL >or= 60 mg/dL High HDL Cholesterol Cholesterol in LDL [Mass/Vol] 179 mg/dL 0-130 [facility] CO2 [Moles/Vol] 29.0 mmol/L 21.0-32.0 [facility] Globulin (S) [Mass/Vol] 3.5 g/dL 2.2-4.2 [facility] Urea nitrogen/Creatinine [Mass ratio] 15.7 mg/mg 10-20 [facility] Laboratory - Hematology and Cell countsOrdered By: Mariana Montaño on 10-28-2023 MCH (RBC) [Entitic mass] 28.2 pg 27.0-32.0 [facility] MCHC (RBC) [Mass/Vol] 32.6 g/dL 32-36 [facility] Nucleated RBC/100 WBC (Bld) [Ratio] 0 % 0-5 [facility] Platelet mean volume (Bld) [Entitic vol] 9.7 fL 6.2-12.0 [facility] Platelets (Bld) [#/Vol] 357 10*3/uL 150-450 [facility] No Panel InformationOrdered By: Mariana Montaño on 10-28-2023 Estimated GFR (MDRD) Amer 63 mL/min >60 [facility] Comment on above: GFR Calc Estimated GFR (MDRD) Non-Af Amer 52 mL/min >60 [facility] Comment on above: Non- GFR Calc Vitamin D 25-Hydroxy 52.4 ng/mL [facility] Comment on above: Vitamin D 25(OH) Sta tus Range Deficiency <20 ng/mL (50nmol/L) Insufficiency 20 - 30 ng/mL (50 - 75 nmol/L) Sufficiency 30 - 100 ng/mL (75 - 250 nmol/L) Toxicity >100 ng/mL (>250 nmol/L) VLDL Cholesterol 35 mg/dL 5-40 [facility] RBC Auto (Bld) [#/Vol]Ordere d By: Mariana Montaño on 10-28-2023 RBC (Bld) [#/Vol] 5.50 10*6/uL 4.2-5.4 [facility] Serum or plasma calcium pineda urement (mass/volume)Ordered By: Mariana Montaño on 10-28-2023 Calcium [Mass/Vol] 9.7 mg/dL 8.5-10.1 [facility] Serum or plasma creatinine m easurement (mass/volume)Ordered By: Mariana Montaño on 10-28-2023 Creatinine [Mass/Vol] 1.15 mg/dL 0.55-1.02 [facility] Comment on above: The validity of the calculated GFR & GFRAA in patients over 70 years has not been determined. Clinical correlation is essential. Serum or plasma thyroid stim ulating hormone (TSH) measurement (units/volume)Ordered By: Mariana Montaño on 10-28-2023 TSH Qn 2.94 uIU/mL 0.358-3.74 [facility] Serum or plasma urea nitroge n measurement (mass/volume)Ordered By: Mariana Montaño on 10-28-2023 Urea nitrogen [Mass/Vol] 18 mg/dL 7-18 [facility] Thin prep Papanicolaou smear with manual screeningOrdered By: Mariana Montaño on 10-28-2023 Thin prep Papanicolaou smear with manual screening 4.3 g/dL 3.2-5.0 [facility] Thin prep Papanicolaou smear with manual screening 23 U/L 15-37 [facility] Thin prep Papanicolaou smear with manual screening 8 5-15 [facility] Basophil percentageOrdered B y: Mariana Montaño on 01-31-2023 Bilirubin [Mass/Vol] 0.30 mg/dL 0.20-1.00 [facility] Comment on above: For patients on eltr ombopag therapy, use of Dimension [place] TBIL is not recommended. Cholesterol [Mass/Vol] 156 mg/dL <200 [facility] Comment on above: <200 mg/dL Desirable 200-240 mg/dL Borderline >240 mg/dL High Risk Protein [Mass/Vol] 7.1 g/dL 6.4-8.2 [facility] Triglyceride [Mass/Vol] 190 mg/dL <199 [facility] Comment on above: The drugs N-Acetylcy steine and Metamizole may falsely depress this assay.Serum Triglycerides Reference Interval Normal <150 mg/dL Borderline high 150 - 199 mg/dL High 200 - 499 mg/dL Very High > or = 500 mg/dL Direct bilirubinOrdered By: Mariana Montaño on 01-31-2023 Bilirubin.direct [Mass/Vol] 0.10 mg/dL 0.00-0.30 [facility] Laboratory - Chemistry and C hemistry - challengeOrdered By: Mariana Montaño on 01-31-2023 ALP [Catalytic activity/Vol] 51 U/L 45-117 [facility] ALT [Catalytic activity/Vol] 35 U/L 13-56 [facility] Globulin (S) [Mass/Vol] 3.5 g/dL 2.2-4.2 [facility] Serum or plasma albumin pineda urement (mass/volume)Ordered By: Mariana Montaño on 01-31-2023 Albumin [Mass/Vol] 3.6 g/dL 3.2-5.0 [facility] Serum or plasma cholesterol in HDL measurement (mass/volume)Ordered By: Mariana Montaño on 01-31-2023 Cholesterol in HDL [Mass/Vol] 39 mg/dL >40 [facility] Comment on above: The drugs N-Acetylcy steine and Metamizole may falsely depress this assay. Reference Range HDL <40 mg/dL Low HDL Cholesterol HDL >or= 60 mg/dL High HDL Cholesterol Serum or plasma cholesterol in VLDL measurement (mass/volume)Ordered By: Mariana Monatño on 01-31-2023 Cholesterol in VLDL [Mass/Vol] 38 mg/dL 5-40 [facility] Serum or plasma low density lipoprotein (LDL) cholesterol measurement (mass/volume)Ordered By: Mariana Montaño on 01-31-2023 Cholesterol in LDL [Mass/Vol] 79 mg/dL 0-130 [facility] Thin prep Papanicolaou smear with manual screeningOrdered By: Mariana Montaño on 01-31-2023 Thin prep Papanicolaou smear with manual screening 19 U/L 15-37 [facility] Absolute lymphocyte countOrd ered By: Dr. Montaño on 10-18-2022 Lymphocytes Auto (Unsp spec) [#/Vol] 3.11 10*3/uL 0.83-4.51 [facility] Basophil percentageOrdered B y: Dr. Montaño on 10-18-2022 Basophils/100 WBC (Bld) 1.4 % 0-1 [facility] Bilirubin [Mass/Vol] 0.30 mg/dL 0.20-1.00 [facility] Comment on above: For patients on eltr ombopag therapy, use of Dimension [place] TBIL is not recommended. Chloride [Moles/Vol] 101 mmol/L 98-107 [facility] Cholesterol [Mass/Vol] 293 mg/dL <200 [facility] Comment on above: <200 mg/dL Desirable 200-240 mg/dL Borderline >240 mg/dL High Risk Eosinophils/100 WBC (Bld) 6.0 % 0-5 [facility] Glucose [Mass/Vol] 84 mg/dL 74-106 [facility] Neutrophils (Bld) [#/Vol] 3.9 10*3/uL 2.0-7.7 [facility] Neutrophils/100 WBC (Bld) 48.0 % 47-70 [facility] Potassium [Moles/Vol] 3.8 mmol/L 3.5-5.1 [facility] Protein [Mass/Vol] 7.5 g/dL 6.4-8.2 [facility] Sodium [Moles/Vol] 138 mmol/L 136-145 [facility] Triglyceride [Mass/Vol] 252 mg/dL <199 [facility] Comment on above: The drugs N-Acetylcy steine and Metamizole may falsely depress this assay.Serum Triglycerides Reference Interval Normal <150 mg/dL Borderline high 150 - 199 mg/dL High 200 - 499 mg/dL Very High > or = 500 mg/dL WBC (Bld) [#/Vol] 8.1 10*3/uL 4.4-11.0 [facility] Blood erythrocytes count (nu mber/volume)Ordered By: Dr. Montaño on 10-18-2022 RBC (Bld) [#/Vol] 5.52 10*6/uL 4.2-5.4 [facility] Blood hemoglobin measurement (mass/volume)Ordered By: Dr. Montaño on 10-18-2022 Hemoglobin (Bld) [Mass/Vol] 15.7 g/dL 12.0-15.0 [facility] Blood lymphocytes/100 leukoc ytesOrdered By: Dr. Montaño on 10-18-2022 Lymphocytes/100 WBC (Bld) 38.3 % 19-41 [facility] Blood monocytes/100 leukocyt esOrdered By: Dr. Montaño on 10-18-2022 Monocytes/100 WBC (Bld) 5.9 % 0-10 [facility] Blood platelet mean volumeOr dered By: Dr. Montaño on 10-18-2022 Platelet mean volume (Bld) [Entitic vol] 9.8 fL 6.2-12.0 [facility] Determination of erythrocyte mean corpuscular volume (MCV)Ordered By: Dr. Montaño on 10-18-2022 MCV (RBC) [Entitic vol] 86.4 fL 81-99 [facility] Hematocrit Auto (Bld) [Volum e fraction]Ordered By: Dr. Montaño on 10-18-2022 Hematocrit (Bld) [Volume fraction] 47.7 % 37-47 [facility] Laboratory - Chemistry and C hemistry - challengeOrdered By: Dr. Montaño on 10-18-2022 ALP [Catalytic activity/Vol] 47 U/L 45-117 [facility] ALT [Catalytic activity/Vol] 31 U/L 13-56 [facility] CO2 [Moles/Vol] 29.0 mmol/L 21.0-32.0 [facility] Globulin (S) [Mass/Vol] 3.4 g/dL 2.2-4.2 [facility] Urea nitrogen/Creatinine [Mass ratio] 21.3 mg/mg 10-20 [facility] Laboratory - Hematology and Cell countsOrdered By: Dr. Montaño on 10-18-2022 Erythrocyte distribution width (RBC) [Entitic vol] 40.6 fL 35.1-43.9 [facility] Erythrocyte distribution width (RBC) [Ratio] 12.9 % 11.6-14.6 [facility] Immature granulocytes/100 WBC (Bld) 0.400 % 0.0-0.9 [facility] Comment on above: IG% - Immature Granu locytes (promyelocytes, myelocytes and metamyelocytes) > 1% indicates that a LEFT SHIFT is Present. MCH (RBC) [Entitic mass] 28.4 pg 27.0-32.0 [facility] Nucleated RBC/100 WBC (Bld) [Ratio] 0 % 0-5 [facility] MCHC Auto (RBC) [Mass/Vol]Or dered By: Dr. Montaño on 10-18-2022 MCHC (RBC) [Mass/Vol] 32.9 g/dL 32-36 [facility] No Panel InformationOrdered By: Dr. Montaño on 10-18-2022 Estimated GFR (MDRD) Amer 80 mL/min >60 [facility] Comment on above: GFR Calc Estimated GFR (MDRD) Non-Af Amer 66 mL/min >60 [facility] Comment on above: Non- GFR Calc Vitamin D 25-Hydroxy 45.1 ng/mL [facility] Comment on above: Vitamin D 25(OH) Sta tus Range Deficiency <20 ng/mL (50nmol/L) Insufficiency 20 - 30 ng/mL (50 - 75 nmol/L) Sufficiency 30 - 100 ng/mL (75 - 250 nmol/L) Toxicity >100 ng/mL (>250 nmol/L) Platelets bldOrdered By: Dr. Montaño on 10-18-2022 Platelets (Bld) [#/Vol] 370 10*3/uL 150-450 [facility] Serum or plasma albumin pineda urement (mass/volume)Ordered By: Dr. Montaño on 10-18-2022 Albumin [Mass/Vol] 4.1 g/dL 3.2-5.0 [facility] Serum or plasma albumin/glob ulin mass ratioOrdered By: Dr. Montaño on 10-18-2022 Albumin/Globulin [Mass ratio] 1.2 {ratio} 0.9-2.4 [facility] Serum or plasma calcium pineda urement (mass/volume)Ordered By: Dr. Montaño on 10-18-2022 Calcium [Mass/Vol] 9.2 mg/dL 8.5-10.1 [facility] Serum or plasma cholesterol in HDL measurement (mass/volume)Ordered By: Dr. Montaño on 10-18-2022 Cholesterol in HDL [Mass/Vol] 40 mg/dL >40 [facility] Comment on above: The drugs N-Acetylcy steine and Metamizole may falsely depress this assay. Reference Range HDL <40 mg/dL Low HDL Cholesterol HDL >or= 60 mg/dL High HDL Cholesterol Serum or plasma cholesterol in VLDL measurement (mass/volume)Ordered By: Dr. Montaño on 10-18-2022 Cholesterol in VLDL [Mass/Vol] 50 mg/dL 5-40 [facility] Serum or plasma creatinine m easurement (mass/volume)Ordered By: Dr. Montaño on 10-18-2022 Creatinine [Mass/Vol] 0.94 mg/dL 0.55-1.02 [facility] Comment on above: The validity of the calculated GFR & GFRAA in patients over 70 years has not been determined. Clinical correlation is essential. Serum or plasma low density lipoprotein (LDL) cholesterol measurement (mass/volume)Ordered By: Dr. Montaño on 10-18-2022 Cholesterol in LDL [Mass/Vol] 203 mg/dL 0-130 [facility] Serum or plasma urea nitroge n measurement (mass/volume)Ordered By: Dr. Montaño on 10-18-2022 Urea nitrogen [Mass/Vol] 20 mg/dL 7-18 [facility] Thin prep Papanicolaou smear with manual screeningOrdered By: Dr. Montaño on 10-18-2022 Thin prep Papanicolaou smear with manual screening 16 U/L 15-37 [facility] Thin prep Papanicolaou smear with manual screening 8 5-15 [facility] Cervical or vagninal specime n microscopic examination by cytology stain (reported asOrdered By: Dr. Montaño on 07-19-2022 Cytology report Cyto stain Doc (Cvx/Vag) Comment . [facility] Comment on above: The Pap smear is a s creening test designed to aid in thedetection of premalignant and malignant conditions of theuterine cervix. It is not a diagnostic procedure andshould not be used as the sole means of detecting cervicalcancer. Both false-positive and false-negative reports dooccur. Laboratory - CytologyOrdered By: Dr. Montaño on 07-19-2022 Grinding And Spraying Supervisor Cyto stain Nom (Cvx/Vag) [ID] Comment . [facility] Comment on above: Brinda Li ytotechnologist (ASCP) Laboratory - Miscellaneous t estsOrdered By: Dr. Montaño on 07-19-2022 Service comment (Unsp spec) [Interp] Comment . [facility] Comment on above: This liquid based Th inPrep(R) pap test was screened withthe use of an image guided system. Service comment (Unsp spec) [Interp] . . [facility] No Panel InformationOrdered By: Dr. Montaño on 07-19-2022 Pap Smear Additional Comments . [facility] Pathology report final diagnosis Narrative Comment . [facility] Comment on above: NEGATIVE FOR INTRAEP ITHELIAL LESION OR MALIGNANCY.THIS SPECIMEN WAS RESCREENED PART OF OUR INTERNAL WHOLESALER PROGRAM. Vital Signs Date Time Vital Sign Value Performing Clinician Facility 04-26-2025 08:50-0400 Body temperature 97.6 [degF] Dr. Mariana Montaño DO Work Phone: [facility] 04-26-2025 08:50-0400 Diastolic blood pressure 76 mm[Hg] Dr. Mariana Montaño DO Work Phone: [facility] 04-26-2025 08:50-0400 Heart rate 61 /min Dr. Mariana Montaño DO Work Phone: [facility] 04-26-2025 08:50-0400 Respiratory rate 16 /min Dr. Mariana Montaño DO Work Phone: [facility] 04-26-2025 08:50-0400 SaO2% (BldA) [Mass fraction] 94 % Dr. Mariana Montaño DO Work Phone: [facility] 04-26-2025 08:50-0400 Systolic blood pressure 115 mm[Hg] Dr. Mariana Montaño DO Work Phone: [facility] 04-26-2025 08:12-0400 Inhaled oxygen flow rate 4 L/min Dr. Mariana Montaño DO Work Phone: [facility] 04-26-2025 06:59-0400 Body height 162.[address] Mariana Montaño DO Work Phone: [facility] 04-26-2025 06:59-0400 Body mass index (BMI) [Ratio] 31.4 kg/m2 Dr. Mariana Montaño DO Work Phone: [facility] 04-26-2025 06:59-0400 Body weight [address] Mariana Montaño DO Work Phone: [facility] 06-26-2022 12:57-0500 Body height 165.[address] Mariana Montaño Work Phone: [facility] 06-26-2022 12:57-0500 Body mass index (BMI) [Ratio] 28.4 kg/m2 Dr. Mariana Montaño Work Phone: [facility] 06-26-2022 12:57-0500 Body temperature 97.6 [degF] Dr. Mariana Montaño Work Phone: [facility] 06-26-2022 12:57-0500 Body weight 77.[address] Mariana Montaño Work Phone: [facility] 06-26-2022 12:57-0500 Diastolic blood pressure 90 mm[Hg] Dr. Mariana Montaño Work Phone: [facility] 06-26-2022 12:57-0500 Heart rate 108 /min Dr. Mariana Montaño Work Phone: [facility] 06-26-2022 12:57-0500 Respiratory rate 17 /min Dr. Mariana Montaño Work Phone: [facility] 06-26-2022 12:57-0500 SaO2% (BldA) [Mass fraction] 99 % Dr. Mariana Montaño Work Phone: [facility] 06-26-2022 12:57-0500 Systolic blood pressure 125 mm[Hg] Dr. Mariana Montaño Work Phone: [facility] 06-19-2022 15:21-0500 Body mass index (BMI) [Ratio] 28.6 kg/m2 Dr. Mariana Montaño Work Phone: [facility] Work Phone: 06-19-2022 15:21-0500 Body temperature 98.4 [degF] Dr. Mariana Montaño Work Phone: [facility] Work Phone: 06-19-2022 15:21-0500 Body weight 78.[address] Mariana Montaño Work Phone: [facility] Work Phone: 06-19-2022 15:21-0500 Diastolic blood pressure 92 mm[Hg] Dr. Mariana Montaño Work Phone: [facility] Work Phone: 06-19-2022 15:21-0500 Heart rate 125 /min Dr. Mariana Montaño Work Phone: [facility] Work Phone: 06-19-2022 15:21-0500 Respiratory rate 17 /min Dr. Mariana Montaño Work Phone: [facility] Work Phone: 06-19-2022 15:21-0500 SaO2% (BldA) [Mass fraction] 99 % Dr. Mariana Montaño Work Phone: [facility] Work Phone: 06-19-2022 15:21-0500 Systolic blood pressure 166 mm[Hg] Dr. Mariana Montaño Work Phone: [facility] Work Phone: 06-06-2022 16:01-0400 Body temperature 98.71 [degF] Nic Walsh APRN.BLACK TOP PAVER OPERATOR Work Phone: [facility] 06-06-2022 16:01-0400 Body weight 78.38 kg Nic Walsh APRN.BLACK TOP PAVER OPERATOR Work Phone: [facility] 06-06-2022 16:01-0400 Diastolic blood pressure 78 mm[Hg] Nic Walsh APRN.BLACK TOP PAVER OPERATOR Work Phone: [facility] 06-06-2022 16:01-0400 Heart rate 113 /min Nic Walsh APRN.BLACK TOP PAVER OPERATOR Work Phone: [facility] 06-06-2022 16:01-0400 Respiratory rate 20 /min Nic Walsh CLIENT CONSULTANT.BLACK TOP PAVER OPERATOR Work Phone: [facility] 06-06-2022 16:01-0400 SaO2% (BldA) [Mass fraction] 98 % Nic Walsh CLIENT CONSULTANT.BLACK TOP PAVER OPERATOR Work Phone: [facility] 06-06-2022 16:01-0400 Systolic blood pressure 120 mm[Hg] Nic Walsh CLIENT CONSULTANT.BLACK TOP PAVER OPERATOR Work Phone: [facility] Encounters Encounter Date Encounter Type Care Provider Facility Start: 07-15-2025 ambulatory [facility] Facility: [facility] Start: 04-26-2025 Non-patient / Non-visit Damon Tomas nd, DO -[facility] Start: 04-26-2025 End: 04-26-2025 Admission to same day surgery center Damon Orellana DO -Endoscopy Work Phone: Start: 04-26-2025 End: 04-26-[address] Mariana Montaño DO Work Phone: -Endoscopy Start: 03-05-2025 ambulatory Brennen Granado Facility:[facility] Start: 03-05-2025 Non-patient / Non-visit [facility] [place] [facility] Start: 03-05-2025 End: 03-05-[address] Mariana Montaño DO Work Phone: -Cardiovascular Services Start: 03-05-2025 End: 03-05-2025 Patient encounter procedure Ester Sadler SUPERVISOR FILTRATIONEde -Cardiovascular Services Work Phone: Start: 03-05-2025 End: 03-05-2025 ambulatory Mariana Montaño Facility:[facility] Start: 02-15-2025 ambulatory [facility] Facility: [facility] Start: 02-04-2025 End: 02-04-2025 ambulatory [facility] Start: 12-22-2024 End: 12-22-20[facility] Start: 11-27-2024 End: 11-27-[address] Mariana Montaño DO Work Phone: [facility] Work Phone: Start: 11-27-2024 End: 11-27-[address] Mariana Montaño DO -Laboratory Work Phone: Start: 11-27-2024 End: 11-27-2024 ambulatory Mariana Montaño Facility:[facility] Start: 11-12-2024 End: 11-12-2024 ambulatory MARIANA Soria [facility] Start: 07-06-2024 End: 07-06-2024 ambulatory Mariana Sushma Facility:[facility] Start: 05-26-2024 End: 05-26-2024 ambulatory MARIANA Soria [facility] Start: 10-28-2023 End: 10-28-2023 ambulatory [facility] Work Phone: Start: 10-28-2023 End: 10-28-2023 Patient encounter procedure [facility]-Laboratory Work Phone: Start: 07-02-2023 End: 07-02-2023 ambulatory [facility] Work Phone: Start: 07-02-2023 End: 07-02-2023 Patient encounter procedure [facility]-Outpatient Breast Imaging Work Phone: Start: 01-31-2023 End: 01-31-2023 ambulatory [facility] Work Phone: Start: 01-31-2023 End: 01-31-2023 Patient encounter procedure [facility]-Laboratory Work Phone: Start: 10-18-2022 End: 10-18-[address] Mariana Montaño Work Phone: [facility] Work Phone: Start: 10-18-2022 End: 10-18-[address] Mariana Montaño Work Phone: [facility]-Laboratory, Farhana Chambers [facility] Start: 07-19-2022 End: 07-19-[address] Mariana Montaño Work Phone: [facility] Work Phone: Start: 07-19-2022 End: 07-19-[address] Mariana Montaño Work Phone: [facility]-Laboratory, Specimen Start: 06-26-2022 End: 06-26-[address] Mariana Montaño Work Phone: [facility] Work Phone: Start: 06-26-2022 End: 06-26-[address] Mariana Montaño Work Phone: [facility]-Laboratory, Specimen Start: 06-26-2022 End: 06-26-[address] Mariana Montaño Work Phone: [facility] Start: 06-21-2022 End: 06-21-[address] Mariana Montaño Work Phone: [facility] Work Phone: Start: 06-21-2022 End: 06-21-[address] Mariana Montaño Work Phone: [facility]-Outpatient Pavilion Ultrasound Start: 06-19-2022 End: 06-19-[address] Mariana Montaño Work Phone: [facility] Work Phone: Start: 06-19-2022 End: 06-19-[address] Mariana Montaño Work Phone: [facility]-Outpatient Breast Imaging Start: 06-19-2022 End: 06-19-[address] Mariana Montaño Work Phone: [facility] Start: 06-07-2022 Telephone encounter Estela Lopez CHRISTIN.BLACK TOP PAVER OPERATOR Work Phone: [facility] Comment on above: Results Start: 06-06-2022 End: 06-06-2022 Patient encounter procedure Nic Walsh CLIENT CONSULTANT.BLACK TOP PAVER OPERATOR Work Phone: [facility] Comment on above: Viral illness (Prima ry Dx) Procedures Date Procedure Procedure Detail Performing Clinician Start: 11-27-[address] Mariana Montaño DO Work Phone: Comment on above: Thyroglobulin Antibody measured by [employer] an CoulterMethodologyIt should be noted that the presence of thyroglobulinantibodies may not be pathogenic nor diagnostic, especiallyat very low levels. The assay biofuels manager has found thatfour percent of individuals without evidence of thyroiddisease or autoimmunity will have positive TgAb levels upto 4 IU/mL.Performed at: [place] [id number] Director: Joseph Pettit PhD, Phone: [phone] Start: 06-21-[address] Mariana meneses Work Phone: Start: 06-19-[address] 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 (laser assisted in situ keratomileusis) of both eyes Nic Chawlanancie WALLER.BLACK TOP PAVER OPERATOR Work Phone: Start: 01-29-2011 Mammography Nic Walsh CHRISTIN.BLACK TOP PAVER OPERATOR Work Phone: Plan of Treatment Date Care Activity Detail Author Start: 04-26-2025 Colonoscopy DIAGNOSTIC COLONOSCOPY [facility] Start: 04-26-2025 Patient discharge [facility] Start: 07-02-2023 Screening mammography SCRN FREDY M (CAD)W/MIKAYLA BILAT [facility] Start: 06-06-2022 End: 06-20-2022 Influenza virus A and B RNA and SARS-CoV-2 (COVID-19) N gene panel - Respiratory specimen by MISAEL with probe detection COVID WITH FLUA+B, ROUTINE Microbiology Routine Viral illness Expected: 06/06/2022, Expires: 06/20/2022 [facility] Work Phone: Comment on above: Expected: 06/06/2022 , Expires: 06/20/2022 Start: 04-05-2022 Influenza vaccination INFLUENZA (#1) [facility] Start: 08-05-2021 DEPRESSION ASSESSMENT DEPRESSION ASS ESSMENT [facility] Start: 2018 SHINGRIX VACCINE (1 of 2) SHINGRIX VACCINE (1 of 2) [facility] Start: 11-14-2016 PAP TESTING PAP TESTING [facility] Start: 10-11-2014 HPV TESTING HPV TESTING [facility] Start: 2013 COLOGUARD (FIT-DNA) COLOGUARD (FIT-D NA) [facility] Start: 2013 Colonoscopy COLONOSCOPY [facility] Start: 2013 COLORECTAL CANCER SCREENING COLORECTAL CANCER SCREENING [facility] Start: [address] COLONOGRAPHY [facility] Start: 2013 DIABETES SCREEN DIABETES SCREEN [facility] Start: 2013 FECAL OCCULT BLOOD FECAL OCCULT BLOO D [facility] Start: 2013 LIPID SCREEN LIPID SCREEN [facility] Start: 2013 SIGMOIDOSCOPY SIGMOIDOSCOPY [facility] Start: 01-30-2012 Mammography MAMMOGRAM [facility] Start: 1987 Urine microalbumin profile DTAP,TDAP,TD (1 - Tdap) [facility] Start: 1986 HEPATITIS C SCREENING HEPATITIS C SC REENING [facility] Start: 03-06-1969 COVID-19 VACCINE (#1) COVID-19 VACCI NE (#1) [facility] Start: 1968 HEPATITIS B (1 of 3 - 3-dose series) HEPATITIS B (1 of 3 - 3-dose series) [facility] Payers Date Payer Category Payer Self-pay [id number] 2024 Unknown [id number] 2017 Unknown ANTHEM ANTHEM BC BS FEP PPO [id number] 2017-Present [phone] [address] [place] [address] PPO [id number] 1968 Unknown [id number] 1968 Unknown [id number] 1968 Unknown [id number] 1968 Unknown [id number] Unknown [id number] Unknown [id number] Unknown [id number] Unknown [id number] Unknown [id number] Unknown [id number] Unknown [id number] Unknown [id number] Social History Date Type Detail Facility Start: 06-26-2022 End: 04-20-2025 Tobacco smoking status OHIS Never smoked tobacco [facility] Work Phone: Start: 06-06-2022 Alcohol intake Current drinke r of alcohol (finding) [facility] Start: 1970 Sex Assigned At Not on file [facility] Start: 05-27-2022 End: 06-06-2022 Exposure to SARS-CoV-2 (event) Not sure [facility] Work Phone: Start: 06-26-2022 End: 06-26-2022 Tobacco smoking status NHIS Unknown if ever smoked [facility] Start: 08-03-2020 Non-smoker [facility] Start: 1970 Sex Assigned At Female [facility] Start: 12-02-2024 Sex Female (finding) [facility] Not [facility] Goals Date Patient Goal Desired Activity /State Mental Status Date Assessment Result Facility 04-26-2025 Cognitive function Voice/Name [facility] Work Phone: Clinical Notes 06-06-2022 to 04-26-2025 Note Date & Type Note Facility 04-26-2025 Consult note [facility] 04-26-2025 Consult note [facility] 04-26-2025 Procedure note [facility] 04-26-2025 Procedure note [facility] 04-26-2025 Consult note Note Date/Time April 26, 2025 9:19am [facility] Medical Records Department [address] [place] [address] Pre-Anesthesia Evaluation 04/26/25711 MR#: [id number] Acct: [id number] Name: KATHRYN DUGGAN Rep #:[id number] : 1970 54 From: Brooks Purcell MD PCP: Dr. Mariana Montaño, DO Status:REG [facility] Y Race: C Location: [place] [address] ASA Classification* ASA Classification ASA Classification: 2 Assessment & Plan Anesthesia* Anesthesia Assessment Anesthesia Assessment: Discussed sedation and/or anesthesia options, risks, benefits, and alternatives with patient/parents/legal guardian/POA. Questions invited. The patient/parents/legal guardian/POA seems to understand and agrees to proceedwith anesthesia plan. Reviewed the physical assessment, medical history, allergy history and patient home medications list prior to surgery/procedure/anesthetic and documented any changes. Performed airway and anesthesia risk assessments. Anesthesia Type Anesthesia Type: MAC Anesthesia Focused Assessment* Temperature: 97.4 F Pulse Rate: 69 Blood Pressure: 148/100 Respiratory Rate: 16 Pulse Ox: 99 Airway Assessment Mouth opens: >3 cm Mallampati Score: II Labs Anesthesia Preop lab: CBC WBC, (4.4-11.0) 9.1 K/mm3 10/28/23, 07:46 RBC, (4.2-5.4) 5.50 M/mm3 H 10/28/23, 07:46 Hgb, (12.0-15.0) 15.5 g/dL H 10/28/23, 07:46 Hct, (37-47) 47.6 % H 10/28/23, 07:46 Plt Count, (150-450) 357 K/mm3 10/28/23, 07:46 CHEMISTRY Potassium, (3.5-5.1) 3.2 mmol/L L 10/28/23, 07:46 Sodium, (136-145) 140 mmol/L 10/28/23, 07:46 Magnesium, (1.6-2.6) 2.2 mg/dL 08/08/20, 14:28 BUN, (7-18) 18 mg/dL 10/28/23, 07:46 Creatinine, (0.55-1.02) 1.15 mg/dL H 10/28/23, 07:46 Glucose, (74-106) 113 mg/dL H 10/28/23, 07:46 POC Glucose, (70-110) 152 mg/dL H 08/09/20, 09:20 TSH, (0.300-4.200) 2.900 uIU/mL 11/27/24, 16:58 COAG [facility] Clinic Negative 07/12/20, 14:49 Pre-Assessment Diagnosis/Proposed Procedure Planned Operative Procedure(s): Colonoscopy Anesthesia History Anesthesia History - puzzle assembler: Anesthesia History - puzzle assembler Hx Hospitalization No 04/20/25 16:05 Any Problems With Anesthesia No 04/20/25 16:05 Cholinesterase deficiency No 04/20/25 16:05 You/Your Family Experience No 04/20/25 16:05 fever (hyperthermia) with Relationship Recent Exposure to Contagious No 04/26/25 06:59 Disease Does patient have nerve No 04/20/25 16:05 stimulator Patient instructed to have device shut off --Does patient have Pacemaker No 04/26/25 06:59 or ICD? When Was Last Pacemaker Check QUESTION #4 FULL TEXT: You/Your Family Experience fever (hyperthermia) with Anesthesia Last Oral Intake Last Oral intake: Last Oral Intake NPO since 03:00 04/26/25 06:59 Meds taken in AM with sips of No 04/26/25 06:59 water? Meds patient instructed to take am of surgery PONV PONV - puzzle assembler: PONV - puzzle assembler Female Yes 04/20/25 16:05 HX of Motion Sickness No 04/20/25 16:05 HX of N/V After Surgery No 04/20/25 16:05 Non-Smoker Yes 04/20/25 16:05 Duration of Surgery greater No 04/20/25 16:05 than 60 minutes Number of Risk Factors 2 04/20/25 16:05 PONV Score Moderate Risk 04/20/25 16:05 Height & Weight Height & Weight: Anesthesia: Height & Weight Height 5 ft 4 in 04/26/25 06:59 Weight: 83 kg 04/26/25 06:59 Body Mass Index (BMI) 31.4 04/26/25 06:59 Respiratory Assessment Respiratory Assessment - puzzle assembler: Respiratory Tract Infection Hx - puzzle assembler Hx Respiratory Tract Infection No 04/20/25 16:05 STOP Sleep Apnea STOP Sleep Apnea - puzzle assembler: STOP Sleep Apnea - puzzle assembler Hx Hypertension No 04/20/25 16:05 Hx Sleep [...] Tobacco Use History Tobacco Use History - puzzle assembler: Tobacco Use History - puzzle assembler Tobacco Use Smoking Status Never smoker 04/20/25 16:05 Hx Tobacco Use No 04/20/25 16:05 Years Smoking Packs Smoked per Day Smoking Cessation Date was within the last 15 years Hx Smoking Cessation Date Hx Smoking Cessation Counseling Hematologic Medial History Hematologic Hx - puzzle assembler: 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 Specify any problems Hx of Preganancy in last 3 No 04/20/25 16:05 Months Nurse Filling Out Transfusion JZOLLINGE 04/20/25 16:05 & Questions: Date: 04/20/25 04/20/25 16:05 Time: 16:07 04/20/25 16:05 Patient unable to answer at this time (ie. confused, unrespo /Reproduction History /Reproductive History - puzzle assembler: /Reproductive Hx- puzzle assembler Hx Now No 04/20/25 16:05 Gestational Age (in weeks): EDC: Hx Hx Para Hx Section SAB No 04/20/25 16:05 Active Medications Active Medications: Current Medications Generic Name Dose Route Start Last Admin Trade Name Freq PRN Reason Stop Dose Admin Lactated Ringer's 1,000 mls @ 15 mls/hr 04/26/25 07:15 IV .Q48H SANTO PFSH Medical History High cholesterol Non-smoker Sleep apnea History of echocardiogram History of stress test Heartburn Gastric reflux Adenomyosis Colon cancer screening Paresthesia Fatigue Vitamin D deficiency Hyperlipemia Hypertension Home Medications ?Medication ?Instructions ?Recorded ?Last Taken ?Type cholecalciferol (vitamin D3) 125 125 mcg PO DAILY 03/24 Unknown History mcg (5,000 unit) capsule magnesium 200 mg tablet 200 mg PO DAILY 07/12/20 Unk nown History potassium 99 mg tablet 1 tab PO DAILY 07/12/20 Unkn own History triamterene 37.5 1 cap PO DAILY 07/12/2004/06 History mg-hydrochlorothiazide 25 mg capsule valacyclovir 1 gram tablet 1,000 mg PO BID PRN COLD SO RES 07/14/20 Unknown History biotin 10,000 mcg capsule 10,000 mcg PO DAILY 06/26/22 Unknown History glucosamine 500 xr-otiqlulrf-sjd 1 tab PO .qd 02/12/25 Unknown History no1 416.6 mg-C 20 hc-ocbx-nxrg tablet (Glucosamine-Chondroitin Complex) rosuvastatin 10 mg tablet 10 mg PO DAILY 02/12/25 Unkn own History therapeutic multivitamin 1 tab PO DAILY 02/12/25 Unkn own History vitamin B complex 1 tab PO DAILY 02/12/25 Unkn own History Allergy/AdvReac Type Severity Reaction Status Date / Time haloperidol (From Haldol) AdvReac Unknown Pt's mom Verified 04/26/25 06:58 had reaction/Pt does not want rx Family History Mother Congestive heart failure Heart disease Hypertension Kidney disease Lupus Arthritis Sjogrens syndrome Father Hypertension Grandmother Breast cancer Aunt Ovarian cancer Surgical History Hx of bilateral salpingectomy History of total vaginal hysterectomy (TVH) History of tonsillectomy Social History Smoking Status: Never smoker alcohol intake: current details: social substance use type: does not use caffeine: Yes what type of physical activity do you participate in: none seatbelt use: always do you feel safe at home: Yes 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 04/26/25711 <Electronically signed by Brooks Purcell MD > Date _ Brooks Purcell MD Cosigner Signature: Date CC: ~ Signed [facility] Work Phone: 1(549) 706-276509-22-2025 Consult note [facility] Medical Records Department [facility] [place] [address] Anesthesia Postop Eval I 04/26/2508 MR#: [id number] Acct: [id number] Name: KATHRYN DUGGAN Rep #:[id number] : 1970 54 From: Justin Sabillon PCP: Dr. Mariana Montaño, DO Status:REG [facility] Y Race: C Location: [place] [address] Anesthesia: Postop Eval I Current Vital Signs Temperature: 97.3 F Pulse Rate: 73 Blood Pressure: 113/65 Respiratory Rate: 16 Pulse Ox: 96 Oxygen Delivery Method: Room Air Assessment Airway patent: Yes Spontaneous unlabored respirations: Yes nausea: No Vomiting: No Anesthesia Complication: No Fluid Hydration Crystalloid volume administer (ml): 400 Total IV fluid infused: 400 Progress Note Anesthesia document: Postop Eval 1 completed: Yes 04/26/25 0840 > Date _ Justin Fung Signature: Date CC: ~ Signed [facility]09-22-2025 Evaluation note* Diagnosis Onset Date Resolution Status Admit Date Encounter for screening colonoscopy acute April 26, 2025 6:38am [facility] Work Phone: [phone] 767-705609-22-2025 History and physical note [facility] Medical Records Department [address] [place] [id number] History & Physical Exam 04/26/25 0721 MR#: [id number] Acct: [id number] Name: KATHRYN DUGGAN Rep #:[id number] : 1970 54 From: Damon Orellana DO PCP: Dr. Mariana Montaño, DO Status:REG [facility] Location: [address] HPI - General General Date of Admission: 04/26/25 Date of Service: 04/26/25 Chief Complaint: Screening colonoscopy HPI Narrative KATHRYN DUGGAN, is a 54 F who presents today for screening colonoscopy. She has not had a colonoscopy in the past. She does not have abdominal pain, cramping, chest pain or shortness of breath. Past medical history is only positive for hypercholesterolemia which is controlled with medicines. [facility] Medical History High cholesterol Non-smoker Sleep apnea History of echocardiogram History of stress test Heartburn Gastric reflux Adenomyosis Colon cancer screening Paresthesia Fatigue Vitamin D deficiency Hyperlipemia Hypertension Home Medications ?Medication ?Instructions ?Recorded ?Last Taken ?Type cholecalciferol (vitamin D3) 125 125 mcg PO DAILY 03/24 Unknown History mcg (5,000 unit) capsule magnesium 200 mg tablet 200 mg PO DAILY 07/12/20 Unk nown History potassium 99 mg tablet 1 tab PO DAILY 07/12/20 Unkn own History triamterene 37.5 1 cap PO DAILY 07/12/2004/06 History mg-hydrochlorothiazide 25 mg capsule valacyclovir 1 gram tablet 1,000 mg PO BID PRN COLD SO RES 07/14/20 Unknown History biotin 10,000 mcg capsule 10,000 mcg PO DAILY 06/26/22 Unknown History glucosamine 500 uf-ygrliggyc-llb 1 tab PO .qd 02/12/25 Unknown History no1 416.6 mg-C 20 xy-zanb-uwbb tablet (Glucosamine-Chondroitin Complex) rosuvastatin 10 mg tablet 10 mg PO DAILY 02/12/25 Unkn own History therapeutic multivitamin 1 tab PO DAILY 02/12/25 Unkn own History vitamin B complex 1 tab PO DAILY 02/12/25 Unkn own History Allergy/AdvReac Type Severity Reaction Status Date / Time haloperidol (From Haldol) AdvReac Unknown Pt's mom Verified 04/26/25 06:58 had reaction/Pt does not want rx Family History Mother Congestive heart failure Heart disease Hypertension Kidney disease Lupus Arthritis Sjogrens syndrome Father Hypertension Grandmother Breast cancer Aunt Ovarian cancer Surgical History Hx of bilateral salpingectomy History of total vaginal hysterectomy (TVH) History of tonsillectomy Social History Smoking Status: Never smoker alcohol intake: current details: social substance use type: does not use caffeine: Yes what type of physical activity do you participate in: none seatbelt use: always do you feel safe at home: Yes 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 Constitutional Constitutional: Denies fatigue, fever(s), poor appetite, weight gain or weight loss Gastrointestinal Gastrointestinal: Denies belching, bloating, change in bowel habits, change in stool character, chewing difficulty, coffee ground emesis, constipation, cramping, diarrhea, dyspepsia, dysphagia, earlysatiety, excessive flatus, fecalincontinence, heartburn, hematemesis, hematochezia, hemorrhoids, loose stools, melena, nausea, odynophagia, rectal bleeding, tenesmus, vomiting or weight changes Vital Signs Vital Signs Vital Signs: 04/26/25 06:59 04/26/25 06:59 04/26/25 07:12 Temperature 97.4 F L 97.4 F L Temperature Source Temporal Pulse Rate 69 69 Respiratory Rate 16 16 Respiratory Pattern Normal Blood Pressure 148/100 H 148/100 H Blood Pressure Mean 116 Blood Pressure Source Monitor Blood Pressure Position Sitting Blood Pressure Location Left Arm Pulse Ox 99 99 Oxygen Delivery Method Room Air Weight Weight: 182 lb 15.739 oz Body Mass Index (BMI) 31.4 Physical Exam Const alert, oriented x3, no apparent distress and healthy appearing General Appearance: cooperative GI normal to inspection, nondistended, normoactive bowel sounds, soft to palpation,non-tender and non-distended Percussion: normal to percussion Rectal Exam: deferred Assessment & Plan Assessment/Plan (1) Encounter for screening colonoscopy: PLAN: She will undergo screening colonoscopy. She was explained alternatives, risk and benefits include not withstanding bleeding, infection, sepsis, perforation, need for emergent urgent . She will have an ASA of 3. 04/26/25 0722 Cosigner Signature (if applicable): CC: Dr. Mariana Montaño, ; Damon Friend, ~ Signed [facility]09-22-2025 [facility] Medical Records Department [address] [place] [address] History Physical Exam 04/26/25 07 MR#: [id number] Acct: [id number] Name: KATHRYN DUGGAN Rep #: [id number] : 1970 54 From: Damon Orellana DO PCP: Dr. Mariana Montaño, DO Status:[facility] Location: [place] [address] HPI - General General Date of Admission: 04/26/25 Date of Service: 04/26/25 Chief Complaint: Screening colonoscopy HPI Narrative KATHRYN DUGGAN, is a 54 F who presents today for screening colonoscopy. She has not had a colonoscopy in the past. She does not have abdominal pain, cramping, chest pain or shortness of breath. Past medical history is only positive for hypercholesterolemia which is controlled with medicines. [facility] Medical History High cholesterol Non-smoker Sleep apnea History of [...] triamterene 37.5 1 cap PO DAILY 07/12/20 04/25/25 H istory mg-hydrochlorothiazide 25 mg capsule valacyclovir 1 gram tablet 1,000 mg PO BID PRN COLD SORES 05/24 Unknown History biotin 10,000 mcg capsule 10,000 mcg PO DAILY 06/26/22 Unkno wn History glucosamine 500 tx-ytkvplgeu-kjf 1 tab PO .qd 02/12/25 Unknown Hist ory no1 416.6 mg-C 20 br-bfzw-cchl tablet (Glucosamine-Chondroitin Complex) rosuvastatin 10 mg tablet 10 mg PO DAILY 02/12/25 Unknown Hi story therapeutic multivitamin 1 tab PO DAILY 02/12/25 Unknown Hi story vitamin B complex 1 tab PO DAILY 02/12/25 Unknown Hi story Allergy/AdvReac Type Severity Reaction Status Date / Time haloperidol (From Haldol) AdvReac Unknown Pt's mom Verified 04/26/25 06:58 had reaction/Pt does not want rx Family History Mother Congestive heart failure Heart disease Hypertension Kidney disease Lupus Arthritis Sjogrens syndrome Father Hypertension Grandmother Breast cancer Aunt Ovarian cancer Surgical History Hx of bilateral salpingectomy History of total vaginal hysterectomy (TVH) History of tonsillectomy Social History Smoking Status: Never smoker alcohol intake: current details: social substance use type: does not use caffeine: Yes what type of physical activity do you participate in: none seatbelt use: always do you feel safe at home: Yes 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 Constitutional Constitutional: Denies fatigue, fever(s), poor appetite, weight gain or weight loss Gastrointestinal Gastrointestinal: Denies belching, bloating, change in bowel habits, change in stool character, chewing difficulty, coffee ground emesis, constipation, cramping, diarrhea, dyspepsia, dysphagia, early satiety, excessive flatus, fecal incontinence, heartburn, hematemesis, hematochezia, hemorrhoids, loose stools, melena, nausea, odynophagia, rectal bleeding, tenesmus, vomiting or weight changes Vital Signs Vital Signs Vital Signs: 04/26/25 06:59 04/26/25 06:59 04/26/25 07:12 Temperature 97.4 F L 97.4 F L Temperature Source Temporal Pulse Rate 69 69 Respiratory Rate 16 16 Respiratory Pattern Normal Blood Pressure 148/100 H 148/100 H Blood Pressure Mean 116 Blood Pressure Source Monitor Blood Pressure Position Sitting Blood Pressure Location Left Arm Pulse Ox 99 99 Oxygen Delivery Method Room Air Weight Weight: 182 lb 15.739 oz Body Mass Index (BMI) 31.4 Physical Exam Const alert, oriented x3, no apparent distress and healthy appearing General Appearance: cooperative GI normal to inspection, nondistended, normoactive bowel sounds, soft to palpation, non-tender and non- distended Percussion: normal to percussion Rectal Exam: deferred Assessment Plan Assessment/Plan (1) Encounter for screening colonoscopy: PLAN: She will undergo screening colonoscopy. She was explained alternatives, risk and benefits include not withstanding bleeding, infection, sepsis, perforation, need for emergent urgent . She will have an ASA of 3. 04/26/25 0722 Cosigner Signature (if applicable): CC: Dr. Mariana Montaño, ; [facility] (more content not included)...[facility]12-15-2022 NotePap Smear Specimen AdequacyDecember 2021 4:17pm Comment.Satisfactory for evaluation. No endocervical cells are present. This isconsistent with a history ofhysterectomy.[facility] A#[id number] [facility] Work Phone: Comment on above:Satisfactory for evaluation. No endocervical cells are present. This isconsistent with a history ofhysterectomy. 07-19-2022 NotePap Smear QC ReviewDecember 2021 4:17pmComment.Mackenzie Diaz, Supervisory Allocations Clerk ([facility] A#[id number] [facility] Work Phone: Comment on above:Mackenzie Diaz, Supervisory Allocations Clerk ([facility])07-19-2022 NotePap Smear Specimen AdequacyDecember 2021 5:17pmComment.Satisfactory for evaluation. No endocervical cells are present. This isconsistent with a history ofhysterectomy.[facility] A#[id number] [facility], IncComment on above:Satisfactory for evaluation. No endocervical cells are present. This isconsistent with a history ofhysterectomy.07-19-2022 NotePap Smear QC ReviewDecember 2021 5:17pm Comment.Mackenzie Diaz, Supervisory Allocations Clerk ([facility] A#[id number] Medical Specialty [facility], IncComment on above:Mackenzie Diaz, Supervisory Allocations Clerk ([facility])06-07-2022 Miscellaneous Notes* Telephone Encounter - Halie Miller MA - 06/07/2022 8:50 AM EDT Pt was notified of the results. Pt verbalized understanding. Halie Miller MA * Telephone Encounter - Estela Lopez APRN.CNP - 06/07/2022 7:30 AM EDT Negative for flu and covid please notify thank you documented [facility] History of Present illness Narrative* Nic Walsh APRN.CNP - 06/06/2022 4:21 PM EDT Subjective HPI Patient presents to urgent care [...] started abruptly. Patient states they have used hmln-dda-jqixrke medication with some success. Patient denies any [...] 1 Drop in the right eye three timesdaily. (Patient not taking: Reported on 06/06/2022) Desogestrel-Ethinyl [...] and clinical finding, the patient is stable fordischarge. Plan of care was discussed with patient. Patient verbalizes understanding and agrees to plan of care. This note was generated using uBiome software. It may contain errors in wording, punctuation, or spelling. Nic Walsh APRN.JAYESH documented in this encounterGood [facility]aritan Hospital11-02-2022 Instructions* Patient Instructions* Nic Walsh APRN.CNP - 06/06/2022 4:17 PM EDT How to Manage Common Symptoms Associated with COVID for Adults Fever- Fever is a temperature over 100.4 F and can occur when the body is fighting an infection. Tohelp treat a fever: Drink plenty of fluids [...] your chest such as Vicks, which can helpreduce cough. Try cough drops. Avoid smoking and other strong odors or perfumes. Try breathing exercises to keep your lungs open and clear. Take a big deep breath through your noseand hold for 5 seconds before slowly releasing. [...] of water every 10-15 minutes and increase astolerated. You can try sucking an ice cube [...] or concerning to you. documented in this encounterSum[facility] note Author RADU Sabillon [facility] Note Date/Time April 26, 2025 8:40am [facility] Medical Records Department [address] [place] [address] Anesthesia Postop Eval I 04/26/25 0808 MR#: [id number] Acct: [id number] Name: KATHRYN DUGGAN Rep #:[id number] : 1970 54 From: Justin Sabillon PCP: Dr. Mariana Montaño, DO Status:REG [facility] Y Race: C Location: [place] [address] Anesthesia: Postop Eval I Current Vital Signs Temperature: 97.3 F Pulse Rate: 73 Blood Pressure: 113/65 Respiratory Rate: 16 Pulse Ox: 96 Oxygen Delivery Method: Room Air Assessment Airway patent: Yes Spontaneous unlabored respirations: Yes nausea: No Vomiting: No Anesthesia Complication: No Fluid Hydration Crystalloid volume administer (ml): 400 Total IV fluid infused: 400 Progress Note Anesthesia document: Postop Eval 1 completed: Yes 04/26/25 0840 <Electronically signed by Justin Sabillon > Date _ Justin Sabillon Homersergio Signature: Date CC: ~ Signed [facility] Work Phone: Consult note Author Brooks Purcell [facility] Note Date/Time April 26, 2025 9:19am [facility] Medical Records Department [address] [place] [address] Anesthesia Postop Eval II 04/26/25914 MR#: [id number] Acct: [id number] Name: KATHRYN DUGGAN Rep #:[id number] : 1970 54 From: Brooks Purcell MD PCP: Dr. Mariana Montaño, DO Status:REG [facility] Y Race: C Location: [place] [address] Anesthesia Postop Eval I Sum Postop Eval Completion status Anesthesia document: Postop Eval 1 completed: Yes Anesthesia Postop Eval I Summary Anesthesia Postop Eval I Summary: Anesthesia Postop Eval I: Assessment Summary Airway patent Yes 04/26/25 08:12 [email or web address] Spontaneous unlabored Yes 04/26/25 08:12 [email or web address] respirations Mental status nausea No 04/26/25 08:40 [email or web address] Vomiting No 04/26/25 08:40 [email or web address] Anesthesia Postop Eval I: Fluid Summary Crystalloid volume administer 400 04/26/25 08:40 [email or web address] (ml) Colloids volume administered ( ml) Blood Product volume administered (ml) Total IV fluid infused 400 04/26/25 08:40 [email or web address] Anesthesia Postop Eval I: Summary Notes Anesthesia Complication No 04/26/25 08:40 [email or web address] Anesthesia Complication Comment: Post-operative progress note Anesthesia: Postop Eval II Evaluation Mental status: Awake Pain Level: 0 nausea: No Vomiting: No 04/26/25914 <Electronically signed by Brooks Purcell MD > Date _ Brooks Fung Signature: Date CC: ~ Signed [facility] Work Phone: Evaluation note* Diagnosis Viral illness- Primary Unspecified viral infection, in conditions classified elsewhere and of unspecified site documented in this encounter [facility]* Diagnosis Onset Date Resolution Status Acute bronchitis acute Lump of right breast acute [facility] Work Phone: Evaluation note* Diagnosis Onset Date Resolution Status Lump of right breast acute [facility] Work Phone: Evaluation noteNo assessment information available [facility] Work Phone: History and physical note Author Damon Orellana [facility] Note Date/Time April 26, 2025 7:22am [facility] Medical Records Department [address] [place] [address] History & Physical Exam 04/26/25 07 MR#: [id number] Acct: [id number] Name: KATHRYN DUGGAN Rep #:[id number] : 1970 54 From: Damon Orellana DO PCP: Dr. Mariana Montaño DO Status:[facility] Location: [place] [address] HPI - General General Date of Admission: 04/26/25 Date of Service: 04/26/25 Chief Complaint: Screening colonoscopy HPI Narrative KATHRYN DUGGAN, is a 54 F who presents today for screening colonoscopy. She has not had a colonoscopy in the past. She does not have abdominal pain, cramping, chest pain or shortness of breath. Past medical history is only positive for hypercholesterolemia which is controlled with medicines. [facility] Medical History High cholesterol Non-smoker Sleep apnea History of echocardiogram History of stress test Heartburn Gastric reflux Adenomyosis Colon cancer screening Paresthesia Fatigue Vitamin D deficiency Hyperlipemia Hypertension Home Medications ?Medication ?Instructions ?Recorded ?Last Taken ?Type cholecalciferol (vitamin D3) 125 125 mcg PO DAILY 03/24 Unknown History mcg (5,000 unit) capsule magnesium 200 mg tablet 200 mg PO DAILY 07/12/20 Unk nown History potassium 99 mg tablet 1 tab PO DAILY 07/12/20 Unkn own History triamterene 37.5 1 cap PO DAILY 07/12/2004/06 History mg-hydrochlorothiazide 25 mg capsule valacyclovir 1 gram tablet 1,000 mg PO BID PRN COLD SO RES 07/14/20 Unknown History biotin 10,000 mcg capsule 10,000 mcg PO DAILY 06/26/22 Unknown History glucosamine 500 fx-bqwkmdkmi-gbm 1 tab PO .qd 02/12/25 Unknown History no1 416.6 mg-C 20 hu-bsvf-hpgf tablet (Glucosamine-Chondroitin Complex) rosuvastatin 10 mg tablet 10 mg PO DAILY 02/12/25 Unkn own History therapeutic multivitamin 1 tab PO DAILY 02/12/25 Unkn own History vitamin B complex 1 tab PO DAILY 02/12/25 Unkn own History Allergy/AdvReac Type Severity Reaction Status Date / Time haloperidol (From Haldol) AdvReac Unknown Pt's mom Verified 04/26/25 06:58 had reaction/Pt does not want rx Family History Mother Congestive heart failure Heart disease Hypertension Kidney disease Lupus Arthritis Sjogrens syndrome Father Hypertension Grandmother Breast cancer Aunt Ovarian cancer Surgical History Hx of bilateral salpingectomy History of total vaginal hysterectomy (TVH) History of tonsillectomy Social History Smoking Status: Never smoker alcohol intake: current details: social substance use type: does not use caffeine: Yes what type of physical activity do you participate in: none seatbelt use: always do you feel safe at home: Yes 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 Constitutional Constitutional: Denies fatigue, fever(s), poor appetite, weight gain or weight loss Gastrointestinal Gastrointestinal: Denies belching, bloating, change in bowel habits, change in stool character, chewing difficulty, coffee ground emesis, constipation, cramping, diarrhea, dyspepsia, dysphagia, early satiety, excessive flatus, fecalincontinence, heartburn, hematemesis, hematochezia, hemorrhoids, loose stools, melena, nausea, odynophagia, rectal bleeding, tenesmus, vomiting or weight changes Vital Signs Vital Signs Vital Signs: 04/26/25 06:59 04/26/25 06:59 04/26/25 07:12 Temperature 97.4 F L 97.4 F L Temperature Source Temporal Pulse Rate 69 69 Respiratory Rate 16 16 Respiratory Pattern Normal Blood Pressure 148/100 H 148/100 H Blood Pressure Mean 116 Blood Pressure Source Monitor Blood Pressure Position Sitting Blood Pressure Location Left Arm Pulse Ox 99 99 Oxygen Delivery Method Room Air Weight Weight: 182 lb 15.739 oz Body Mass Index (BMI) 31.4 Physical Exam Const alert, oriented x3, no apparent distress and healthy appearing General Appearance: cooperative GI normal to inspection, nondistended, normoactive bowel sounds, soft to palpation,non-tender and non-distended Percussion: normal to percussion Rectal Exam: deferred Assessment & Plan Assessment/Plan (1) Encounter for screening colonoscopy: PLAN: She will undergo screening colonoscopy. She was explained alternatives, risk and benefits include not withstanding bleeding, infection, sepsis, perforation, need for emergent urgent . She will have an ASA of 3. 04/26/25 0722 <Electronically signed by Damon Orellana DO> Cosigner Signature (if applicable): CC: Dr. Mariana Montaño, ; Damon Orellana DO~ Signed [facility] Work Phone: Reason for referral (narrative)No reason for referral information availableWBluffton Hospital Work Phone: Health Concerns Infection Onset Date [...] Date CHEST PAIN,UNSPECIFIED March 05, 2025 11:24am Reason for Visit Admit Date Encounter for screening colonoscopy Sept emb2024 6:38am Family History No Family History Records Found [...] Will Yes August 03 8:18am Power of Eyeglass Lens Grinder Yes August 03, 2020 8:18am Advance Directive Response Recorded Date/ Time Living Will Yes August 03 9:18am Power of Eyeglass Lens Grinder Yes August 03, 2020 9:18am Advance Directive Response Recorded Date/ Time Do you have a Healthcare Power of Eyeglass Lens Grinder? Yes April 20, 2025 4:05pm Summary Purpose Additional Source Comments Source Comments (unrecognize d section and content) In the event this informatio n is protected by the Federal Confidentiality of Alcohol and Drug Abuse Patient Records regulations: The Federal rules restrict any use of the information to criminally investigate or prosecute any alcohol or drug abuse patient.[facility] HospitalIn the event this information is protected by the Federal Confidentiality of Alcohol and Drug Abuse Patient Records regulations: The Federal rules restrict any use of the information to criminally investigate or prosecute any alcohol or drug abuse patient.[facility] Reason for Visit (unrecogniz ed section and content) Reason Comments Fever SOB, chest tightness , chills, body aches x2 days Reason Comments Results Care Teams (unrecognized sec tion and content) Director Of Cardiology Relationship Specialty Start Date End Date Mariana Montaño DO [address] [place] [place], [place] [id number] PCP - General Family Medicine 04/08/18 Director Of Cardiology Relationship Specialty Start Date End Date Mariana Montaño DO [address] [place] [address] PCP - General Family Medicine 04/08/18 Team [...] March 05, 2025 End: March 05, 2025 Esterisaac Sadler , [employer]PERVISOR [employer]C Attending Provider Active St art: March 05, 2025 End: March 05, 2025 Ester Doroteo , [employer] Referring Provider Active St art: March 05, 2025 End: March 05, 2025 Team Status: Active Member Role/Relationship Status Dates Dr. Mariana Montaño DO Primary Care Provider Active Start: March 05, 2025 Dr. Brennen Granado MD Attending Provider Active S tart: March 05, 2025 Team Status: Active Member Role/Relationship Status Dates Dr. Mariana Montaño DO Primary care physician Active Team Status: Inactive Member Role/Relationship Status Dates Dr. Mariana Montaño DO Primary care physician Active Start: March 05, 2025 End: March 05, 2025 Esterisaac Sadler , [employer] Attending physician Active S tart: March 05, 2025 End: March 05, 2025 Ester Doroteo , [employer] Referring Provider Active St art: March 05, 2025 End: March 05, 2025 Team Status: Active Member Role/Relationship Status Dates Dr. Mariana Montaño DO Primary care physician Active Start: March 05, 2025 Dr. Brennen Granado MD Attending physician Active Start: March 05, 2025 Team Status: Inactive Member Role/Relationship Status Dates Dr. Mariana Montaño DO Primary care physician Active Start: April 26, 2025 End: April 26, 2025 Dr. Mariana Montaño DO Referring Provider Active Start: April 26, 2025 End: April 26, 2025 Dr. Damon Orellana DO Attending physician Active Start: April 26, 2025 End: April 26, 2025 Team Status: Active Member Role/Relationship Status Dates Dr. Mariana Montaño DO Primary care physician Active Start: April 26, 2025 Dr. Mariana Montaño , DO Referring Provider Active Start: April 26, 2025 Dr. Damon Orellana , DO Attending physician Active Start: April 26, 2025 Dr. Damon Orellana , DO Nurse Practitioner Active Start: April 26, 2025 Goals (unrecognized section and content) Goals [...] section and content) DATE CREATED AUTHOR 11/18/2024 [facility] DATE CREATED AUTHOR AUTHOR'S ORGANIZ ATION 02/06/2025 [facility] DATE CREATED AUTHOR AUTHOR'S ORGANIZ ATION 05/24/2025 [facility] FOR RECORDS PERTAINING TO PATIENTS WHO ARE [...] BE BASED ON THE PRIMARY CLINICAL RECORDS. [employer] provides no warranty or guarantee of the accuracy or completeness of information in this document.
== END | disposition home or self-care (01) ==
LOC: SL 20:08
PROVIDERS: PCP Family Medicine; Referring Provider Nurse Practitioner Family; Visit Provider Nurse Practitioner Family
DX: G47.33 Obstructive sleep apnea (adult) (pediatric) (principal)
CPT/HCPCS: 95811

== ENCOUNTER → 2025-07-23 | Outpatient (CLI) | payer BC, SELFPAY ==
--- NOTE | 2025-07-23 07:19 | BI_ITS ---
EXAM: SCRN MAMM (CAD)W/MIKAYLA BILAT DATE: 07/23/2025 CLINICAL HISTORY: F, Age 54 y/o , SCREENING TECHNIQUE: Procedure Code: [id number] Modality: MG Procedure: SCRN MAMM (CAD)W/MIKAYLA BILAT COMPARISON: Prior exam(s) dated 07/06/2024, 06/24/2023, 06/19/2022. FINDINGS: TISSUE DENSITY: The breasts are almost entirely fatty. Bilateral Breast Mammographic Findings: No significant masses, calcifications or other abnormalities are identified. BI/SCRN MAMM (CAD)W/MIKAYLA BILAT IMPRESSION: There is no mammographic evidence of malignancy. OVERALL FINAL ASSESSMENT BI-RADS 1: NEGATIVE. RECOMMENDATION: Routine annual follow-up in 1 Year Additional Recommendation none A letter with findings and recommendations will be mailed to the patient. Reading Location: [id number]
--- OUTSIDE RECORDS SUMMARY | 2025-07-23 07:19 | XMS RPT_ITS | CCD ---
Author Organization [facility]iniSy[facility] Care Team Providers Care Label Pinker Name Role Phone Mariana Montaño DO Primary [...] Admitting Unavailable PROVIDER, UNKNOWN Consulting Unavailable Doroteo MALTED MILK MIXER-C, Ester Attending Provider [phone] Doroteo MALTED MILK MIXER-CEster Referring Provider Vannesa DEVRIES, Dr. Hutton Attending Provider Sushma HALL, Dr. Crow Primary Care Physician Doroteo MALTED MILK MIXER-C, Ester Attending Physician [phone] Vannesa DEVRIES, Dr. Hutton Attending Physician Dr. Mariana Montaño DO Referring Provider [phone] Friend , Dr. Jose Attending Physician [phone] Friend , Dr. Jose Nurse Practitioner Sushma, [...] mom had reaction/Pt does not want rx [facility] (1 source) Haloperidol Drug Allergy 5 [facility] Repository Medications Current Medications Medication [...] Start: 07-12-2020 take 1 capsule by mo [facility] once daily take 1 tablet by mouth once zita y cholecalciferol (VITAMIN D-3) 5,000 unit tab Take 5,000 Units by mouth once daily. 0 Active Comment on above: Take 5,000 Units by mouth once daily. Zvsgizgg-Tylq-Alk3-C-Terence-Walt sw (Glucosamine-Chondroitin Complx) 500-416.6-20 mg tablet (2 sources) Start: 02-12-2025 Start: 02-12-2025 Glucosam-Rocky- Yeh3-Y-Qdvw-Bosw (Glucosamine-Chondroitin Complx) 500-416.6-20 mg tablet Active 1 [...] hever Start: 07-12-2020 take 1 tablet by [facility] once daily Magnesium 200 mg tablet [...] Comment on above: Take 1 tablet by [facility] once daily. dextran 70 1 mg/ml / hypromellose 3 mg/ml ophthalmic solution (11 sources) Plasma Volume Consultant Education Start: 08-03-2020 End: 06-19-2022 Dextran 70-Hypromellose 15 [...] Range Facility Colonoscopy Reporton 025 Colonoscopy Report [facility] Medical Records Department [address] [place] [address] Colonoscopy Report MR#: [id number] Acct: [id number] Name: KATHRYN DUGGAN Rep #: [id number] : 1970 54 From: Damon Orellana DO PCP: Dr. Mariana Montaño DO Status:REG [facility] Patient Name: Kathryn Duggan Procedure Date: 04/26/2025 [...] criteria for high risk CPT copyright 2021 [employer]. All rights reserved. The codes documented in this report are preliminary and upon dehydrator tender review may be revised to meet current compliance requirements. Damon Orellana DO 04/26/2025 8:38:42 AM This report has been signed electronically. Number of Addenda: 0 Note Initiated On: 04/26/2025 8:02 AM 04/26/25 0839 Date Damon Sousa Signature: Date (if indicated) CC: Dr. Mariana Montaño DO; Damon Orellana DO Date Dictated: 04/26/25801 Date Transcribed: Deputy Sheriff Building Guard: RF Signed [facility] MR/OP.PROVATon 04-26-2025 MR/OP.[facility] Medical Records Department [address] [place] [address] Provation Physician Letter MR#: [id number] Acct: [id number] Name: KATHRYN DUGGAN Rep #: [id number] : 1970 54 From: Damon Orellana DO PCP: Dr. Mariana Montaño DO Status:REG [facility] 04/26/2025 Mariana Montaño [address] [place] [address] Re : Colonoscopy procedure for Kathryn Duggan [...] Friend, DO Date Dictated: 04/26/25801 Date Transcribed: Deputy Sheriff Building Guard: PARMINDER Signed [facility] MR/POSTOP.ANEon 04-26-2025 MR/POSTOP.ANE [facility] Medical Records Department [address] [facility] [place] [address] Anesthesia Postop Eval I 04/26/25 0808 MR#: [id number] Acct: [id number] Name: KATHRYN DUGGAN Rep #: [id number] : 1970 54 From: Justin Sabillon PCP: Dr. Mariana Montaño, DO Status:REG SDC Y Race: C Location: [place] [address] Anesthesia: Postop Eval I Current Vital Signs [...] Date Justin Fung Signature: Date CC: Signed [facility] MR/OCKQNISY4ru 04-26-2025 MR/POSTOPAN2 [facility] Medical Records Department [address] [place] [address] Anesthesia Postop Eval II 04/26/2515 MR#: [id number] Acct: [id number] Name: KATHRYN DUGGAN Rep #: [id number] : 1970 54 From: Brooks Purcell MD PCP: Dr. Mariana Montaño, DO Status:REG SDC Y Race: C Location: [place] [address] Anesthesia Postop Eval I Sum Postop Eval [...] MD Cosigneva Signature: Date CC: Signed Normal [facility] MR/PATCurtis 04-20-2025 MR/PAT.[facility] Medical Records Department [address] [place] [address] PAT - Anesthesia 04/20/25 1639 MR#: [id number] Acct: [id number] Name: KATHRYN DUGGAN Rep #: [id number] : 1970 54 From: Logan Onofre MD PCP: Dr. 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 Female Yes 04/20/25 16:05 HX of Motion [...] 06/26/22 12:57 Respiratory Assessment Respiratory Assessment - quarry worker: Respiratory Tract Infection Hx - quarry worker Hx Respiratory Tract Infection No 04/20/25 16:05 STOP Sleep Apnea STOP Sleep Apnea - quarry worker: STOP Sleep Apnea - quarry worker Hx Hypertension No 04/20/25 16:05 Hx Sleep [...] Tobacco Use History Tobacco Use History - quarry worker: Tobacco Use History - quarry worker Tobacco Use Smoking Status Never smoker 04/20/25 16:05 Hx Tobacco Use No 04/20/25 16:05 Years Smoking Packs Smoked per Day Smoking Cessation Date was within the last 15 years Hx Smoking Cessation Date Hx Smoking Cessation Counseling Hematologic Medial History Hematologic Hx - quarry worker: Hematologic 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 Normal [facility] Cardiovascular stress test r eportOrdered By: Brennen Granado on 03-05-2025 Study report [facility] Cardiovascular Services [address] [place] [address] MR#: [id number] Acct: [id number] Name: KATHRYN DUGGAN Rep #: [id number] [...] 03/05/251802 Date _ Brennen Granado MD CC: MALTED MILK MIXER-C Ester Sadler; Dr. Mariana Montaño DO ~ Date Dictated: 03/05/251800 Date Transcribed: 03/05/251800 Deputy Sheriff Building Guard: CO Signed [facility] Work Phone: Echo Completeon 03-05-2025 Echo Complete [facility] Cardiovascular Services [address] [place] [address] Echo Complete 03/05/25 1253 MR#: [id number] Acct: [id number] Name: KATHRYN DUGGAN #: [id number] : 1970 54 From: Brennen Granado MD Attending Dr: RAYMOND Lynn Status: REG CL I Ordering Dr: Ester Sadler Date: 03/05/25 Location: [facility] Sex: F C Admitted: Reason For [...] Dictated: 03/05/25 1253 Date Transcribed: 03/05/25 1640 Deputy Sheriff Building Guard: Signed Normal [facility] Echocardiogram study reportO rdered By: Brennen Granado on 03-05-2025 Study report [facility] Cardiovascular Services [address] [address] Echo Complete 03/05/25 1253 MR#: [id number] Acct: [id number] Name: KATHRYN DUGGAN Rep #:[id number] : 1970 54 From: Brennen Gleason Attending Dr: RAYMOND Lynn atus: REG CLI Ordering Dr: Ester Sadler Date: 03/05/25 Location: [facility] Sex: F C Admitted: Reason For [...] 1640 Date _ Brennen Granado MD CC: MALTED MILK MIXEREde Sadler; Dr. Mariana Montaño DO ~ Date Dictated: 03/05/25 1253 Date Transcribed: 03/05/25 1640 Deputy Sheriff Building Guard: Signed [facility] Work Phone: Stress Reporton 03-05-2025 Stress Report [facility] Cardiovascular Services [address] [place] [address] MR#: [id number] Acct: [id number] Name: KATHRYN DUGGAN Rep #: [id number] : 1970 54 From: Brennen Granado MD [...] noted. 03/05/251802 Date Brennen Granado MD CC: MALTED MILK MIXER-C Ester Sadler; Dr. Mariana Montaño, DO Date Dictated: 03/05/251800 Date Transcribed: 03/05/251800 Deputy Sheriff Building Guard: CO Signed Normal [facility] CBC + DIFFon 02-04-2025 Baso # 0.04 x10EE3/UL Normal 0.00 - 0.10 [facility] Comment on above: Performed By: #### 2 57649 #### [facility],[address] [place] [address] Basophils/100 WBC (Bld) 0.4 % Normal 0.0 - 2.0 [facility] Comment on above: Performed By: #### 2 13893 #### [facility],[address] [place] [address] CBC + DIFF Normal [facility] Comment on above: Result Comment: CBC- COMPLETE BLOOD COUNT Performed By: #### 2 39428 #### [facility],[address] [place] [address] EO # 0.45 x10EE3/UL Normal 0.00 - 0.50 [facility] Comment on above: Performed By: #### 2 74250 #### [facility],[address] [place] [address] Eosinophils/100 WBC (Bld) 5.2 % Normal 0.0 - 7.0 [facility] Comment on above: Performed By: #### 2 07846 #### [facility],[address] [place] [address] Erythrocyte distribution width (RBC) [Ratio] 12.8 % Normal 12.0 - 15.6 [facility] Comment on above: Performed By: #### 2 17028 #### [facility],[address] [place] [address] Hematocrit (Bld) [Volume fraction] 46.5 % High 34.0 - 46.0 [facility] Comment on above: Performed By: #### 2 12033 #### [facility],[address] [place] [address] Hemoglobin (Bld) [Mass/Vol] 16.1 g/dL High 12.0 - 16.0 [facility] Comment on above: Performed By: #### 2 77758 #### [facility],[address] [place] [address] Lymph # 3.92 x10EE3/UL High 0.80 - 2.80 [facility] Comment on above: Performed By: #### 2 53183 #### [facility],[address] [place], [place] [address] Lymphocytes/100 WBC (Bld) 45.2 % High 20.0 - 45.0 [facility] Comment on above: Performed By: #### 2 74620 #### [facility],[address] [place] [address] MANUAL DIFF N/A Normal [facility] Comment on above: Performed By: #### 2 87155 #### [facility],[address] [place] [address] MCH (RBC) [Entitic mass] 29 pg Normal 27 - 33 [facility] Comment on above: Performed By: #### 2 18564 #### [facility],[address] [place] [address] MCHC 35 X10 3 Normal 32 - 36 [facility] Comment on above: Performed By: #### 2 68005 #### [facility],[address] [place] [address] MCV (RBC) [Entitic vol] 84 fL Normal 80 - 99 [facility] Comment on above: Performed By: #### 2 41621 #### [facility],[address] [place] [address] Nowata # 0.61 x10EE3/UL Normal 0.20 - 1.00 [facility] Comment on above: Performed By: #### 2 08667 #### [facility],[address] [place] [address] MONOS % 7.1 % Normal 0.0 - 10.0 [facility] Comment on above: Performed By: #### 2 92338 #### [facility],[address] [place], [place] [address] Morphology Kvng (Bld) [Interp] N/A Normal [facility] Comment on above: Performed By: #### 2 47398 #### [facility],[address] [place] [address] Neut # 3.65 x10EE3/UL Normal 1.50 - 7.10 [facility] Comment on above: Performed By: #### 2 84089 #### [facility],[address] [place] [address] Neutrophils/100 WBC (Bld) 42.1 % Low 46.0 - 76.0 [facility] Comment on above: Performed By: #### 2 08013 #### [facility],[address] [place] [address] PLATELET 318 x10EE3/UL Normal 150 - 450 [facility] Comment on above: Performed By: #### 2 52906 #### [facility],[address] [place] [address] Platelet mean volume (Bld) [Entitic vol] 7.4 fL Normal 6.6 - 10.5 [facility] Comment on above: Result Comment: AUTO MATED DIFFERENTIAL Performed By: #### 2 56730 #### [facility],[address] [place] [address] RBC 5.54 x 10EE6/UL High 4.10 - 5.30 [facility] Comment on above: Performed By: #### 2 75472 #### [facility],[address] [place] [address] WBC 8.7 x 10EE3/UL Normal 4.5 - 10.8 [facility] Comment on above: Performed By: #### 2 71907 #### [facility],[address] [place] [address] D-DIMER, QUANTITATIVEon 07-0 -2024 D-DIMER QUANT <200 Normal 0 - 230 [facility] Comment on above: Performed By: #### 2 28681 #### [facility],[address] [place] [address] D-DIMER, QUANTITATIVE Normal [facility] Comment on above: Result Comment: PILAR T D-DIMER Performed By: #### 2 68386 #### [facility],[address] [place] [address] TROPONINon 02-04-2025 HS TROPONIN 4.1 pg/mL Normal 0.0 - 51.4 [facility] Comment on above: Performed By: #### 2 91886 #### [facility],[address] [place] [address] Thyroid Antibodieson 025 TG AB < 1.0 Normal 0.0-0.9 [facility] Comment on above: Result Comment: Thyr oglobulin Antibody measured by [employer] Methodology It should be noted that the presence of thyroglobulin antibodies may not be pathogenic nor diagnostic, especially at very low levels. The assay senior management consultant has found that four percent of individuals without evidence of thyroid disease or autoimmunity will have positive TgAb levels up to 4 IU/mL. Performed at: [facility] [employer] [facility] [id number] Helmet Hat Puncher: Joseph Pettit PhD, Phone: [phone] Performed By: #### L 3300.6750, L501.9520, L506.0400, L3300.1750, L501.9985 ####[facility] [address] [facility]. [place], [place], [address] THYR PEROX AB 12 IU/mL Normal 0-34 [facility] Comment on above: Performed By: #### L 3300.6750, L501.9520, L506.0400, L3300.1750, L501.9985 ####[facility] [address] [facility]. [place], [place], [address] E2 post dose follitropin [Ma ss/Vol]Ordered By: Mariana Montaño on 11-27-2024 Estradiol (E2) Level 34.9 pg/mL [facility] Comment on above: FEMALES ADULT FEMALE [...] 18. Estradiolon 11-27-2024 ESTRADIOL 34.9 pg/mL Normal [facility] Comment on above: Result Comment: [...] #### L 3300.6750, L501.9520, L506.0400, L3300.1750, L501.9985 ####[facility] [address] [place], [address] Hemoglobin A1con 11-27-2024 HbA1c (Bld) [Mass fraction] 6.1 % High <=5.6 [facility] Comment on above: Result Comment: Norm al < 5.7 % Prediabetic 5.7 - 6.4 % Diabetic >or= 6.5 % Please note range changes. Performed By: #### L 3300.6750, L501.9520, L506.0400, L3300.1750, L501.9985 ####[facility] [address] [place], [address] Hemoglobin A1c percentageOrd ered By: Mariana Montaño on 11-27-2024 HbA1c (Bld) [Mass fraction] 6.1 % High <5.7 [facility] Comment on above: Normal < 5.7 % Predi abetic 5.7 - 6.4 % Diabetic >or= 6.5 % Please note range changes. Serum or plasma estradiol me asurement after follitropin dose (mass/volume)Ordered By: Mariana Montaño on 11-27-2024 E2 post dose follitropin [Mass/Vol] 34.9 pg/mL [facility] Comment on above: FEMALES ADULT [...] 11-27-2024 TPO Ab Qn 12 [IU]/mL 0-34 [facility] T4 Free Directon 11-27-2024 T4 FREE DIRECT 1.00 ng/dL Normal 0.76-1.46 [facility] Comment on above: Performed By: #### L 3300.6750, L501.9520, L506.0400, L3300.1750, L501.9985 #### [facility] Laboratory [address] [place], [place], [address] T4 freeOrdered By: Mariana Wallacefernie cruzlinnea on 11-27-2024 Free T4 [Mass/Vol] 1.00 ng/dL 0.76-1.46 [facility] TPO Ab QnOrdered By: Mariana Blas on 11-27-2024 Thyroid Peroxidase Antibodies 12 IU/mL 0-34 [facility] TSH DL <= 0.005 mIU/L QnOrde red By: Mariana Montaño on 11-27-2024 Thyroid Stimulating Hormone (TSH) 2.900 uIU/mL 0.300-4.200 [facility] TSH Qn 2.900 uIU/mL 0.300-4.200 [facility] Thyroglobulin Ab serumOrdere d By: Mariana Montaño on 11-27-2024 Thyroglobulin Antibody < 1.0 IU/mL 0.0-0.9 [facility] Comment on above: Thyroglobulin Antibo dy measured by [employer] Group[employer]ologyIt should be noted that the presence of thyroglobulinantibodies may not be pathogenic nor diagnostic, especiallyat very low levels. The assay senior management consultant has found thatfour percent of individuals without evidence of thyroiddisease or autoimmunity will have positive TgAb levels upto 4 IU/mL.Performed at: [facility] [employer] [facility] [id number] Director: Joseph Pettit PhD, Phone: [phone] Thyroid Stim Hormone (TSH)on 11-27-2024 TSH 2.900 uIU/mL Normal 0.300-4.200 [facility] Comment on above: Performed By: #### L 3300.6750, L501.9520, L506.0400, L3300.1750, L501.9979 #### [facility] [address] [place], [address] CCP AB, IgG AND IgA [CCL]on 11-17-2024 CCP AB, IgG AND IgA [CCL] Normal [facility] Comment on above: Result Comment: _CCP AB, IgG AND IgA [CCL]_ SEE SEPARATE REPORT Performed By: #### 2 88681 #### [facility],[address] [place] [address] DHEA [CCL]on 11-16-2024 DHEA 1.805 ng/mL Normal 0.630-4.700 [facility] Comment on above: Result Comment: INTE RPRETIVE INFORMATION: Dehydroepiandrosterone, Females 18 years and older: Postmenopausal: 0.60-5.73 ng/mL REFERENCE INTERVAL: Dehydroepiandrosterone by TMS Access complete set of age- and/or gender-specific reference intervals for this test in the [facility] Test Directory ([employer]). This test was developed and its performance characteristics determined by [facility]. It has not been cleared or approved by the [place] Food and Drug Administration. This test was performed in a CLIA certified laboratory and is intended for clinical purposes. Performed By: [facility] [address] [place], [place] [id number] Consultant Education: Jose Skinner MD, PhD CLIA Number: [id number] [place] [address] [place] [address] Bernardino He III, M.D. [id number] Performed By: #### 2 36443 #### [facility],[address] [place] [address] PROGESTERONE [CCL]on 025 Progesterone <0.2 Normal See comment [facility] Comment on above: Result Comment: Mens trual Cycle Progesterone Reference Ranges: Follicular: <1.0 ng/mL Ovulation: <12.1 ng/mL Luteal: 1.8 to 23.9 ng/mL. Progesterone Reference Ranges vary by gestational period: First Trimester: 11.0 to 44.3 ng/mL Second Trimester: 25.4 to 83.3 ng/mL Third Trimester: 58.7 to 214 ng/mL Post menopausal Progesterone: <0.5 ng/mL Reference: 1. Progesterone (Progesterone III) [package insert V 1.0 Bulgarian]. [facility], [place], [place]. May 2015. [facility] [place] [address] Bernardino He III, M.D. [id number] Performed By: #### 2 02064 #### [address] [address] LARISSA BY IFA SCREEN [CCL]on Nuclear Ab IF (S) [Titer] Negative Normal Negative [facility] Comment on above: Result Comment: Anti -nuclear antibody test is used as an aid in diagnosis of systemic autoimmune diseases. Where positive and clinically warranted, follow-up using disease-specific testing is recommended. Low positive titers are not uncommon with advanced age, certain chronic infections, and malignancies among others. Test methodology: Indirect fluorescence immunoassay (IFA) using HEp-2 cells. [facility] [place] [address] Bernardino He III, M.D. [id number] Performed By: #### 2 85086 #### [address] [address] ESTRADIOL-17B [CCL]on 2024 Estradiol-17B 56 pg/mL Normal [facility] Comment on above: Result Comment: This test [...] 3243 pg/mL Second trimester : 1561 to 29223 pg/mL Third trimester : 8285 to >60984 pg/mL Post-menopausal Estradiol reference range: < 41 pg/mL Reference: 1. Estradiol - E2 (Estradiol III) [package insert V 3.0 Bulgarian]. [facility], [place], [place], January 2016. [facility] [address] [place] [address] Bernardino He III, M.D. [id number] Performed By: #### 2 42536 #### [address] [address] RHEUMATOID FACTOR [CCL]on Rheumatoid Factor <10 Normal <16 [facility] Comment on above: Result Comment: [place] [address] Bernardino He III, M.D. [id number] Performed By: #### 2 05578 #### [facility],[address] [place] [address] LARISSA BY IFA SCREENon 11-13-19 25 Nuclear Ab Ql (S) Negative Normal Negative [facility] Comment on above: Order Comment: Speci men Type: BLOOD SPECIMEN Ordering Facility: [facility] Address: [address] [place], [place] [id number] Result Comment: Anti -nuclear antibody test is used as an aid in diagnosis of systemic autoimmune diseases. Where positive and clinically warranted, follow-up using disease-specific testing is recommended. Low positive titers are not uncommon with advanced age, certain chronic infections, and malignancies among others. Test methodology: Indirect fluorescence immunoassay (IFA) using HEp-2 cells. Performed By: #### 2 839-9, 79143-2, ANAIFS #### [facility] CLIA [id number] [address] [place] [address] [place] #### DHEA #### [facility] CLIA [id number] [address] [place] [address] C-REACTIVE PROTEINon 025 CRP 0.26 mg/dl Normal 0.00 - 0.90 [facility] Comment on above: Performed By: #### 2 10012 #### [facility],[address] [place] [address] CBC + DIFFon 11-12-2024 Baso # 0.05 x10EE3/UL Normal 0.00 - 0.10 [facility] Comment on above: Performed By: #### 2 90547 #### [facility],[address] [place] [address] Basophils/100 WBC (Bld) 0.6 % Normal 0.0 - 2.0 [facility] Comment on above: Performed By: #### 2 58586 #### [facility],[address] [place] [address] CBC + DIFF Normal [facility] Comment on above: Result Comment: CBC- COMPLETE BLOOD COUNT Performed By: #### 2 36410 #### [facility],[address] [place] [address] EO # 0.56 x10EE3/UL High 0.00 - 0.50 [facility] Comment on above: Performed By: #### 2 18096 #### [facility],[address] [place] [address] Eosinophils/100 WBC (Bld) 6.5 % Normal 0.0 - 7.0 [facility] Comment on above: Performed By: #### 2 47522 #### [facility],[address] [place], [place] [address] Erythrocyte distribution width (RBC) [Ratio] 13.5 % Normal 12.0 - 15.6 [facility] Comment on above: Performed By: #### 2 57150 #### [facility],[address] [place] [address] Hematocrit (Bld) [Volume fraction] 47.2 % High 34.0 - 46.0 [facility] Comment on above: Performed By: #### 2 07881 #### [facility],[address] [place] [address] 85233 Hemoglobin (Bld) [Mass/Vol] 16.7 g/dL High 12.0 - 16.0 [facility] Comment on above: Performed By: #### 2 27126 #### [facility],[address] [place] [address] 65818 Lymph # 2.99 x10EE3/UL High 0.80 - 2.80 [facility] Comment on above: Performed By: #### 2 55032 #### [facility],[address] [place] [address] 57255 Lymphocytes/100 WBC (Bld) 34.9 % Normal 20.0 - 45.0 [facility] Comment on above: Performed By: #### 2 58157 #### [facility],[address] [place] [address] MANUAL DIFF N/A Normal [facility] Comment on above: Performed By: #### 2 53328 #### [facility],[address] [place] [address] MCH (RBC) [Entitic mass] 30 pg Normal 27 - 33 [facility] Comment on above: Performed By: #### 2 69172 #### [place] [address] MCHC 35 X10 3 Normal 32 - 36 [facility] Comment on above: Performed By: #### 2 86169 #### [place] [address] MCV (RBC) [Entitic vol] 85 fL Normal 80 - 99 [facility] Comment on above: Performed By: #### 2 82000 #### [place] [address] Nowata # 0.70 x10EE3/UL Normal 0.20 - 1.00 [facility] Comment on above: Performed By: #### 2 43334 #### [facility],[address] [place] [address] MONOS % 8.2 % Normal 0.0 - 10.0 [facility] Comment on above: Performed By: #### 2 43789 #### [facility],[address] [place] [address] Morphology Kvng (Bld) [Interp] N/A Normal [facility] Comment on above: Performed By: #### 2 61891 #### [place] [address] Neut # 4.28 x10EE3/UL Normal 1.50 - 7.10 [facility] Comment on above: Performed By: #### 2 03658 #### [facility],[address] [place] [address] 46879 Neutrophils/100 WBC (Bld) 49.8 % Normal 46.0 - 76.0 [facility] Comment on above: Performed By: #### 2 79390 #### [facility],[address] [place] [address] 58086 PLATELET 359 x10EE3/UL Normal 150 - 450 [facility] Comment on above: Performed By: #### 2 82885 #### [facility],[address] [place] [address] 15700 Platelet mean volume (Bld) [Entitic vol] 7.6 fL Normal 6.6 - 10.5 [facility] Comment on above: Result Comment: AUTO MATED DIFFERENTIAL Performed By: #### 2 19928 #### [facility],[address] [place] [address] 91477 RBC 5.59 x 10EE6/UL High 4.10 - 5.30 [facility] Comment on above: Performed By: #### 2 46264 #### [facility],[address] [place] [address] 02833 WBC 8.6 x 10EE3/UL Normal 4.5 - 10.8 [facility] Comment on above: Performed By: #### 2 16426 #### [facility],[address] [place] [address] 38524 CMP with eGFRon 11-12-2024 AGE 54 years Normal [facility] Comment on above: Performed By: #### 2 34180 #### [facility],[address] [place] [address] 16806 Albumin [Mass/Vol] 4.2 g/dL Normal 3.4 - 5.0 [facility] Comment on above: Performed By: #### 2 61924 #### [facility],[address] [place] [address] 47909 Albumin/Globulin [Mass ratio] 1.2 {ratio} Normal 0.9 - 1.6 [facility] Comment on above: Performed By: #### 2 05614 #### [facility],[address] [place] [address] 95130 ALK PHOS 61 U/L Normal 46 - 116 [facility] Comment on above: Performed By: #### 2 49831 #### [facility],[address] [place] [address] 99741 ALT [Catalytic activity/Vol] 103 U/L High 16 - 63 [facility] Comment on above: Performed By: #### 2 34881 #### [facility],[address] [place] [address] 00245 Anion gap [Moles/Vol] 10 mmol/L Normal 10 - 20 [facility] Comment on above: Performed By: #### 2 06615 #### [facility],[address] [place] [address] 04231 AST [Catalytic activity/Vol] 53 U/L High 13 - 39 [facility] Comment on above: Performed By: #### 2 66493 #### [facility],[address] [place] [address] 99459 B/C RATIO 19 ratio Normal 0 - 30 [facility] Comment on above: Performed By: #### 2 98255 #### [facility],[address] [place] [address] 45119 Bilirubin [Mass/Vol] 0.5 mg/dL Normal 0.2 - 1.0 [facility] Comment on above: Performed By: #### 2 74287 #### [facility],[address] [place] [address] 52616 Calcium [Mass/Vol] 9.2 mg/dL Normal 8.5 - 10.1 [facility] Comment on above: Performed By: #### 2 07281 #### [facility],[address] [place] [address] 95163 Chloride [Moles/Vol] 102 mmol/L Normal 98 - 107 [facility] Comment on above: Performed By: #### 2 59725 #### [facility],[address] [place] [address] 34643 CMP with eGFR Normal [facility] Comment on above: Result Comment: COMP REHENSIVE METABOLIC PANEL Performed By: #### 2 16508 #### [facility],[address] [place] [address] 34868 CO2 [Moles/Vol] 29.8 mmol/L Normal 21.0 - 32.0 [facility] Comment on above: Performed By: #### 2 28063 #### [facility],[address] [place] [address] 67475 Creatinine [Mass/Vol] 0.94 mg/dL Normal 0.55 - 1.02 [facility] Comment on above: Performed By: #### 2 74458 #### [facility],[address] [place] [address] 52874 GFR/1.73 sq M.predicted among non-blacks MDRD (S/P/Bld) [Vol rate/Area] mL/min/{1.73_m2} Normal 60 - 999 [facility] Comment on above: Performed By: #### 2 09546 #### [facility],[address] [place], [place] [address] Result Comment: ACCO RDING TO THE NATIONAL KIDNEY DISEASE EDUCATION PROGRAM(NKDE), A NORMAL eGFR IS A VALUE GREATER THAN OR EQUAL TO 60 ML/MIN/1.73 SQ METERS. CHRONIC KIDNEY DISEASE: <60mL/MIN/1.73 SQ METERS KIDNEY FAILURE: <15mL/MIN/1.73 SQ METERS THIS TEST SHOULD ONLY BE USED FOR PATIENTS 18 YEARS OF AGE AND OLDER. Globulin (S) [Mass/Vol] 3.4 g/dL Normal 1.5 - 3.8 [facility] Comment on above: Performed By: #### 2 50770 #### [facility],[address] [place] [address] 04237 Glucose [Mass/Vol] 120 mg/dL High 74 - 106 [facility] Comment on above: Performed By: #### 2 91492 #### [facility],[address] [place] [address] 02893 Potassium [Moles/Vol] 3.4 mmol/L Low 3.5 - 5.1 [facility] Comment on above: Performed By: #### 2 39453 #### [facility],[address] [place] [address] 16936 Protein [Mass/Vol] 7.6 g/dL Normal 6.4 - 8.2 [facility] Comment on above: Performed By: #### 2 02505 #### [facility],[address] [place] [address] 37054 Sodium [Moles/Vol] 138 mmol/L Normal 136 - 145 [facility] Comment on above: Performed By: #### 2 97946 #### [facility],[address] [place] [address] 05345 Urea nitrogen [Mass/Vol] 18 mg/dL Normal 7 - 18 [facility] Comment on above: Performed By: #### 2 59927 #### [facility],[address] [place] [address] 34038 DHEA BLOODon 11-12-2024 DHEA 1.805 ng/mL Normal 0.630-4.700 [facility] Comment on above: Order Comment: Speci men Type: BLOOD SPECIMEN Ordering Facility: [facility] Address: [address] [place], [place] [id number] Result Comment: INTE RPRETIVE INFORMATION: Dehydroepiandrosterone, Females 18 years and older: Postmenopausal: 0.60-5.73 ng/mL REFERENCE INTERVAL: Dehydroepiandrosterone by TMS Access complete set of age- and/or gender-specific reference intervals for this test in the [facility] Test Directory ([employer]). This test was developed and its performance characteristics determined by [facility]. It has not been cleared or approved by the [place] Food and Drug Administration. This test was performed in a CLIA certified laboratory and is intended for clinical purposes. Performed By: [facility] [address] [place] [address] Consultant Education: Jose Skinner MD, PhD CLIA Number: [id number] Performed By: #### 2 839-9, 55271-0, ALONDRA #### [facility] CLIA [id number] [address] [place] [address] [place] #### DHEA #### [facility] CLIA [id number] [address] [place] [address] Estradiol [facility]-ncon 11-12 E2 [Mass/Vol] 56 pg/mL Normal [facility] Comment on above: Order Comment: Speci men Type: BLOOD SPECIMEN Ordering Facility: [facility] Address: [address] [place] [address] Result Comment: This test is not suitable [...] 3243 pg/mL Second trimester : 1561 to 74742 pg/mL Third trimester : 8285 to >28577 pg/mL Post-menopausal Estradiol reference range: < 41 pg/mL Reference: 1. Estradiol - E2 (Estradiol III) [package insert V 3.0 Bulgarian]. [facility], [place], [place], January 2016. Performed By: #### 2 243-4 #### [facility] CLIA [id number] [address] [place] [address] [place] LIPID PROFILEon 11-12-2024 Cholesterol [Mass/Vol] 170 mg/dL Normal 0 - 240 [facility] Comment on above: Performed By: #### 2 48468 #### [facility],[address],[place] [address] Cholesterol in HDL [Mass/Vol] 50 mg/dL Normal 40 - 60 [facility] Comment on above: Performed By: #### 2 54720 #### [facility],[address] [place] [address] 60622 Cholesterol in LDL [Mass/Vol] 85 mg/dL Normal 0 - 129 [facility] Comment on above: Performed By: #### 2 14466 #### [facility],[address] [place] [address] 21072 Cholesterol.total/Cho lesterol in HDL [Mass ratio] 3.4 {ratio} Normal 0.0 - 5.0 [facility] Comment on above: Performed By: #### 2 31453 #### [facility],[address] [place] [address] 03031 Lipid 1996 panel Normal [facility] Comment on above: Result Comment: LIPI D PROFILE Performed By: #### 2 02073 #### [facility],[address] [place] [address] 20249 Triglyceride [Mass/Vol] 176 mg/dL High 0 - 150 [facility] Comment on above: Performed By: #### 2 55824 #### [facility],[address] [place] [address] 68875 Progest Susanl-[place]ile[place] 11-12- 025 Progesterone [Mass/Vol] ng/mL Normal See comment [facility] Comment on above: Order Comment: Speci men Type: BLOOD SPECIMEN Ordering Facility: [facility] Address: [address] [place] [address] Result Comment: Mens trual Cycle Progesterone Reference Ranges: Follicular: <1.0 ng/mL Ovulation: <12.1 ng/mL Luteal: 1.8 to 23.9 ng/mL. Progesterone Reference Ranges vary by gestational period: First Trimester: 11.0 to 44.3 ng/mL Second Trimester: 25.4 to 83.3 ng/mL Third Trimester: 58.7 to 214 ng/mL Post menopausal Progesterone: <0.5 ng/mL Reference: 1. Progesterone (Progesterone III) [package insert V 1.0 Bulgarian]. [facility], [place], [place]. May 2015. Performed By: #### 2 839-9, 71161-9, ANAIFS #### [facility] CLIA [id number] [address] [place] [address] [place] #### DHEA #### [facility] CLIA [id number] [address] [place] [address] Rheumatoid fact SerPl-aCncon 11-12-2024 Rheumatoid factor Qn [IU]/mL Normal <16 [facility] Comment on above: Order Comment: Speci men Type: BLOOD SPECIMEN Ordering Facility: [facility] Address: [address] [place] [address] Performed By: #### 2 839-9, 60418-4, ALONDRA #### [facility] CLIA [id number] [address] [place] [address] [place] #### DHEA #### [facility] CLIA [id number] [address] [place] [address] SEDRATEon 11-12-2024 SEDRATE 2 mm/hr Normal 0 - 30 [facility] Comment on above: Performed By: #### 2 48384 #### [facility],[address] [place] [address] 61727 TSHon 11-12-2024 TSH Qn 3.80 m[IU]/L High 0.35 - 3.74 [facility] Comment on above: Performed By: #### 2 40684 #### [facility],[address] [place] [address] 75904 SCRN MAMM (CAD)W/MIKAYLA BILATo n 07-06-2024 SCRN MAMM (CAD)W/MIKAYLA BILAT [facility] Imaging Services [address] [place] [address] [id number] SCRN MAMM (CAD)W/MIKAYLA BILAT MR#: [id number] Acct: [id number] Name: KATHRYN DUGGAN Rep #: [id number] : 1970 F 53 From: Armando mackay MD PCP: Dr. Mariana Montaño, Status: [facility] Study: SCRN MAMM (CAD)W/MIKAYLA BILAT Date of Exam: 09/28 Exam# [id number] Ordering Dr: Mariana Montaño DO [id number] MAMMOGRAPHY - BILATERAL SCREENING REASON FOR EXAM: [...] delay biopsy of a clinically suspicious abnormality. [id number] Electronically Signed: Armando Davalos MD at 8:28 EST , CC: Dr. Mariana Montaño, Deputy Sheriff Building Guard: Signed Normal [facility] CMP with eGFRon 05-26-2024 AGE 53 years Normal [facility] Comment on above: Performed By: #### 2 67998 #### [facility],[address] [place] [address] 95563 Albumin [Mass/Vol] 3.8 g/dL Normal 3.4 - 5.0 [facility] Comment on above: Performed By: #### 2 91569 #### [facility],[address] [place] [address] 58355 Albumin/Globulin [Mass ratio] 1.0 {ratio} Normal 0.9 - 1.6 [facility] Comment on above: Performed By: #### 2 19383 #### [facility],[address] [place] [address] 07345 ALK PHOS 47 U/L Normal 46 - 116 [facility] Comment on above: Performed By: #### 2 14711 #### [facility],[address] [place] [address] 63128 ALT [Catalytic activity/Vol] 47 U/L Normal 16 - 63 [facility] Comment on above: Performed By: #### 2 45804 #### [facility],[address] [place] [address] 75299 Anion gap [Moles/Vol] 11 mmol/L Normal 10 - 20 [facility] Comment on above: Performed By: #### 2 45480 #### [facility],[address] [place] [address] 36652 AST [Catalytic activity/Vol] 27 U/L Normal 13 - 39 [facility] Comment on above: Performed By: #### 2 07080 #### [facility],[address] [place] [address] 71090 B/C RATIO 18 ratio Normal 0 - 30 [facility] Comment on above: Performed By: #### 2 61216 #### [facility],[address] [place] [address] 69592 Bilirubin [Mass/Vol] 0.4 mg/dL Normal 0.2 - 1.0 [facility] Comment on above: Performed By: #### 2 10924 #### [facility],[address] [place] [address] 39071 Calcium [Mass/Vol] 8.9 mg/dL Normal 8.5 - 10.1 [facility] Comment on above: Performed By: #### 2 01963 #### [facility],[address] [place], [place] [address] Chloride [Moles/Vol] 102 mmol/L Normal 98 - 107 [facility] Comment on above: Performed By: #### 2 76512 #### [facility],[address] [place] [address] CMP with eGFR Normal [facility] Comment on above: Result Comment: COMP REHENSIVE METABOLIC PANEL Performed By: #### 2 99617 #### [facility],[address] [place] [address] 76189 CO2 [Moles/Vol] 31.7 mmol/L Normal 21.0 - 32.0 [facility] Comment on above: Performed By: #### 2 61960 #### [facility],[address] [place] [address] 90310 Creatinine [Mass/Vol] 1.04 mg/dL High 0.55 - 1.02 [facility] Comment on above: Performed By: #### 2 13265 #### [facility],[address] [place], [place] [address] eGFR 55 ML/MINUTE Low 60 - 999 [facility] Comment on above: Performed By: #### 2 29126 #### [facility],[address] [place] [address] 03375 GFR/1.73 sq M.predicted among non-blacks MDRD (S/P/Bld) [Vol rate/Area] mL/min/{1.73_m2} Normal 60 - 999 [facility] Comment on above: Result Comment: ACCO RDING TO THE NATIONAL KIDNEY DISEASE EDUCATION PROGRAM(NKDE), A NORMAL eGFR IS A VALUE GREATER THAN OR EQUAL TO 60 ML/MIN/1.73 SQ METERS. CHRONIC KIDNEY DISEASE: <60mL/MIN/1.73 SQ METERS KIDNEY FAILURE: <15mL/MIN/1.73 SQ METERS THIS TEST SHOULD ONLY BE USED FOR PATIENTS 18 YEARS OF AGE AND OLDER. Performed By: #### 2 88566 #### [facility],[address] [place] [address] 42820 Globulin (S) [Mass/Vol] 3.7 g/dL Normal 1.5 - 3.8 [facility] Comment on above: Performed By: #### 2 22661 #### [facility],[address] [place] [address] 11520 Glucose [Mass/Vol] 115 mg/dL High 74 - 106 [facility] Comment on above: Performed By: #### 2 81960 #### [facility],[address] [place] [address] 55200 Potassium [Moles/Vol] 3.5 mmol/L Normal 3.5 - 5.1 [facility] Comment on above: Performed By: #### 2 35786 #### [address] [address] Protein [Mass/Vol] 7.5 g/dL Normal 6.4 - 8.2 [facility] Comment on above: Performed By: #### 2 81574 #### [facility],[address] [place] [address] 44408 Sodium [Moles/Vol] 141 mmol/L Normal 136 - 145 [facility] Comment on above: Performed By: #### 2 20230 #### [facility],[address] [place] [address] 19910 Urea nitrogen [Mass/Vol] 19 mg/dL High 7 - 18 [facility] Comment on above: Performed By: #### 2 98198 #### [facility],[address] [place] [address] 85431 LIPID PROFILEon 05-26-2024 Cholesterol [Mass/Vol] 192 mg/dL Normal 0 - 240 [facility] Comment on above: Performed By: #### 2 10639 #### [facility],[address] [place] [address] 33897 Cholesterol in HDL [Mass/Vol] 49 mg/dL Normal 40 - 60 [facility] Comment on above: Performed By: #### 2 53932 #### [facility],[address] [place] [address] 72906 Cholesterol in LDL [Mass/Vol] 95 mg/dL Normal 0 - 129 [facility] Comment on above: Performed By: #### 2 56144 #### [facility],[address] [place] [address] 77606 Cholesterol.total/Cho lesterol in HDL [Mass ratio] 3.9 {ratio} Normal 0.0 - 5.0 [facility] Comment on above: Performed By: #### 2 76143 #### [facility],[address] [place] [address] 47745 Lipid 1996 panel Normal [facility] Comment on above: Result Comment: LIPI D PROFILE Performed By: #### 2 38146 #### [facility],[address] [place] [address] 66354 Triglyceride [Mass/Vol] 239 mg/dL High 0 - 150 [facility] Comment on above: Performed By: #### 2 25447 #### [facility],[address] [place] [id number] Absolute lymphocyte countOrd ered By: Mariana Montaño on 10-28-2023 Lymphocytes Auto (Unsp spec) [#/Vol] 2.89 10*3/uL 0.83-4.51 [facility] Automated lymphocyte count a s percentage of total leukocytesOrdered By: Mariana Montaño on 10-28-2023 Lymphocytes/100 WBC Auto (Unsp spec) 31.7 % 19-41 [facility] Basophil percentageOrdered B y: Mariana Montaño on 10-28-2023 Basophils/100 WBC (Bld) 1.4 % 0-1 [facility] Bilirubin [Mass/Vol] 0.50 mg/dL 0.20-1.00 [facility] Comment on above: For patients on eltr ombopag therapy, use of Dimension [place] TBIL is not recommended. Chloride [Moles/Vol] 103 mmol/L 98-107 [facility] Cholesterol [Mass/Vol] 255 mg/dL <200 [facility] Comment on above: <200 mg/dL Desirable 200-240 mg/dL Borderline >240 mg/dL High Risk Eosinophils/100 WBC (Bld) 2.2 % 0-5 [facility] Glucose [Mass/Vol] 113 mg/dL 74-106 [facility] Comment on above: Fasting Glucose resu lt from 100 to 125 mg/dL suggests IMPAIRED HOMEOSTASIS per A.D.A. criteria. Hemoglobin (Bld) [Mass/Vol] 15.5 g/dL 12.0-15.0 [facility] Monocytes/100 WBC (Bld) 8.0 % 0-10 [facility] Neutrophils (Bld) [#/Vol] 5.1 10*3/uL 2.0-7.7 [facility] Neutrophils/100 WBC (Bld) 56.4 % 47-70 [facility] Potassium [Moles/Vol] 3.2 mmol/L 3.5-5.1 [facility] Protein [Mass/Vol] 7.8 g/dL 6.4-8.2 [facility] Sodium [Moles/Vol] 140 mmol/L 136-145 [facility] Triglyceride [Mass/Vol] 173 mg/dL <199 [facility] Comment on above: The drugs N-Acetylcy steine and Metamizole may falsely depress this assay.Serum Triglycerides Reference Interval Normal <150 mg/dL Borderline high 150 - 199 mg/dL High 200 - 499 mg/dL Very High > or = 500 mg/dL WBC (Bld) [#/Vol] 9.1 10*3/uL 4.4-11.0 [facility] Determination of erythrocyte mean corpuscular volume (MCV)Ordered By: Mariana Montaño on 10-28-2023 MCV (RBC) [Entitic vol] 86.5 fL 81-99 [facility] Erythrocyte distribution wid th ratioOrdered By: Mariana Montaño on 10-28-2023 Erythrocyte distribution width (RBC) [Ratio] 12.2 % 11.6-14.6 [facility] Erythrocyte distribution wid th standard deviationOrdered By: Mariana Montaño on 10-28-2023 Erythrocyte distribution width (RBC) [Entitic vol] 38.8 fL 35.1-43.9 [facility] Hematocrit Auto (Bld) [Volum e fraction]Ordered By: Mariana Montaño on 10-28-2023 Hematocrit (Bld) [Volume fraction] 47.6 % 37-47 [facility] Immature granulocytes/100 WB C Auto (Bld)Ordered By: Mariana Montaño on 10-28-2023 Immature granulocytes/100 WBC (Bld) 0.300 % 0.0-0.9 [facility] Comment on above: IG% - Immature Granu locytes (promyelocytes, myelocytes and metamyelocytes) > 1% indicates that a LEFT SHIFT is Present. Laboratory - Chemistry and C hemistry - challengeOrdered By: Mariana Montaño on 10-28-2023 Albumin/Globulin [Mass ratio] 1.2 {ratio} 0.9-2.4 [facility] ALP [Catalytic activity/Vol] 49 U/L 45-117 [facility] ALT [Catalytic activity/Vol] 31 U/L 13-56 [facility] Cholesterol in HDL [Mass/Vol] 41 mg/dL >40 [facility] Comment on above: The drugs N-Acetylcy steine and Metamizole may falsely depress this assay. Reference Range HDL <40 mg/dL Low HDL Cholesterol HDL >or= 60 mg/dL High HDL Cholesterol Cholesterol in LDL [Mass/Vol] 179 mg/dL 0-130 [facility] CO2 [Moles/Vol] 29.0 mmol/L 21.0-32.0 [facility] Globulin (S) [Mass/Vol] 3.5 g/dL 2.2-4.2 [facility] Urea nitrogen/Creatinine [Mass ratio] 15.7 mg/mg 10-20 [facility] Laboratory - Hematology and Cell countsOrdered By: Mariana Montaño on 10-28-2023 MCH (RBC) [Entitic mass] 28.2 pg 27.0-32.0 [facility] MCHC (RBC) [Mass/Vol] 32.6 g/dL 32-36 [facility] Nucleated RBC/100 WBC (Bld) [Ratio] 0 % 0-5 [facility] Platelet mean volume (Bld) [Entitic vol] 9.7 fL 6.2-12.0 [facility] Platelets (Bld) [#/Vol] 357 10*3/uL 150-450 [facility] No Panel InformationOrdered By: Mariana Montaño on 10-28-2023 Estimated GFR (MDRD) Amer 63 mL/min >60 [facility] Comment on above: GFR Calc Estimated GFR (MDRD) Non-Af Amer 52 mL/min >60 [facility] Comment on above: Non- GFR Calc Vitamin D 25-Hydroxy 52.4 ng/mL [facility] Comment on above: Vitamin D 25(OH) Sta tus Range Deficiency <20 ng/mL (50nmol/L) Insufficiency 20 - 30 ng/mL (50 - 75 nmol/L) Sufficiency 30 - 100 ng/mL (75 - 250 nmol/L) Toxicity >100 ng/mL (>250 nmol/L) VLDL Cholesterol 35 mg/dL 5-40 [facility] RBC Auto (Bld) [#/Vol]Ordere d By: Mariana Montaño on 10-28-2023 RBC (Bld) [#/Vol] 5.50 10*6/uL 4.2-5.4 [facility] Serum or plasma calcium pineda urement (mass/volume)Ordered By: Mariana Montaño on 10-28-2023 Calcium [Mass/Vol] 9.7 mg/dL 8.5-10.1 [facility] Serum or plasma creatinine m easurement (mass/volume)Ordered By: Mariana Montaño on 10-28-2023 Creatinine [Mass/Vol] 1.15 mg/dL 0.55-1.02 [facility] Comment on above: The validity of the calculated GFR & GFRAA in patients over 70 years has not been determined. Clinical correlation is essential. Serum or plasma thyroid stim ulating hormone (TSH) measurement (units/volume)Ordered By: Mariana Montaño on 10-28-2023 TSH Qn 2.94 uIU/mL 0.358-3.74 [facility] Serum or plasma urea nitroge n measurement (mass/volume)Ordered By: Mariana Montaño on 10-28-2023 Urea nitrogen [Mass/Vol] 18 mg/dL 7-18 [facility] Thin prep Papanicolaou smear with manual screeningOrdered By: Mariana Montaño on 10-28-2023 Thin prep Papanicolaou smear with manual screening 4.3 g/dL 3.2-5.0 [facility] Thin prep Papanicolaou smear with manual screening 23 U/L 15-37 [facility] Thin prep Papanicolaou smear with manual screening 8 5-15 [facility] Basophil percentageOrdered B y: Mariana Montaño on 01-31-2023 Bilirubin [Mass/Vol] 0.30 mg/dL 0.20-1.00 [facility] Comment on above: For patients on eltr ombopag therapy, use of Dimension [place] TBIL is not recommended. Cholesterol [Mass/Vol] 156 mg/dL <200 [facility] Comment on above: <200 mg/dL Desirable 200-240 mg/dL Borderline >240 mg/dL High Risk Protein [Mass/Vol] 7.1 g/dL 6.4-8.2 [facility] Triglyceride [Mass/Vol] 190 mg/dL <199 [facility] Comment on above: The drugs N-Acetylcy steine and Metamizole may falsely depress this assay.Serum Triglycerides Reference Interval Normal <150 mg/dL Borderline high 150 - 199 mg/dL High 200 - 499 mg/dL Very High > or = 500 mg/dL Direct bilirubinOrdered By: Mariana Montaño on 01-31-2023 Bilirubin.direct [Mass/Vol] 0.10 mg/dL 0.00-0.30 [facility] Laboratory - Chemistry and C hemistry - challengeOrdered By: Mariana Montaño on 01-31-2023 ALP [Catalytic activity/Vol] 51 U/L 45-117 [facility] ALT [Catalytic activity/Vol] 35 U/L 13-56 [facility] Globulin (S) [Mass/Vol] 3.5 g/dL 2.2-4.2 [facility] Serum or plasma albumin pineda urement (mass/volume)Ordered By: Mariana Montaño on 01-31-2023 Albumin [Mass/Vol] 3.6 g/dL 3.2-5.0 [facility] Serum or plasma cholesterol in HDL measurement (mass/volume)Ordered By: Mariana Montaño on 01-31-2023 Cholesterol in HDL [Mass/Vol] 39 mg/dL >40 [facility] Comment on above: The drugs N-Acetylcy steine and Metamizole may falsely depress this assay. Reference Range HDL <40 mg/dL Low HDL Cholesterol HDL >or= 60 mg/dL High HDL Cholesterol Serum or plasma cholesterol in VLDL measurement (mass/volume)Ordered By: Mariana Montaño on 01-31-2023 Cholesterol in VLDL [Mass/Vol] 38 mg/dL 5-40 [facility] Serum or plasma low density lipoprotein (LDL) cholesterol measurement (mass/volume)Ordered By: Mariana Montaño on 01-31-2023 Cholesterol in LDL [Mass/Vol] 79 mg/dL 0-130 [facility] Thin prep Papanicolaou smear with manual screeningOrdered By: Mariana Montaño on 01-31-2023 Thin prep Papanicolaou smear with manual screening 19 U/L 15-37 [facility] Absolute lymphocyte countOrd ered By: Dr. Montaño on 10-18-2022 Lymphocytes Auto (Unsp spec) [#/Vol] 3.11 10*3/uL 0.83-4.51 [facility] Basophil percentageOrdered B y: Dr. Montaño on 10-18-2022 Basophils/100 WBC (Bld) 1.4 % 0-1 [facility] Bilirubin [Mass/Vol] 0.30 mg/dL 0.20-1.00 [facility] Comment on above: For patients on eltr ombopag therapy, use of Dimension [place] TBIL is not recommended. Chloride [Moles/Vol] 101 mmol/L 98-107 [facility] Cholesterol [Mass/Vol] 293 mg/dL <200 [facility] Comment on above: <200 mg/dL Desirable 200-240 mg/dL Borderline >240 mg/dL High Risk Eosinophils/100 WBC (Bld) 6.0 % 0-5 [facility] Glucose [Mass/Vol] 84 mg/dL 74-106 [facility] Neutrophils (Bld) [#/Vol] 3.9 10*3/uL 2.0-7.7 [facility] Neutrophils/100 WBC (Bld) 48.0 % 47-70 [facility] Potassium [Moles/Vol] 3.8 mmol/L 3.5-5.1 [facility] Protein [Mass/Vol] 7.5 g/dL 6.4-8.2 [facility] Sodium [Moles/Vol] 138 mmol/L 136-145 [facility] Triglyceride [Mass/Vol] 252 mg/dL <199 [facility] Comment on above: The drugs N-Acetylcy steine and Metamizole may falsely depress this assay.Serum Triglycerides Reference Interval Normal <150 mg/dL Borderline high 150 - 199 mg/dL High 200 - 499 mg/dL Very High > or = 500 mg/dL WBC (Bld) [#/Vol] 8.1 10*3/uL 4.4-11.0 [facility] Blood erythrocytes count (nu mber/volume)Ordered By: Dr. Montaño on 10-18-2022 RBC (Bld) [#/Vol] 5.52 10*6/uL 4.2-5.4 [facility] Blood hemoglobin measurement (mass/volume)Ordered By: Dr. Montaño on 10-18-2022 Hemoglobin (Bld) [Mass/Vol] 15.7 g/dL 12.0-15.0 [facility] Blood lymphocytes/100 leukoc ytesOrdered By: Dr. Montaño on 10-18-2022 Lymphocytes/100 WBC (Bld) 38.3 % 19-41 [facility] Blood monocytes/100 leukocyt esOrdered By: Dr. Montaño on 10-18-2022 Monocytes/100 WBC (Bld) 5.9 % 0-10 [facility] Blood platelet mean volumeOr dered By: Dr. Montaño on 10-18-2022 Platelet mean volume (Bld) [Entitic vol] 9.8 fL 6.2-12.0 [facility] Determination of erythrocyte mean corpuscular volume (MCV)Ordered By: Dr. Montaño on 10-18-2022 MCV (RBC) [Entitic vol] 86.4 fL 81-99 [facility] Hematocrit Auto (Bld) [Volum e fraction]Ordered By: Dr. Montaño on 10-18-2022 Hematocrit (Bld) [Volume fraction] 47.7 % 37-47 [facility] Laboratory - Chemistry and C hemistry - challengeOrdered By: Dr. Montaño on 10-18-2022 ALP [Catalytic activity/Vol] 47 U/L 45-117 [facility] ALT [Catalytic activity/Vol] 31 U/L 13-56 [facility] CO2 [Moles/Vol] 29.0 mmol/L 21.0-32.0 [facility] Globulin (S) [Mass/Vol] 3.4 g/dL 2.2-4.2 [facility] Urea nitrogen/Creatinine [Mass ratio] 21.3 mg/mg 10-20 [facility] Laboratory - Hematology and Cell countsOrdered By: Dr. Montaño on 10-18-2022 Erythrocyte distribution width (RBC) [Entitic vol] 40.6 fL 35.1-43.9 [facility] Erythrocyte distribution width (RBC) [Ratio] 12.9 % 11.6-14.6 [facility] Immature granulocytes/100 WBC (Bld) 0.400 % 0.0-0.9 [facility] Comment on above: IG% - Immature Granu locytes (promyelocytes, myelocytes and metamyelocytes) > 1% indicates that a LEFT SHIFT is Present. MCH (RBC) [Entitic mass] 28.4 pg 27.0-32.0 [facility] Nucleated RBC/100 WBC (Bld) [Ratio] 0 % 0-5 [facility] MCHC Auto (RBC) [Mass/Vol]Or dered By: Dr. Montaño on 10-18-2022 MCHC (RBC) [Mass/Vol] 32.9 g/dL 32-36 [facility] No Panel InformationOrdered By: Dr. Montaño on 10-18-2022 Estimated GFR (MDRD) Amer 80 mL/min >60 [facility] Comment on above: GFR Calc Estimated GFR (MDRD) Non-Af Amer 66 mL/min >60 [facility] Comment on above: Non- GFR Calc Vitamin D 25-Hydroxy 45.1 ng/mL [facility] Comment on above: Vitamin D 25(OH) Sta tus Range Deficiency <20 ng/mL (50nmol/L) Insufficiency 20 - 30 ng/mL (50 - 75 nmol/L) Sufficiency 30 - 100 ng/mL (75 - 250 nmol/L) Toxicity >100 ng/mL (>250 nmol/L) Platelets bldOrdered By: Dr. Montaño on 10-18-2022 Platelets (Bld) [#/Vol] 370 10*3/uL 150-450 [facility] Serum or plasma albumin pineda urement (mass/volume)Ordered By: Dr. Montaño on 10-18-2022 Albumin [Mass/Vol] 4.1 g/dL 3.2-5.0 [facility] Serum or plasma albumin/glob ulin mass ratioOrdered By: Dr. Montaño on 10-18-2022 Albumin/Globulin [Mass ratio] 1.2 {ratio} 0.9-2.4 [facility] Serum or plasma calcium pineda urement (mass/volume)Ordered By: Dr. Montaño on 10-18-2022 Calcium [Mass/Vol] 9.2 mg/dL 8.5-10.1 [facility] Serum or plasma cholesterol in HDL measurement (mass/volume)Ordered By: Dr. Montaño on 10-18-2022 Cholesterol in HDL [Mass/Vol] 40 mg/dL >40 [facility] Comment on above: The drugs N-Acetylcy steine and Metamizole may falsely depress this assay. Reference Range HDL <40 mg/dL Low HDL Cholesterol HDL >or= 60 mg/dL High HDL Cholesterol Serum or plasma cholesterol in VLDL measurement (mass/volume)Ordered By: Dr. Montaño on 10-18-2022 Cholesterol in VLDL [Mass/Vol] 50 mg/dL 5-40 [facility] Serum or plasma creatinine m easurement (mass/volume)Ordered By: Dr. Montaño on 10-18-2022 Creatinine [Mass/Vol] 0.94 mg/dL 0.55-1.02 [facility] Comment on above: The validity of the calculated GFR & GFRAA in patients over 70 years has not been determined. Clinical correlation is essential. Serum or plasma low density lipoprotein (LDL) cholesterol measurement (mass/volume)Ordered By: Dr. Montaño on 10-18-2022 Cholesterol in LDL [Mass/Vol] 203 mg/dL 0-130 [facility] Serum or plasma urea nitroge n measurement (mass/volume)Ordered By: Dr. Montaño on 10-18-2022 Urea nitrogen [Mass/Vol] 20 mg/dL 7-18 [facility] Thin prep Papanicolaou smear with manual screeningOrdered By: Dr. Montaño on 10-18-2022 Thin prep Papanicolaou smear with manual screening 16 U/L 15-37 [facility] Thin prep Papanicolaou smear with manual screening 8 5-15 [facility] Cervical or vagninal specime n microscopic examination by cytology stain (reported asOrdered By: Dr. Montaño on 07-19-2022 Cytology report Cyto stain Doc (Cvx/Vag) Comment . [facility] Comment on above: The Pap smear is a s creening test designed to aid in thedetection of premalignant and malignant conditions of theuterine cervix. It is not a diagnostic procedure andshould not be used as the sole means of detecting cervicalcancer. Both false-positive and false-negative reports dooccur. Laboratory - CytologyOrdered By: Dr. Montaño on 07-19-2022 Passport Support Associate Cyto stain Nom (Cvx/Vag) [ID] Comment . [facility] Comment on above: Brinda Li ytotechnologist (ASCP) Laboratory - Miscellaneous t estsOrdered By: Dr. Montaño on 07-19-2022 Service comment (Unsp spec) [Interp] Comment . [facility] Comment on above: This liquid based Th inPrep(R) pap test was screened withthe use of an image guided system. Service comment (Unsp spec) [Interp] . . [facility] No Panel InformationOrdered By: Dr. Montaño on 07-19-2022 Pap Smear Additional Comments . [facility] Pathology report final diagnosis Narrative Comment . [facility] Comment on above: NEGATIVE FOR INTRAEP ITHELIAL LESION OR MALIGNANCY.THIS SPECIMEN WAS RESCREENED PART OF OUR DINING ROOM SUPERVISOR PROGRAM. Vital Signs Date Time Vital Sign Value Performing Clinician Facility 04-26-2025 08:50-0400 Body temperature 97.6 [degF] Dr. Mariana Montaño DO Work Phone: [facility] 04-26-2025 08:50-0400 Diastolic blood pressure 76 mm[Hg] Dr. Mariana Montaño DO Work Phone: [facility] 04-26-2025 08:50-0400 Heart rate 61 /min Dr. Mariana Montaño DO Work Phone: [facility] 04-26-2025 08:50-0400 Respiratory rate 16 /min Dr. Mariana Montaño DO Work Phone: [facility] 04-26-2025 08:50-0400 SaO2% (BldA) [Mass fraction] 94 % Dr. Mariana Montaño DO Work Phone: [facility] 04-26-2025 08:50-0400 Systolic blood pressure 115 mm[Hg] Dr. Mariana Montaño DO Work Phone: [facility] 04-26-2025 08:12-0400 Inhaled oxygen flow rate 4 L/min Dr. Mariana Montaño DO Work Phone: [facility] 04-26-2025 06:59-0400 Body height 162.[address] Mariana Montaño DO Work Phone: [facility] 04-26-2025 06:59-0400 Body mass index (BMI) [Ratio] 31.4 kg/m2 Dr. Mariana Montaño DO Work Phone: [facility] 04-26-2025 06:59-0400 Body weight [address] Mariana Montaño DO Work Phone: [facility] 06-26-2022 12:57-0500 Body height 165.[address] Mariana Montaño Work Phone: [facility] 06-26-2022 12:57-0500 Body mass index (BMI) [Ratio] 28.4 kg/m2 Dr. Mariana Montaño Work Phone: [facility] 06-26-2022 12:57-0500 Body temperature 97.6 [degF] Dr. Mariana Montaño Work Phone: [facility] 06-26-2022 12:57-0500 Body weight 77.[address] Mariana Montaño Work Phone: [facility] 06-26-2022 12:57-0500 Diastolic blood pressure 90 mm[Hg] Dr. Mariana Montaño Work Phone: [facility] 06-26-2022 12:57-0500 Heart rate 108 /min Dr. Mariana Montaño Work Phone: [facility] 06-26-2022 12:57-0500 Respiratory rate 17 /min Dr. Mariana Montaño Work Phone: [facility] 06-26-2022 12:57-0500 SaO2% (BldA) [Mass fraction] 99 % Dr. Mariana Montaño Work Phone: [facility] 06-26-2022 12:57-0500 Systolic blood pressure 125 mm[Hg] Dr. Mariana Montaño Work Phone: [facility] 06-19-2022 15:21-0500 Body mass index (BMI) [Ratio] 28.6 kg/m2 Dr. Mariana Montaño Work Phone: [facility] Work Phone: 06-19-2022 15:21-0500 Body temperature 98.4 [degF] Dr. Mariana Montaño Work Phone: [facility] Work Phone: 06-19-2022 15:21-0500 Body weight 78.[address] Mariana Montaño Work Phone: [facility] Work Phone: 06-19-2022 15:21-0500 Diastolic blood pressure 92 mm[Hg] Dr. Mariana Montaño Work Phone: [facility] Work Phone: 06-19-2022 15:21-0500 Heart rate 125 /min Dr. Mariana Montaño Work Phone: [facility] Work Phone: 06-19-2022 15:21-0500 Respiratory rate 17 /min Dr. Mariana Montaño Work Phone: [facility] Work Phone: 06-19-2022 15:21-0500 SaO2% (BldA) [Mass fraction] 99 % Dr. Mariana Montaño Work Phone: [facility] Work Phone: 06-19-2022 15:21-0500 Systolic blood pressure 166 mm[Hg] Dr. Mariana Montaño Work Phone: [facility] Work Phone: 06-06-2022 16:01-0400 Body temperature 98.71 [degF] Nic Walsh APRN.PHOTOENGRAVING PRINTER Work Phone: [facility] 06-06-2022 16:01-0400 Body weight 78.38 kg Nic Walsh APRN.PHOTOENGRAVING PRINTER Work Phone: [facility] 06-06-2022 16:01-0400 Diastolic blood pressure 78 mm[Hg] Nic Walsh APRN.PHOTOENGRAVING PRINTER Work Phone: [facility] 06-06-2022 16:01-0400 Heart rate 113 /min Nic Walsh APRN.PHOTOENGRAVING PRINTER Work Phone: [facility] 06-06-2022 16:01-0400 Respiratory rate 20 /min Nic Walsh LAWN SERVICE MANAGER.PHOTOENGRAVING PRINTER Work Phone: [facility] 06-06-2022 16:01-0400 SaO2% (BldA) [Mass fraction] 98 % Nic Walsh LAWN SERVICE MANAGER.PHOTOENGRAVING PRINTER Work Phone: [facility] 06-06-2022 16:01-0400 Systolic blood pressure 120 mm[Hg] Nic Walsh LAWN SERVICE MANAGER.PHOTOENGRAVING PRINTER Work Phone: [facility] Encounters Encounter Date Encounter Type Care Provider Facility Start: 07-15-2025 ambulatory [facility] [place] Facility: [facility] Start: 04-26-2025 Non-patient / Non-visit Damon Tomas nd, DO -[facility] Start: 04-26-2025 End: 04-26-2025 Admission to same day surgery center Damon Orellana DO -Endoscopy Work Phone: Start: 04-26-2025 End: 04-26-[address] Mariana Montaño DO Work Phone: -Endoscopy Start: 03-05-2025 ambulatory Brennen Granado Facility:[facility] Start: 03-05-2025 Non-patient / Non-[facility] Start: 03-05-2025 End: 03-05-[address] Mariana Montaño DO Work Phone: -Cardiovascular Services Start: 03-05-2025 End: 03-05-2025 Patient encounter procedure Ester Sadler [employer] [facility] -Cardiovascular Services Work Phone: Start: 03-05-2025 End: 03-05-2025 ambulatory Mariana Montaño Facility:[facility] Start: 02-15-2025 ambulatory Mariana [facility] Facility: [facility] Start: 02-04-2025 End: 02-04-2025 ambulatory MARIANA MONTAÑO [facility] Start: 12-22-2024 End: 12-22-2024 [facility] Start: 11-27-2024 End: 11-27-[address] Mariana Montaño DO Work Phone: [facility] Work Phone: Start: 11-27-2024 End: 11-27-[address] Mariana Montaño DO -Laboratory Work Phone: Start: 11-27-2024 End: 11-27-2024 ambulatory Mariana Montaño Facility:[facility] Start: 11-12-2024 End: 11-12-2024 ambulatory MARIANA Soria [facility] Start: 07-06-2024 End: 07-06-2024 ambulatory Mariana Sushma Facility:[facility] Start: 05-26-2024 End: 05-26-2024 ambulatory MARIANA Soria [facility] Start: 10-28-2023 End: 10-28-2023 ambulatory [facility] Work Phone: Start: 10-28-2023 End: 10-28-2023 Patient encounter procedure [facility]-Laboratory Work Phone: Start: 07-02-2023 End: 07-02-2023 ambulatory [facility] Work Phone: Start: 07-02-2023 End: 07-02-2023 Patient encounter procedure [facility]-Outpatient Breast Imaging Work Phone: Start: 01-31-2023 End: 01-31-2023 ambulatory [facility] Work Phone: Start: 01-31-2023 End: 01-31-2023 Patient encounter procedure [facility]-Laboratory Work Phone: Start: 10-18-2022 End: 10-18-[address] Mariana Montaño Work Phone: [facility] Work Phone: Start: 10-18-2022 End: 10-18-[address] Mariana Montaño Work Phone: [facility]-Laboratory, Farhana Chambers [facility] Start: 07-19-2022 End: 07-19-[address] Mariana Montaño Work Phone: [facility] Work Phone: Start: 07-19-2022 End: 07-19-[address] Mariana Montaño Work Phone: [facility]-Laboratory, Specimen Start: 06-26-2022 End: 06-26-[address] Mariana Montaño Work Phone: [facility] Work Phone: Start: 06-26-2022 End: 06-26-[address] Mariana Montaño Work Phone: [facility]-Laboratory, Specimen Start: 06-26-2022 End: 06-26-[address] Mariana Montaño Work Phone: [facility] Start: 06-21-2022 End: 06-21-[address] Mariana Montaño Work Phone: [facility] Work Phone: Start: 06-21-2022 End: 06-21-[address] Mariana Montaño Work Phone: [facility]-Outpatient Pav[facility] Ultrasound Start: 06-19-2022 End: 06-19-[address] Mariana Montaño Work Phone: [facility] Work Phone: Start: 06-19-2022 End: 06-19-[address] Mariana Montaño Work Phone: [facility]-Outpatient Breast Imaging Start: 06-19-2022 End: 06-19-[address] Mariana Montaño Work Phone: [facility] Start: 06-07-2022 Telephone encounter Estela Lopez CHRISTIN.PHOTOENGRAVING PRINTER Work Phone: [facility] Comment on above: Results Start: 06-06-2022 End: 06-06-2022 Patient encounter procedure Nic Walsh LAWN SERVICE MANAGER.PHOTOENGRAVING PRINTER Work Phone: [facility] Comment on above: Viral illness (Prima ry Dx) Procedures Date Procedure Procedure Detail Performing Clinician Start: 11-27-[address] Mariana Montaño DO Work Phone: Comment on above: Thyroglobulin Antibody measured by [employer] an CoulterMethodologyIt should be noted that the presence of thyroglobulinantibodies may not be pathogenic nor diagnostic, especiallyat very low levels. The assay senior management consultant has found thatfour percent of individuals without evidence of thyroiddisease or autoimmunity will have positive TgAb levels upto 4 IU/mL.Performed at: [place] [id number] Director: Joseph Pettit PhD, Phone: [phone] Start: 06-21-[address] Mariana meneses Work Phone: Start: 06-19-[address] 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 (laser assisted in situ keratomileusis) of both eyes Nic Chawlanancie WALLER.PHOTOENGRAVING PRINTER Work Phone: Start: 01-29-2011 Mammography Nic Walsh CHRISTIN.PHOTOENGRAVING PRINTER Work Phone: Plan of Treatment Date Care Activity Detail Author Start: 04-26-2025 Colonoscopy DIAGNOSTIC COLONOSCOPY [facility] Start: 04-26-2025 Patient discharge [facility] Start: 07-02-2023 Screening mammography SCRN FREDY M (CAD)W/MIKAYLA BILAT [facility] Start: 06-06-2022 End: 06-20-2022 Influenza virus A and B RNA and SARS-CoV-2 (COVID-19) N gene panel - Respiratory specimen by MISAEL with probe detection COVID WITH FLUA+B, ROUTINE Microbiology Routine Viral illness Expected: 06/06/2022, Expires: 06/20/2022 [facility] Work Phone: Comment on above: Expected: 06/06/2022 , Expires: 06/20/2022 Start: 04-05-2022 Influenza vaccination INFLUENZA (#1) [facility] Start: 08-05-2021 DEPRESSION ASSESSMENT DEPRESSION ASS ESSMENT [facility] Start: 2018 SHINGRIX VACCINE (1 of 2) SHINGRIX VACCINE (1 of 2) [facility] Start: 11-14-2016 PAP TESTING PAP TESTING [facility] Start: 10-11-2014 HPV TESTING HPV TESTING [facility] Start: 2013 COLOGUARD (FIT-DNA) COLOGUARD (FIT-D NA) [facility] Start: 2013 Colonoscopy COLONOSCOPY [facility] Start: 2013 COLORECTAL CANCER SCREENING COLORECTAL CANCER SCREENING [facility] Start: [address] COLONOGRAPHY [facility] Start: 2013 DIABETES SCREEN DIABETES SCREEN [facility] Start: 2013 FECAL OCCULT BLOOD FECAL OCCULT BLOO D [facility] Start: 2013 LIPID SCREEN LIPID SCREEN [facility] Start: 2013 SIGMOIDOSCOPY SIGMOIDOSCOPY [facility] Start: 01-30-2012 Mammography MAMMOGRAM [facility] Start: 1987 Urine microalbumin profile DTAP,TDAP,TD (1 - Tdap) [facility] Start: 1986 HEPATITIS C SCREENING HEPATITIS C SC REENING [facility] Start: 03-06-1969 COVID-19 VACCINE (#1) COVID-19 VACCI NE (#1) [facility] Start: 1968 HEPATITIS B (1 of 3 - 3-dose series) HEPATITIS B (1 of 3 - 3-dose series) [facility] Payers Date Payer Category Payer Self-pay [id number] 2024 Unknown [id number] 2017 Unknown ANTHEM ANTHEM BC BS FEP PPO [id number] 2017-Present [phone] [id number] [place] [address] PPO [id number] 1968 Unknown [id number] 1968 Unknown [id number] [id number] 1968 Unknown [id number] [id number] 1968 Unknown [id number] [id number] Unknown [id number] [id number] Unknown [id number] [id number] Unknown [id number] [id number] Unknown [id number] [id number] Unknown [id number] 2.16.840.1.914626.3.579.2.462 Unknown [id number] [id number] Unknown [id number] [id number] Unknown [id number] [id number] Social History Date Type Detail Facility Start: 06-26-2022 End: 04-20-2025 Tobacco smoking status KYIS Never smoked tobacco [facility] Work Phone: Start: 06-06-2022 Alcohol intake Current drinke r of alcohol (finding) [facility] Start: 1970 Sex Assigned At Not on file [facility] Start: 05-27-2022 End: 06-06-2022 Exposure to SARS-CoV-2 (event) Not sure [facility] Work Phone: Start: 06-26-2022 End: 06-26-2022 Tobacco smoking status NHIS Unknown if ever smoked [facility] Start: 08-03-2020 Non-smoker [facility] Start: 1970 Sex Assigned At Female [facility] Start: 12-02-2024 Sex Female (finding) [facility] Not [facility] Goals Date Patient Goal Desired Activity /State Mental Status Date Assessment Result Facility 04-26-2025 Cognitive function Voice/Name [facility] Work Phone: Clinical Notes 06-06-2022 to 04-26-2025 Note Date & Type Note Facility 04-26-2025 Consult note [facility] 04-26-2025 Consult note [facility] 04-26-2025 Procedure note [facility] 04-26-2025 Procedure note [facility] 04-26-2025 Consult note Note Date/Time April 26, 2025 9:19am [facility] Medical Records Department [address] [place] [address] Pre-Anesthesia Evaluation 04/26/25711 MR#: [id number] Acct: [id number] Name: KATHRYN DUGGAN Rep #:[id number] : 1970 54 From: Brooks Purcell MD PCP: Dr. 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 worker Female Yes 04/20/25 16:05 HX of Motion [...] 04/26/25 06:59 Respiratory Assessment Respiratory Assessment - quarry worker: Respiratory Tract Infection Hx - quarry worker Hx Respiratory Tract Infection No 04/20/25 16:05 STOP Sleep Apnea STOP Sleep Apnea - quarry worker: STOP Sleep Apnea - quarry worker Hx Hypertension No 04/20/25 16:05 Hx Sleep [...] Tobacco Use History Tobacco Use History - quarry worker: Tobacco Use History - quarry worker Tobacco Use Smoking Status Never smoker 04/20/25 16:05 Hx Tobacco Use No 04/20/25 16:05 Years Smoking Packs Smoked per Day Smoking Cessation Date was within the last 15 years Hx Smoking Cessation Date Hx Smoking Cessation Counseling Hematologic Medial History Hematologic Hx - quarry worker: Hematologic Medical Hx - netezza architect Hx of Blood Transfusion No 04/20/25 16:05 [...] confused, unrespo /Reproduction History /Reproductive History - quarry worker: /Reproductive Hx- quarry worker Hx Now No 04/20/25 16:05 Gestational Age [...] PO DAILY 06/26/22 Unknown History glucosamine 500 lt-ezjgecnvl-jjj 1 tab PO .qd 02/12/25 Unknown History no1 416.6 mg-C 20 qk-jwci-ttli tablet (Glucosamine-Chondroitin Complex) rosuvastatin 10 mg tablet [...] home: Yes 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 04/26/25711 <Electronically signed by Brooks Purcell MD > Date _ Brooks Purcell MD Cosigner Signature: Date CC: ~ Signed [facility] Work Phone: 1(561) 749-370909-22-2025 Consult note [facility] Medical Records Department [facility] [place] [address] Anesthesia Postop Eval I 04/26/2508 MR#: [id number] Acct: [id number] Name: KATHRYN DUGGAN Rep #:[id number] : 1970 54 From: Justin Sabillon PCP: Dr. Mariana Montaño, DO Status:REG [facility] Y Race: C Location: [place] [address] Anesthesia: Postop Eval I Current Vital Signs [...] Justin Fung Signature: Date CC: ~ Signed [facility]09-22-2025 Evaluation note* Diagnosis Onset Date Resolution Status Admit Date Encounter for screening colonoscopy acute April 26, 2025 6:38am [facility] Work Phone: 1(363) 737-751309-22-2025 History and physical note [facility] Medical Records Department [address] [place] [address] History & Physical Exam 04/26/25 0721 MR#: [id number] Acct: [id number] Name: KATHRYN DUGGAN Rep #:[id number] : 1970 54 From: Damon Orellana DO PCP: Dr. Mariana Montaño, DO Status:REG [facility] Location: [address] HPI - General General Date of [...] for hypercholesterolemia which is controlled with medicines. 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 Mariana Montaño, DO Status:[facility] Location: [place] [address] HPI - General General Date of Admission: [...] for hypercholesterolemia which is controlled with medicines. 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 Mariana Montaño, ; [facility] (more content not included)...[facility]12-15-2022 NotePap Smear Specimen AdequacyDecember 2021 4:17pm Comment.Satisfactory for evaluation. No endocervical cells are present. This isconsistent with a history ofhysterectomy.[facility] A#[id number] Southeastern Medical Center Work Phone: Comment on above:Satisfactory for evaluation. No endocervical cells are present. This isconsistent with a history ofhysterectomy. 07-19-2022 NotePap Smear QC ReviewDecember 2021 4:17pmComment.Mackenzie Diaz, Supervisory Vehicle Assembly Inspector ([facility] A#[id number] Southeastern Medical Center Work Phone: Comment on above:Mackenzie Diaz, Supervisory Vehicle Assembly Inspector ([facility])07-19-2022 NotePap Smear Specimen AdequacyDecember 2021 5:17pmComment.Satisfactory for evaluation. No endocervical cells are present. This isconsistent with a history ofhysterectomy.[facility] INTER[facility] A#[id number] Southeastern Medical CenterComment on above:Satisfactory for evaluation. No endocervical cells are present. This isconsistent with a history ofhysterectomy.07-19-2022 NotePap Smear QC ReviewDecember 2021 5:17pm Comment.Mackenzie Diaz, Supervisory Vehicle Assembly Inspector ([facility] A#[id number] Southeastern Medical CenterComment on above:Mackenzie Diaz, Supervisory Vehicle Assembly Inspector ([facility])06-07-2022 Miscellaneous Notes* Telephone Encounter - Halie Miller MA - 06/07/2022 8:50 AM EDT Pt was notified of the results. Pt verbalized understanding. Halie Miller MA * Telephone Encounter - Estela Lopez APRN.CNP - 06/07/2022 7:30 AM EDT Negative for flu and covid please notify thank you [facility] History of Present illness Narrative* Nic Walsh [...] started abruptly. Patient states they have used hjvn-lqe-lstywgm medication with some success. Patient denies any [...] of care. This note was generated using [employer] software. It may contain errors in wording, punctuation, or spelling. Nic Walsh APRN.JAYESH documented in this encounter[facility]11-[facility]-2022 Instructions* Patient Instructions* Nic Walsh APRN.CNP - [...] or concerning to you. documented [facility] Author RADU Sabillon [facility] Note Date/Time April 26, 2025 8:40am [facility] Medical Records Department [address] [place] [address] Anesthesia Postop Eval I 04/26/25 0808 MR#: [id number] Acct: [id number] Name: KATHRYN DUGGAN Rep #:[id number] : 1970 54 From: Justin Sabillon PCP: Dr. Mariana Montaño, DO Status:REG SD[facility] Y Race: C Location: [place] [address] Anesthesia: Postop Eval I Current Vital Signs [...] Sabillon Homersergio Signature: Date CC: ~ Signed [facility] Work Phone: Consult note Author Brooks Purcell [facility] Note Date/Time April 26, 2025 9:19am [facility] Medical Records Department [address] [place] [address] Anesthesia Postop Eval II 04/26/25914 MR#: [id number] Acct: [id number] Name: KATHRYN DUGGAN Rep #:[id number] : 1970 54 From: Brooks Purcell MD PCP: Dr. Mariana Montaño, DO Status:REG [facility] Y Race: C Location: [place] [address] Anesthesia Postop Eval I Sum Postop Eval [...] Brooks Fung Signature: Date CC: ~ Signed [facility] Work Phone: Evaluation note* Diagnosis Viral illness- Primary Unspecified viral infection, in conditions classified elsewhere and of unspecified site documented in this encounter [facility]* Diagnosis Onset Date Resolution Status Acute bronchitis acute Lump of right breast acute [facility] Work Phone: Evaluation note* Diagnosis Onset Date Resolution Status Lump of right breast acute [facility] Work Phone: Evaluation noteNo assessment information available [facility] Work Phone: History and physical note Author Damon Orellana [facility] Note Date/Time April 26, 2025 7:22am [facility] Medical Records Department [address] [place] [address] History & Physical Exam 04/26/25 07 MR#: [id number] Acct: [id number] Name: KATHRYN DUGGAN Rep #:[id number] : 1970 54 From: Damon Orellana DO PCP: Dr. Mariana Montaño DO Status:[facility] Location: [place] [address] HPI - General General Date of Admission: [...] for hypercholesterolemia which is controlled with medicines. 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 Yes April 20, 2025 4:05pm Summary Purpose Additional Source Comments Source Comments (unrecognize d section and content) In the event this informatio n is protected by the Federal Confidentiality of Alcohol and Drug Abuse Patient Records regulations: The Federal rules restrict any use of the information to criminally investigate or prosecute any alcohol or drug abuse patient.[facility] CenterIn the event this information is protected by the Federal Confidentiality of Alcohol and Drug Abuse Patient Records regulations: The Federal rules restrict any use of the information to criminally investigate or prosecute any alcohol or drug abuse patient.[facility] Reason for Visit (unrecogniz ed section and content) Reason Comments Fever SOB, chest tightness , chills, body aches x2 days Reason Comments Results Care Teams (unrecognized sec tion and content) Label Pinker Relationship Specialty Start Date End Date Mariana Montaño DO [address] [place] [place], [place] [address] PCP - General Family Medicine 04/08/18 Label Pinker Relationship Specialty Start Date End Date Mariana Montaño DO [address] [place] [address] PCP - General Family Medicine [...] End: March 05, 2025 Esterisaac Sadler , [employer]-C Attending Provider Active St art: March 05, 2025 End: March 05, 2025 Ester Doroteo , MALT[employer]-C Referring Provider Active St art: March 05, [...] End: March 05, 2025 Esterisaac Sadler , MALT[employer] M[employer]-C Attending physician Active S tart: March 05, 2025 End: March 05, 2025 Ester Doroteo , MALT[employer] M[employer]-C Referring Provider Active St art: March 05, [...] section and content) DATE CREATED AUTHOR 11/18/2024 [facility] DATE CREATED AUTHOR AUTHOR'S ORGANIZ ATION 02/06/2025 [facility] DATE CREATED AUTHOR AUTHOR'S ORGANIZ ATION 05/24/2025 [facility] FOR RECORDS PERTAINING TO PATIENTS WHO ARE [...] BE BASED ON THE PRIMARY CLINICAL RECORDS. [employer] provides no warranty or guarantee of the accuracy or completeness of information in this document.
== END | disposition home or self-care (01) ==
LOC: OPBI 07:17
PROVIDERS: PCP Family Medicine; Referring Provider Family Medicine; Visit Provider Family Medicine
DX: Z12.31 Encounter for screening mammogram for malignant neoplasm of breast (principal)
CPT/HCPCS: 77063; 77067